=== PATIENT | female | born 1950 | race Caucasian/White ===

== ENCOUNTER → 2020-04-29 | Emergency (ER) | payer MEDICARE, MEDICAID ==
[~2020-04-29] MED LIST: ONDANSETRON 4MG/2ML VIAL As Ordered ONE; ONDANSETRON 4MG/2ML VIAL ONE
--- NOTE | 2020-06-02 14:10 | ECGEPIP ---
SINUS BRADYCARDIA MODERATE T-WAVE ABNORMALITY, CONSIDER ANTERIOR ISCHEMIA ABNORMAL ECG SEE SCANNED DOWNTIME REPORT MTDD
[2020-06-14 01:57] LABS: HEMATOCRIT 42.5 % (36.0-47.0); HEMOGLOBIN 13.5 g/dl (12.0-15.5); MEAN CORPUSCULAR HEMOGLOBIN 27.6 pg (27.0-33.0); MEAN CORPUSCULAR HGB CONC 31.8 g/dl (32.0-36.5); MEAN CORPUSCULAR VOLUME 86.9 fl (80.0-96.0); PLATELET COUNT, AUTOMATED 271 10^3/uL (150-450); RED BLOOD COUNT 4.89 10^6/uL (4.00-5.40); WHITE BLOOD COUNT 5.9 10^3/uL (4.0-10.0)
[2020-06-14 02:08] LABS: INR 1.01; PROTHROMBIN TIME 13.5 SECONDS (12.5-14.3)
== END | disposition home or self-care (01) ==
LOC: M ED 15:21
DX: R00.2 Palpitations (principal); R42 Dizziness and giddiness; E11.9 Type 2 diabetes mellitus without complications; I51.9 Heart disease, unspecified; R56.9 Unspecified convulsions; Z79.899 Other long term (current) drug therapy; Z88.0 Allergy status to penicillin; Z88.1 Allergy status to other antibiotic agents; Z87.891 Personal history of nicotine dependence
CPT/HCPCS: 71046; 80053; 82550; 82553; 84484; 85027; 85610; 93005; 96374; 99284; J2405

== ENCOUNTER → 2021-04-25 | Outpatient (CLI) | payer MEDICARE, MEDICAID ==
[~2021-04-25] MED LIST changes: +CEFD300C41 PO; +COLA100C5 PO; +DEXI60CA2; +LORA1TAB4; -ONDANSETRON 4MG/2ML VIAL As Ordered ONE; -ONDANSETRON 4MG/2ML VIAL ONE; +PRAV40TA2; +REGL10TA6 PO; +VENL75CA47
[2021-04-25 17:24] LABS: HEMATOCRIT 42.2 % (36.0-47.0); HEMOGLOBIN 13.1 g/dl (12.0-15.5); MEAN CORPUSCULAR HEMOGLOBIN 26.7 pg (27.0-33.0); MEAN CORPUSCULAR VOLUME 86.1 fl (80.0-96.0); PLATELET COUNT, AUTOMATED 282 10^3/uL (150-450); WHITE BLOOD COUNT 6.7 10^3/uL (4.0-10.0)
[2021-04-25 17:39] LABS: ALBUMIN 3.4 GM/DL (3.2-5.2); ALT/SGPT 29 U/L (12-78); BILIRUBIN,TOTAL 0.3 MG/DL (0.2-1.0); BLOOD UREA NITROGEN 6 MG/DL (7-18); CALCIUM LEVEL 8.6 MG/DL (8.8-10.2); CARBON DIOXIDE LEVEL 28 MEQ/L (21-32); CHLORIDE LEVEL 111 MEQ/L (98-107); CHOLESTEROL LEVEL 205 MG/DL (<200); CHOLESTEROL RISK RATIO 3.727 (<5); CREATININE FOR GFR 0.76 MG/DL (0.55-1.30); GLOMERULAR FILTRATION RATE > 60.0 (>45); GLUCOSE, FASTING 90 MG/DL (70-100); HDL CHOLESTEROL 55 MG/DL (>40); LDL CHOLESTEROL 127 MG/DL (<100); NON-HDL-C 150 MG/DL; POTASSIUM SERUM 4.5 MEQ/L (3.5-5.1); SODIUM LEVEL 142 MEQ/L (136-145); TOTAL PROTEIN 6.7 GM/DL (6.4-8.2); TRIGLYCERIDES LEVEL 114 MG/DL (<150)
== END ==
LOC: M PLALAB 16:02
PROVIDERS: ATTEND Family Medicine
DX: Z13.220 Encounter for screening for lipoid disorders (principal); Z13.1 Encounter for screening for diabetes mellitus; I25.10 Atherosclerotic heart disease of native coronary artery without angina pectoris

== ENCOUNTER → 2021-06-23 | Outpatient (CLI) | payer MEDICARE, MEDICAID ==
--- NOTE | 2021-06-23 14:18 | REPMRS ---
Patient History The patient states she has not had a clinical breast exam in over a year. Patient has history of colorectal cancer at age 64. Family history of unknown cancer in mother, unknown cancer in father, breast cancer in maternal aunt, unknown cancer in maternal uncle, unknown cancer in maternal uncle. Patient states she had a bx many years ago that was a plugged milk duct in the left breast New baseline @ 70-priors no longer available Patient signed the MRS sheet No covid vaccine Patient Identification Verified Digital Woman Screen Mammo: June 23, 2021 - Exam #: [id number] Bilateral CC and MLO view(s) were taken. Technologist: Karyn Gr, Technologist No prior studies available for comparison. FINDINGS: There are scattered fibroglandular densities. The Volpara volumetric breast density category is: B. There is no evidence of dominant mass, architectural distortion, or grouped microcalcification typical of malignancy. 3-D tomosynthesis shows no additional findings. Assessment: BI-RADS/ACR category 1 mammogram. Negative Mammogram. Recommendation Routine screening mammogram of both breasts in 1 year (for women over age 40). This patient's [facility] Lifetime Breast Cancer RIsk is estimated at 6.4 %. This mammogram was interpreted with the aid of an FDA-approved computer-aided dectection system. Electronically Signed By: Arias Soriano MD 06/23/21 6846
--- NOTE | 2021-06-23 14:36 | DEXAMM ---
INDICATION: LOW BONE DENSITY. COMPARISON: None. TECHNIQUE: Bone density was measured using dual-energy x-ray absorptionmetry (DEXA). FINDINGS: AP SPINE L1-L4 BMD 0.959 g/cm2 Young Adult T-Score -1.9 Age Matched Z-Score -0.2. LT FEMUR, TOTAL BMD 0.770 g/cm2 Young Adult T-Score -1.9 Age Matched Z-Score -0.4. LT NECK BMD 0.685 g/cm2 Young Adult T-Score -2.5 Age Matched Z-Score -0.9. RT FEMUR, TOTAL BMD 0.724 g/cm2 Young Adult T-Score -2.2 Age Matched Z-Score -0.8. RT NECK BMD 0.685 g/cm2 Young Adult T-Score -2.5 Age Matched Z-Score -0.9. IMPRESSION: There is low bone density of the spine. There is osteoporosis of the left hip. There is osteoporosis of the right hip. FOLLOW-UP: Recommendation for the next bone density exam: 2 years. <Electronically signed by Arias Soriano > 06/23/21 0315
== END ==
LOC: M WHC 13:07
PROVIDERS: ATTEND Family Medicine
DX: Z12.31 Encounter for screening mammogram for malignant neoplasm of breast (principal); M85.80 Other specified disorders of bone density and structure, unspecified site; M81.0 Age-related osteoporosis without current pathological fracture

== ENCOUNTER 2021-08-08 03:16 | Emergency (ER) | payer MEDICARE, MEDICAID ==
[~2021-08-08] VITALS: Ht 162.6 cm; Wt 76.0 kg
--- OUTSIDE RECORDS SUMMARY | 2021-08-08 03:20 | CCD ---
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 Active conf irmed 062254318 Problem Memory change R41.3 Active confirmed 206573 006 Problem Mild persistent asthma without complication J45.30 Active confirmed 671328293 Problem THONG (obstructive sleep apnea) G47.33 Active confirm ed 59378088 Problem Primary hypertension I10 Active confirmed 03614417 Problem Pure hypercholesterolemia E78.00 Active confirmed 056551424 ALLERGIES Allergen (clinical drug ingredient) Drug/Non Drug Allergy do cumented on EMR Reaction Allergy Type Onset Date Status clarithromycin Biaxin vomiting Drug Allergy Active Penicillin (For Allergies Use Only) asthma attack Drug All ergy Active metronidazole Flagyl([facility] Code:[address]-82) vomiting Drug Allergy Active clindamycin Clindamycin HCl([facility] Code:[address]-02) vomiting Drug A llergy Active ENCOUNTERS from 1950 to 2021-06-08 Encounter Location Date Provider Diagnosis [address] [phone] [place] [address] May, Amanda Rodriguez IMMUNIZATIONS No Information SOCIAL HISTORY Sex Assigned At : Social History Observation Description Sex Assigned At Unknown Audit Question Answer Notes Total Score: 0 Interpretation: Alcohol Education Language: Question Answer Notes Languages spoken: Swedish Pentecostalism: Question Answer Notes Pentecostalism 08 Anglican Sexual Hx: Question Answer Notes Had sex in the last 12 months (vaginal, oral, or anal)? No Have you ever had an STD? No Drug and Alcohol Question Answer Notes Total Score: 0 Interpretation: No problems reported REASON FOR REFERRAL No Information VITAL SIGNS No information MEDICATIONS Medication SIG (Take, Route, Frequency, Duration) Notes Start Da te End Date Status LORazepam 1 MG 1 tablet orally TID PRN Active Albuterol Sulfate 2.5 MG/0.5ML as directed Inhalation Active Pravastatin Sodium 40 MG 1 tablet Orally Once a day Active Metoprolol Succinate ER 25 MG 1 tablet Orally Once a day Active Venlafaxine HCl ER 75 MG 1 capsule with food Orally Once a day Active Albuterol Sulfate 108 (90 Base) MCG/ACT 1 puff as needed Inh alation every 4 hrs Active Dexilant 60 MG 1 capsule Orally Once a day Active PROCEDURES No Information RESULTS No Results REASON FOR VISIT Pulm referral MEDICAL (GENERAL) HISTORY Type Description Date Medical History Reports hx [place] [id number]; cardi ac cath was normal in 2003 and Reg stress test was normal in 2019 - [place] Medical History CVA in 1981; TIA in 09/2018; reports TIA symptoms 09/2020 but did not seek care Medical History Seizure disorder - last seiz ure was 2017; psychogenic nonepileptic seizures per [facility] Neurology Medical History Reflux Medical History Anxiety - Dr. Robles Medical History HLD Medical History Colon cancer - 2013 or 2014, treated wit h surgery only Medical History Pancreatitis in Medical History Former smoker - quit 1992 Medical History ?Multiple sclerosis - no marcelle dence of this per Neurolgy notes from [facility] in 2012 Medical History History of kidney stones Medical History Asthma Medical History THONG - CPAP Surgical History Tonsillectomy child Surgical History Stents in heart 1989 Surgical History Cholecystectomy unknown Surgical History BTL 1990 Surgical History Colon cancer resection 2013 Hospitalization History surgery Hospitalization History 3 strokes unknown Hospitalization History 2 mini strokes in the past year 2020 Goals Section No Information Health Concerns No Information MEDICAL EQUIPMENT No Information MENTAL STATUS No Information FUNCTIONAL STATUS No Information ASSESSMENTS No Information PLAN OF TREATMENT Medication Medication Name Sig Start Date Stop Date LORazepam 1 MG 1 tablet orally TID PRN Venlafaxine HCl ER 75 MG 1 capsule with food Orally Once a day Albuterol Sulfate 108 (90 Base) MCG/ACT 1 puff as needed Inh alation every 4 hrs Metoprolol Succinate ER 25 MG 1 tablet Orally Once a day Pravastatin Sodium 40 MG 1 tablet Orally Once a day Next Appt Details Provider Name:Amanda Rodriguez, 2021-06-28 09:30:00 AM, [address] [facility], , [place], [address], Insurance Providers Payer Name Payer Address Payer Phone Insured Name Patient Relati onship to Insured Coverage Start Date Coverage End Date AETNA MEDICARE AETNA [employer] INSURANCE [employer] [address] [facility] [phone] [place] MEDICA[place] [employer] [address] [facility] [id number] [place] self
--- OUTSIDE RECORDS SUMMARY | 2021-08-08 03:20 | CCD ---
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 Active conf irmed 296587016 Problem Memory change R41.3 Active confirmed 416173 006 Problem Mild persistent asthma without complication J45.30 Active confirmed 472871104 Problem THONG (obstructive sleep apnea) G47.33 Active confirm ed 69702769 Problem Primary hypertension I10 Active confirmed 18009411 Problem Pure hypercholesterolemia E78.00 Active confirmed 978531901 ALLERGIES Allergen (clinical drug ingredient) Drug/Non Drug Allergy do cumented on EMR Reaction Allergy Type Onset Date Status clarithromycin Biaxin vomiting Drug Allergy Active Penicillin (For Allergies Use Only) asthma attack Drug All ergy Active metronidazole Flagyl([facility] Code:[address]-89) vomiting Drug Allergy Active clindamycin Clindamycin HCl([facility] Code:[address]-47) vomiting Drug A llergy Active ENCOUNTERS from 1950 to 2021-06-02 Encounter Location Date Provider Diagnosis [place] [address] [facility] [phone] [place] [address] May, Amanda Rodriguez Psychogenic nonepileptic sei zure F44.5 ; Memory change R41.3 ; Primary hypertension I10 ; Pure hypercholesterolemia E78.00 ; Anxiety F41.9 ; Mild persistent asthma without complication J45.30 ; THONG (obstructive sleep apnea) G47.33 and Greater trochanteric pain syndrome M25.559 IMMUNIZATIONS No Information SOCIAL HISTORY Sex Assigned At : Social History Observation Description Sex Assigned At Unknown Audit Question Answer Notes Total Score: 0 Interpretation: Alcohol Education Language: Question Answer Notes Languages spoken: Namibian Zoroastrianism: Question Answer Notes Zoroastrianism 08 Gnosticism Sexual Hx: Question Answer Notes Had sex in the last 12 months (vaginal, oral, or anal)? No Have you ever had an STD? No Drug and Alcohol Question Answer Notes Total Score: 0 Interpretation: No problems reported REASON FOR REFERRAL from 1950 to 2021-06-02 Reason Needs evaluation of THONG on C PAP and asthma with ALFARO Diagnosis 1 Mild persistent asthma witho ut complication (J45.30) Diagnosis 2 THONG (obstructive sleep apnea ) (G47.33) Referral Organization [facility] Referring Provider First Name Amanda [facility] Referring Provider Specialty Family Medicine Referred Provider [facility] Referred Provider Specialty Pulmonary Diseases Referral Priority Routine Reason Needs to transfer care from [facility] to local manager dairy Diagnosis 1 Primary hypertension (I10) Referral Organization [facility] Referring Provider First Name Amanda Referring Provider [facility] Referring Provider Specialty Family Medicine Referred Provider [facility] Referred Provider Specialty Cardiology Referral Priority Routine General Notes Anjelica Matthews 06/02/2021 7:5 8:04 AM > referral sent Reason Please evaluate and treat Diagnosis 1 Psychogenic nonepileptic sei zure (F44.5) Diagnosis 2 Memory change (R41.3) Referral Organization [facility] Referring Provider First Name Amanda Referring Provider [facility] Referring Provider Specialty Family Medicine Referred Provider [facility],Neurology Referred Provider Specialty Neurology Referral Priority Routine General Notes Anjelica Matthews 06/02/2021 7:5 7:27 AM > referral sentAnjelica Matthews 06/02/2021 2:08:15 PM > office has referral, patient not scheduled VITAL SIGNS Weight 165 lbs May, Height 64 in May, BMI 28.32 kg/m2 May, Heart Rate 85 /min May, Respiratory Rate 18 /min May, Temperature 96.1 degrees Fahrenheit May, Oximetry 95 May, Blood pressure systolic 126 mm Hg May, Blood pressure diastolic 74 mm Hg May, MEDICATIONS Medication SIG (Take, Route, Frequency, Duration) [...] Information RESULTS No Results REASON FOR VISIT 1 month (Reason: F/u med prob) MEDICAL (GENERAL) HISTORY Type Description Date Medical History Reports hx [place] [id number]; cardi ac cath was normal in 2003 and Reg stress test was normal in 2019 - [place] Medical History CVA in 1981; TIA in 09/2018; reports TIA symptoms 09/2020 but did not seek care Medical History Seizure disorder - last seiz ure was 2017; psychogenic nonepileptic seizures per [facility] Neurology Medical History Reflux Medical History Anxiety - Dr. Robles Medical History HLD Medical History Colon cancer - 2013 or 2014, treated wit h surgery only Medical History Pancreatitis in Medical History Former smoker - quit 1992 Medical History ?Multiple sclerosis - no marcelle dence of this per Neurolgy notes from [facility] in 2012 Medical History History of kidney [...] No Information FUNCTIONAL STATUS No Information ASSESSMENTS Encounter Date Diagnosis Assessment Notes Treatment Notes Treatm ent Clinical Notes May, Psychogenic nonepileptic seizure (ICD-10 - F44.5 ) Not on any antiseizure medications currently; requesting referral to Neurology. May, Memory change (ICD-10 - R41.3) Reports she is more forgetful recently; referred to Neurology per her request. May, Primary hypertension (ICD-10 - I10) BP is at goal; she is requesting to transfer to local cardiology. May, Pure hypercholesterolemia (ICD-10 - E78.00) Lipid panel as above. May, Anxiety (ICD-10 - F41.9) Reports she stopped venlafaxine 37.5 mg due to it causing fatigue; plans to f/u with Dr. Robles. May, Mild persistent asthma without complication (ICD -10 - J45.30) I suspect ALFARO is related to underlying asthma rather than cardiac disease as she has no chest pain and stress test was normal in 10/2019. I recommended she try using albuterol when SOB with exertion. She states she discussed ALFARO with her manager dairy, who recommended pulmonary evaluation. May, THONG (obstructive sleep apnea) (ICD-10 - G47.33) She feels her CPAP needs to be adjusted and is requesting referral to pulmonology. May, Greater trochanteric pain syndrome (ICD-10 - M25 .559) Will schedule for corticosteroid injection. PLAN OF TREATMENT Medication Medication Name Sig [...] MG 1 tablet Orally Once a day Treatment Notes Assessment Notes Clinical Notes Psychogenic nonepileptic seizure Not on any antiseizure medications currently; requesting referral to Neurology. Memory change Reports she is more forgetful recently; referred to Neurology per her request. Primary hypertension BP is at goal; she is requesting to transfer to local cardiology. Pure hypercholesterolemia Lipid panel as above. Anxiety Reports she stopped venlafaxine 37.5 mg due to it causing fatigue; plans to f/u with Dr. Robles. Mild persistent asthma without complication I suspect ALFARO is related to underlying asthma rather than cardiac disease as she has no chest pain and stress test was normal in 10/2019. I recommended she try using albuterol when SOB with exertion. She states she discussed ALFARO with her manager dairy, who recommended pulmonary evaluation. THONG (obstructive sleep apnea) She feels her CPAP needs to be adjusted and is requesting referral to pulmonology. Greater trochanteric pain syndrome Will schedule for corticosteroid injection. Referrals Referral Date Details Needs evaluation of THONG on C PAP and asthma with Rocio ALFARO Pulmonary Needs to transfer care from [facility] [place] to local [facility] ([facility]iology, [place]) [place] Please evaluate and treat, N eurology [facility] Next Appt Details as sched Reason: Provider Name:Amanda Rordiguez, 2021-06-28 09:30:00 AM, [address] [facility], , [place], [address], Insurance Providers Payer Name Payer Address Payer Phone Insured Name Patient Relati onship to Insured Coverage Start Date Coverage End Date AETNA MEDICARE AETNA [employer] INSURANCE [employer] [address] [facility] [phone] [place] MED[place] [employer] [address] [facility] [address] [place] self
--- OUTSIDE RECORDS SUMMARY | 2021-08-08 03:20 | CCD ---
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 Active conf irmed 855683159 Problem Memory change R41.3 Active confirmed 211686 006 Problem Mild persistent asthma without complication J45.30 Active confirmed 573157752 Problem THONG (obstructive sleep apnea) G47.33 Active confirm ed 23059144 Problem Primary hypertension I10 Active confirmed 53979184 Problem Pure hypercholesterolemia E78.00 Active confirmed 131210355 ALLERGIES Allergen (clinical drug ingredient) Drug/Non Drug Allergy do cumented on EMR Reaction Allergy Type Onset Date Status clarithromycin Biaxin vomiting Drug Allergy Active Penicillin (For Allergies Use Only) asthma attack Drug All ergy Active metronidazole Flagyl([facility] Code:[address]-76) vomiting Drug Allergy Active clindamycin Clindamycin HCl([facility] Code:[address]-49) vomiting Drug A llergy Active ENCOUNTERS from 1950 to 2021-06-08 Encounter Location Date Provider Diagnosis [address] [phone] [place] [address] May, Amanda Rodriguez IMMUNIZATIONS No Information SOCIAL HISTORY Sex Assigned At : Social History Observation Description Sex Assigned At Unknown Audit Question Answer Notes Total Score: 0 Interpretation: Alcohol Education Language: Question Answer Notes Languages spoken: Kyrgyz Holiness: Question Answer Notes Holiness 08 Presybeterian Sexual Hx: Question Answer Notes Had sex [...] Information RESULTS No Results REASON FOR VISIT Neuro referral MEDICAL (GENERAL) HISTORY Type Description Date Medical History Reports hx [place] [id number]; cardi ac cath was normal in 2003 and Reg stress test was normal in 2019 - [place] Medical History CVA in 1981; TIA in 09/2018; reports TIA symptoms 09/2020 but did not seek care Medical History Seizure disorder - last seiz ure was 2018; psychogenic nonepileptic seizures per [facility] Neurology Medical History Reflux Medical History Anxiety - Dr. Robles Medical History HLD Medical History Colon cancer - 2013 or 2014, treated wit h surgery only Medical History Pancreatitis in Medical History Former smoker - quit 1992 Medical History ?Multiple sclerosis - no marcelle dence of this per Neurolgy notes from [facility] in 2012 Medical History History of kidney [...] Provider Name:Amanda Rodriguez, 2021-06-28 09:30:00 AM, [address] [facility], , [place], [address], Insurance Providers Payer Name Payer Address Payer Phone Insured Name Patient Relati onship to Insured Coverage Start Date Coverage End Date MEDICAID [employer] [address] [facility] [id number] [place] AETNA MEDICARE AETNA [employer] INSURANCE [employer] [address] [facility] [phone] [place] self
--- OUTSIDE RECORDS SUMMARY | 2021-08-08 03:20 | CCD ---
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 Active conf irmed [id number] Problem Memory change R41.3 Active confirmed 464488 006 Problem Mild persistent asthma without complication J45.30 Active confirmed 070646507 Problem THONG (obstructive sleep apnea) G47.33 Active confirm ed 61032058 Problem Primary hypertension I10 Active confirmed 87662849 Problem Pure hypercholesterolemia E78.00 Active confirmed 399031220 ALLERGIES Allergen (clinical drug ingredient) Drug/Non Drug Allergy do cumented on EMR Reaction Allergy Type Onset Date Status clarithromycin Biaxin vomiting Drug Allergy Active Penicillin (For Allergies Use Only) asthma attack Drug All ergy Active metronidazole Flagyl([facility] Code:[address]-55) vomiting Drug Allergy Active clindamycin Clindamycin HCl(ND Code:[address]-46) vomiting Drug A llergy Active ENCOUNTERS from 1950 to 2021-06-29 Encounter Location Date Provider Diagnosis [place] [id number] [facility] [phone] [place] [address] Jun, Amanda Rodriguez Greater trochanteric pain sy ndrome of right lower extremity M25.551 ; Mild persistent asthma without complication J45.30 ; Other specified disorders of bone density and structure, right thigh M85.851 ; Other specified disorders of bone density and structure, left thigh M85.852 ; Anxiety F41.9 and Overweight E66.3 IMMUNIZATIONS No Information SOCIAL HISTORY Sex Assigned At : Social History Observation Description Sex Assigned At Unknown Audit Question Answer Notes Total Score: 0 Interpretation: Alcohol Education Language: Question Answer Notes Languages spoken: [place] Denominational: Question Answer Notes Denominational 08 Cheondoism Sexual Hx: Question Answer Notes Had sex in the last 12 months (vaginal, oral, or anal)? No Have you ever had an STD? No Drug and Alcohol Question Answer Notes Total Score: 0 Interpretation: No problems reported REASON FOR REFERRAL No Information VITAL SIGNS Weight 166 lbs Jun, Height 64 in Jun, BMI 28.49 kg/m2 Jun, Heart Rate 68 /min Jun, Respiratory Rate 18 /min Jun, Temperature 96.4 degrees Fahrenheit Jun, Oximetry 96 Jun, Blood pressure systolic 124 mm Hg Jun, Blood pressure diastolic 80 mm Hg Jun, MEDICATIONS Medication SIG (Take, Route, Frequency, Duration) Notes Start Da te End Date Status Dexilant 60 MG 1 capsule Orally Once a day Active LORazepam 1 MG 1 tablet orally TID PRN Active Albuterol Sulfate 2.5 MG/0.5ML as directed Inhalation Active Calcium + D3 600-800 MG-UNIT 1 tablet with a meal Oral ly Once a day for 90 day(s) Jun, Active Albuterol Sulfate 108 (90 Base) MCG/ACT 1 puff as needed Inh alation every 4 hrs Active Pravastatin Sodium 40 MG 1 tablet Orally Once a day Active Metoprolol Succinate ER 25 MG 1 tablet Orally Once a day Active Nitrostat 0.3 MG as directed Sublingual PRN Active Venlafaxine HCl ER 75 MG 1 capsule with food Orally twice a day Active PROCEDURES from 1950 to 2021-06-29 Procedure Date Ordered Result Body Site Medication: 1% Lidocaine Dilutent (xylocaine) 2021-06-28 N/ A Medication: Depo-Medrol 40mg IA (Methylprednisolone Acetate) 09-26-11 N/A RESULTS No Results REASON FOR VISIT Right greater trochanter bursa injection, F/u ALFARO, Review Dexa (osteoporosis) an d mammogram results MEDICAL (GENERAL) HISTORY Type Description Date Medical History Reports hx [place] [id number]; cardi ac cath was normal in 2003 and Reg stress test was normal in 2019 - [facility] Medical History CVA in 1982; TIA in 09/2018; reports TIA symptoms 09/2020 but did not seek care Medical History Seizure disorder - last seiz ure was 2018; psychogenic nonepileptic seizures per [facility] Neurology Medical History Reflux Medical History Anxiety - Dr. Robles Medical History HLD Medical History Colon cancer - 2013 or 2014, treated wit h surgery only Medical History Pancreatitis in Medical History Former smoker - quit 1992 Medical History ?Multiple sclerosis - no marcelle dence of this per Neurolgy notes from [facility] in 2012 Medical History History of kidney stones Medical History Asthma Medical History THONG - CPAP Medical History Osteopenia - Frax score of 10/1.8% on [place] in 06/2021 Surgical History Tonsillectomy child Surgical History Stents [...] Notes Treatment Notes Treatm ent Clinical Notes Jun, Mild persistent asthma without complication (ICD -10 - J45.30) Symptoms improved with albuterol PRN. She declines alternative inhaler (such as a steroid inhaler); she received paperwork from [facility] and completed it and just needs to mail it back. Jun, Greater trochanteric pain sy ndrome of right lower extremity (ICD-10 - M25.551) Informed consent obtained, risks and benefits explained. See procedure note. I educated her on signs of infection and asked her to call with any redness, swelling, or fever. I advised that pain may worsen today or tomorrow and then will hopefully improve. Jun, Other specified disorders of bone density and structure, right thigh (ICD-10 - M85.851) Osteopenia but Frax score low enough that she does not need to start a bisphosphonate. Jun, Other specified disorders of bone density and structure, left thigh (ICD-10 - M85.852) Jun, Anxiety (ICD-10 - F41.9) I advised that her proposed slower wean is reasonable, but I recommended she d/w Dr. Robles. Jun, Overweight (ICD-10 - E66.3) She is motivated to lose weight; I discussed healthy dietary changes. I recommended slow, incremental changes over time that are sustainable, with weight loss of no more than 1-2 lbs per week. She drinks soda and juice; I recommended she start by cutting back on liquid calories. PLAN OF TREATMENT Medication Medication Name Sig Start Date Stop Date Venlafaxine HCl ER 75 MG 1 capsule with food Orally twice a day Calcium + D3 600-800 MG-UNIT 1 tablet with a meal Oral ly Once a day for 90 day(s) Jun, LORazepam 1 MG 1 tablet orally TID PRN Albuterol Sulfate 108 (90 Base) MCG/ACT 1 puff as needed Inh alation every 4 hrs Treatment Notes Assessment Notes Clinical Notes Mild persistent asthma without complication Symptoms improved with albuterol PRN. She declines alternative inhaler (such as a steroid inhaler); she received paperwork from [facility] and completed it and just needs to mail it back. Greater trochanteric pain syndrome of right lower extremity Informed consent obtained, risks and benefits explained. See procedure note. I educated her on signs of infection and asked her to call with any redness, swelling, or fever. I advised that pain may worsen today or tomorrow and then will hopefully improve. Other specified disorders of bone density and structure, rig ht thigh Osteopenia but Frax score low enough that she does not need to start a bisphosphonate. Anxiety I advised that her p roposed slower wean is reasonable, but I recommended she d/w Dr. Robles. Overweight She is motivated to lose weight; I discussed healthy dietary changes. I recommended slow, incremental changes over time that are sustainable, with weight loss of no more than 1-2 lbs per week. She drinks soda and juice; I recommended she start by cutting back on liquid calories. Next Appt Details Oct or November 2021; 30 min Reason:AWV Provider Name:Amanda Missy Rodriguez, 2021-11-14 10:00:00 AM, [address] [facility], , [place], [address], Follow Up:Oct or November 2021; 30 minAWV Insurance Providers Payer Name Payer Address Payer Phone Insured Name Patient Relati onship to Insured Coverage Start Date Coverage End Date AETNA MEDICARE AETNA LIFE [employer]URANCE [employer] [address] [facility] [address] [place] MEDICA[place] [employer] [address] [facility] [id number] [place] self
--- OUTSIDE RECORDS SUMMARY | 2021-08-08 03:20 | CCD ---
Author Author [facility] Organization 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 Active conf irmed 324894240 Problem Memory change R41.3 Active confirmed 121855 006 Problem Mild persistent asthma without complication J45.30 Active confirmed 022076840 Problem THONG (obstructive sleep apnea) G47.33 Active confirm ed 51499927 Problem Primary hypertension I10 Active confirmed 29567620 Problem Pure hypercholesterolemia E78.00 Active confirmed 465569552 ALLERGIES Allergen (clinical drug ingredient) Drug/Non Drug Allergy do cumented on EMR Reaction Allergy Type Onset Date Status clarithromycin Biaxin vomiting Drug Allergy Active Penicillin (For Allergies Use Only) asthma attack Drug All ergy Active metronidazole Flagyl([facility] Code:[address]-33) vomiting Drug Allergy Active clindamycin Clindamycin HCl(ND Code:[address]-69) vomiting Drug A llergy Active ENCOUNTERS from 1950 to 2021-07-06 Encounter Location Date Provider Diagnosis [address] [phone] [place] [address] Jun, Amanda Rodriguez IMMUNIZATIONS No Information SOCIAL HISTORY Sex Assigned At : Social History Observation Description Sex Assigned At Unknown Audit Question Answer Notes Total Score: 0 Interpretation: Alcohol Education Language: Question Answer Notes Languages spoken: Yi Yazdanism: Question Answer Notes Yazdanism 08 Hoahaoism Sexual Hx: Question Answer Notes Had sex [...] food Orally twice a day Active PROCEDURES No Information RESULTS No Results REASON FOR VISIT Pulm referral MEDICAL (GENERAL) HISTORY Type Description Date Medical History Reports hx [place] [id number]; cardi ac cath was normal in 2003 and Reg stress test was normal in 2019 - [facility] Medical History CVA in 1981; TIA in 09/2018; reports TIA symptoms 09/2020 but did not seek care Medical History Seizure disorder - last seiz ure was 2018; psychogenic nonepileptic seizures per [facility] Neurology Medical History Reflux Medical History Anxiety - Dr. Robles Medical History HLD Medical History Colon cancer - 2013 or 2014, treated wit h surgery only Medical History Pancreatitis in Medical History Former smoker - quit 1992 Medical History ?Multiple sclerosis - no marcelle dence of this per Neurolgy notes from [facility] in 2012 Medical History History of [...] as needed Inh alation every 4 hrs Next Appt Details Provider Name:Amanda Rodriguez, 2021-11-14 10:00:00 AM, [address] [facility], , [place], [address], Insurance Providers Payer Name Payer Address Payer Phone Insured Name Patient Relati onship to Insured Coverage Start Date Coverage End Date MEDICAID [employer] [address] [facility] [id number] [place] AETNA MEDICARE AETNA [employer] [address] [facility] [id number] [place] self
--- OUTSIDE RECORDS SUMMARY | 2021-08-08 03:21 | CCD ---
Author Author [facility] Organization [facility] Address Unknown Phone Unavailable Care Team Providers Care Claims Auditor Name Role Phone Peever, A Jannet NON MORSE INTERCEPT TECHNICIAN Unavailable Unavailable Peever, A Jannet NON MORSE INTERCEPT TECHNICIAN Unavailable Unavailable Peever, A Jannet NON MORSE INTERCEPT TECHNICIAN Unavailable Unavailable Peever, A Jannet NON MORSE INTERCEPT TECHNICIAN Unavailable Unavailable Peever, A Jannet NON MORSE INTERCEPT TECHNICIAN Unavailable Unavailable Peever, A Jannet NON MORSE INTERCEPT TECHNICIAN Unavailable Unavailable Peever, A Jannet NON MORSE INTERCEPT TECHNICIAN Unavailable Unavailable Peever, A Jannet NON MORSE INTERCEPT TECHNICIAN Unavailable Unavailable Peever, A Jannet NON MORSE INTERCEPT TECHNICIAN Unavailable Unavailable Peever, A Jannet NON MORSE INTERCEPT TECHNICIAN Unavailable Unavailable Peever, A Jannet NON MORSE INTERCEPT TECHNICIAN Unavailable Unavailable Peever, A Jannet NON MORSE INTERCEPT TECHNICIAN Unavailable Unavailable Peever, A Jannet NON MORSE INTERCEPT TECHNICIAN Unavailable Unavailable Peever, A Jannet NON MORSE INTERCEPT TECHNICIAN Unavailable Unavailable Josiah, P Jeffrey DO Unavailable Unavailable Josiah, P Jeffrey DO Unavailable Unavailable Josiah, P Jeffrey DO Unavailable Unavailable Josiah, P Jeffrey DO Unavailable Unavailable Josiah, P Jeffrey DO Unavailable Unavailable Josiah, P Jeffrey DO Unavailable Unavailable Josiah, P Jeffrey DO Unavailable Unavailable Josiah, P Jeffrey DO Unavailable Unavailable Josiah, P Jeffrey DO Unavailable Unavailable Josiah, P Jeffrey DO Unavailable Unavailable Josiah, P Jeffrey DO Unavailable Unavailable Josiah, P Jeffrey DO Unavailable Unavailable Josiah, P Jeffrey DO Unavailable Unavailable Josiah, P Jeffrey DO Unavailable Unavailable Josiah, P Jeffrey DO Unavailable Unavailable Josiah, P Jeffrey DO Unavailable Unavailable Josiah, P Jeffrey DO Unavailable Unavailable Josiah, P Jeffrey DO Unavailable Unavailable Josiah, P Jeffrey DO Unavailable Unavailable Josiah, P Jeffrey DO Unavailable Unavailable Josiah, P Jeffrey DO Unavailable Unavailable Josiah, P Jeffrey DO Unavailable Unavailable Josiah, P Jeffrey DO Unavailable Unavailable Josiah, P Jeffrey DO Unavailable Unavailable Josiah, P Jeffrey DO Unavailable Unavailable Josiah, P Jeffrey DO Unavailable Unavailable Josiah, P Jeffrey DO Unavailable Unavailable Josiah, P Jeffrey DO Unavailable Unavailable Josiah, P Jeffrey DO Unavailable Unavailable Josiah, P Jeffrey DO Unavailable Unavailable Josiah, P Jeffrey DO Unavailable Unavailable Josiah, P Jeffrey DO Unavailable Unavailable Josiah, P Jeffrey DO Unavailable Unavailable Josiah, P Jeffrey DO Unavailable Unavailable Josiah, P Jeffrey DO Unavailable Unavailable Josiah, P Jeffrey DO Unavailable Unavailable Josiah, P Jeffrey DO Unavailable Unavailable Josiah, P Jeffrey DO Unavailable Unavailable Josiah, P Jeffrey DO Unavailable Unavailable Josiah, P Jeffrey DO Unavailable Unavailable Josiah, P Jeffrey DO Unavailable Unavailable Josiah, P Jeffrey DO Unavailable Unavailable Josiah, P Jeffrey DO Unavailable Unavailable Josiah, P Jeffrey DO Unavailable Unavailable Josiah, P Jeffrey DO Unavailable Unavailable Josiah, P Jeffrey DO Unavailable Unavailable Josiah, P Jeffrey DO Unavailable Unavailable Josiah, P Jeffrey DO Unavailable Unavailable Josiah, P Jeffrey DO Unavailable Unavailable Josiah, P Jeffrey DO Unavailable Unavailable Josiah, P Jeffrey DO Unavailable Unavailable Josiah, P Jeffrey DO Unavailable Unavailable Josiah, P Jeffrey DO Unavailable Unavailable Josiah, P Jeffrey DO Unavailable Unavailable Josiah, P Jeffrey DO Unavailable Unavailable Josiah, P Jeffrey DO Unavailable Unavailable Josiah, P Jeffrey DO Unavailable Unavailable Josiah, P Jeffrey DO Unavailable Unavailable Josiah, P Jeffrey DO Unavailable Unavailable Josiah, P Jeffrey DO Unavailable Unavailable Josiah, P Jeffrey DO Unavailable Unavailable Josiah, P Jeffrey DO Unavailable Unavailable Josiah, P Jeffrey DO Unavailable Unavailable Josiah, P Jeffrey DO Unavailable Unavailable Josiah, P Jeffrey DO Unavailable Unavailable Josiah, P Jeffrey DO Unavailable Unavailable Josiah, P Jeffrey DO Unavailable Unavailable Josiah, P Jeffrey DO Unavailable Unavailable Josiah, P Jeffrey DO Unavailable Unavailable Josiah, P Jeffrey DO Unavailable Unavailable Josiah, P Jeffrey DO Unavailable Unavailable Josiah, P Jeffrey DO Unavailable Unavailable Josiah, P Jeffrey DO Unavailable Unavailable Josiah, P Jeffrey DO Unavailable Unavailable Price Boone MD Unavailable Unavailable Price Boone MD Unavailable Unavailable Price Boone MD Unavailable Unavailable Price Boone MD Unavailable Unavailable Price Boone MD Unavailable Unavailable Price Boone MD Unavailable Unavailable Price Boone MD Unavailable Unavailable Price Boone MD Unavailable Unavailable Price Boone MD Unavailable Unavailable Price Boone MD Unavailable Unavailable Price Boone MD Unavailable Unavailable Price Boone MD Unavailable Unavailable Price Boone MD Unavailable Price Montesinos MD Unavailable Price Montesinos MD Unavailable Price Montesinos MD Unavailable Unavailable Price Boone MD Unavailable Unavailable Price Boone MD Unavailable Unavailable Price Boone MD Unavailable Price Montesinos MD Unavailable Price Montesinos MD Unavailable Price Montesinos MD Unavailable Price Montesinos MD Unavailable Price Montesinos MD Unavailable Price Montesinos MD Unavailable Price Montesinos MD Unavailable Price Montesinos MD Unavailable Price Montesinos MD Unavailable Price Montesinos MD Unavailable Price Montesinos MD Unavailable Price Montesinos MD Unavailable Unavailable Price Boone MD Unavailable Unavailable Price Boone MD Unavailable Price Montesinos MD Unavailable Price Montesinos MD Unavailable Price Montesinos MD Unavailable Price Montesinos MD Unavailable Unavailable Price Boone MD Unavailable Unavailable Price Boone MD Unavailable Unavailable Price Boone MD Unavailable Price Montesinos MD Unavailable Price Montesinos MD Unavailable Price Montesinos MD Unavailable Price Montesinos MD Unavailable Price Montesinos MD Unavailable Price Montesinos MD Unavailable Unavailable Price Boone MD Unavailable Price Montesinos MD Unavailable Unavailable Price Boone MD Unavailable Unavailable Price Boone MD Unavailable Unavailable Price Boone MD Unavailable Unavailable Price Boone MD Unavailable Unavailable Price Boone MD Unavailable Unavailable Sharad Mosqueda MD Unavailable Unavailable Sharad Mosqueda MD Unavailable Unavailable Sharad Mosqueda MD Unavailable Unavailable Sharad Mosqueda MD Unavailable Unavailable Sharad Mosqueda MD Unavailable Unavailable Sharad Mosqueda MD Unavailable Unavailable Sharad Mosqueda MD Unavailable Unavailable Sharad Mosqueda MD Unavailable Unavailable Sharad Mosqueda MD Unavailable Unavailable Sharad Mosqueda MD Unavailable Unavailable Sharad Mosqueda MD Unavailable Unavailable Sharad Mosqueda MD Unavailable Unavailable Sharad Mosqueda MD Unavailable Unavailable Sharad Mosqueda MD Unavailable Unavailable Sharad Mosqueda MD Unavailable Unavailable Sharad Mosqueda MD Unavailable Unavailable Sharad Mosqueda MD Unavailable Unavailable Sharad Mosqueda MD Unavailable Unavailable Sharad Mosqueda MD Unavailable Unavailable Sharad Mosqueda MD Unavailable Unavailable Sharad Mosqueda MD Unavailable Unavailable Sharad Mosqueda MD Unavailable Unavailable Sahrad Mosqueda MD Unavailable Unavailable Sharad Mosqueda MD Unavailable Unavailable Sharad Mosqueda MD Unavailable Unavailable Sharad Mosqueda MD Unavailable Unavailable Sharad Mosqueda MD Unavailable Unavailable Sharad Mosqueda MD Unavailable Unavailable Sharad Mosqueda MD Unavailable Unavailable Sharad Mosqueda MD Unavailable Unavailable Sharad Mosqueda MD Unavailable Unavailable Sharad Mosqueda MD Unavailable Unavailable Sharad Mosqueda MD Unavailable Unavailable Sharad Mosqueda MD Unavailable Unavailable Sharad Mosqueda MD Unavailable Unavailable Sharad Mosqueda MD Unavailable Unavailable Sharad Mosqueda MD Unavailable Unavailable Sharad Mosqueda MD Unavailable Unavailable Sharad Mosqueda MD Unavailable Unavailable Sharad Mosqueda MD Unavailable Unavailable Sharad Mosqueda MD Unavailable Unavailable Sharad Mosqueda MD Unavailable Unavailable Sharad Mosqueda MD Unavailable Unavailable Sharad Mosqueda MD Unavailable Unavailable Sharad Mosqueda MD Unavailable Unavailable Sharad Mosqueda MD Unavailable Unavailable Sharad Mosqueda MD Unavailable Unavailable Sharad Mosqueda MD Unavailable Unavailable Sharad Mosqueda MD Unavailable Unavailable Sharad Mosqueda MD Unavailable Unavailable Sharad Mosqueda MD Unavailable Unavailable Sharad Mosqueda MD Unavailable Unavailable Sharad Mosqueda MD Unavailable Unavailable Sharad Mosqueda MD Unavailable Unavailable Sharad Mosqueda MD Unavailable Unavailable Sharad Mosqueda MD Unavailable Unavailable Sharad Mosqueda MD Unavailable Unavailable Sharad Mosqueda MD Unavailable Unavailable Sharad Mosqueda MD Unavailable Unavailable Sharad Mosqueda MD Unavailable Unavailable Sharad Mosqueda MD Unavailable Unavailable Sharad Mosqueda MD Unavailable Unavailable Sharad Mosqueda MD Unavailable Unavailable Sharad Mosqueda MD Unavailable Unavailable Sharad Mosqueda MD Unavailable Unavailable Sharad Mosqueda MD Unavailable Unavailable Sharad Mosqueda MD Unavailable Unavailable Sharad Mosqueda MD Unavailable Unavailable Sharad Mosqueda MD Unavailable Unavailable Sharad Mosqueda MD Unavailable Unavailable Sharad Mosqueda MD Unavailable Unavailable Sharad Mosqueda MD Unavailable Unavailable Sharad Mosqueda MD Unavailable Unavailable Sharad Mosqueda MD Unavailable Unavailable Sharad Mosqueda MD Unavailable Unavailable Sharad Mosqueda MD Unavailable Unavailable Sharad Mosqueda MD Unavailable Unavailable Sharad Mosqueda MD Unavailable Unavailable Jalen Yi MD Unavailable Unavailable Jalen Yi MD Unavailable Unavailable Jalen Yi MD Unavailable Unavailable Jalen Yi MD Unavailable Unavailable Jalen Yi MD Unavailable Unavailable Jalen Yi MD Unavailable Unavailable Jalen Yi MD Unavailable Unavailable Jalen Yi MD Unavailable Unavailable Jalen Yi MD Unavailable Unavailable Jalen Yi MD Unavailable Unavailable Jalen Yi MD Unavailable Unavailable Jalen Yi MD Unavailable Unavailable Jalen Yi MD Unavailable Unavailable Braxton Rodriguez MD Unavailable Unavailable Braxton Rodriguez MD Unavailable Unavailable Braxton Rodriguez MD Unavailable Unavailable Braxton Rodriguez MD Unavailable Unavailable Braxton Rodriguez MD Unavailable Unavailable Braxton Rodriguez MD Unavailable Unavailable Braxton Rodriguez MD Unavailable Unavailable Braxton Rodriguez MD Unavailable Unavailable Braxton Rodriguez MD Unavailable Unavailable Braxton Rodriguez MD Unavailable Unavailable Braxton Rodriguez MD Unavailable Unavailable Braxton Rodriguez Amanda MD Unavailable Unavailable Braxton Rodriguez Amanda MD Unavailable Unavailable Braxton Rodriguez MD Unavailable Unavailable Michael E Amanda MD Unavailable Unavailable Skipton, E Amanda MD Unavailable Unavailable Skipton, E Amanda MD Unavailable Unavailable Skipton, E Amanda MD Unavailable Unavailable Skipton, E Amanda MD Unavailable Unavailable Skipton, E Amanda MD Unavailable Unavailable Skipton, E Amanda MD Unavailable Unavailable Skipton, E Amanda MD Unavailable Unavailable Skipton, E Amanda MD Unavailable Unavailable Skipton, E Amanda MD Unavailable Unavailable Skipton, E Amanda MD Unavailable Unavailable Skipton, E Amanda MD Unavailable Unavailable Skipton, E Amanda MD Unavailable Unavailable Skipton, E Amanda MD Unavailable Unavailable Skipton, E Amanda MD Unavailable Unavailable Skipton, E Amanda MD Unavailable Unavailable Skipton, E Amanda MD Unavailable Unavailable Skipton, E Amanda MD Unavailable Unavailable Skipton, E Amanda MD Unavailable Unavailable Skipton, E Amanda MD Unavailable Unavailable Skipton, E Amanda MD Unavailable Unavailable Skipton, E Amanda MD Unavailable Unavailable Skipton, E Amanda MD Unavailable Unavailable Skipton, E Amanda MD Unavailable Unavailable Skipton, E Amanda MD Unavailable Unavailable Skipton, E Amanda MD Unavailable Unavailable Skipton, E Amanda MD Unavailable Unavailable Skipton, E Amanda MD Unavailable Unavailable Skipton, E Amanda MD Unavailable Unavailable Skipton, E Amanda MD Unavailable Unavailable Skipton, E Amanda MD Unavailable Unavailable Skipton, E Amanda MD Unavailable Unavailable Skipton, E Amanda MD Unavailable Unavailable Skipton, E Amanda MD Unavailable Unavailable Skipton, E Amanda MD Unavailable Unavailable Skipton, E Amanda MD Unavailable Unavailable Skipton, E Amanda MD Unavailable Unavailable Skipton, E Amanda MD Unavailable Unavailable Skipton, E Amanda MD Unavailable Unavailable Skipton, E Amanda MD Unavailable Unavailable Skipton, E Amanda MD Unavailable Unavailable Skipton, E Amanda MD Unavailable Unavailable Skipton, E Amanda MD Unavailable Unavailable Skipton, E Amanda MD Unavailable Unavailable Skipton, E Amanda MD Unavailable Unavailable Skipton, E Amanda MD Unavailable Unavailable MERCEDES TORRES MD Unavailable Unavailable MERCEDES TORRES MD Unavailable Unavailable MERCEDES TORRES MD Unavailable Unavailable MERCEDES TORRES MD Unavailable Unavailable MERCEDES TORRES MD Unavailable Unavailable MERCEDES TORRES MD Unavailable Unavailable MERCEDES TORRES MD Unavailable Unavailable ODSHOAIB, MERCEDES JAVED MD Unavailable Unavailable ODMERCEDES CRAMER MD Unavailable Unavailable ODSHOAIB, MERCEDES JAVED MD Unavailable Unavailable MELISSA, MERCEDES JAVED MD Unavailable Unavailable ODMERCEDES CRAMER MD Unavailable Unavailable MELISSA, MERCEDES JAVED MD Unavailable Unavailable MELISSA, MERCEDES JAVED MD Unavailable Unavailable ODSHOAIB, MERCEDES JAVED MD Unavailable Unavailable ODELIDAOLSJOVAN, MERCEDES JAVED MD Unavailable Unavailable ODSHOAIB, MERCEDES JAVED MD Unavailable Unavailable MELISSA, MERCEDES JAVED MD Unavailable Unavailable ODSHOAIB, MERCEDES JAVED MD Unavailable Unavailable MELISSA, MERCEDES JAVED MD Unavailable Unavailable MELISSA, MERCEDES JAVED MD Unavailable Unavailable MELISSA, MERCEDES JAVED MD Unavailable Unavailable MELISSA, MERCEDES JAVED MD Unavailable Unavailable MELISSA, MERCEDES JAVED MD Unavailable Unavailable MELISSA, MERCEDES JAVED MD Unavailable Unavailable MERCEDES TORRES MD Unavailable Unavailable MELISSA, MERCEDES JAVED MD Unavailable Unavailable MERCEDES TORRES MD Unavailable Unavailable MELISSA, MERCEDES JAVED MD Unavailable Unavailable MERCEDES TORRES MD Unavailable Unavailable MERCEDES TORRES MD Unavailable Unavailable MERCEDES TORRES MD Unavailable Unavailable MERCEDES TORRES MD Unavailable Unavailable MERCEDES TORRES MD Unavailable Unavailable MERCEDES TORRES MD Unavailable Unavailable MERCEDES TORRES MD Unavailable Unavailable MERCEDES TORRES MD Unavailable Unavailable MERCEDES TORRES MD Unavailable Unavailable MERCEDES TORRES MD Unavailable Unavailable MERCEDES TORRES MD Unavailable Unavailable MERCEDES TORRES MD Unavailable Unavailable MERCEDES TORRES MD Unavailable Unavailable MERCEDES TORRES MD Unavailable Unavailable MERCEDES TORRES MD Unavailable Unavailable MERCEDES TORRES MD Unavailable Unavailable MERCEDES TORRES MD Unavailable Unavailable Maring, Harris PA Unavailable Unavailable Maring, Harris PA Unavailable Unavailable Maring, Harris PA Unavailable Unavailable Maring, Harris PA Unavailable Unavailable Maring, Harris PA Unavailable Unavailable Maring, Harris PA Unavailable Unavailable Maring, Harris PA Unavailable Unavailable Maring, Harris PA Unavailable Unavailable Maring, Harris PA Unavailable Unavailable Maring, Harris PA Unavailable Unavailable Maring, Harris PA Unavailable Unavailable Maring, Harris PA Unavailable Unavailable Maring, Harris PA Unavailable Unavailable Maring, Harris PA Unavailable Unavailable Maring, Harris PA Unavailable Unavailable Maring, Harris PA Unavailable Unavailable Ivan Laguerre MD Unavailable Unavailable Ivan Laguerre MD Unavailable Unavailable Ivan Laguerre MD Unavailable Unavailable AhmedIvan MD Unavailable Unavailable AhIvan ruffin MD Unavailable Unavailable AhmedIvan MD Unavailable Unavailable Ivan Laguerre MD Unavailable Unavailable Ivan Laguerre MD Unavailable Unavailable Ivna Laguerre MD Unavailable Unavailable Ivan Laguerre MD Unavailable Unavailable Ivan Laguerre MD Unavailable Unavailable Ivan Laguerre MD Unavailable Unavailable Ivan Laguerre MD Unavailable Unavailable Ivan Laguerre MD Unavailable Unavailable Ivan Laguerre MD Unavailable Unavailable Ivan Laguerre MD Unavailable Unavailable Ivan Laguerre MD Unavailable Unavailable Ivan Laguerre MD Unavailable Unavailable Ivan Laguerre MD Unavailable Unavailable Ivan Laguerre MD Unavailable Unavailable Ivan Laguerre MD Unavailable Unavailable Ivan Laguerre MD Unavailable Unavailable Ivan Laguerre MD Unavailable Unavailable Ivan Laguerre MD Unavailable Unavailable Ivan Laguerre MD Unavailable Unavailable Ivan Laguerre MD Unavailable Unavailable Ivan Laguerre MD Unavailable Unavailable Ivan Laguerre MD Unavailable Unavailable Ivan Laguerre MD Unavailable Unavailable Ivan Laguerre MD Unavailable Unavailable Ivan Laguerre MD Unavailable Unavailable Ivan Laguerre MD Unavailable Unavailable Ivan Laguerre MD Unavailable Unavailable Ahmed, M Mohamed MD Unavailable Unavailable Ahmed, M Mohamed MD Unavailable Unavailable Ahmed, M Mohamed MD Unavailable Unavailable Ahmed, M Mohamed MD Unavailable Unavailable Ahmed, M Mohamed MD Unavailable Unavailable Ahmed, M Mohamed MD Unavailable Unavailable Ahmed, M Mohamed MD Unavailable Unavailable Ahmed, M Mohamed MD Unavailable Unavailable Ahmed, M Mohamed MD Unavailable Unavailable Ahmed, M Mohamed MD Unavailable Unavailable Ahmed, M Mohamed MD Unavailable Unavailable Ahmed, M Mohamed MD Unavailable Unavailable Ahmed, M Mohamed MD Unavailable Unavailable Ahmed, M Mohamed MD Unavailable Unavailable Ahmed, M Mohamed MD Unavailable Unavailable Ahmed, M Mohamed MD Unavailable Unavailable Sofia COLEMAN MD Unavailable Unavailable Sofia COLEMAN MD Unavailable Unavailable Sofia COLEMAN MD Unavailable Unavailable Sofia COLEMAN MD Unavailable Unavailable Sofia COLEMAN MD Unavailable Unavailable Sofia COLEMAN MD Unavailable Unavailable Sofia COLEMAN MD Unavailable Unavailable Sofia COLEMAN MD Unavailable Unavailable Sofia COLEMAN MD Unavailable Unavailable Sofia COLEMAN MD Unavailable Unavailable Sofia COLEMAN MD Unavailable Unavailable Sofia COLEMAN MD Unavailable Unavailable Sofia COLEMAN MD Unavailable Unavailable Sofai COLEMAN MD Unavailable Unavailable Sofia COLEMAN MD Unavailable Unavailable Sofia COLEMAN MD Unavailable Unavailable Sofia COLEMAN MD Unavailable Unavailable Sofia COLEMAN MD Unavailable Unavailable Sofia COLEMAN MD Unavailable Unavailable Sofia COLEMAN MD Unavailable Unavailable Sofia COLEMAN MD Unavailable Unavailable Sofia COLEMAN MD Unavailable Unavailable Sofia COLEMAN MD Unavailable Unavailable Sofia COLEMAN MD Unavailable Unavailable Sofia COLEMAN MD Unavailable Unavailable Sofia COLEMAN MD Unavailable Unavailable Sofia COLEMAN MD Unavailable Unavailable Sofia COLEMAN MD Unavailable Unavailable Sofia COLEMAN MD Unavailable Unavailable Sofia COLEMAN MD Unavailable Unavailable Sofia COLEMAN MD Unavailable Unavailable Sofia COLEMAN MD Unavailable Unavailable Sofia COLEMAN MD Unavailable Unavailable Sofia COLEMAN MD Unavailable Unavailable Sofia COLEMAN MD Unavailable Unavailable Sofia COLEMAN MD Unavailable Unavailable Sofia COLEMAN MD Unavailable Unavailable Sofia COLEMAN MD Unavailable Unavailable Sofia COLEMAN MD Unavailable Unavailable Sofia COLEMAN MD Unavailable Unavailable Sofia COLEMAN MD Unavailable Unavailable Sofia COLEMAN MD Unavailable Unavailable Sofia COLEMAN MD Unavailable Unavailable Sofia COLEMAN MD Unavailable Unavailable Sofia COLEMAN MD Unavailable Unavailable Sofia COLEMAN MD Unavailable Unavailable Sofia COLEMAN MD Unavailable Unavailable Sofia COLEMAN MD Unavailable Unavailable Sofia COLEMAN MD Unavailable Unavailable Sofia COLEMAN MD Unavailable Unavailable Sofia COLEMAN MD Unavailable Unavailable Sofia COLEMAN MD Unavailable Unavailable Sofia COLEMAN MD Unavailable Unavailable Sofia COLEMAN MD Unavailable Unavailable Sofia COLEMAN MD Unavailable Unavailable Sofia COLEMAN MD Unavailable Unavailable Sofia COLEMAN MD Unavailable Unavailable Sofia COLEMAN MD Unavailable Unavailable Sofia COLEMAN MD Unavailable Unavailable Sofia COLEMAN MD Unavailable Unavailable Sofia COLEMAN MD Unavailable Unavailable Sofia COLEMAN MD Unavailable Unavailable Sofia COLEMAN MD Unavailable Unavailable Sofia COLEMAN MD Unavailable Unavailable Sofia COLEMAN MD Unavailable Unavailable Sofia COLEMAN MD Unavailable Unavailable Tracy Jauregui MD Unavailable Unavailable Tracy Jauregui MD Unavailable Unavailable Tracy Jauregui MD Unavailable Unavailable Tracy Jauregui MD Unavailable Unavailable Tracy Jauregui MD Unavailable Unavailable Tracy Jauregui MD Unavailable Unavailable Tracy Jauregui MD Unavailable Unavailable Tracy Jauregui MD Unavailable Unavailable Tracy Jauregui MD Unavailable Unavailable Tracy Jauregui MD Unavailable Unavailable Tracy Jauregui MD Unavailable Unavailable Tracy Jauregui MD Unavailable Unavailable Tracy Jauregui MD Unavailable Unavailable Tracy Jauregui MD Unavailable Unavailable Tracy Jauregui MD Unavailable Unavailable Tracy Jauregui MD Unavailable Unavailable Tracy Jauregui MD Unavailable Unavailable Tracy Jauregui MD Unavailable Unavailable Tracy Jauregui MD Unavailable Unavailable Tracy Jauregui MD Unavailable Unavailable Bushnell, V CAREN PA-C Unavailable Unavailable Bushnell, V CAREN PA-C Unavailable Unavailable Bushnell, V CAREN PA-C Unavailable Unavailable Bushnell, V CAREN PA-C Unavailable Unavailable Bushnell, V CAREN PA-C Unavailable Unavailable Bushnell, V CAREN PA-C Unavailable Unavailable Nat, V CAREN PA-C Unavailable Unavailable Nat, V CAREN PA-C Unavailable Unavailable Bushnell, V CAREN PA-C Unavailable Unavailable Nat, V CAREN PA-C Unavailable Unavailable Bushnell, V CAREN PA-C Unavailable Unavailable Nat, V CAREN PA-C Unavailable Unavailable Bushnell, V CAREN PA-C Unavailable Unavailable Bushnell, V CAREN PA-C Unavailable Unavailable Groch, R Jan DO Unavailable Unavailable Groch, R Jan DO Unavailable Unavailable Groch, R Jan DO Unavailable Unavailable Groch, R Jan DO Unavailable Unavailable Groch, R Jan DO Unavailable Unavailable Groch, R Jan DO Unavailable Unavailable Groch, R Jan DO Unavailable Unavailable Groch, R Jan DO Unavailable Unavailable Groch, R Jan DO Unavailable Unavailable Groch, R Jan DO Unavailable Unavailable Groch, R Jan DO Unavailable Unavailable Groch, R Jan DO Unavailable Unavailable Groch, R Jan DO Unavailable Unavailable Groch, R Jan DO Unavailable Unavailable Groch, R Jan DO Unavailable Unavailable Groch, R Jan DO Unavailable Unavailable Groch, R Jan DO Unavailable Unavailable Groch, R Jan DO Unavailable Unavailable Groch, R Jan DO Unavailable Unavailable Groch, R Jan DO Unavailable Unavailable Groch, R Jan DO Unavailable Unavailable Groch, R Jan DO Unavailable Unavailable Groch, R Jan DO Unavailable Unavailable Groch, R Jan DO Unavailable Unavailable Groch, R Jan DO Unavailable Unavailable Groch, R Jan DO Unavailable Unavailable Groch, R Jan DO Unavailable Unavailable Groch, R Jan DO Unavailable Unavailable Groch, R Jan DO Unavailable Unavailable Groch, R Jan DO Unavailable Unavailable Sharad Mosqueda MD Unavailable Unavailable Sharad Mosqueda MD Unavailable Unavailable Sharad Mosqueda MD Unavailable Unavailable Sharad Mosqueda MD Unavailable Unavailable Sharad Mosqueda MD Unavailable Unavailable Sharad Mosqueda MD Unavailable Unavailable Sharad Mosqueda MD Unavailable Unavailable Sharad Mosqueda MD Unavailable Unavailable Sharad Mosqueda MD Unavailable Unavailable Sharad Mosqueda MD Unavailable Unavailable Sharad Mosqueda MD Unavailable Unavailable Sharad Mosqueda MD Unavailable Unavailable Sharad Mosqueda MD Unavailable Unavailable Sharad Mosqueda MD Unavailable Unavailable Sharad Mosqueda MD Unavailable Unavailable Sharad Mosqueda MD Unavailable Unavailable Sharad Mosqueda MD Unavailable Unavailable Sharad Mosqueda MD Unavailable Unavailable Sharad Mosqueda MD Unavailable Unavailable Sharad Mosqueda MD Unavailable Unavailable Sharad Mosqueda MD Unavailable Unavailable Sharad Mosqueda MD Unavailable Unavailable Sharad Mosqueda MD Unavailable Unavailable Sharda Mosqueda MD Unavailable Unavailable Sharad Mosqueda MD Unavailable Unavailable Sharad Mosqueda MD Unavailable Unavailable Sharad Mosqueda MD Unavailable Unavailable Sharad Mosqueda MD Unavailable Unavailable Sharad Mosqueda MD Unavailable Unavailable Sharad Mosqueda MD Unavailable Unavailable Sharad Mosqueda MD Unavailable Unavailable Sharad Mosqueda MD Unavailable Unavailable Sharad Mosqueda MD Unavailable Unavailable Sharad Mosqueda MD Unavailable Unavailable Sharad Mosqueda MD Unavailable Unavailable Sharad Mosqueda MD Unavailable Unavailable Sharad Mosqueda MD Unavailable Unavailable Sharad Mosqueda MD Unavailable Unavailable Sharad Mosqueda MD Unavailable Unavailable Sharad Mosqueda MD Unavailable Unavailable Sharad Mosqueda MD Unavailable Unavailable Sharad Mosqueda MD Unavailable Unavailable Sharad Mosqueda MD Unavailable Unavailable Sharad Mosqueda MD Unavailable Unavailable Sharad Mosqueda MD Unavailable Unavailable Sharad Mosqueda MD Unavailable Unavailable Sharad Mosqueda MD Unavailable Unavailable Sharad Mosqueda MD Unavailable Unavailable Sharad Mosqueda MD Unavailable Unavailable Sharad Mosqueda MD Unavailable Unavailable Sharad Mosqueda MD Unavailable Unavailable Sharad Mosqueda MD Unavailable Unavailable Sharad Mosqueda MD Unavailable Unavailable Sharad Mosqueda MD Unavailable Unavailable Sharad Mosqueda MD Unavailable Unavailable Sharad Mosqueda MD Unavailable Unavailable Sharad Mosqueda MD Unavailable Unavailable Sharad Mosqueda MD Unavailable Unavailable Sharad Mosqueda MD Unavailable Unavailable Sharad Mosqueda MD Unavailable Unavailable Sharad Mosqueda MD Unavailable Unavailable Sharad Mosqueda MD Unavailable Unavailable Sharad Mosqueda MD Unavailable Unavailable Sharad Mosqueda MD Unavailable Unavailable Sharad Mosqueda MD Unavailable Unavailable Sharad Mosqueda MD Unavailable Unavailable Sharad Mosqueda MD Unavailable Unavailable Sharad Mosqueda MD Unavailable Unavailable Sharad Mosqueda MD Unavailable Unavailable Sharad Mosqueda MD Unavailable Unavailable Sharad Mosqueda MD Unavailable Unavailable Sharad Mosqueda MD Unavailable Unavailable Sharad Mosqueda MD Unavailable Unavailable Sharad Mosqueda MD Unavailable Unavailable Sharad Mosqueda MD Unavailable Unavailable Sharad Mosqueda MD Unavailable Unavailable Sharad Mosqueda MD Unavailable Unavailable Sharad Mosqueda MD Unavailable Unavailable ODMRECEDES CRAMER MD Unavailable Unavailable ODMERCEDES CRAMER MD Unavailable Unavailable ODMERCEDES CRAMER MD Unavailable Unavailable MELISSA, MERCEDES JAVED MD Unavailable Unavailable MERCEDES TORRES MD Unavailable Unavailable MERCEDES TORRES MD Unavailable Unavailable ODSHOAIB, MERCEDES JAVED MD Unavailable Unavailable ODSHOAIB, MERCEDES JAVED MD Unavailable Unavailable ODELIDAOLSJOVAN, MERCEDES JAVED MD Unavailable Unavailable ODSHOAIB, MERCEDES JAVED MD Unavailable Unavailable MELISSA, MERCEDES JAVED MD Unavailable Unavailable MELISSA, MERCEDES JAVED MD Unavailable Unavailable MELISSA, MERCEDES JAVED MD Unavailable Unavailable MELISSA, MERCEDES JAVED MD Unavailable Unavailable MELISSA, MERCEDES JAVED MD Unavailable Unavailable MELISSA, MERCEDES JAVED MD Unavailable Unavailable MERCEDES TORRES MD Unavailable Unavailable MERCEDES TORRES MD Unavailable Unavailable MERCEDES TORRES MD Unavailable Unavailable MERCEDES TORRES MD Unavailable Unavailable MERCEDES TORRES MD Unavailable Unavailable MERCEDES TORRES MD Unavailable Unavailable MERCEDES TORRES MD Unavailable Unavailable MERCEDES TORRES MD Unavailable Unavailable MERCEDES TORRES MD Unavailable Unavailable MERCEDES TORRES MD Unavailable Unavailable MERCEDES TORRES MD Unavailable Unavailable MERCEDES TORRES MD Unavailable Unavailable MERCEDES TORRES MD Unavailable Unavailable MERCEDES TORRES MD Unavailable Unavailable MERCEDES TORRES MD Unavailable Unavailable MERCEDES TORRES MD Unavailable Unavailable MERCEDES TORRES MD Unavailable Unavailable ODRZYWOLSKI, MERCEDES JAVED MD Unavailable Unavailable ODRZYWOLSKI, MERCEDES JAVED MD Unavailable Unavailable ODRZYWOLSKI, MERCEDES JAVED MD Unavailable Unavailable ODRZYWOLSKI, MERCEDES JAVED MD Unavailable Unavailable ODRZYWOLSKI, MERCEDES JAVED MD Unavailable Unavailable ODRZYWOLSKI, MERCEDES JAVED MD Unavailable Unavailable ODRZYWOLSKI, MERCEDES JAVED MD Unavailable Unavailable ODRZYWOLSKI, MERCEDES JAVED MD Unavailable Unavailable ODRZYWOLSKI, MERCEDES JAVED MD Unavailable Unavailable ODRZYWOLSKI, MERCEDES JAVED MD Unavailable Unavailable ODRZYWOLSKI, MERCEDES JAVED MD Unavailable Unavailable ODRZYWOLSKI, MERCEDES JAVED MD Unavailable Unavailable ODRZYWOLSKI, MERCEDES JAVED MD Unavailable Unavailable Re-disclosure Warning The records that you are about to access may contain information from federally-assisted alcohol or drug abuse programs. If such information is present, then the following federally mandated warning applies: This information has been disclosed to you from records protected by federal confidentiality rules (42 CFR part 2). The federal rules prohibit you from making any further disclosure of this information unless further disclosure is expressly permitted by the written consent of the person to whom it pertains or as otherwise permitted by 42 CFR part 2. A general authorization for the release of medical or other information is NOT sufficient for this purpose. The Federal rules restrict any use of the information to criminally investigate or prosecute any alcohol or drug abuse patient.The records that you are about to access may contain highly sensitive health information, the redisclosure of which is protected by Article 27-F of the [facility] Public Health law. If you continue you may have access to information: Regarding HIV / AIDS; Provided by facilities licensed or operated by the [facility] Office of Mental Health; or Provided by the [facility] Office for People With Developmental Disabilities. If such information is present, then the following [facility] mandated warning applies: This information has been disclosed to you from confidential records which are protected by state law. State law prohibits you from making any further disclosure of this information without the specific written consent of the person to whom it pertains, or as otherwise permitted by law. Any unauthorized further disclosure in violation of state law may result in a fine or custodial sentence or both. A general authorization for the release of medical or other information is NOT sufficient authorization for further disc losure. Allergies and Adverse Reactions Type Description Substance Reaction Status Data Source(s ) Drug allergy basil basil ANAPHYLAXIS [facility] Drug allergy egg egg NAUSEA/VOMITING/[place] [facility] Drug allergy polymyxin B polymyxin B ADDITIONAL UNSPECIFIED [facility] Drug allergy clarithromycin clarithromycin RASH/HIVES [facility] Drug allergy benzalkonium chloride benzalkonium chloride BLAKE TIONAL UNSPECIFIED [facility] Drug allergy metronidazole metronidazole ADDITIONAL UNSPECIFIED [place] [facility] Drug allergy ciprofloxacin ciprofloxacin ADDITIONAL UNSPECIFIED [facility] Drug allergy gramicidin D gramicidin D ADDITIONAL UNSPECIFIED [facility] Drug allergy aspartame aspartame ANAPHYLAXIS [facility] Drug allergy Yemjifz-GEQ-VxM Reductase Inhibitor Stat ins-HMG-CoA Reductase Inhibitor NAUSEA/VOMITING/[place] [facility] Drug allergy Penicillins Penicillins SHORTNESS OF BREATH [facility] Drug allergy Metronidazole HCl Metronidazole HCl NAUSEA/VOMITING/DIAR [place] [facility] Drug allergy bacitracin zinc bacitracin zinc ADDITIONAL UNSPECIFIED M [facility] Drug allergy neomycin sulfate neomycin sulfate ADDITIONAL UNSPECIFIED [facility] Drug allergy basil basil ANAPHYLAXIS SV SHORTNESS OF BREATH U [facility] Drug allergy egg egg NAUSEA/VOMITING/DIARRHEA KS [facility] Drug allergy polymyxin B polymyxin B ADDITIONAL UNSPECIFIED MO [facility] Drug allergy clarithromycin Clarithromycin RASH/HIVES MO [facility] Drug allergy benzalkonium chloride benzalkonium chloride BLAKE TIONAL UNSPECIFIED MO [facility] Drug allergy metronidazole metronidazole ADDITIONAL UNSPE CIFIED [place] NAUSEA/VOMITING/DIARRHEA U [facility] Drug allergy ciprofloxacin Ciprofloxacin ADDITIONAL UNSPECIFIED MO [facility] Drug allergy gramicidin D gramicidin D ADDITIONAL UNSPECIFIED MO [facility] Drug allergy aspartame aspartame ANAPHYLAXIS SV SHORTNESS OF BREATH U [facility] Drug allergy Pgwxuun-Xsp-Wkt Reductase Inhibitor Stat ins-Hmg-Coa Reductase Inhibitor NAUSEA/VOMITING/DIARRHEA [facility] Drug allergy Penicillins Penicillin SHORTNESS OF BREATH MO [facility] Drug allergy Metronidazole HCl Metronidazole HCl NAUSEA/VOMITING/DIAR [place] [facility] Drug allergy bacitracin zinc bacitracin zinc ADDITIONAL UNSPECIFIED M O [facility] Drug allergy neomycin sulfate neomycin sulfate ADDITIONAL UNSPECIFIED MO [facility] Propensity to adverse reactions PEANUT-CONTAINING DRUG PRODU CTS Peanut- Containing Drug Products Active [facility] Family History Family Member Name Family Member Gender Family Member Status Date o f Status Description Data Source(s) Unknown Condition [facility] Unknown Condition [facility] Unknown Condition [facility] Unknown Condition [facility] Unknown Condition [facility] Unknown Condition [facility] Unknown Condition [facility] Unknown Condition [facility] Unknown Condition [facility] Unknown Condition [facility] Unknown Condition [facility] Encounters Encounter Providers Location Date Indications Data Source(s ) Outpatient Attender: Kiley FRANKeferrer: Amanda Rodriguez MD 11/22/2021 03:30:00 PM EST 6 months [facility] 6 months Outpatient Attender: Harris ADLER 08/03/20 04:10:20 PM EST - 08/03/2021 05:07:08 PM EST [facility] ([facility] ) Outpatient Attender: CAREN [email or web address] 09/2020 12:00:00 AM EDT - 07/18/2021 03:38:35 PM EDT [facility] Unknown [address] [address] [address] 07/06/2021 12:00:00 AM EDT eCW1 ([facility]) [place] [address] [address] 06/28/2021 12:00:00 AM EDT eCW1 ([facility]) [place] [address] [facility] [address] 06/08/2021 12:00:00 AM EDT eCW1 ([facility]) Unknown [address] [facility] [address] 06/08/2021 12:00:00 AM EDT eCW1 ([facility]) Out[place] [address] [address] 06/01/2021 12:00:00 AM EDT eCW1 ([facility]) [place] [address] [facility] [address] 04/21/2021 12:00:00 AM EDT eCW1 ([facility]) Outpatient Attender: Kiley Mosqueda MDReferrer: Omi Boone MD 04/01/2021 03:15:00 PM EDT - 06/07/2021 03:53:00 PM EDT [id number] [id number] Patient discharged. Emergency Attender: Jeffrey Rahman DO 2020 12:21:00 PM EDT - 03/18/2021 01:23:00 PM EDT CSQ UC/Finger Injury [facility] CSQ UC/Finger Injury Patient discharged. Outpatient Attender: Kiley Mosqueda MDReferrer: Omi Boone MD 03/17/2021 11:44:00 AM EDT - 03/17/2021 04:40:00 PM EDT Follow up 1 month gastroparesis [facility] Follow up 1 month gastroparesis Patient discharged. Outpatient Attender: Kiley Mosqueda MDReferrer: Omi Boone MD 01/20/2021 01:30:00 PM EDT - 01/20/2021 04:29:00 PM EDT post scope/ ? new dx gastroparesis [facility] post scope/ ? new dx gastroparesis Patient discharged. Outpatient Attender: Kiley Mosqueda MDConsultant: Kiley Mosqueda MD 01/06/2021 07:49:00 AM EDT [address] [facility] [place] [id number] Outpatient Attender: Kiley Mosqueda MD 12/27/2020 08:50:00 AM EDT - 12/27/2020 11:04:00 AM EDT [address] [facility] [address] Patient discharged. Outpatient Attender: Jalen Yi MD 12/24/2020 12:19: 00 PM EDT COVID SWAB - PREOP [facility] COVID SWAB - PREOP Outpatient Attender: Jannet Gayle NPAttender: RUBI PETER MD [email or web address] 12/20/2020 12:00:00 AM EDT - 12/20/2020 03:04:40 PM EDT [facility] Emergency Attender: Onesimo Laguerre MDAttender: Tracy Jauregui MD 12/15/2020 06:31:00 PM EDT - 12/15/2020 08:30:00 PM EDT Vomiting [facility] Vomiting Patient discharged. Outpatient Attender: Kiley Mosqueda MDReferrer: Omi Boone MD 11/24/2020 07:34:00 AM EST - 11/24/2020 08:44:00 AM EST Gastroesophageal reflux disease / [id number] [facility] Gastroesophageal reflux disease / [phone] Patient discharged. Outpatient Attender: Omi Boone MD 09/24/2020 01:39:00 PM EST lab [facility] lab Outpatient Referrer: TELLO TORRES MD 08/17/2020 03:25 :34 PM EST [facility] Outpatient Attender: TELLO TORRES MD [email or web address] 1 10/18/2019 12:00:00 AM EST [facility] Outpatient Attender: Jan Rockwell DO 05/27/2020 11:59:00 PM EDT [facility] Functional Status Immunizations Vaccine Date Status Description Data Source(s) Tdap 03/18/2021 12:00:00 AM EDT completed [facility] Medications Medication Brand Name Start Date Product Form Dose Route Admi nistrative Instructions Pharmacy Instructions Status Indications Reaction Description Data Source(s) 24 HR metoprolol succinate 25 MG Extende d Release Oral Tablet metoprolol succinate (TOPROL-XL) 25 MG 24 hr tablet metoprolol succinate (TOPROL-XL) 25 MG 24 hr tablet 07/18/2021 12:00:00 AM EDT 25 mg Oral aborted Essential hypertension Take 1 tablet (25 mg total) by mouth 2 (two) times a day /2 tab//12.5mg bid [facility] Essential hypertension 24 HR venlafaxine 37.5 MG Extended Relea se Oral Capsule venlafaxine (EFFEXOR-XR) 37.5 MG 24 hr capsule venlafaxine (EFFEXOR-XR) 37.5 MG 24 hr capsule 12:00:00 AM EDT 37.5 mg Oral active Take 37 .5 mg by mouth daily q am [facility] Calcium + D3 600-800 MG-UNIT Calcium + D3 600-800 MG-UNIT 12:00:00 AM EDT 1.0 {tablet_with_a_meal} active Calcium + D3 600-800 MG-UNIT eCW1 ([facility]) Calcium + D3 600-800 MG-UNIT Calcium + D3 600-800 MG-UNIT 12:00:00 AM EDT 1.0 {tablet_with_a_meal} active Calcium + D3 600-800 MG-UNIT eCW1 ([facility]) [place]-3 Fatty Acids (Fish Oil Concentrate) 1,000 mg capsule 06/07/2021 10:39:49 AM EDT CAPSULE 1000 MG ORAL active [facility] Vitamin B 12 1 MG Oral Capsule Cyanocobalamin (Vitamin B-12) Cyanocobalamin (Vitamin B-12) 06/07/2021 10:39:33 AM EDT CAPSULE 1000 MCG ORAL active [facility] dexlansoprazole 60 MG Delayed Release Or al Capsule Dexlansoprazole (Dexilant) 60 mg capsule,biphase delayed releas Dexlansoprazole (Dexilant) 60 mg capsule,biphase delayed releas 04/27/2021 01:12:31 PM EDT UNASSIGNED 60 MG ORAL active [facility] Metoclopramide 5 MG Oral Tablet Metoclopramide Hcl Metoclopr amide Hcl 12/27/2020 09:12:55 AM EDT TABLET 10 MG ORAL active [facility] Metoclopramide 5 MG Oral Tablet Metoclopramide Hcl Metoclopr amide Hcl 12/27/2020 09:12:55 AM EDT TABLET 10 MG ORAL active O [facility] Metoclopramide 5 MG Oral Tablet Metoclopramide Hcl Metoclopr amide Hcl 12/27/2020 09:12:55 AM EDT TABLET 10 MG ORAL active [facility] Metoclopramide 5 MG Oral Tablet Metoclopramide Hcl Metoclopr amide Hcl 12/27/2020 09:12:55 AM EDT TABLET 10 MG ORAL active [facility] Metoclopramide 5 MG Oral Tablet Metoclopramide Hcl Metoclopr amide Hcl 12/27/2020 09:12:55 AM EDT TABLET 10 MG ORAL active [facility] Sucralfate 100 MG/ML Oral Suspension sucralfate (CARAF ATE) 1 GM/10ML suspension sucralfate (CARAFATE) 1 GM/10ML suspension 12/16/2020 12:00:00 AM EDT aborted [facility] Sucralfate (Carafate) 100 mg/mL suspension 12/15 08:14:42 PM EDT SUSPENSION 10 ML ORAL active [facility] Sucralfate (Carafate) 100 mg/mL suspension 12/15 08:14:42 PM EDT SUSPENSION 10 ML ORAL active [facility] Sucralfate (Carafate) 100 mg/mL suspension 12/15 08:14:42 PM EDT SUSPENSION 10 ML ORAL active [facility] Sucralfate (Carafate) 100 mg/mL suspension 12/15 08:14:42 PM EDT SUSPENSION 10 ML ORAL active [facility] Sucralfate (Carafate) 100 mg/mL suspension 12/15 08:14:42 PM EDT SUSPENSION 10 ML ORAL active [facility] Sucralfate (Carafate) 100 mg/mL suspension 12/15 08:14:42 PM EDT SUSPENSION 10 ML ORAL active [facility] Sucralfate (Carafate) 100 mg/mL suspension 12/15 08:14:42 PM EDT SUSPENSION 10 ML ORAL completed [facility] Metoclopramide 5 MG Oral Tablet Metoclopramide Hcl Metoclopr amide Hcl 11/24/2020 08:39:20 AM EST TABLET 10 MG ORAL completed [facility] Metoclopramide 5 MG Oral Tablet Metoclopramide Hcl Metoclopr amide Hcl 11/24/2020 08:39:20 AM EST TABLET 10 MG ORAL active [facility] Metoclopramide 5 MG Oral Tablet Metoclopramide Hcl Metoclopr amide Hcl 11/24/2020 08:39:20 AM EST TABLET 10 MG ORAL active [facility] Metoclopramide 5 MG Oral Tablet Metoclopramide Hcl Metoclopr amide Hcl 11/24/2020 08:39:20 AM EST TABLET 10 MG ORAL completed [facility] Metoclopramide 5 MG Oral Tablet Metoclopramide Hcl Metoclopr amide Hcl 11/24/2020 08:39:20 AM EST TABLET 10 MG ORAL completed [facility] Metoclopramide 5 MG Oral Tablet Metoclopramide Hcl Metoclopr amide Hcl 11/24/2020 08:39:20 AM EST TABLET 10 MG ORAL completed [facility] Metoclopramide 5 MG Oral Tablet Metoclopramide Hcl Metoclopr amide Hcl 11/24/2020 08:39:20 AM EST TABLET 10 MG ORAL completed [facility] Metoclopramide 5 MG Oral Tablet Metoclopramide Hcl Metoclopr amide Hcl 11/24/2020 08:39:20 AM EST TABLET 10 MG ORAL active [facility] Metoclopramide 5 MG Oral Tablet Metoclopramide Hcl Metoclopr amide Hcl 11/24/2020 08:39:20 AM EST TABLET 10 MG ORAL active [facility] 24 HR metoprolol succinate 25 MG Extende d Release Oral Tablet metoprolol succinate (TOPROL-XL) 25 MG 24 hr tablet metoprolol succinate (TOPROL-XL) 25 MG 24 hr tablet 11/02/2020 12:00:00 AM EST aborted Essential hypertension TAKE ONE TABLET BY MOUTH EVERY DAY [facility] Essential hypertension dexlansoprazole 60 MG Delayed Release Or al Capsule Dexlansoprazole (Dexilant) 60 mg capsule,biphase delayed releas Dexlansoprazole (Dexilant) 60 mg capsule,biphase delayed releas 09/13/2020 09:31:18 AM EST UNASSIGNED 60 MG ORAL active [facility] dexlansoprazole 60 MG Delayed Release Or al Capsule Dexlansoprazole (Dexilant) 60 mg capsule,biphase delayed releas Dexlansoprazole (Dexilant) 60 mg capsule,biphase delayed releas 09/13/2020 09:31:18 AM EST UNASSIGNED 60 MG ORAL active [facility] dexlansoprazole 60 MG Delayed Release Or al Capsule Dexlansoprazole (Dexilant) 60 mg capsule,biphase delayed releas Dexlansoprazole (Dexilant) 60 mg capsule,biphase delayed releas 09/13/2020 09:31:18 AM EST UNASSIGNED 60 MG ORAL completed [facility] dexlansoprazole 60 MG Delayed Release Or al Capsule Dexlansoprazole (Dexilant) 60 mg capsule,biphase delayed releas Dexlansoprazole (Dexilant) 60 mg capsule,biphase delayed releas 09/13/2020 09:31:18 AM EST UNASSIGNED 60 MG ORAL active [facility] dexlansoprazole 60 MG Delayed Release Or al Capsule Dexlansoprazole (Dexilant) 60 mg capsule,biphase delayed releas Dexlansoprazole (Dexilant) 60 mg capsule,biphase delayed releas 09/13/2020 09:31:18 AM EST UNASSIGNED 60 MG ORAL active [facility] dexlansoprazole 60 MG Delayed Release Or al Capsule Dexlansoprazole (Dexilant) 60 mg capsule,biphase delayed releas Dexlansoprazole (Dexilant) 60 mg capsule,biphase delayed releas 09/13/2020 09:31:18 AM EST UNASSIGNED 60 MG ORAL active [facility] dexlansoprazole 60 MG Delayed Release Or al Capsule Dexlansoprazole (Dexilant) 60 mg capsule,biphase delayed releas Dexlansoprazole (Dexilant) 60 mg capsule,biphase delayed releas 09/13/2020 09:31:18 AM EST UNASSIGNED 60 MG ORAL active [facility] dexlansoprazole 60 MG Delayed Release Or al Capsule Dexlansoprazole (Dexilant) 60 mg capsule,biphase delayed releas Dexlansoprazole (Dexilant) 60 mg capsule,biphase delayed releas 09/13/2020 09:31:18 AM EST UNASSIGNED 60 MG ORAL active [facility] dexlansoprazole 60 MG Delayed Release Or al Capsule Dexlansoprazole (Dexilant) 60 mg capsule,biphase delayed releas Dexlansoprazole (Dexilant) 60 mg capsule,biphase delayed releas 09/13/2020 09:31:18 AM EST UNASSIGNED 60 MG ORAL active [facility] dexlansoprazole 60 MG Delayed Release Or al Capsule Dexlansoprazole (Dexilant) 60 mg capsule,biphase delayed releas Dexlansoprazole (Dexilant) 60 mg capsule,biphase delayed releas 08/31/2020 04:10:07 PM EST UNASSIGNED 60 MG ORAL completed [facility] dexlansoprazole 60 MG Delayed Release Or al Capsule Dexlansoprazole (Dexilant) 60 mg capsule,biphase delayed releas Dexlansoprazole (Dexilant) 60 mg capsule,biphase delayed releas 08/31/2020 04:10:07 PM EST UNASSIGNED 60 MG ORAL completed [facility] dexlansoprazole 60 MG Delayed Release Or al Capsule Dexlansoprazole (Dexilant) 60 mg capsule,biphase delayed releas Dexlansoprazole (Dexilant) 60 mg capsule,biphase delayed releas 08/31/2020 04:10:07 PM EST UNASSIGNED 60 MG ORAL completed [facility] dexlansoprazole 60 MG Delayed Release Or al Capsule Dexlansoprazole (Dexilant) 60 mg capsule,biphase delayed releas Dexlansoprazole (Dexilant) 60 mg capsule,biphase delayed releas 08/31/2020 04:10:07 PM EST UNASSIGNED 60 MG ORAL completed [facility] dexlansoprazole 60 MG Delayed Release Or al Capsule Dexlansoprazole (Dexilant) 60 mg capsule,biphase delayed releas Dexlansoprazole (Dexilant) 60 mg capsule,biphase delayed releas 08/31/2020 04:10:07 PM EST UNASSIGNED 60 MG ORAL completed [facility] dexlansoprazole 60 MG Delayed Release Or al Capsule Dexlansoprazole (Dexilant) 60 mg capsule,biphase delayed releas Dexlansoprazole (Dexilant) 60 mg capsule,biphase delayed releas 08/31/2020 04:10:07 PM EST UNASSIGNED 60 MG ORAL completed [facility] dexlansoprazole 60 MG Delayed Release Or al Capsule Dexlansoprazole (Dexilant) 60 mg capsule,biphase delayed releas Dexlansoprazole (Dexilant) 60 mg capsule,biphase delayed releas 08/31/2020 04:10:07 PM EST UNASSIGNED 60 MG ORAL completed [facility] dexlansoprazole 60 MG Delayed Release Or al Capsule Dexlansoprazole (Dexilant) 60 mg capsule,biphase delayed releas Dexlansoprazole (Dexilant) 60 mg capsule,biphase delayed releas 08/31/2020 04:10:07 PM EST UNASSIGNED 60 MG ORAL completed [facility] dexlansoprazole 60 MG Delayed Release Or al Capsule Dexlansoprazole (Dexilant) 60 mg capsule,biphase delayed releas Dexlansoprazole (Dexilant) 60 mg capsule,biphase delayed releas 08/31/2020 04:10:07 PM EST UNASSIGNED 60 MG ORAL completed [facility] venlafaxine 75 MG Oral Tablet venlafaxine (EFFEXOR) 75 MG tablet venlafaxine (EFFEXOR) 75 MG tablet 08/02/2020 12:00:00 AM EST 75 mg Oral active Take 75 mg by mouth daily @[facility] dexlansoprazole 60 MG Delayed Release Or al Capsule Dexlansoprazole (Dexilant) 60 mg capsule,biphase delayed releas Dexlansoprazole (Dexilant) 60 mg capsule,biphase delayed releas 05/05/2020 02:25:57 PM EDT UNASSIGNED 60 MG ORAL completed [facility] dexlansoprazole 60 MG Delayed Release Or al Capsule Dexlansoprazole (Dexilant) 60 mg capsule,biphase delayed releas Dexlansoprazole (Dexilant) 60 mg capsule,biphase delayed releas 05/05/2020 02:25:57 PM EDT UNASSIGNED 60 MG ORAL [facility] dexlansoprazole 60 MG Delayed Release Or al Capsule Dexlansoprazole (Dexilant) 60 mg capsule,biphase delayed releas Dexlansoprazole (Dexilant) 60 mg capsule,biphase delayed releas 05/05/2020 02:25:57 PM EDT UNASSIGNED 60 MG ORAL completed [facility] dexlansoprazole 60 MG Delayed Release Or al Capsule Dexlansoprazole (Dexilant) 60 mg capsule,biphase delayed releas Dexlansoprazole (Dexilant) 60 mg capsule,biphase delayed releas 05/05/2020 02:25:57 PM EDT UNASSIGNED 60 MG ORAL completed [facility] dexlansoprazole 60 MG Delayed Release Or al Capsule Dexlansoprazole (Dexilant) 60 mg capsule,biphase delayed releas Dexlansoprazole (Dexilant) 60 mg capsule,biphase delayed releas 05/05/2020 02:25:57 PM EDT UNASSIGNED 60 MG ORAL completed [facility] dexlansoprazole 60 MG Delayed Release Or al Capsule Dexlansoprazole (Dexilant) 60 mg capsule,biphase delayed releas Dexlansoprazole (Dexilant) 60 mg capsule,biphase delayed releas 05/05/2020 02:25:57 PM EDT UNASSIGNED 60 MG ORAL completed [facility] dexlansoprazole 60 MG Delayed Release Or al Capsule Dexlansoprazole (Dexilant) 60 mg capsule,biphase delayed releas Dexlansoprazole (Dexilant) 60 mg capsule,biphase delayed releas 05/05/2020 02:25:57 PM EDT UNASSIGNED 60 MG ORAL completed [facility] dexlansoprazole 60 MG Delayed Release Or al Capsule Dexlansoprazole (Dexilant) 60 mg capsule,biphase delayed releas Dexlansoprazole (Dexilant) 60 mg capsule,biphase delayed releas 05/05/2020 02:25:57 PM EDT UNASSIGNED 60 MG ORAL completed [facility] dexlansoprazole 60 MG Delayed Release Or al Capsule Dexlansoprazole (Dexilant) 60 mg capsule,biphase delayed releas Dexlansoprazole (Dexilant) 60 mg capsule,biphase delayed releas 05/05/2020 02:25:57 PM EDT UNASSIGNED 60 MG ORAL completed [email or web address] 24 HR venlafaxine 37.5 MG Extended Relea se Oral Capsule venlafaxine (EFFEXOR-XR) 37.5 MG 24 hr capsule venlafaxine (EFFEXOR-XR) 37.5 MG 24 hr capsule 12:00:00 AM EDT 75 mg Oral aborted Take 75 mg by mouth daily [facility] Bisacodyl 5 MG Delayed Release Oral Tablet bisacodyl ( DULCOLAX) 5 MG EC tablet bisacodyl (DULCOLAX) 5 MG EC tablet 5 mg Oral ab orted Take 5 mg by mouth daily as needed for constipation [facility] Insurance Providers Payer name Policy type / Coverage type Policy ID Covered constitution party ID Covered constitution party's relationship to cox Policy [facility] Plan Information MEDICARE [id number] Rashmi [id number] Y14 MEDICARE [id number] SP [id number] A MEDICARE [id number] Rashmi [id number] A MEDICARE [id number] Rashmi [id number] Y14 MEDICARE A [id number] Self [id number] MEDICARE [id number] SP [id number] A MEDICAID M [id number] Self [id number] MEDICARE [id number] SP [id number] Self [id number] A [id number] Self [id number] MEDICAID [facility] [id number] SP [place] [id number] MEDICAID [facility] [id number] SP [place] [id number] MEDICAID [facility] [id number] SP [place] [id number] MEDICAID [id number] Rashmi [id number] MEDICAID [facility] [id number] SP [place] [id number] MEDICAID [id number] xxxxxxxx [id number] MEDICAID [facility] [id number] SP [place] [id number] MEDICAID [facility] [id number] SP [place] [id number] MEDICAID [facility] [id number] SP [place] [id number] MEDICAID [facility] [id number] SP AZ [id number] MEDICAID [facility] [id number] SP AZ [id number] MEDICAID [facility] [id number] SP AZ [id number] MEDICAID [facility] [id number] SP AZ [id number] MEDICAID [facility] [id number] SP AZ [id number] MEDICAID [facility] [id number] SP AZ [id number] MEDICAID [facility] [id number] SP AZ [id number] MEDICAID [facility] [id number] SP [place] [id number] SELF PAY MEDICAID [facility] [id number] SP [place] [id number] MEDICARE [id number] SP [id number] MEDICARE [id number] SP [id number] Y14 MEDICAID [facility] [id number] SP [place] [id number] SELF PAY SELF PAY MEDICAID [facility] [id number] SP [place] [id number] MEDICARE [id number] SP [id number] Y14 SELF PAY SELF PAY MEDICARE [id number] SP [id number] Y14 MEDICAID [facility] [id number] SP [place] [id number] SELF PAY MEDICAID [facility] [id number] SP [place] [id number] MEDICARE [id number] SP [id number] Y14 MEDICAID [facility] [id number] SP [place] [id number] SELF PAY SELF PAY MEDICARE [id number] SP [id number] Y14 MEDICAID [facility] [id number] SP [place] [id number] SELF PAY MEDICARE [id number] SP [id number] Y14 SELF PAY MEDICARE [id number] SP [id number] Y14 MEDICAID [facility] [id number] SP AZ [id number] SELF PAY MEDICAID [facility] [id number] SP AZ [id number] MEDICARE [id number] SP [id number] Y14 SELF PAY MEDICAID [facility] [id number] SP [place] [id number] MEDICARE [id number] SP [id number] Y14 MEDICAID [facility] [id number] SP [place] [id number] SELF PAY MEDICARE [id number] SP [id number] MEDICARE [id number] SP [id number] [id number] MEDICAID [facility] [id number] SP [place] [id number] [facility] MGD MEDICARE [id number] SP [id number] [facility] MEDICARE [id number] Rashmi [id number] [facility] MEDICARE [id number] xxxxxxxxx [phone] [id number] SELF PAY MEDICAID [facility] [id number] SP [place] [id number] [facility] MGD MEDICARE [id number] SP [id number] SELF PAY MEDICAID [facility] [id number] SP [place] [id number] [facility] MGD MEDICARE [id number] SP [id number] SELF PAY AETNA MEDICARE [id number] Rashmi 10 [id number] AETNA MEDICARE Medicare [id number] xxxxxxxxxxxx [id number] SELF PAY MEDICAID [facility] [id number] SP [place] [id number] AETNA MEDICARE ADV [id number] SP [id number] AETNA MEDICARE ADV [id number] SP [id number] SELF PAY MEDICAID [facility] [id number] SP [place] [id number] MEDICAID [facility] [id number] SP [place] [id number] AETNA MEDICARE ADV [id number] SP [id number] SELF PAY AETNA MEDICARE ADV [id number] SP [id number] MEDICAID [facility] [id number] SP [place] [id number] AETNA MEDICARE ADV [id number] SP [id number] SELF PAY MEDICAID [facility] [id number] SP [place] [id number] SELF PAY SELF PAY SELF PAY AETNA MEDICARE ADV [id number] SP [id number] MEDICAID [facility] [id number] SP [place] [id number] MEDICAID [facility] [id number] SP [place] [id number] AETNA MEDICARE ADV [id number] SP [id number] SELF PAY AETNA MEDICARE ADV [id number] SP [id number] MEDICAID [facility] [id number] SP [place] [id number] SELF PAY AETNA MEDICARE ADV [id number] SP [id number] MEDICAID [facility] [id number] SP [place] [id number] SELF PAY AETNA MEDICARE ADV [id number] SP [id number] MEDICAID [facility] [id number] SP [place] [id number] SELF PAY [employer] [id number] Self [id number] Medicaid Medicaid [id number] Self [id number] AETNA MEDICARE [id number] SP [id number] SP [id number] [facility] [id number] SP [id number] Medicare Part A of [place] Other 0 [id number] Self 0 Medicaid [facility] Other 0 [id number] Self 0 AETNA MEDICARE [id number] SP [id number] MEDICAID HEA [id number] S [id number] MEDICARE MCA [id number] S [id number] MEDICARE MCA [id number] S [id number] UNAVAILABLE UNAVAILA BLE MEDICAID M [id number] S [id number] [facility] O [id number] S [id number] [facility] MEDICAID [id number] SP [id number] Problems, Conditions, and Diagnoses Code Display Name Description Problem Type Effective Dates Data Source(s) G47.30 Sleep apnea, unspecified Sleep apnea, unspecified Diag nosis 07/18/2021 02:04:56 PM EDT [facility] E78.2 Mixed hyperlipidemia Mixed hyperlipidemia Diagnosis 07/18/2021 02:04:56 PM EDT [facility] I10 Essential (primary) hypertension Essential (primary) h ypertension Diagnosis 07/18/2021 02:04:56 PM EDT [facility] R06.00 Dyspnea, unspecified Dyspnea, unspecified Diagnosis 07/18/2021 02:04:56 PM EDT [facility] S69.92XA Unspecified injury of left w rist, hand and finger(s), initial encounter S69.92XA - Unspecified injury of left wr ist, hand and finger(s), initial encounter Diagnosis 03/18/2021 12:21:00 PM EDT [facility] K21.9 Gastro-esophageal reflux disease without esophagitis K21.9 - Gastro- esophageal reflux disease without esophagitis Diagnosis 12/28/19 21 08:50:00 AM EDT [facility] R13.10 Dysphagia, unspecified R13.10 - Dysphagia, unspecified Diagnosis 12/27/2020 08:50:00 AM EDT [facility] K21.9 Gastro-esophageal reflux disease without esophagitis K21.9 - Gastro- esophageal reflux disease without esophagitis Diagnosis 12/28/19 07:49:00 AM EDT [facility] Z20.822 Z20.822 - Contact with and (suspected) e xposure to COVID-19 Z20.822 - Contact with and (suspected) exposure to COVID-19 Diagnosis 05/2021 12:19:00 PM EDT [facility] J45.20 Mild intermittent asthma, uncomplicated Mild intermittent asthma, uncomplicated Diagnosis 12/20/2020 02:07:48 PM EDT [facility] R41.3 Other amnesia Other amnesia Diagnosis 12/20/2020 02:07:48 PM EDT [facility] G45.9 Transient cerebral ischemic attack, unsp ecified Transient cerebral ischemic attack, unsp Diagnosis 12/20/2020 02:07:48 PM EDT [facility] R07.89 Other chest pain Other chest pain Diagnosis 12/20/2020 02 :07:48 PM EDT [facility] D50.9 Iron deficiency anemia, unspecified D50. 9 - Iron deficiency anemia, unspecified Diagnosis 09/24/2020 01:39:00 PM EST [facility] R42 Dizziness and giddiness Dizziness and giddiness Diagno sis 08/17/2020 02:24:52 PM EST [facility] M79.604 Pain in right leg Pain in right leg Diagnosis 08/17 02:24:52 PM EST [facility] R53.1 Weakness Weakness Diagnosis 08/17/2020 02:24:52 PM ES T [facility] G31.84 Mild cognitive impairment, so stated Mil d cognitive impairment, so stated Diagnosis 08/17/2020 02:24:52 PM EST [facility] R06.00 ALFARO (dyspnea on exertion) ALFARO (dyspnea on exertion) [id number] 07/18/2021 12:00:00 AM EDT [facility] E78.00 [id number] Pure hypercholesterolemia Problem 06/01/2021 12:00:00 AM EDT eCW1 (Formerly [facility]) I10 [id number] Primary hypertension Problem 06/01/2021 12:0 0:00 AM EDT eCW1 (Formerly [facility]) G47.33 [id number] THONG (obstructive sleep apnea) Problem 06/01/2021 12:00:00 AM EDT eCW1 (Formerly [facility]) R41.3 [id number] Memory change Problem 06/01/2021 12:00:00 AM EDT eCW1 (Formerly [facility]) F44.5 [id number] Psychogenic nonepileptic seizure Problem 06/01/2021 12:00:00 AM EDT eCW1 (Formerly [facility]) J45.30 [id number] Mild persistent asthma without complicati on Problem 04/21/2021 12:00:00 AM EDT eCW1 (Formerly [facility]) F41.9 51687017 Anxiety Problem 04/21/2021 12:00:00 AM ED T eCW1 (Formerly [facility]) G40.909 [id number] Seizure disorder Problem 04/21/2021 12:00:00 AM EDT eCW1 (Formerly [facility]) I25.10 [id number] Coronary artery dise ase involving [place] coronary artery of [place] heart without angina pectoris Problem 04/21/2021 12:00:00 AM EDT eCW1 (Formerly [facility]) G35 [id number] Multiple sclerosis Problem 04/21/2021 12:00: 00 AM EDT [facility] (Formerly [facility]) Surgeries/Procedures Procedure Description Date Indications Data Source(s) POCT AMB EKG <td>POCT AMB EKG</td><td>Rou leti</td><td>07/18/2021 3:18 PM EDT</td><td> ALFARO (dyspnea on exertion)</td><td> </td> 07/18/2021 03:18:00 PM EDT ALFARO (dyspnea on exertion) [facility] ALFARO (dyspnea on exertion) Medication: Depo-Medrol 40mg IA (Methylprednisolone Acetate) 06/28/2021 12:00:00 AM EDT [facility] ([facility]) Medication: 1% Lidocaine Dilutent (xylocaine) 06/28/20 12:00:00 AM EDT [facility] (Formerly [facility]) Endoscopy and biopsy of upper gastrointestinal tract (proced ure) 12/27/2020 10:00:00 AM EDT [facility] Endoscopy and biopsy of upper gastrointestinal tract (proced ure) 12/27/2020 10:00:00 AM EDT [facility] Endoscopy and biopsy of upper gastrointestinal tract (proced ure) 12/27/2020 10:00:00 AM EDT [facility] Endoscopy and biopsy of upper gastrointestinal tract (proced ure) 12/27/2020 10:00:00 AM EDT [facility] POCT AMB EKG <td>POCT AMB EKG</td><td>Rou leti</td><td>12/20/2020 2:40 PM EDT</td><td> Hypertension, essential Other chest pain</td><td> </td> 12/20/2020 06:40:00 PM EDT Other chest painHypertension, essential [facility] Other chest pain Hypertension, essential Results ID Date Data Source [id number] 03/18/2021 01:16:[place] [address] HEALTH INFORMATION MANAGEMENT ED/UC Physician Report : [id number] Signed Patient: Salena Stanley Acct:[id number] Unit: Ivan [id number] : 1950 Arrival Date: 03/18/21 Age/Sex: 70 / F Arrival Time: 1221 Copies to: Amanda Rodriguez MD Upper Extremity HPI/ROS General Chief Complaint: Hand Pain Stated Complaint: CSQ UC/Finger Injury Stated Complaint: CSQ UC/Finger Injury Source: Reports Patient, Old records reviewed, RN/MD, RN notes reviewed and I have reviewed available Ancillary/nursing staff documentation Mode of arrival: Ambulatory Limitations: Reports No limitations History of Present Illness Initial Comments: Patient has a blister on her left thumb webspace. She states she is unsure how long ago she had her last tetanus and she is requesting a tetanus booster. Time interval: Unknown Upper Extremity Injury Location: Reports Left and Hand History of same: No Radiation: Reports None Severity scale (1-10): 1 Quality: Reports Aching Consistency: Reports Intermittent Improves with: Reports Nothing Worsens with: Reports Nothing Associated symptoms: Reports Denies other symptoms Related Data LMP (females 10-50): Unknown Home Medications Medication Instructions Recorded docusate sodium 100 mg capsule 100 mg PO DAILY 12/06/13 (Colace) lorazepam 1 mg tablet 1 mg PO TID 12/06/13 cholecalciferol (vitamin D3) 50 2,000 unit PO DAILY 05/29/15 mcg (2,000 unit) capsule (Vitamin D3) metoprolol succinate 25 mg 25 mg PO DAILY 03/25/16 tablet,extended release 24 hr pravastatin 40 mg tablet 40 mg PO HS 03/01/19 aspirin 81 mg tablet,delayed 81 mg PO DAILY 05/01/19 release (Aspir-) multivitamin 1 tab PO DAILY 05/01/19 nitroglycerin 0.4 mg sublingual 0.4 mg SUBLINGUAL PRN PRN 05/05/19 tablet meclizine 25 mg tablet 25 mg PO .Q 6 HR PRN #20 tab 05/28/19 (Medi-Meclizine) ondansetron HCl 4 mg tablet 4 mg PO Q4H PRN #20 tab 05/28/19 (Zofran) albuterol sulfate 0.63 mg/3 mL 0.63 mg INHALATION QID PRN 04/28/20 solution for nebulization albuterol sulfate 90 mcg/actuation 2 inhalation INHALATION Q4-6H PRN 04/28/20 breath activated powder inhaler,sensor venlafaxine 75 mg capsule,extended 75 mg PO DAILY 04/28/20 release 24 hr dexlansoprazole 60 mg 60 mg PO DAILY #30 cap 09/13/20 capsule,biphase delayed release (Dexilant) sucralfate 100 mg/mL oral 10 ml PO QACHS #1000 ml 12/15/20 suspension (Carafate) metoclopramide HCl 5 mg tablet 10 mg PO PRN PRN 12/27/20 Allergies basil Allergy (Severe, Verified 03/17/21 11:48) ANAPHYLAXIS bacitracin zinc [From Neosporin] Allergy (Intermediate, Verified 03/17/21 11:48) ADDITIONAL UNSPECIFIED blisters on skin benzalkonium chloride [From Neosporin] Allergy (Intermediate, Verified 03/17/21 11:48) ADDITIONAL UNSPECIFIED blisters on skin ciprofloxacin [From Cipro] Allergy (Intermediate, Verified 03/17/21 11:48) ADDITIONAL UNSPECIFIED clarithromycin [From Biaxin] Allergy (Intermediate, Verified 03/17/21 11:48) RASH/HIVES gramicidin D [From Neosporin] Allergy (Intermediate, Verified 03/17/21 11:48) ADDITIONAL UNSPECIFIED skin blisters neomycin sulfate [From Neosporin] Allergy (Intermediate, Verified 03/17/21 11:48) ADDITIONAL UNSPECIFIED skin blisters Penicillins Allergy (Intermediate, Verified 03/17/21 11:48) SHORTNESS OF BREATH "ASTHMA" polymyxin B [From Neosporin] Allergy (Intermediate, Verified 03/17/21 11:48) ADDITIONAL UNSPECIFIED skin blisters aspartame Adverse Reaction (Severe, Verified 03/17/21 11:48) ANAPHYLAXIS Ocbpcxz-Bwk-Fqb Reductase Inhibitor Adverse Reaction (Intermediate, Verified 03/17/21 11:48) NAUSEA/VOMITING/DIARRHEA egg Adverse Reaction (Mild, Verified 03/17/21 11:48) NAUSEA/VOMITING/DIARRHEA metronidazole [From Flagyl] Adverse Reaction (Mild, Verified 03/17/21 11:48) ADDITIONAL UNSPECIFIED "loopy" and nauseous Metronidazole HCl [From Flagyl] Adverse Reaction (Mild, Verified 03/17/21 11:48) NAUSEA/VOMITING/DIARRHEA Review of Systems Review of Systems All systems: Reviewed and negative except as stated in HPI. Immunizations Tetanus Status: Unknown (Has not been COVID vaccinated) Social History Social History Other: Quit tobacco many years ago History of Smoking/Tobacco Use: Former Smoker Tobacco Product: Reports Cigarettes Alcohol use: Reports None Drug use: Reports None Occupation: retired Lives with: Reports Alone PMH/PSH PMH/PSH Medical History A nxiety Bowel obstruction CAD (coronary artery disease) Cataract COPD (chronic obstructive pulmonary disease) CVA (cerebral vascular accident) Depression Diabetes DVT (deep venous thrombosis) GERD (gastroesophageal reflux disease) HTN (hypertension) Hypercholesterolemia Multiple sclerosis Myocardial infarction Osteoarthritis Seizure TIA (transient ischemic attack) Surgical History H/O tubal ligation (Surgical) History of appendectomy (Surgical) History of bowel resection (Surgical) History of intestinal surgery (Surgical) History of tonsillectomy and adenoidectomy (Surgical) Family History Mother Diabetes mellitus Father HTN (hypertension) Other Malignant neoplasm of lung Physical Exam Physical Exam General appearance: Alert and In no apparent distress Head Head Exam: Atraumatic and Normcephalic Eye Eye Exam: Conjunctiva normal and Sclera normal ENT ENT Exam: External ear normal, Nose normal and Throat normal Neck Neck Exam: Supple and Trachea Midline Cardiac Cardiac: Present: Regular rate and rhythm Murmur: Present: None Lung/Chest Lung/Chest Exam: Clear and Normal Exchange Abdomen Abdominal Exam: Bowel sounds normal, Soft, Nondistended and Nontender Back Back Exam: No Deformity Upper Extremity Shoulder Exam: normal inspection (bilat) and full ROM ARM Exam: normal inspection and full ROM (bilat) Lower Extremity Lower Extremity Location: Ankle, Femur, Hip and Knee Lower Extermity Normal: Full ROM (bilat) Neuro Neuro Normal: Alert, Oriented x 3 and Gait normal Psych Psych Normal: Normal Affect Skin Skin exam: Dry, Intact and Warm Distribution: generalized Course Course Course Narrative: Exam. Discussed with patient blister on her hand she can keep clean with soap andwater and cover with clean dry gauze. Tetanus booster updated Vital Signs Vital Signs status: Stable Vital signs: Vital Signs 03/18/21 12:30 Temperature 98.1 F Pulse Rate 58 L Respiratory Rate 18 Blood Pressure 168/79 H Medical Decision Making/CCT Lab Data Lab Data Labs reviewed: No Hyperglycemia Identified Hyperglycemia identified in patient?: No Medication/Allergies Review Medication/Allergies Review Home Medication and Allergy review: I reviewed patients allergies, home medications, and new prescriptions and All Rx meds, nonRx meds, supplements reported by patient are recorded Blood Pressure Blood pressure: Pt's blood pressure is elevated but pt has history of hypertension. Critical Care Time Critical Care Time: No Discharge Plan Disposition Clinical Impression: Immunization due Provider stated Dispo: Discharged Condition: Stable Instructions: Diphtheria/Acellular Pertussis/Tetanus Booster Vaccine (By injection) Activity Restrictions/Additional Instructions: Your tetanus booster is good for 10 years Prescriptions: No Action Dexilant 60 mg capsule,biphase delayed releas 60 mg PO DAILY Qty: 30 RF: 3 docusate sodium [Colace] 100 MG capsule 100 mg PO DAILY RF: 0 lorazepam 1 MG tablet 1 mg PO TID RF: 0 cholecalciferol (vitamin D3) [Vitamin D3] 2,000 UNIT capsule 2,000 unit PO DAILY RF: 0 metoprolol succinate 25 MG tablet extended release 24 hr 25 mg PO DAILY RF: 0 multivitamin Tablet 1 tab PO DAILY RF: 0 aspirin [Aspir-81] 81 mg Tablet,Delayed Release (Dr/Ec) 81 mg PO DAILY RF: 0 nitroglycerin 0.4 mg tablet, sublingual 0.4 mg sublingual PRN PRN (Reason: Chest Pain) RF: 0 meclizine [Medi-Meclizine] 25 mg tablet 25 mg PO .Q 6 HR PRN (Reason: dizziness) Qty: 20 RF: 0 ondansetron HCl [Zofran] 4 mg tablet 4 mg PO Q4H PRN (Reason: nausea and vomiting) Qty: 20 RF: 0 sucralfate [Carafate] 100 mg/mL suspension 10 ml PO QACHS Qty: 1000 RF: 0 metoclopramide HCl 5 mg tablet 10 mg PO PRN PRN (Reason: Nausea) RF: 0 pravastatin 40 mg tablet 40 mg PO HS RF: 0 albuterol sulfate 90 mcg/actuation aero powdr breath act w/sensor 2 inhalation INHALATION Q4-6H PRN (Reason: Shortness Of Breath) RF: 0 albuterol sulfate 0.63 mg/3 mL solution for nebulization 0.63 mg INHALATION QID PRN (Reason: Shortness Of Breath) RF: 0 venlafaxine 75 mg capsule,extended release 24hr 75 mg PO DAILY RF: 0 Referrals: Amanda Sinclair MD [Primary Care Provider] - As Needed Stand Alone Forms: Portal Instructions Patient agreeable to discharge: Patient/Guardian understands and is agreeable to discharge plan Provider in triage note Vital Signs Vital Signs: Vital Signs (Last 8 Hours) Temp Pulse Resp BP 03/18/21 12:30 98.1 F 58 L 18 168/79 H Date/Time <<Signature on File>> Initializing User: Mercedes Cano NP 03/18/21 1316 Signed by: Mercedes Cano NP 03/18/21 1325 Jeffrey Rahman DO 03/18/21 1444 Name Value Range Interpretation Code Description Data Marisa rce(s) Supporting Document(s) ID Date Data Source [id number] 01/06/2021 07:49:00 AM EDT [address] [address] HEALTH INFORMATION MANAGEMENT OR Report : [id number] Signed Patient: Salena Stanley Acct:[id number] [facility] t: [id number] : 1950 Loc: ENDO Room/Bed: Age/Sex: 70 / F ADM Date: 12/27/20 cc: Omi Boone MD, Ajoy MD SS Gastro OR Report Post Procedure/Discharge Note Date of Procedure: 12/27/20 Surgeon:: Kiley Mosqueda MD. Was an Lumber Buyer used?: No Preoperative Diagnosis:: Gastroesophageal reflux disease possible esophageal stricture. Post Operative/Final Diagnosis(es):: Esophagitis gastritis and gastric bezoar. Procedure(s) Done:: Esophagogastroduodenoscopy with biopsy. Indication(s) for Procedure:: Patient with history of chronic gastroesophageal reflux disease has worsening symptoms despite PPI therapy and has not developed difficulty in swallowing. Examination is being undertaken to assess for nonhealing esophagitis or other peptic ulcer disease is as well asto evaluate for any development of esophageal stricture. ASA Class: III Anesthesia Type: MAC Description of Procedure:: With patient in left lateral position Olympus video gastroscope was introduced advanced to the 2nd part of duodenum. All areas of proximal duodenum were examined gastric antrum was examined and biopsies taken. Gastric fundus could only be examined partially as there was large amount of food present in the dependent part (greater curvature). Esophagus was examined and biopsies taken from GE junction. Patient tolerated procedure well. Complications:: None Esitmated Blood Loss:: None Findings/Outcome:: Luminal esophagus was normal except at the area 1 cm above GE junction this area had inflammation and biopsies have been taken. GE junction was located at 35 cm. Gastric fundus a large amount of retained food. Mucosa that could be examined in upper stomach was normal. In the gastric antrum there were hyperemic streaks and this area has been biopsied. Duodenal bulb and 2nd part of duodenum was normal. Specimen removed:: Yes What Specimen was removed?: Biopsy GE junction and gastric antral mucosa. Was Specimen sent to Pathology?: Yes Pre Operative Antibiotics: Not Required Recommended Follow up for scope(s): Other Recommendations:: See Discharge Instruction in Discharge plan patient's dysphagia could be secondaryto esophagitis. Presence of bezoar is suggestive of some gastroparesis. Histology will be followedfor any evidence of eosinophilic esophagitis. Patient will be treated with increased doses of prokinetic is a awaiting histology report. Charges Complete: N/A Signed By:Kiley Mosqueda MD <<Signature on File>> Signed Date/Time: 01/06/21 0756 Co-Signer: Co-Signed Date/Time: Initializing User: Kiley Mosqueda MD 01/06/21 0749 [id number] [id number] Name Value Range Interpretation Code Description Data Marisa rce(s) Supporting Document(s) ID Date Data Source [id number] 12/29/2020 08:32:00 AM [employer]: 12/29/20 0832 INTERFACED REPORT Name: Salena Stanley Age/Sex: 70/F Location: [facility] Acct: [id number] Unit: [id number] Status: [facility] Room/Bed: Re12/27/20 Disch: Att Dr: Kiley Mosqueda MD Spec Num: [id number] Recd: 12/27/20 Status: LINDA Condon Num: [id number] SpType: SURGICAL Sub Dr: Kiley Mosqueda MD GERD Gastritis Esophagitis EGD ProcPERIODIC ACID SCHUYLER, GROSS AND MICROSCOPIC - L4/2, ALCIAN BLUE STAIN GERD 1. Gastric antrum biopsy 2. G-E junction biopsy This case consists of two specimens, both received in formalin. 1. The specimen is labeled with the patient's name and [id number] antrum [id number] consists of two fragments of white pink colored material measuring 0.3 x 0.3 x 0.2 cm in aggregate entirely submitted. 2. The specimen is labeled with the patient's name and 0x93GE junction [id number] consists of several fragments of white colored material measuring 0.8 x 0.3 x 0.2 cm in aggregate entirely submitted. (12-27-20 d/blaire) 1. Gastric antrum, biopsy: - Hyperplastic polyp -Gastric mucosa with reflux / chemical gastritis 2. G-E junction, biopsy: - Superficial squamous epithelium with high number of eosinophils - The highest number of eosinophils / HPF is >50 - Focal multilayer (squamo-columnar) epithelium stained focally positive for intracellular mucin with alcian blue, see note - Special stain for fungi (PAS) reveals no organisms /cjs 12-29-20 665 x 2 / 672 x 2 Close clinical follow-up for [id number] esophagus is recommended. (/cjs) Signed (signature on file) Jhonny Gallegos MD 12/29/20 0832Blayne. Pat END OF REPORT Name Value Range Interpretation Code Description Data Marisa rce(s) Supporting Document(s) ID Date Data Source [id number] 12/24/2020 11:05:00 AM EDT [facility] Name Value Range Interpretation Code Description Data Marisa rce(s) Supporting Document(s) SARS-CoV-2 (COVID-19) N gene [Presence] in Nasopharynx by YUSUF with probe detection NOT-DETECTED [facility] This lab was ordered by [facility] and reported by [facility]. ID Date Data Source [id number] 12/24/2020 04:24:00 PM EDT [facility] Have you tested POSITIVE for Covid-19 i n the last 90 days? No Patient presents as: Asymptomatic COVID Reason [place] Surgery Priority Surgery/Appointment Date: 12/28/2020 Support person(if yes for who): N Name Value Range Interpretation Code Description Data Marisa rce(s) Supporting Document(s) COVID 19 (RHEONIX) NOT-DETECTED NOTDETECTED [facility] The Spime COVID-19 MDx Assay is an en dpoint RT-PCR assay (MOLECULAR)intended for the qualitative detection of nucleic acid from SARS-CoV-2 in nasopharyngeal swabs. COVID testing using the Spime analyzer was developed for the purpose of diagnostic testing during a declared public health emergency and has Emergency Use Authorization (EUA) from the FDA. The possibility of a false negative result should be considered if the patient's recent exposures or clinical presentation indicate that COVID-19 is likely, and diagnostic tests for other causes of illness (e.g., other respiratory illness) are negative. If COVID-19 is still suspected based on exposure history together with other clinical findings, re-testing should be considered by healthcare providers in consultation with public health authorities. ID Date Data Source [id number] 12/15/2020 07:35:00 PM EDT [facility] Name Value Range Interpretation Code Description Data Marisa rce(s) Supporting Document(s) WHITE BLOOD COUNT 7.98 10^3/uL 4.00-10.50 N [facility] ealth RED BLOOD COUNT 4.91 10^6/uL 3.90-5.20 N [facility] th HEMOGLOBIN 13.3 G/DL 11.5-15.6 N [facility] HEMATOCRIT 42.0 % 35.0-46.0 N [facility] MCV 85.5 FL 80.0-100.0 N [facility] MCH 27.1 PG 27.0-34.0 N [facility] MCHC 31.7 G/DL 32-36 L [facility] RDW 13.9 % 11.5-14.5 N [facility] PLATELET COUNT 296 10^3/uL 130-400 N [facility] MPV 10.5 FL 8.7-13.2 N [facility] GRAN % (AUTO) 64.9 % 42.0-75.0 N [facility] LYMPH % (AUTO) 20.4 % 20.0-51.0 N [facility] MONO % (AUTO) 6.1 % 2.0-15.0 N [facility] EOS % (AUTO) 7.4 % 0.0-11.0 N [facility] BASO % (AUTO) 0.9 % 0.0-2.0 N [facility] IG % (AUTO) 0.3 % 1.00-5.00 [facility] IG # (AUTO) 0.0 10^3/uL <0.5 [facility] GRAN # (AUTO) 5.18 10^3/uL 1.50-6.50 N [facility] LYMPH # (AUTO) 1.6 k/uL 1.0-5.0 N [facility] MONO # (AUTO) 0.49 k/uL 0.20-1.50 N [facility] EOS # (AUTO) 0.59 10^3/uL 0.00-1.10 N [facility] BASO # (AUTO) 0.07 10^3/uL 0.00-0.20 N [facility] ID Date Data Source [id number] 12/15/2020 08:03:00 PM EDT [facility] Name Value Range Interpretation Code Description Data Marisa rce(s) Supporting Document(s) SODIUM 141 MEQ/L 135-145 N [facility] POTASSIUM 4.3 MEQ/L 3.5-5.3 [facility] CHLORIDE 108 MEQ/L 94-110 [facility] CARBON DIOXIDE 29 MEQ/L 22-33 [facility] ANION GAP 8 5-16 [facility] BLOOD UREA NITRO 9 MG/DL 7-25 N [facility] CREATININE 0.7 MG/DL 0.6-1.4 [facility] GFR 83.0 ML/MIN [facility] Stage G2 - Mildly decreased kidney func tion The GFR is an estimate of the Glomerular Filtration Rate. It is an aid to assess a patient's renal function. It is not a conclusive diagnosis of kidney disease. GFR normal is >=90 The MDRD GFR calculation is considered valid between the ages of 18 and 75 years only. BUN/CREAT RATIO 12 8-36 [facility] GLUCOSE 88 MG/DL 70-100 [facility] CA 9.2 MG/DL 8.7-10.5 [facility] BILIRUBIN,TOTAL 0.2 MG/DL 0.1-1.3 [facility] AST 21 U/L 5-40 [facility] ALT 21 U/L 5-48 [facility] ALKALINE PHOSPHATASE 58 U/L 40-140 [facility] alth TOTAL PROTEIN 6.3 G/DL 5.9-8.3 N [facility] ALBUMIN 4.5 G/DL 3.0-5.1 [facility] GLOBULIN 1.8 G/DL 1.5-3.5 [facility] ALB/GLOB RATIO 2.5 G/DL 1.0-3.0 N [facility] ID Date Data Source [id number] 12/15/2020 07:13:32 PM EDT [facility] Name Value Range Interpretation Code Description Data Marisa rce(s) Supporting Document(s) EKG/ECG IN ED [facility] [file] ITiNjODXbRMJT88MQbB+end finder twisting department/xjFzAIuR8vNfpQrDc2zvatpi1gDXXt4mOspsGtK0GMP0RG+jQEmJjjzD wwlT6wfGev00t/Vkx5QHFr21w/pgJF1WQ1lE8rK7hcwyNYkR52+V+5tHK46ea932YapjGUHzC/Rrc5jz /rDz05+3TYTZrd4ag3wGXIDnSrqEczb12RXNA/3UZy ilxGwz6hXduhjH31zI3gI5EHwg7LAfnRQBeD/5C2UZosFcmcC0lwJxD8p/0gVxkNkxFeoJ2+71qykefK /gOfBsvE37k4FxOT5YM1mE5hA0uaxoQJtUhUQt7l4EopqpfotW86Nnw4vWDgJ/PMTdpkV1jPwsj26tYK IsdzfsnOPX37GfgQU/3u3QkUnIL6FExz4tOe0E6VJw Xm0qGsBflsJgnaxnFW7rFw5myCikLTf5GCPMP2QVhkF/9k6YlipntjvN64Jjv7scanNr7e9sWVdgZw0U gF83BTaXf9nNeSlr/HWHYB6KB8xsVtt4Y5eP0mftdtFwmZC0VSFegpa9XVMHoEABTYF3/u97Qniwk/8A Xtu8UDQn73h/obSI0DG5dC4cP0xjxaAQkH81+V+5jO Q80nk505OsmrVHGsG/ZYc6OE4/7x11Isy7f0Ip9In9xZXUQDWeYhzmy6ouIFMeV98Vzcqs91m3Qxc097 1t+3gNNZmS70BTAjL6GSr10m1Z8Y7NNjxFfthR5eQ4Wf+rSxHgcZsGPkrzAlXaDOi1s5jE5zsfyiRppM plj4bMvZhHeHsvZryF7Y6klSnlkrYADETJKWfdtrWo oooAKKKKACiiigAooooAKKKKACiiigAooooAKKKKACiiigAooooAKKKKACiiigAooooAKKKKACiiigCh [file] faCtdszPCOTRUIjsjvXgdsfUHADHIJuqmeKbeehX4s xP9+2/4F/OhEtnwExhcuz4vYiflbKcmiv01/6nRfrN/wCyUUVMtjGv/HQ13HPZKE8YUBITQexaWJ/kO6 j/ANew/yALqPtuYRlH1MCt/pGTBupnbOcipn27/vHq8N2jj+yUUVMtjGv/BS0eW0WDPeeDWZEODTsHhK /5Duo/9ew/5SYr79WLcKZ7KM/QyfyepuyE6i+N/wDq dF+s3/slFFTLYxr/QAAfxoFIEEgekFGUEY8u8EA+Q7qP/XsP/QuDfuFRiK8MIp/iCRGMAn5JvNuqq/qd F+s3/slFFTLYxr/y8jWXtLBHamiNUOGP4h7DA+Y5uN9M49U/PGPAq47KPzVP7GR/CVKDGONd9LaLold/ AKnRfrN/4YJPUw4Zr/6GPI17JURYW8KzOPYLS3E+Cn /Id1H/AK9h/aVsTql8FO9lsfdk/gQUUUVRuFeTfG//AFOi/Wb/ANkooqZbGNf+Bfe1vxvyvfadhmbC5K +Cn/Id1H/r2H/xDg7fiwaE2Qi2y4QJYXMHakIf2g/5CT/9cj/NGFUC9Jy/7AO1eIHMNgfXCOEPRDNONK FFFFABRRRQAUUUUAFFFFABRRRQAUUUUAFFFFABRRRQ AUUUUAFFFFABRRRQAUUUUAFFFFABRRRQB//KADtzsaQrbOQrSL6HWdUuUC1hqt7RRDPgBYZvYpcGZlg2 B9Y8rFKjO6WtZ7VmK54lVb1ZxWUltXM3NG7EfMj4QJWwTwfegUGFVWMvCOEvMGQkB1BsTDY1Vj6+DQpz wTTjQY6GJevfgOAcK9JfKIT0tx8fOxuUdou6jRVpFO FBp5RWWN7AApDL7d5qaiswzLEot2+19nGKTHEMWXhCQD0GeVsAVUr7JSGMjUYuGoBYXFgGlnXAZyMIOC P4XqQ5IQA8hor7A6jBrMkFa3Tvhox8tliU6Db2VMSLVjBKzb7I4eYfvGZDl8gSG6A67c4Xb3XqgjnHNb nbEw8VXzD4nyrpPzbvvC/tEvFJi1STz9C68muXs7en uj9q+3maUlWO7kaz9msTLF3HEQ6kx8TgVGYtAJgpcoAuDyqDGeU9RAElq0VeVUo0WD9Sxj1lwUIxhym+ /mUJFYvFFeTxFO8IjgXeQPHJpMXpXQKKEvWcFQOAkWBlJRXCMVJZJN9FaoIlZACFEpVtZOIUNrmyC0Pb YXRvcij+/wMJKZmWMdQuFH1RsnRnRMWAnDKzJSZXWe HoFGMQhPTbBATGCSHMHO0TcsNhOFEBJhUzAXNECdmjE8IiZSAyj09XAUMoKBF0WaNnDWPnEoBwExD5GP XaYL9Mx0ZZXXBoHQW6FtRmBPYjEhPqCjP5BBDyQK2+GXiracClApcSIeS5JPEud0LyKDwyLJR2QA7jZI vtywKwMgsTWeMsFHQey8WgFUocNZU7WX7kPTrnhbOq JpqBTbNiJMKcq9TuPIs6NM9ZjAKuS0gDGEGlU2j8FJZgOV5THjJvCPThOn6fB3Ypx9KjNLKdSATeKY5n ozPcUSIaVGJdONOnGLJ3XPD8SHD0HJFWK1G1EKTJMsQUTBEFHdWGRCVrFJNFLzwcYAcVYCPLVSMHQqZX IQDHKxOBUDc1XyMwBhXYTchnXt0oCQ6FlDn0ENAdIs badNRYVXMzEQFcZMLuE7HpSSg5Do4OZsU6euXdlE5WrIiuFBYI//7JhwVhStKQakOVG8NS88GfxZMoCN LQVNBypGTXPJ6OjilW3GZxDAyUMRFklILXJDkUMqiZaBHKIh9odaZO9kDcSsLhvcdXRX8SPaD0Smi0VC caqoScjTWcDA4XGyPrIL7xqd2JtHPuVt8JLDKuBx0D LJLdJOAmYDSlYUC2LUQcPPJqMGtpNEPoKNNfTDQ1XWSeJPNlAX8JEzIzMUPgQGSxOsKoVSAjRRJetu6K ZNKoVCNkUPC6GPEuQULwCIAmJTdyHLIuPXXbAJDyQHRqQJUaXR4KHcCiSLPxOQT7UeJcRLKgBRWdno3K TIAzFYJgSNtvRcYmJJInLCZtNWmgODKsRNInIVM7ZQ PcMCYbBU8HDePdBGKaCLRgRrtvHPVwZAUase6KDYZtZRBeOSN5ZLXvTSTvGDNePZtkRUClKEEeJLJpVF F6GMJ3VFKXLkIpLNXgKWDkBPHaVpN5QvNtFb6DWMJuTPApEHDlRhR7YERqCSZdKAkfDIDdMPBvSAL7AK L6WFI7MZCQDrUqWDVaNOSeTGAeSqM3PgUzEt9SAPEm BBXsBLAeHwR9LVMgSSNkPLwvBGJjOHWyOHU5XRA0NBI5KRRRInApJEMsKKAiEISyMrQ0ZjAaAh3GNZWr SJJyBvB8JxXcIKDpFJMdHCgyKNSrAzN6BUr0TTIwTYYpIO6RFxTtYMUmDSF7UrMrBMAeQVCclc5BDVTi LXQwSvu1JqKyEXNxBXOlOUg7xiBluJWmPXv9WO3WeL jkNQEjD6Syp5SbBOCcBFFaKH8wgyFpHRQuBVKwJUMgRTB9FZJ5ZFV7AFFQP3N0EHLRJxFFAENLBmTBBR QnFXQWGolfCEzDHDZVNAARFsWBRBODQgEDUUc3EeVmTeIXOpldNs1gCG8+DQpzdGFydHhyZWYNCjIwNz V0ZU0CLWDFQ8SESkkbBWFWIhBcIW9GzKWkcTlkgv3L ZSxfP5j5XTKzCb9Wv079HEPuOPBEE4jtMf4nGDglPDTAM4sKDatcXHkGSDZXULYFToAXFLVDKgQOTLo5 AmDjHiQTFjzeEr14UGT3KpNsUak2QNZnPVx8U2LQCyG9JOTsDvLySSB3R5X+XSAvUHJldiAyMDcyNDAv MIEyGeA8nGGqNLY9XXU+Hk2Ce5WxywD2uqWtFHohNMm8LbrMScNaTZ1K ID Date Data Source "" 12/15/2020 07:13:00 [place] [address] Patient Name: Salena Stanley Exam Date: 12/15/20 : 1950 CC: EKG/ECG in ED Ordering Doctor: Tracy Jauregui MD Attending Doctor: Onesimo Laguerre MD CC: EKG/ECG in ED APPROVED REPORT ECG MEASUREMENT Heart Rate 58 AXES PA 141 P 48 QRSd 84 QRS 0 QT 389 T 55 QTc 386 INTERPRETATION SINUS BRADYCARDIA POSSIBLE INFERIOR MYOCARDIAL INFARCTION , PROBABLY OLD [30 ms Q WAVE IN II/aVF] NO ACUTE ISCHEMIA BORDERLINE ECG Conclusion SINUS BRADYCARDIA POSSIBLE INFERIOR MYOCARDIAL INFARCTION , PROBABLY OLD [30 ms Q WAVE IN II/aVF] NO ACUTE ISCHEMIA BORDERLINE ECG End of diagnostic report for accession: [id number] Interpreted: Onesimo Laguerre MD 12/15/201912 Transcribed: Signed: Onesimo Laguerre MD 12/15/201912 Interpreted by: Onesimo LaguerreTranscribed by: Onesimo Laguerre Name Value Range Interpretation Code Description Data Marisa rce(s) Supporting Document(s) ID Date Data Source [id number] 12/15/2020 07:04:00 [place] [address] HEALTH INFORMATION MANAGEMENT ED/UC Physician Report : [id number] Signed Patient: Salena Stanley Acct:[id number] Unit: M [id number] : 1950 Arrival Date: 12/15/20 Age/Sex: 70 / F Arrival Time: 183 Copies to: Omi Boone MD General Adult HPI/ROS General Chief Complaint: Complex/Multi-System Present Stated Complaint: Vomiting Stated Complaint: Vomiting Source: Patient, Old records reviewed, RN/MD, RN notes reviewed and I have reviewed available Ancillary/nursing staff documentation Mode of arrival: Ambulatory Limitations: Reports No limitations History of Present Illness Initial Comments: SHE IS KNOWN TO HAVE SEVERE GERD WITH BURNING THE SORE ALL THE TIME. SHE IS SCHEDULED TO HAVE ENDOSCOPY BY DR. KILEY MOSQUEDA IN THE NEAR FUTURE. SHE WAS TRIED ON DIFFERENT MEDICATIONS WITHOUT HELP. SHE IS HERE DUE TO WORSENING OF HER SYMPTOMS. SHE ADMITS SOME VOMITING BUT NO BLOOD IN THE VOMITUS. NO SIGNIFICANT ABDOMINAL PAIN. NO DIARRHEA. NO BLOOD IN THE STOOLS Time interval: Days(s) Location: Reports Abdomen Radiation: Reports Abdomen Severity scale (1-10): 4 Quality: Reports Constant Consistency: Reports Constant Improves with: Reports None Worsens with: Reports None Associated symptoms: Reports Denies other symptoms Related Data LMP (females 10-50): Other Home Medications Medication Instructions Recorded docusate sodium [Colace] 100 mg PO DAILY 12/06/13 lorazepam 1 mg PO HS 12/06/13 cholecalciferol (vitamin D3) 2,000 unit PO DAILY 05/29/15 [Vitamin D3] metoprolol succinate 25 mg PO DAILY 03/25/16 pravastatin 40 mg PO HS 03/01/19 aspirin [Aspir-81] 81 mg PO DAILY 05/01/19 multivitamin 1 tab PO DAILY 05/01/19 nitroglycerin 0.4 mg SUBLINGUAL PRN PRN 05/05/19 meclizine [Medi-Meclizine] 25 mg PO .Q 6 HR PRN #20 tab 05/28/19 ondansetron HCl [Zofran] 4 mg PO Q4H PRN #20 tab 05/28/19 albuterol sulfate 0.63 mg/3 mL 0.63 mg INHALATION QID PRN 04/28/20 solution for nebulization albuterol sulfate 90 mcg/actuation 2 inhalation INHALATION Q4-6H PRN 04/28/20 breath activated powder inhaler,sensor venlafaxine 75 mg capsule,extended 75 mg PO DAILY 04/28/20 release 24 hr dexlansoprazole 60 mg 60 mg PO DAILY #30 cap 09/13/20 capsule,biphase delayed release metoclopramide HCl 5 mg tablet 10 mg PO HS #30 tab 11/24/20 sucralfate [Carafate] 10 ml PO QACHS #1000 ml 12/15/20 Allergies basil Allergy (Severe, Verified 12/15/20 18:40) ANAPHYLAXIS bacitracin zinc [From Neosporin] Allergy (Intermediate, Verified 12/15/20 18:40) ADDITIONAL UNSPECIFIED blisters on skin benzalkonium chloride [From Neosporin] Allergy (Intermediate, Verified 12/15/20 18:40) ADDITIONAL UNSPECIFIED blisters on skin ciprofloxacin [From Cipro] Allergy (Inter mediate, Verified 12/15/20 18:40) ADDITIONAL UNSPECIFIED clarithromycin [From Biaxin] Allergy (Intermediate, Verified 12/15/20 18:40) RASH/HIVES gramicidin D [From Neosporin] Allergy (Intermediate, Verified 12/15/20 18:40) ADDITIONAL UNSPECIFIED skin blisters neomycin sulfate [From Neosporin] Allergy (Intermediate, Verified 12/15/20 18:40) ADDITIONAL UNSPECIFIED skin blisters Penicillins Allergy (Intermediate, Verified 12/15/20 18:40) SHORTNESS OF BREATH "ASTHMA" polymyxin B [From Neosporin] Allergy (Intermediate, Verified 12/15/20 18:40) ADDITIONAL UNSPECIFIED skin blisters aspartame Adverse Reaction (Severe, Verified 12/15/20 18:40) ANAPHYLAXIS Mjwxrzu-Pdv-Osx Reductase Inhibitor Adverse Reaction (Intermediate, Verified 12/15/20 18:40) NAUSEA/VOMITING/DIARRHEA egg Adverse Reaction (Mild, Verified 12/15/20 18:40) NAUSEA/VOMITING/DIARRHEA metronidazole [From Flagyl] Adverse Reaction (Mild, Verified 12/15/20 18:40) ADDITIONAL UNSPECIFIED "loopy" and nauseous Metronidazole HCl [From Flagyl] Adverse Reaction (Mild, Verified 12/15/20 18:40) NAUSEA/VOMITING/DIARRHEA Review of Systems Review of Systems All systems: Reviewed and negative except as stated in HPI. GI: Reports Pain, Nausea and Vomiting; Denies Diarrhea, Hematemesis, Hematochezia and Melena Psychiatric: Reports Anxiety Immunizat ions Immunizations Up to Date: Yes Tetanus Status: Up to Date Social History Social History Other: Quit tobacco many years ago History of Smoking/Tobacco Use: Former Smoker Tobacco Product: Reports Cigarettes Alcohol use: Reports None Drug use: Reports None Occupation: retired Lives with: Reports Alone PMH/PSH PMH/PSH Medical History Anxiety Bowel obstruction CAD (coronary artery disease) Cataract COPD (chronic obstructive pulmonary disease) CVA (cerebral vascular accident) Depression Diabetes DVT (deep venous thrombosis) GERD (gastroesophageal reflux disease) HTN (hypertension) Hypercholesterolemia Multiple sclerosis Myocardial infarction Osteoarthritis Seizure TIA (transient ischemic attack) Surgical History H/O tubal ligation (Surgical) History of appendectomy (Surgical) History of bowel resection (Surgical) History of intestinal surgery (Surgical) History of tonsillectomy and adenoidectomy (Surgical) Family History Mother Diabetes mellitus Father HTN (hypertension) Other Malignant neoplasm of lung Physical Exam Physical Exam Physical Exam: HEENT: PERRLA. MUCOSA MOIST. NO PALLOR, NO CYANOSIS, NO JAUNDICE, JVD FLAT, NO FACIALASYMMETRY, NO CAROTID BRUITS. EAR/THROAT/SINUS WNL. NECK SUPPLE. NO THYROMEGALY. CHEST: CLEAR, NO RALES, NO RHONCHI, NO RUBS. HEART: REGULAR, NO GALLOP OR MURMUR. ABD: LAX, NO RIGIDITY. MINIMAL TENDERNESS EPIGASTRIC AREA WITHOUT REBOUND. NO MASSES.+BS. EXT: NO EDEMA OR CLUBBING OR TREMORS. COMPLIANCE AUDITOR: A/OX3, GROSSLY INTACT. SKIN: DRY, NO RASH, NO SIGNIFICANT LESIONS. Course Vital Signs Vital signs: Vital Signs 12/15/20 18:40 Temperature 98.5 F Pulse Rate 65 Respiratory Rate 18 Blood Pressure 148/65 H O2 Sat by Pulse Oximetry 97 THE PATIENT DID IMPROVE WITH TREATMENT IN THE EMERGENCY ROOM AND I DID DISCUSS FUTURE PLANS AND THEPATIENT IS STABLE FOR DISCHARGE TO BE FOLLOWED UP OUTPATIENT WITH THE RECOMMENDATION TO COME BACKIF ANY PROBLEM ARISES. Medical Decision Making/CCT Lab Data Result diagrams: 12/15/20 19:28 12/15/20 19:28 Labs reviewed: Yes Hyperglycemia Identified Hyperglycemia identified in patient?: No Medical Decision Making Medical Decision Making: PATIENT WITH PERSISTENT GERD SYMPTOMS. SHE WILL BENEFIT FROM EVALUATION LAB TESTING TO RULE OUT ACUTE ABDOMEN AND TREATMENT Critical Care Time Critical Care Time: No Discharge Plan Disposition Clinical Imp ression: GERD (gastroesophageal reflux disease) Qualifiers: Esophagitis presence: esophagitis presence not specified Qualified Code(s): K21.9 - Gastro- esophageal reflux disease without esophagitis Provider stated Dispo: Discharged Condition: Stable Instructions: Gastroesophageal Reflux Disease (ED) Activity Restrictions/Additional Instructions: TAKE ANY MEDS GIVEN DIRECTED AND FOLLOW UP WITH YOUR DOCTOR IN THE AM TOMORROW. COME BACK TO THE EMERGENCY ROOM SOONER IF NOT ANY BETTER. Prescriptions: New sucralfate [Carafate] 100 mg/mL suspension 10 ml PO QACHS Qty: 1000 RF: 0 No Action Dexilant 60 mg capsule,biphase delayed releas 60 mg PO DAILY Qty: 30 RF: 3 docusate sodium [Colace] 100 MG capsule 100 mg PO DAILY RF: 0 lorazepam 1 MG tablet 1 mg PO HS RF: 0 cholecalciferol (vitamin D3) [Vitamin D3] 2,000 UNIT capsule 2,000 unit PO DAILY RF: 0 metoprolol succinate 25 MG tablet extended release 24 hr 25 mg PO DAILY RF: 0 multivitamin Tablet 1 tab PO DAILY RF: 0 aspirin [Aspir-81] 81 mg Tablet,Delayed Release (Dr/Ec) 81 mg PO DAILY RF: 0 nitroglycerin 0.4 mg tablet, sublingual 0.4 mg sublingual PRN PRN (Reason: Chest Pain) RF: 0 meclizine [Medi-Meclizine] 25 mg tablet 25 mg PO .Q 6 HR PRN (Reason: dizziness) Qty: 20 RF: 0 ondansetron HCl [Zofran] 4 mg tablet 4 mg PO Q4H PRN (Reason: nausea and vomiting) Qty: 20 RF: 0 pravastatin 40 mg tablet 40 mg PO HS RF: 0 metoclopramide HCl 5 mg tablet 10 mg PO HS Qty: 30 RF: 2 albuterol sulfate 90 mcg/actuation aero powdr breath act w/sensor 2 inhalation INHALATION Q4-6H PRNRF: 0 albuterol sulfate 0.63 mg/3 mL solution for nebulization 0.63 mg INHALATION QID PRNRF: 0 venlafaxine 75 mg capsule,extended release 24hr 75 mg PO DAILY RF: 0 Referrals: Omi Boone MD [Primary Care Provider] - Stand Alone Forms: Portal Instructions Provider in triage note Vital Signs Vital Signs: I O (Last 24 Hours) 12/13/20 12/14/20 12/15/20 23:59 23:59 23:59 Other: Weight 71.8 kg Vital Signs (Last 8 Hours) Temp Pulse Resp BP Pulse Ox 12/15/20 18:40 98.5 F 65 18 148/65 H 97 Date/Time <<Signature on File>> Initializing User: Onesimo Laguerre MD 12/15/201903 Signed by: Onesimo Laguerre MD 12/15/202115 Name Value Range Interpretation Code Description Data Marisa rce(s) Supporting Document(s) ID Date Data Source [id number] 11/24/2020 07:34:00 AM EST [email or web address] [address] [place] [address] GI Office Visit : [id number] Signed Patient: Salena Stanley Acct:[id number] Visit Date: 11/24/20 : 1950 Assessment Plan Assessment Plan (1) GERD (gastroesophageal reflux disease): Status: Acute Comment: Her symptoms are secondary to worsening gastroesophageal reflux disease. It may be acid reflux but it is also possible that she is having non-acid or bile reflux. Worsening difficulty in swallowing may be secondary to development of esophageal stricture. Ache cancer is not suspected as she had a normal upper GI endoscopy a year ago. Dietary indiscretion resulting in weight gain could have beenprecipitating factor for worsening of the condition. Code(s): K21.9 - Gastro-esophageal reflux disease without esophagitis SNOMED Code(s): 508053195 Category: Medical Plan - Dr. Kiley Mosqueda MD: Metoclopramide 10 mg at bedtime and if tolerated well, and needed, before meals will be recommended. An upper GI endoscopy to evaluate for inflammation or stricture as well as for dilation if appropriate will be arranged. Intake Vital Signs 11/24/20 07:34 Height 1.63 m Weight 71.668 kg BMI 27.1 Intake Patient Status Have you had an UC/ED visit and/or been admitted to the hospital since your last visit?: No Have you been diagnosed with COVID-19?: No Visit Reasons: Gastroesophageal reflux disease / [id number] Installer Helper Required: No Is patient in pain?: No Primary Care Physician:: Omi Boone MD Allergies basil Allergy (Severe, Verified 11/24/20 07:35) ANAPHYLAXIS bacitracin zinc [From Neosporin] Allergy (Intermediate, Verified 11/24/20 07:35) ADDITIONAL UNSPECIFIED benzalkonium chloride [From Neosporin] Allergy (Intermediate, Verified 11/24/20 07:35) ADDITIONAL UNSPECIFIED ciprofloxacin [From Cipro] Allergy (Intermediate, Verified 11/24/20 07:35) ADDITIONAL UNSPECIFIED clarithromycin [From Biaxin] Allergy (Intermediate, Verified 11/24/20 07:35) RASH/HIVES gramicidin D [From Neosporin] Allergy (Intermediate, Verified 11/24/20 07:35) ADDITIONAL UNSPECIFIED neomycin sulfate [From Neosporin] Allergy (Intermediate, Verified 11/24/20 07:35) ADDITIONAL UNSPECIFIED Penicillins Allergy (Intermediate, Verified 11/24/20 07:35) SHORTNESS OF BREATH polymyxin B [From Neosporin] Allergy (Intermediate, Verified 11/24/20 07:35) ADDITIONAL UNSPECIFIED aspartame Adverse Reaction (Severe, Verified 11/24/20 07:35) ANAPHYLAXIS [id number]-Lcb Reductase Inhibitor Adverse Reaction (Intermediate, Verified 11/24/20 07:35) NAUSEA/VOMITING/DIARRHEA egg Adverse Reaction (Mild, Verified 11/24/20 07:35) NAUSEA/VOMITING/DIARRHEA metronidazole [From Flagyl] Adverse Reaction (Mild, Verified 11/24/20 07:35) ADDITIONAL UNSPECIFIED Metronidazole HCl [From Flagyl] Adverse Reaction (Mild, Verified 11/24/20 07:35) NAUSEA/VOMITING/DIARRHEA Home Medications - Last Reconciled 11/24/20 by Keren Brooke, [employer] albuterol sulfate 90 mcg/actuation breath activated powder inhaler,sensor 2 inhalations inhalation Q4-6H PRN albuterol sulfate 0.63 mg/3 mL solution for nebulization 0.63 mg inhalation QID PRN aspirin 81 mg tablet,delayed release (Aspir-) 81 mg PO DAILY cholecalciferol (vitamin D3) 50 mcg (2,000 unit) capsule (Vitamin D3) 2,000 units PO DAILY dexlansoprazole 60 mg capsule,biphase delayed release (Dexilant) 60 mg PO DAILY docusate sodium 100 mg capsule (Colace) 100 mg PO DAILY lorazepam 1 mg tablet 1 mg PO HS meclizine 25 mg tablet (Medi-Meclizine) 25 mg PO .Q 6 HR PRN metoprolol succinate 25 mg tablet,extended release 24 hr 25 mg PO DAILY multivitamin 1 tab PO DAILY nitroglycerin 0.4 mg sublingual tablet 0.4 mg sublingual PRN PRN ondansetron HCl 4 mg tablet (Zofran) 4 mg PO Q4H PRN pravastatin 40 mg tablet 40 mg PO HS venlafaxine 75 mg capsule,extended release 24 hr 75 mg PO DAILY History of Smoking/Tobacco Use: Former Smoker Tobacco Product: Cigarettes Annual Influenza Vaccine: No Pneumococcal Vaccine (+65): No Immunizations up to date: No (unknown) Patient or : No Recent Travel Travel Outside of the country in last 30 days?: No HPI Gastroesophageal reflux disease / [id number] Details: Patient presents for a telemedicine visit. We had a discussion regarding current HIPAA regulations and insurance billing and patient gives verbal consent to this and understands we will bill their insurance. I am located in the office with my echocardiograph technician and patient is at home and no onebill their insurance. I am located in the office with my echocardiograph technician and patient is at home and no oneelse is present during visit. Document prepped. Referral, labs and any pertinent records reviewed prior to visit and during visit. 70-year-old female with history of chronic gastroesophageal reflux disease usually in good control with Dexilant 60 mg a day has been having worsening complaints of acid reflux for last 1 month. Shestates that she is getting acid daily liquid coming up her throat at night and she starts coughing and choking. On following morning she usually has burning sensation in the back of her throat. Shehas also noticed increasing difficulty in swallowing particularly bread and meat. She has not lost in fact she has gained 10 lb in last several months. She denies any vomiting any blood on sputum orany dark stools. [facility] Medical History (Updated 11/24/20 @ 08:[address] Kiley Mosqueda MD) Anxiety Bowel obstruction CAD (coronary artery disease) Cataract COPD (chronic ob structive pulmonary disease) CVA (cerebral vascular accident) Depression Diabetes DVT (deep venous thrombosis) GERD (gastroesophageal reflux disease) HTN (hypertension) Hypercholesterolemia Multiple sclerosis Myocardial infarction Osteoarthritis Seizure TIA (transient ischemic attack) Surgical History H/O tubal ligation History of appendectomy History of bowel resection History of intestinal surgery colectomy s/p colon cancer History of tonsillectomy and adenoidectomy Family History Mother Diabetes mellitus Father HTN (hypertension) Other Malignant neoplasm of lung Social History Nutrition Concerns: No Concerns at this time Caffeine: Yes Type: carbonated beverages and coffee Alcohol Use: None Substance Use: never Hx Age of Menopause: 41 ROS AMB ROS Const Const All systems re viewed are unremarkable except as noted in HPI and below Coding Diagnoses GERD (gastroesophageal reflux disease) K21.9 CPT Codes PHONE E/M PHYS/QHP 11-20 MIN - 41244 ([id number]) Time Spent (min) 12 Signed By:Kiley Mosqueda MD <<Signature on File>> Signed Date/Time: 11/24/20822 Co-Signer: Co-Signed Date/Time: Liv tiathang User: Kiley Mosqueda MD 11/24/20 0734 3 Name Value Range Interpretation Code Description Data Marisa rce(s) Supporting Document(s) ID Date Data Source [id number] 09/24/2020 05:45:00 PM EST [facility] Name Value Range Interpretation Code Description Data Marisa rce(s) Supporting Document(s) WHITE BLOOD COUNT 7.41 10^3/uL 4.00-10.50 [facility] RED BLOOD COUNT 5.04 10^6/uL 3.90-5.20 [facility] HEMOGLOBIN 13.5 G/DL 11.5-15.6 N [facility] HEMATOCRIT 43.5 % 35.0-46.0 [facility] MCV 86.3 FL 80.0-100.0 N [facility] MCH 26.8 PG 27.0-34.0 L [facility] MCHC 31.0 G/DL 32-36 L [facility] RDW 13.9 % 11.5-14.5 N [facility] PLATELET COUNT 285 10^3/uL 130-400 N [facility] MPV 11.9 FL 8.7-13.2 N [facility] GRAN % (AUTO) 63.8 % 42.0-75.0 N [facility] LYMPH % (AUTO) 26.2 % 20.0-51.0 N [facility] MONO % (AUTO) 6.6 % 2.0-15.0 N [facility] EOS % (AUTO) 2.2 % 0.0-11.0 N [facility] BASO % (AUTO) 0.9 % 0.0-2.0 N [facility] IG % (AUTO) 0.3 % 1.00-5.00 [facility] IG # (AUTO) 0.0 10^3/uL <0.5 [facility] GRAN # (AUTO) 4.73 10^3/uL 1.50-6.50 N [facility] LYMPH # (AUTO) 1.9 k/uL 1.0-5.0 N [facility] MONO # (AUTO) 0.49 k/uL 0.20-1.50 N [facility] EOS # (AUTO) 0.16 10^3/uL 0.00-1.10 N [facility] BASO # (AUTO) 0.07 10^3/uL 0.00-0.20 N [facility] ID Date Data Source [id number] 09/24/2020 06:05:00 PM EST [facility] Name Value Range Interpretation Code Description Data Marisa rce(s) Supporting Document(s) IRON 76 UG/DL 35-150 N [facility] TIBC 260 UG/DL 260-400 [facility] % IRON SATURATION 29.0 % 20-50 N [facility] ID Date Data Source [id number] 09/24/2020 06:05:00 PM EST [facility] Name Value Range Interpretation Code Description Data Marisa rce(s) Supporting Document(s) VITAMIN B12 545 PG/ML 211-2000 N [facility] ID Date Data Source [id number] 09/24/2020 06:05:00 PM EST [facility] Name Value Range Interpretation Code Description Data Marisa rce(s) Supporting Document(s) FOLATE > 24.00 NG/ML 3.40-24.00 [facility] ID Date Data Source [id number] 09/24/2020 06:05:00 PM EST [facility] Name Value Range Interpretation Code Description Data Marisa rce(s) Supporting Document(s) Vitamin D,25-HYDROXY 43.3 ng/ml 30-100 [facility] Vitamin D Status Range De ficiency <20 ng/ml Insufficiency 20-29.9 ng/ml Sufficiency 30-100 ng/ml Toxicity >100 ng/ml Patients should not be tested for 72 hours post fluorescein dye angiography. A false elevation of result may occur. ID Date Data Source [id number] 08/17/2020 04:05:[address] [facility] VASC VENOUS LOWER RIGHTCLINICAL HISTORY: Right leg pain, swelling.COMPARISON: None available.FINDINGS: Duplex sonography of the right lower extremity was performed.The common femoral, superficial femoral, and popliteal veins demonstrate normal compressibility, patency, and phasicity.There is no evidence for DVT.The calf veins appear unremarkable.IMPRESSION: Unremarkable right lower extremity duplex examination. No evidence for DVT.Dictated by: RASHI BARNETT M.D. on 08/17/2020 Transcribed by: miller on 08/17/2020 04:27 PMCDS G code: ,CDS Modifier: ,cc: Name Value Range Interpretation Code Description Data Marisa rce(s) Supporting Document(s) Procedure Social History Code Duration Value Status Description Data Source(s ) Alcohol intake 07/18/2021 12:00:00 AM EDT Current non-d bertha of alcohol (finding) completed Current non-drinker of alcohol (finding) [facility] 06/07/2021 10:38:41 AM EDT Former Smoker completed Former Smoker [email or web address] 06/07/2021 10:38:41 AM EDT Cigarettes completed Cigarette s [email or web address] 06/07/2021 10:38:41 AM EDT Former Smoker completed Former Smoker [facility] 06/07/2021 10:38:41 AM EDT Cigarettes completed Cigarette s [email or web address] Smoking 06/07/2021 10:38:00 AM EDT Ex-smoker (finding) complet ed Ex-smoker (finding) [facility] 01/20/2021 08:20:23 AM EDT Former Smoker completed Former Smoker [facility] 01/20/2021 08:20:23 AM EDT Cigarettes completed Cigarette s [facility] 01/20/2021 08:20:23 AM EDT Former Smoker completed Former Smoker [facility] 01/20/2021 08:20:23 AM EDT Cigarettes completed Cigarette s [email or web address] Sm[facility] 01/20/2021 08:20:00 AM EDT Ex-smoker (finding) complet ed Ex-smoker (finding) [facility] 01/20/2021 08:20:00 AM EDT Ex-smoker (finding) complet ed Ex-smoker (finding) [facility] 12/22/2020 02:29:00 PM EDT Former Smoker completed Former Smoker [facility] 12/22/2020 02:29:00 PM EDT Cigarettes completed Cigarette s [email or web address] Sm[facility] 12/22/2020 02:29:00 PM EDT Ex-smoker (finding) complet ed Ex-smoker (finding) [facility] 12/22/2020 02:29:00 PM EDT Former Smoker completed Former Smoker [facility] 12/22/2020 02:29:00 PM EDT Cigarettes completed Cigarette s [email or web address] Sm[facility] 12/22/2020 02:29:00 PM EDT Ex-smoker (finding) complet ed Ex-smoker (finding) [email or web address] Alcohol intake 12/20/2020 12:00:00 AM EDT No completed [facility] Smoking 12/20/2020 12:00:00 AM EDT Former smoker completed Former smoker [facility] 12/15/2020 07:32:00 PM EDT Former Smoker completed Former Smoker [facility] 12/15/2020 07:32:00 PM EDT Cigarettes completed Cigarette s [email or web address] Sm[facility] 12/15/2020 07:32:00 PM EDT Ex-smoker (finding) complet ed Ex-smoker (finding) [facility] 12/15/2020 07:32:00 PM EDT Former Smoker completed Former Smoker [facility] 12/15/2020 07:32:00 PM EDT Cigarettes completed Cigarette s [facility] Sm[facility] 12/15/2020 07:32:00 PM EDT Ex-smoker (finding) complet ed Ex-smoker (finding) [facility] 11/24/2020 07:36:22 AM EST Former Smoker completed Former Smoker [email or web address] 11/24/2020 07:36:22 AM EST Cigarettes completed Cigarette s [facility] 11/24/2020 07:36:22 AM EST Former Smoker completed Former Smoker [email or web address] 11/24/2020 07:36:22 AM EST Cigarettes completed Cigarette s [email or web address] Sm[facility] 11/24/2020 07:36:00 AM EST Ex-smoker (finding) complet ed Ex-smoker (finding) [facility] Smoking 11/24/2020 07:36:00 AM EST Ex-smoker (finding) complet ed Ex-smoker (finding) [email or web address] Alcohol intake 08/17/2020 12:00:00 AM EST No completed [facility] Smoking 08/17/2020 12:00:00 AM EST Former smoker completed Former smoker [facility] Vital Signs ID Date Data Source UNK Name Value Range Interpretation Code Description Data Source(s) Systolic blood pressure 136 mm[Hg] 136 mm[Hg] [facility] Diastolic blood pressure 98 mm[Hg] 98 mm[Hg] [facility] Heart rate 56 /min 56 /min [facility] Body height 162.6 cm 162.6 cm [facility] Body weight 75.297 kg 75.297 kg [facility] Body mass index (BMI) [Ratio] 28.49 kg/m2 28.49 kg/m2 [facility] Oxygen saturation in Arterial blood by Pulse oximetry 92 % 92 % [facility] Body weight 166 [lb_av] 166 [lb_av] eCW1 ([facility]) Body height 64 [in_i] 64 [in_i] eCW1 ([facility]) Body mass index (BMI) [Ratio] 28.49 kg/m2 28.49 kg/m2 [facility] ([facility]) Heart rate 68 /min 68 /min [facility] ([facility]) Respiratory rate 18 /min 18 /min eCW1 ([facility]) Body temperature 96.4 [degF] 96.4 [degF] eCW1 ( [facility]) Systolic blood pressure 124 mm[Hg] 124 mm[Hg] e CW1 ([facility]) Diastolic blood pressure 80 mm[Hg] 80 mm[Hg] eCW1 ([facility]) Body height 162.56 cm 162.56 cm [facility] Body weight 74.84 kg 74.84 kg [facility] Body mass index (BMI) [Ratio] 28.3 kg/m2 28.3 k g/m2 [facility] Body weight 165 [lb_av] 165 [lb_av] eCW1 ([facility]) Body height 64 [in_i] 64 [in_i] eCW1 ([facility]) Body mass index (BMI) [Ratio] 28.32 kg/m2 28.32 kg/m2 eCW1 ([facility]) Heart rate 85 /min 85 /min eCW1 ([facility]) Respiratory rate 18 /min 18 /min eCW1 ([facility]) Body temperature 96.1 [degF] 96.1 [degF] eCW1 ( [facility]) Systolic blood pressure 126 mm[Hg] 126 mm[Hg] e CW1 ([facility]) Diastolic blood pressure 74 mm[Hg] 74 mm[Hg] eCW1 ([facility]) Body weight 166 [lb_av] 166 [lb_av] eCW1 ([facility]) Systolic blood pressure 130 mm[Hg] 130 mm[Hg] e CW1 ([facility]) Diastolic blood pressure 80 mm[Hg] 80 mm[Hg] eCW1 ([facility]) Body height 64 [in_i] 64 [in_i] eCW1 ([facility]) Body mass index (BMI) [Ratio] 28.49 kg/m2 28.49 kg/m2 eCW1 ([facility]) Heart rate 75 /min 75 /min eCW1 ([facility]) Respiratory rate 18 /min 18 /min eCW1 ([facility]) Body temperature 96.8 [degF] 96.8 [degF] eCW1 ( [facility]) Heart rate 62 /min 62 /min [facility] Systolic blood pressure 164 mm[Hg] 164 mm[Hg] O [facility] Diastolic blood pressure 74 mm[Hg] 74 mm[Hg] [facility] Respiratory rate 20 /min 20 /min [facility] Oxygen saturation in Arterial blood by Pulse oximetry 96 % 96 % [facility] Oxygen saturation in Arterial blood by Pulse oximetry 96 % 96 % [facility] Respiratory rate 20 /min 20 /min [facility] Heart rate 62 /min 62 /min [facility] Systolic blood pressure 164 mm[Hg] 164 mm[Hg] [facility] Diastolic blood pressure 74 mm[Hg] 74 mm[Hg] [facility] Heart rate 62 /min 62 /min [facility] Respiratory rate 20 /min 20 /[facility] Oxygen saturation in Arterial blood by Pulse oximetry 96 % 96 % [facility] Systolic blood pressure 164 mm[Hg] 164 mm[Hg] [facility] Diastolic blood pressure 74 mm[Hg] 74 mm[Hg] [facility] Heart rate 62 /min 62 /min [facility] Respiratory rate 20 /min 20 /min [facility] Oxygen saturation in Arterial blood by Pulse oximetry 96 % 96 % [facility] Systolic blood pressure 164 mm[Hg] 164 mm[Hg] [facility] Diastolic blood pressure 74 mm[Hg] 74 mm[Hg] [facility] Body temperature 97.1 [degF] 97.1 [degF] [facility] Body temperature 97.1 [degF] 97.1 [degF] [facility] Body temperature 97.1 [degF] 97.1 [degF] [facility] Body temperature 97.1 [degF] 97.1 [degF] [facility] Body weight 72.72 kg 72.72 kg [facility] Body height 162.56 cm 162.56 cm [facility] Body height 162.56 cm 162.56 cm [facility] Body weight 72.72 kg 72.72 kg [facility] Body height 162.56 cm 162.56 cm [facility] Body weight 72.72 kg 72.72 kg [facility] Body height 162.56 cm 162.56 cm [facility] Body weight 72.72 kg 72.72 kg [facility] Systolic blood pressure 137 mm[Hg] 137 mm[Hg] [facility] Diastolic blood pressure 83 mm[Hg] 83 mm[Hg] [facility] Heart rate 55 /min 55 /min [facility] Body temperature 36.67 Lydia 36.67 Lydia [facility] Respiratory rate 20 /min 20 /min [facility] Body height 162.6 cm 162.6 cm [facility] Body weight 71.668 kg 71.668 kg [facility] Body mass index (BMI) [Ratio] 27.12 kg/m2 27.12 kg/m2 [facility] Oxygen saturation in Arterial blood by Pulse oximetry 98 % 98 % [facility] Body temperature 98.5 [degF] 98.5 [degF] [facility] Oxygen saturation in Arterial blood by Pulse oximetry 97 % 97 % [facility] Heart rate 60 /min 60 /min [facility] Systolic blood pressure 138 mm[Hg] 138 mm[Hg] [facility] Respiratory rate 18 /min 18 /min [facility] Diastolic blood pressure 62 mm[Hg] 62 mm[Hg] [facility] Diastolic blood pressure 62 mm[Hg] 62 mm[Hg] [facility] Body temperature 98.5 [degF] 98.5 [degF] [facility] Heart rate 60 /min 60 /min [facility] Oxygen saturation in Arterial blood by Pulse oximetry 97 % 97 % [facility] Respiratory rate 18 /min 18 /min [facility] Systolic blood pressure 138 mm[Hg] 138 mm[Hg] [facility] Body temperature 98.5 [degF] 98.5 [degF] [facility] Heart rate 60 /min 60 /min [facility] Respiratory rate 18 /min 18 /min [facility] Oxygen saturation in Arterial blood by Pulse oximetry 97 % 97 % [facility] Systolic blood pressure 138 mm[Hg] 138 mm[Hg] [facility] Diastolic blood pressure 62 mm[Hg] 62 mm[Hg] [facility] Body temperature 98.5 [degF] 98.5 [degF] [facility] Heart rate 60 /min 60 /min [facility] Respiratory rate 18 /min 18 /min [facility] Oxygen saturation in Arterial blood by Pulse oximetry 97 % 97 % [facility] Systolic blood pressure 138 mm[Hg] 138 mm[Hg] [facility] Diastolic blood pressure 62 mm[Hg] 62 mm[Hg] [facility] Body height 162.56 cm 162.56 cm [facility] Body weight 71.80 kg 71.80 kg [facility] Body weight 71.80 kg 71.80 kg [facility] Body height 162.56 cm 162.56 cm [facility] Body height 162.56 cm 162.56 cm [facility] Body weight 71.80 kg 71.80 kg [facility] Body height 162.56 cm 162.56 cm [facility] Body weight 71.80 kg 71.80 kg [facility] Body height 162.56 cm 162.56 cm [facility] Body weight 71.66 kg 71.66 kg [facility] Body mass index (BMI) [Ratio] 27.1 kg/m2 27.1 k g/m2 [facility] Body height 162.56 cm 162.56 cm [facility] Body weight 71.66 kg 71.66 kg [facility] Body mass index (BMI) [Ratio] 27.1 kg/m2 27.1 k g/m2 [facility] Body height 162.56 cm 162.56 cm [facility] Body weight 71.66 kg 71.66 kg [facility] Body mass index (BMI) [Ratio] 27.1 kg/m2 27.1 k g/m2 [facility] Body height 162.56 cm 162.56 cm [facility] Body weight 71.66 kg 71.66 kg [facility] Body mass index (BMI) [Ratio] 27.1 kg/m2 27.1 k g/m2 [facility] Systolic blood pressure 142 mm[Hg] 142 mm[Hg] [facility] Diastolic blood pressure 79 mm[Hg] 79 mm[Hg] [facility] Heart rate 64 /min 64 /min [facility] Body height 162.6 cm 162.6 cm [facility] Body weight 67.132 kg 67.132 kg [facility] Body mass index (BMI) [Ratio] 25.40 kg/m2 25.40 kg/m2 [facility] Oxygen saturation in Arterial blood by Pulse oximetry 97 % 97 % [facility] Patient Treatment Plan of Care Planned Activity Planned Date Details Description Data Source (s) 24 HR metoprolol succinate 25 MG Extended Release Oral Tablet 07/18/2021 12:00:00 AM EDT [facility] 24 HR venlafaxine 37.5 MG Extended Release Oral Capsul e 07/11/2021 12:00:00 AM EDT [facility] Calcium + D3 600-800 MG-UNIT 06/28/2021 12:00:00 AM EDT eCW1 ([facility]) Calcium + D3 600-800 MG-UNIT 06/28/2021 12:00:00 AM EDT eCW1 ([facility]) Sucralfate 100 MG/ML Oral Suspension 12/16/2020 12:00:00 AM EDT [facility] 24 HR metoprolol succinate 25 MG Extended Release Oral Tablet 11/02/2020 12:00:00 AM EST [facility] venlafaxine 75 MG Oral Tablet 08/02/2020 12:00:00 AM EST [facility] 24 HR venlafaxine 37.5 MG Extended Release Oral Capsul e 07/10/2019 12:00:00 AM EDT [facility] Bisacodyl 5 MG Delayed Release Oral Tablet [facility]
--- OUTSIDE RECORDS SUMMARY | 2021-08-08 04:37 | CCD ---
Author Author [facility] Organization [facility] Address Unknown Phone Unavailable Care Team Providers Care Audiovisual Production Specialist Name Role Phone [place], A Jannet SHIRRING MACHINE OPERATOR Unavailable Unavailable [place], A Jannet SHIRRING MACHINE OPERATOR Unavailable Unavailable [place], A Jannet SHIRRING MACHINE OPERATOR Unavailable Unavailable [place], A Jannet SHIRRING MACHINE OPERATOR Unavailable Unavailable [place], A Jannet SHIRRING MACHINE OPERATOR Unavailable Unavailable [place], A Jannet SHIRRING MACHINE OPERATOR Unavailable Unavailable [place], A Jannet SHIRRING MACHINE OPERATOR Unavailable Unavailable [place], A Jannet SHIRRING MACHINE OPERATOR Unavailable Unavailable [place], A Jannet SHIRRING MACHINE OPERATOR Unavailable Unavailable [place], A Jannet SHIRRING MACHINE OPERATOR Unavailable Unavailable [place], A Jannet SHIRRING MACHINE OPERATOR Unavailable Unavailable [place], A Jannet SHIRRING MACHINE OPERATOR Unavailable Unavailable [place], A Jannet SHIRRING MACHINE OPERATOR Unavailable Unavailable [place], A Jannet SHIRRING MACHINE OPERATOR Unavailable Unavailable Josiah, P Jeffrey DO Unavailable [...] Unavailable Josiah, P Jeffrey DO Unavailable Unavailable Joisah, P Jeffrey DO Unavailable Unavailable Josiah, P Jeffrey DO Unavailable Unavailable Josiah, P Jeffrey DO Unavailable Unavailable Josiah, P Jeffrey DO Unavailable Unavailable Josiah, P Jeffrey DO Unavailable Unavailable Josiah, P Jeffrey DO Unavailable Unavailable Joisah, P Jeffrey DO Unavailable Unavailable Josiah, P [...] Unavailable Sharad Mosqueda MD Unavailable Unavailable Sharad Mosquead MD Unavailable Unavailable Sharad Mosqueda MD Unavailable [...] Unavailable Unavailable Jalen Yi MD Unavailable Unavailable Missy Rodriguez MD Unavailable Unavailable Missy Rodriguez MD Unavailable Unavailable Missy Rodriguez MD Unavailable Unavailable Missy Rodriguez MD Unavailable Unavailable Missy Rodriguez MD Unavailable Unavailable Missy Rodriguez MD Unavailable Unavailable Missy Rodriguez MD Unavailable Unavailable Missy Rodriguez MD Unavailable Unavailable Missy Rodriguez MD Unavailable Unavailable Missy Rodriguez MD Unavailable Unavailable Missy Rodriguez MD Unavailable Unavailable Missy Rodriguez Amanda MD Unavailable Unavailable Missy Rodriguez Aamnda MD Unavailable Unavailable Missy Rodriguez MD Unavailable Unavailable Michael E Amanda [...] Unavailable Unavailable Tracy Jauregui MD Unavailable Unavailable Speer, V CAREN PA-C Unavailable Unavailable Speer, V CAREN PA-C Unavailable Unavailable Speer, V CAREN PA-C Unavailable Unavailable Speer, V CAREN PA-C Unavailable Unavailable Speer, V CAREN PA-C Unavailable Unavailable Speer, V CAREN PA-C Unavailable Unavailable Nat, V CAREN PA-C Unavailable Unavailable Nat, V CAREN PA-C Unavailable Unavailable Speer, V CAREN PA-C Unavailable Unavailable Nat, V CAREN PA-C Unavailable Unavailable Speer, V CAREN PA-C Unavailable Unavailable Nat, V CAREN PA-C Unavailable Unavailable Speer, V CAREN PA-C Unavailable Unavailable Speer, V CAREN PA-C Unavailable Unavailable Groch, R [...] Unavailable Groch, R Jan DO Unavailable Unavailable MERCEDES TORRES MD Unavailable Unavailable [...] Unavailable Unavailable MERCEDES TORRES MD Unavailable Unavailable ODMERCEDES CRAMER MD Unavailable Unavailable MERCEDES TORRES MD Unavailable [...] Unavailable Unavailable MERCEDES TORRES MD Unavailable Unavailable Re-disclosure Warning The records [...] is protected by Article 27-F of the [facility] Public Health law. If you continue you may have access to information: Regarding HIV / AIDS; Provided by facilities licensed or operated by the [facility] Office of Mental Health; or Provided by the [facility] Office for People With Developmental Disabilities. If such information is present, then the following [facility] mandated warning applies: This information has [...] law may result in a fine or half-way sentence or both. A general authorization for the release of medical or other information is NOT sufficient authorization for further disc losure. Allergies and Adverse Reactions Type Description Substance Reaction Status Data Source(s ) Drug allergy basil basil ANAPHYLAXIS [facility] Drug allergy egg egg NAUSEA/VOMITING/[place] [facility] Drug allergy polymyxin B polymyxin B ADDITIONAL UNSPECIFIED [facility] Drug allergy clarithromycin clarithromycin RASH/HIVES [facility] Drug allergy benzalkonium chloride benzalkonium chloride BLAKE TIONAL UNSPECIFIED [facility] Drug allergy metronidazole metronidazole ADDITIONAL UNSPECIFIED [facility] Drug allergy ciprofloxacin ciprofloxacin ADDITIONAL UNSPECIFIED [facility] Drug allergy gramicidin D gramicidin D ADDITIONAL UNSPECIFIED [facility] Drug allergy aspartame aspartame ANAPHYLAXIS [facility] Drug allergy [id number]-[id number] Reductase Inhibitor Stat ins-HMG-CoA Reductase Inhibitor NAUSEA/VOMITING/DIARR[place]A [facility] Drug allergy Penicillins Penicillins SHORTNESS OF BREATH [facility] Drug allergy Metronidazole HCl Metronidazole HCl NAUSEA/VOMITING/DIAR [place] [facility] Drug allergy bacitracin zinc bacitracin zinc ADDITIONAL UNSPECIFIED M [facility] Drug allergy neomycin sulfate neomycin sulfate ADDITIONAL UNSPECIFIED [facility] Drug allergy basil basil ANAPHYLAXIS SV [facility] Drug allergy egg egg NAUSEA/VOMITING/[place] Drug allergy polymyxin B polymyxin B ADDITIONAL [facility]NSPECIFIED [facility] Drug [facility] clarithromycin Clarithromycin RASH/HIVES [facility] Drug allergy benzalkonium chloride benzalkonium chloride BLAKE TIONAL UNSPECIFIED MO [facility] Drug allergy metronidazole metronidazole ADDITIONAL UNSPE CIFIED [place] NAUSEA/VOMITING/[facility] U [facility] Drug allergy ciprofloxacin Ciprofloxacin ADDITIONAL UNSPECIFIED MO [facility] Drug allergy gramicidin D gramicidin D ADDITIONAL UNSPECIFIED MO [facility] Drug allergy aspartame aspartame ANAPHYLAXIS SV SHORTNESS OF BREATH [facility] Drug allergy Pryklim-Vlp-Qvg Reductase Inhibitor Stat ins-Hmg-Coa Reductase Inhibitor NAUSEA/VOMITING/DIARRHEA [facility] Drug allergy Penicillins Penicillin SHORTNESS OF BREATH MO [facility] Drug allergy Metronidazole HCl Metronidazole HCl NAUSEA/VOMITING/DIAR [place] [facility] Drug allergy bacitracin zinc bacitracin zinc ADDITIONAL UNSPECIFIED M O [facility] Drug allergy neomycin sulfate neomycin sulfate ADDITIONAL UNSPECIFIED MO [facility] Propensity to adverse reactions PEANUT-CONTAINING DRUG PRODU CTS Peanut- Containing Drug Products Active [facility] Family History Family Member Name Family Member Gender Family Member Status Date o f Status Description Data Source(s) Unknown Condition [facility] Unknown Condition [facility] Unknown Condition [facility] Unknown Condition [facility] Unknown Condition [facility] Unknown Condition [facility] Unknown Condition [facility] Unknown Condition [facility] Unknown Condition [facility] Unknown Condition [facility] Unknown Condition [facility] Encounters Encounter Providers Location Date Indications Data Source(s ) Outpatient Attender: Cherelle Mosqueda MDReferrer: Amanda Rodriguez MD 11/22/2021 03:30:00 PM EST 6 months [facility] months Outpatient Attender: Harris ADLER 08/03/20 04:10:20 PM EST - 08/03/2021 05:07:08 PM EST [facility] ([facility] ) Outpatient Attender: CAREN SZYMANSKIERIC-[email or web address].ERIC 09/2020 12:00:00 AM EDT - 07/18/2021 03:38:35 PM EDT [facility] [place] [address] [address] 07/06/2021 12:00:00 AM EDT [facility]1 [facility] [place] [address] [facility] [address] 06/28/2021 12:00:00 AM EDT [facility]CW1 [facility] [place] [address] [facility] [address] 06/08/2021 12:00:00 AM EDT eCW1 (Critical access hospital) [place] [address] [address] 06/08/2021 12:00:00 AM EDT [facility]1 ([facility] [place] [address] [facility] [address] 06/01/2021 12:00:00 AM EDT [facility]CW1 ([facility] [place] [address] [address] 04/21/2021 12:00:00 AM EDT eCW1 (Critical access hospital) Outpatient Attender: Cherelle De La Cruzer: Omi Boone MD 04/01/2021 03:15:00 PM EDT - 06/07/2021 03:53:00 PM EDT [id number] [id number] Patient discharged. Emergency Attender: Jeffrey Rahman DO 2020 12:21:00 PM EDT - 03/18/2021 01:23:00 PM EDT CSQ UC/Finger Injury [facility] CSQ UC/Finger Injury Patient discharged. Outpatient Attender: Cherelle Harman: Omi Boone MD 03/17/2021 11:44:00 AM EDT - 03/17/2021 04:40:00 PM EDT Follow up 1 month gastroparesis [facility] Follow up 1 month gastroparesis Patient discharged. Outpatient Attender: Cherelle Mosqueda MDReferrer: Omi Boone MD 01/20/2021 01:30:00 PM EDT - 01/20/2021 04:29:00 PM EDT post scope/ ? new dx gastroparesis [facility] post scope/ ? new dx gastroparesis Patient discharged. Outpatient Attender: Cherelle Mosqueda MDConsultant: Cherelle Mosqueda MD 01/06/2021 07:49:00 AM EDT [id number] [facility] [place] [id number] Outpatient Attender: Cherelle Mosqueda MD 12/27/2020 08:50:00 AM EDT - 12/27/2020 11:04:00 AM EDT [address] [facility] [id number] Patient discharged. Outpatient Attender: Jalen Yi MD 12/24/2020 12:19: 00 PM EDT COVID SWAB - PREOP [facility] COVID SWAB - PREOP Outpatient Attender: Jannet Gayle NPAttender: RUBI PETER MD SJP-SJP.CCI 12/20/2020 12:00:00 AM EDT - 12/20/2020 03:04:40 PM EDT [facility] Emergency Attender: Onesimo Laguerre MDAttender: Tracy Jauregui MD 12/15/2020 06:31:00 PM EDT - 12/15/2020 08:30:00 PM EDT Vomiting [facility] alth Vomiting Patient discharged. Outpatient Attender: Cherelle Mosqueda MDReferrer: Omi Boone MD 11/24/2020 07:34:00 AM EST - 11/24/2020 08:44:00 AM EST Gastroesophageal reflux disease / [id number] [facility] Gastroesophageal reflux disease / [id number] Patient discharged. Outpatient Attender: Omi Boone MD 09/24/2020 01:39:00 PM EST lab [facility] lab Outpatient Referrer: TELLO TORRES MD 08/17/2020 03:25 :34 PM EST [facility] Outpatient Attender: TELLO TORRES MD SJP-SJP.DAVID 1 10/18/2019 12:00:00 AM EST [facility] Outpatient Attender: Jan Rockwell DO 05/27/2020 11:59:00 PM EDT [facility] Functional Status Immunizations Vaccine Date Status Description Data Source(s) Tdap 03/18/2021 12:00:00 AM EDT completed [facility] Medications Medication Brand Name Start Date Product [...] by mouth 2 (two) times a day 09/18 tab//12.5mg bid [facility] Essential hypertension 24 HR venlafaxine 37.5 MG Extended Relea se Oral Capsule venlafaxine (EFFEXOR-XR) 37.5 MG 24 hr capsule venlafaxine (EFFEXOR-XR) 37.5 MG 24 hr capsule 12:00:00 AM EDT 37.5 mg Oral active Take 37 .5 mg by mouth daily q am [facility] Calcium + D3 600-800 MG-UNIT Calcium + D3 600-800 MG-UNIT 12:00:00 AM EDT 1.0 {tablet_with_a_meal} active Calcium + D3 600-800 MG-UNIT eCW1 ([facility]) Calcium + D3 600-800 MG-UNIT Calcium + D3 600-800 MG-UNIT 12:00:00 AM EDT 1.0 {tablet_with_a_meal} active Calcium + D3 600-800 MG-UNIT eCW1 ([facility]) [place]-3 Fatty Acids (Fish Oil Concentrate) 1,000 mg capsule 06/07/2021 10:39:49 AM EDT CAPSULE 1000 MG ORAL active [facility] [employer] Vitamin B 12 1 MG Oral Capsule Cyanocobalamin (Vitamin B-12) Cyanocobalamin (Vitamin B-12) 06/07/2021 10:39:33 AM EDT CAPSULE 1000 MCG ORAL [facility] dexlansoprazole 60 MG Delayed Release Or al Capsule Dexlansoprazole (Dexilant) 60 mg capsule,biphase delayed releas Dexlansoprazole (Dexilant) 60 mg capsule,biphase delayed releas 04/27/2021 01:12:31 PM EDT UNASSIGNED 60 MG ORAL active [facility] Metoclopramide 5 MG Oral Tablet Metoclopramide Hcl Metoclopr amide Hcl 12/27/2020 09:12:55 AM EDT TABLET 10 MG ORAL active O [facility] Metoclopramide 5 MG Oral Tablet Metoclopramide Hcl Metoclopr amide Hcl 12/27/2020 09:12:55 AM EDT TABLET 10 MG ORAL active O [facility] Metoclopramide 5 MG Oral Tablet Metoclopramide Hcl Metoclopr amide Hcl 12/27/2020 09:12:55 AM EDT TABLET 10 MG ORAL active [facility] Metoclopramide 5 MG Oral Tablet Metoclopramide Hcl Metoclopr amide Hcl 12/27/2020 09:12:55 AM EDT TABLET 10 MG ORAL active [facility] Metoclopramide 5 MG Oral Tablet Metoclopramide Hcl Metoclopr amide Hcl 12/27/2020 09:12:55 AM EDT TABLET 10 MG ORAL active [facility] Sucralfate 100 MG/ML Oral Suspension sucralfate (CARAF ATE) 1 GM/10ML suspension sucralfate (CARAFATE) 1 GM/10ML suspension 12/16/2020 12:00:00 AM EDT aborted [facility] Sucralfate (Carafate) 100 mg/mL suspension 12/15 08:14:42 PM EDT SUSPENSION 10 ML ORAL [facility] Suc[facility] (Carafate) 100 mg/mL suspension 12/15 08:14:42 PM EDT SUSPENSION 10 ML ORAL [facility] Sucralfate (Carafate) 100 mg/mL suspension 12/15 [...] EDT SUSPENSION 10 ML ORAL completed [facility] Metoclopramide 5 MG Oral Tablet Metoclopramide Hcl Metoclopr amide Hcl 11/24/2020 08:39:20 AM EST TABLET 10 MG ORAL completed [facility] Metoclopramide 5 MG Oral Tablet Metoclopramide Hcl Metoclopr amide Hcl 11/24/2020 08:39:20 AM EST TABLET 10 MG ORAL active [facility] Metoclopramide 5 MG Oral Tablet Metoclopramide Hcl Metoclopr amide Hcl 11/24/2020 08:39:20 AM EST TABLET 10 MG ORAL active [facility] Metoclopramide 5 MG Oral Tablet Metoclopramide Hcl Metoclopr amide Hcl 11/24/2020 08:39:20 AM EST TABLET 10 MG ORAL completed [facility] Metoclopramide 5 MG Oral Tablet Metoclopramide Hcl Metoclopr amide Hcl 11/24/2020 08:39:20 AM EST TABLET 10 MG ORAL completed [facility] Metoclopramide 5 MG Oral Tablet Metoclopramide Hcl Metoclopr amide Hcl 11/24/2020 08:39:20 AM EST TABLET 10 MG ORAL completed [facility] Metoclopramide 5 MG Oral Tablet Metoclopramide Hcl Metoclopr amide Hcl 11/24/2020 08:39:20 AM EST TABLET 10 MG ORAL completed [facility] Metoclopramide 5 MG Oral Tablet Metoclopramide Hcl Metoclopr amide Hcl 11/24/2020 08:39:20 AM EST TABLET 10 MG ORAL active [facility] Metoclopramide 5 MG Oral Tablet Metoclopramide Hcl Metoclopr amide Hcl 11/24/2020 08:39:20 AM EST TABLET 10 MG ORAL [id number] HR metoprolol succinate 25 MG Extende d Release Oral Tablet metoprolol succinate (TOPROL-XL) 25 MG 24 hr tablet metoprolol succinate (TOPROL-XL) 25 MG 24 hr tablet 11/02/2020 12:00:00 AM EST aborted Essential hypertension TAKE ONE TABLET BY MOUTH EVERY DAY [facility] Essential hypertension dexlansoprazole 60 MG Delayed Release Or al Capsule Dexlansoprazole (Dexilant) 60 mg capsule,biphase delayed releas Dexlansoprazole (Dexilant) 60 mg capsule,biphase delayed releas 09/13/2020 09:31:18 AM EST UNASSIGNED 60 MG ORAL active [facility] dexlansoprazole 60 MG Delayed Release Or al Capsule Dexlansoprazole (Dexilant) 60 mg capsule,biphase delayed releas Dexlansoprazole (Dexilant) 60 mg capsule,biphase delayed releas 09/13/2020 09:31:18 AM EST UNASSIGNED 60 MG ORAL active [facility] dexlansoprazole 60 MG Delayed Release Or al Capsule Dexlansoprazole (Dexilant) 60 mg capsule,biphase delayed releas Dexlansoprazole (Dexilant) 60 mg capsule,biphase delayed releas 09/13/2020 09:31:18 AM EST UNASSIGNED 60 MG ORAL completed [facility] dexlansoprazole 60 MG Delayed Release Or al Capsule Dexlansoprazole (Dexilant) 60 mg capsule,biphase delayed releas Dexlansoprazole (Dexilant) 60 mg capsule,biphase delayed releas 09/13/2020 09:31:18 AM EST UNASSIGNED 60 MG ORAL active [facility] dexlansoprazole 60 MG Delayed Release Or al Capsule Dexlansoprazole (Dexilant) 60 mg capsule,biphase delayed releas Dexlansoprazole (Dexilant) 60 mg capsule,biphase delayed releas 09/13/2020 09:31:18 AM EST UNASSIGNED 60 MG ORAL active [facility] dexlansoprazole 60 MG Delayed Release Or al Capsule Dexlansoprazole (Dexilant) 60 mg capsule,biphase delayed releas Dexlansoprazole (Dexilant) 60 mg capsule,biphase delayed releas 09/13/2020 09:31:18 AM EST UNASSIGNED 60 MG ORAL active [facility] dexlansoprazole 60 MG Delayed Release Or al Capsule Dexlansoprazole (Dexilant) 60 mg capsule,biphase delayed releas Dexlansoprazole (Dexilant) 60 mg capsule,biphase delayed releas 09/13/2020 09:31:18 AM EST UNASSIGNED 60 MG ORAL active [facility] dexlansoprazole 60 MG Delayed Release Or al Capsule Dexlansoprazole (Dexilant) 60 mg capsule,biphase delayed releas Dexlansoprazole (Dexilant) 60 mg capsule,biphase delayed releas 09/13/2020 09:31:18 AM EST UNASSIGNED 60 MG ORAL active [facility] dexlansoprazole 60 MG Delayed Release Or al Capsule Dexlansoprazole (Dexilant) 60 mg capsule,biphase delayed releas Dexlansoprazole (Dexilant) 60 mg capsule,biphase delayed releas 09/13/2020 09:31:18 AM EST UNASSIGNED 60 MG ORAL active [facility] dexlansoprazole 60 MG Delayed Release Or al Capsule Dexlansoprazole (Dexilant) 60 mg capsule,biphase delayed releas Dexlansoprazole (Dexilant) 60 mg capsule,biphase delayed releas 08/31/2020 04:10:07 PM EST UNASSIGNED 60 MG ORAL completed [facility] dexlansoprazole 60 MG Delayed Release Or al Capsule Dexlansoprazole (Dexilant) 60 mg capsule,biphase delayed releas Dexlansoprazole (Dexilant) 60 mg capsule,biphase delayed releas 08/31/2020 04:10:07 PM EST UNASSIGNED 60 MG ORAL completed [facility] dexlansoprazole 60 MG Delayed Release Or al Capsule Dexlansoprazole (Dexilant) 60 mg capsule,biphase delayed releas Dexlansoprazole (Dexilant) 60 mg capsule,biphase delayed releas 08/31/2020 04:10:07 PM EST UNASSIGNED 60 MG ORAL completed [facility] dexlansoprazole 60 MG Delayed Release Or al Capsule Dexlansoprazole (Dexilant) 60 mg capsule,biphase delayed releas Dexlansoprazole (Dexilant) 60 mg capsule,biphase delayed releas 08/31/2020 04:10:07 PM EST UNASSIGNED 60 MG ORAL completed [facility] dexlansoprazole 60 MG Delayed Release Or al Capsule Dexlansoprazole (Dexilant) 60 mg capsule,biphase delayed releas Dexlansoprazole (Dexilant) 60 mg capsule,biphase delayed releas 08/31/2020 04:10:07 PM EST UNASSIGNED 60 MG ORAL completed [facility] dexlansoprazole 60 MG Delayed Release Or al Capsule Dexlansoprazole (Dexilant) 60 mg capsule,biphase delayed releas Dexlansoprazole (Dexilant) 60 mg capsule,biphase delayed releas 08/31/2020 04:10:07 PM EST UNASSIGNED 60 MG ORAL completed [facility] dexlansoprazole 60 MG Delayed Release Or al Capsule Dexlansoprazole (Dexilant) 60 mg capsule,biphase delayed releas Dexlansoprazole (Dexilant) 60 mg capsule,biphase delayed releas 08/31/2020 04:10:07 PM EST UNASSIGNED 60 MG ORAL completed [facility] dexlansoprazole 60 MG Delayed Release Or al Capsule Dexlansoprazole (Dexilant) 60 mg capsule,biphase delayed releas Dexlansoprazole (Dexilant) 60 mg capsule,biphase delayed releas 08/31/2020 04:10:07 PM EST UNASSIGNED 60 MG ORAL completed [facility] dexlansoprazole 60 MG Delayed Release Or al Capsule Dexlansoprazole (Dexilant) 60 mg capsule,biphase delayed releas Dexlansoprazole (Dexilant) 60 mg capsule,biphase delayed releas 08/31/2020 04:10:07 PM EST UNASSIGNED 60 MG ORAL completed [facility] venlafaxine 75 MG Oral Tablet venlafaxine (EFFEXOR) 75 MG tablet venlafaxine (EFFEXOR) 75 MG tablet 08/02/2020 12:00:00 AM EST 75 mg Oral active Take 75 mg by mouth daily @[facility] dexlansoprazole 60 MG Delayed Release Or al Capsule Dexlansoprazole (Dexilant) 60 mg capsule,biphase delayed releas Dexlansoprazole (Dexilant) 60 mg capsule,biphase delayed releas 05/05/2020 02:25:57 PM EDT UNASSIGNED 60 MG ORAL completed [facility] dexlansoprazole 60 MG Delayed Release Or al Capsule Dexlansoprazole (Dexilant) 60 mg capsule,biphase delayed releas Dexlansoprazole (Dexilant) 60 mg capsule,biphase delayed releas 05/05/2020 02:25:57 PM EDT UNASSIGNED 60 MG ORAL completed [facility] dexlansoprazole 60 MG Delayed Release Or al Capsule Dexlansoprazole (Dexilant) 60 mg capsule,biphase delayed releas Dexlansoprazole (Dexilant) 60 mg capsule,biphase delayed releas 05/05/2020 02:25:57 PM EDT UNASSIGNED 60 MG ORAL completed [facility] dexlansoprazole 60 MG Delayed Release Or al Capsule Dexlansoprazole (Dexilant) 60 mg capsule,biphase delayed releas Dexlansoprazole (Dexilant) 60 mg capsule,biphase delayed releas 05/05/2020 02:25:57 PM EDT UNASSIGNED 60 MG ORAL completed [facility] dexlansoprazole 60 MG Delayed Release Or al Capsule Dexlansoprazole (Dexilant) 60 mg capsule,biphase delayed releas Dexlansoprazole (Dexilant) 60 mg capsule,biphase delayed releas 05/05/2020 02:25:57 PM EDT UNASSIGNED 60 MG ORAL completed [facility] dexlansoprazole 60 MG Delayed Release Or al Capsule Dexlansoprazole (Dexilant) 60 mg capsule,biphase delayed releas Dexlansoprazole (Dexilant) 60 mg capsule,biphase delayed releas 05/05/2020 02:25:57 PM EDT UNASSIGNED 60 MG ORAL completed [facility] dexlansoprazole 60 MG Delayed Release Or al Capsule Dexlansoprazole (Dexilant) 60 mg capsule,biphase delayed releas Dexlansoprazole (Dexilant) 60 mg capsule,biphase delayed releas 05/05/2020 02:25:57 PM EDT UNASSIGNED 60 MG ORAL completed [facility] dexlansoprazole 60 MG Delayed Release Or al Capsule Dexlansoprazole (Dexilant) 60 mg capsule,biphase delayed releas Dexlansoprazole (Dexilant) 60 mg capsule,biphase delayed releas 05/05/2020 02:25:57 PM EDT UNASSIGNED 60 MG ORAL completed [facility] dexlansoprazole 60 MG Delayed Release Or al Capsule Dexlansoprazole (Dexilant) 60 mg capsule,biphase delayed releas Dexlansoprazole (Dexilant) 60 mg capsule,biphase delayed releas 05/05/2020 02:25:57 PM EDT UNASSIGNED 60 MG ORAL completed [facility] 24 HR venlafaxine 37.5 MG Extended Relea se Oral Capsule venlafaxine (EFFEXOR-XR) 37.5 MG 24 hr capsule venlafaxine (EFFEXOR-XR) 37.5 MG 24 hr capsule 12:00:00 AM EDT 75 mg Oral aborted Take 75 mg by mouth daily [facility] Bisacodyl 5 MG Delayed Release Oral Tablet bisacodyl ( DULCOLAX) 5 MG EC tablet bisacodyl (DULCOLAX) 5 MG EC tablet 5 mg Oral ab orted Take 5 mg by mouth daily as needed for constipation [facility] Insurance Providers Payer name Policy type / Coverage type Policy ID Covered green party ID Covered green party's relationship to cox Policy [facility] Plan Information MEDICARE [id number] Rashmi [id number] MEDICARE [id number] SP [id number] MEDICARE [id number] Rashmi [id number] A MEDICARE [id number] Rashmi [id number] Y14 MEDICARE A [id number] Self [id number] A MEDICARE [id number] SP [id number] A MEDICAID M [id number] Self [id number] MEDICARE [id number] SP [id number] Self [id number] A [id number] Self [id number] MEDICAID [facility] [id number] SP [place] [id number] [id number] [place] [id number] [place]ID [place] [id number] [place] [id number] MEDICAID [id number] Rashmi [id number] MEDICAID [facility] [id number] SP [place] [id number] MEDICAID [id number] xxxxxxxx [id number] MEDICAID [facility] [id number] SP [place] [id number] [place] [id number] [place] [id number] [place] [id number] [place] [id number] [place] [id number] [place] [id number] MED[place]ID [place] [id number] SP [place] [id number] MEDICAID [facility] [id number] SP AZ [id number] MEDICAID [facility] [id number] SP AZ [id number] MEDICAID [facility] [id number] SP AZ [id number] MEDICAID [facility] [id number] SP AZ [id number] MEDICAID [facility] [id number] SP AZ [id number] MEDICAID [facility] [id number] SP [place] [id number] SELF PAY MEDICAID [facility] [id number] SP [place] [id number] MEDICARE [id number] SP [id number] MEDICARE [id number] SP [id number] Y14 MEDICAID [facility] [id number] SP [place] [id number] SELF PAY SELF PAY MEDICAID [facility] [id number] SP [place] [id number] MEDICARE [id number] SP [id number] Y14 SELF PAY SELF PAY MEDICARE [id number] SP [id number] Y14 MEDICAID [facility] [id number] SP [place] [id number] SELF PAY MEDICAID [facility] [id number] SP [place] [id number] MEDICARE [id number] SP [id number] Y14 MEDICAID [facility] [id number] SP [place] [id number] SELF PAY SELF PAY MEDICARE [id number] SP [id number] Y14 MEDICAID [facility] [id number] SP [place] [id number] SELF PAY MEDICARE [id number] SP [id number] Y14 SELF PAY MEDICARE [id number] SP [id number] Y14 MEDICAID [facility] [id number] SP [place] [id number] SELF PAY MEDICAID [facility] [id number] SP [place] [id number] MEDICARE [id number] SP [id number] Y14 SELF PAY MEDICAID [facility] [id number] SP [place] [id number] MEDICARE [id number] SP [id number] Y14 MEDICAID [facility] [id number] SP [place] [id number] SELF PAY MEDICARE [id number] SP [id number] Y14 MEDICARE [id number] SP [id number] Y14 MEDICAID [facility] [id number] SP [place] [id number] [facility] MGD MEDICARE [id number] SP [id number] [facility] MEDICARE [id number] Rashmi [id number] [facility] MEDICARE [id number] xxxxxxxxx [id number] SELF PAY MEDICAID [facility] [id number] SP [place] [id number] [facility] MGD MEDICARE [id number] SP [id number] SELF PAY MEDICAID [facility] [id number] SP [place] [id number] [facility] MGD MEDICARE [id number] SP [id number] SELF PAY AETNA MEDICARE [id number] Rashmi 10 [id number] AETNA MEDICARE Medicare xxxxxxxxxxxx [id number] SELF PAY MEDICAID [facility] [id number] SP [place] [id number] AETNA MEDICARE ADV [id number] SP [id number] AETNA MEDICARE ADV [id number] SP [id number] SELF PAY MEDICAID [facility] [id number] SP [place] [id number] MEDICAID [facility] [id number] SP [place] [id number] AETNA MEDICARE ADV [id number] SP [id number] SELF PAY AETNA MEDICARE ADV [id number] SP [id number] MEDICAID [facility] [id number] SP [place] [id number] AETNA MEDICARE ADV [id number] SP [id number] SELF PAY MEDICAID [facility] [id number] SP [place] [id number] SELF PAY SELF PAY SELF PAY AETNA MEDICARE ADV [id number] SP [id number] MEDICAID [facility] [id number] SP [place] [id number] MEDICAID [facility] [id number] SP [place] [id number] AETNA MEDICARE ADV [id number] SP [id number] SELF PAY AETNA MEDICARE ADV [id number] SP [id number] MEDICAID [facility] [id number] SP [place] [id number] SELF PAY AETNA MEDICARE ADV [id number] SP [id number] [id number] [id number] SELF PAY AETNA MEDICARE ADV [id number] SP [id number] MEDICAID [facility] [id number] SP [place] [id number] SELF PAY [employer] [id number] Self [id number] Medicaid Medicaid [id number] Self [id number] AETNA MEDICARE [id number] SP [id number] [place] [id number] SP [id number] [facility] [id number] SP [id number] Medicare Part A of [place] Other 0 [id number] Self 0 Medicaid of [place] Other 0 [id number] Self 0 AETNA MEDICARE [id number] SP [id number] MEDICAID HEA [id number] S [id number] MEDICARE MCA [id number] S [id number] MEDICARE MCA [id number] S [id number] UNAVAILABLE UNAVAILA BLE MEDICAID M [id number] S [id number] [facility] O [id number] S [id number] [facility] MEDICAID [id number] SP [id number] M Problems, Conditions, and Diagnoses Code Display Name Description Problem Type Effective Dates Data Source(s) G47.30 Sleep apnea, unspecified Sleep apnea, unspecified Diag nosis 07/18/2021 02:04:56 PM EDT [facility] E78.2 Mixed hyperlipidemia Mixed hyperlipidemia Diagnosis 07/18/2021 02:04:56 PM EDT [facility] I10 Essential (primary) hypertension Essential (primary) h ypertension Diagnosis 07/18/2021 02:04:56 PM EDT [facility] R06.00 Dyspnea, unspecified Dyspnea, unspecified Diagnosis 07/18/2021 02:04:56 PM EDT [facility] S69.92XA Unspecified injury of left w rist, hand and finger(s), initial encounter S69.92XA - Unspecified injury of left wr ist, hand and finger(s), initial encounter Diagnosis 03/18/2021 12:21:00 PM EDT [facility] K21.9 Gastro-esophageal reflux disease without esophagitis K21.9 - Gastro- esophageal reflux disease without esophagitis Diagnosis 12/28/19 08:50:00 AM EDT [facility] R13.10 Dysphagia, unspecified R13.10 - Dysphagia, unspecified Diagnosis 12/27/2020 08:50:00 AM EDT [facility] K21.9 Gastro-esophageal reflux disease without esophagitis K21.9 - Gastro- esophageal reflux disease without esophagitis Diagnosis 12/28/19 07:49:00 AM EDT [facility] Z20.822 Z20.822 - Contact with and (suspected) e xposure to COVID-19 Z20.822 - Contact with and (suspected) exposure to COVID-19 Diagnosis 05/2021 12:19:00 PM EDT [facility] J45.20 Mild intermittent asthma, uncomplicated Mild intermittent asthma, uncomplicated Diagnosis 12/20/2020 02:07:48 PM EDT [facility] R41.3 Other amnesia Other amnesia Diagnosis 12/20/2020 02:07:48 PM EDT [facility] G45.9 Transient cerebral ischemic attack, unsp ecified Transient cerebral ischemic attack, unsp Diagnosis 12/20/2020 02:07:48 PM EDT [facility] R07.89 Other chest pain Other chest pain Diagnosis 12/20/2020 02 :07:48 PM EDT [facility] D50.9 Iron deficiency anemia, unspecified D50. 9 - Iron deficiency anemia, unspecified Diagnosis 09/24/2020 01:39:00 PM EST [facility] R42 Dizziness and giddiness Dizziness and giddiness Diagno sis 08/17/2020 02:24:52 PM EST [facility] M79.604 Pain in right leg Pain in right leg Diagnosis 08/17 02:24:52 PM [facility] R53.1 Weakness Weakness Diagnosis 08/17/2020 02:24:52 PM ES T [facility] G31.84 Mild cognitive impairment, so stated Mil d cognitive impairment, so stated Diagnosis 08/17/2020 02:24:52 PM [facility] R06.00 ALFARO (dyspnea on exertion) ALFARO (dyspnea on exertion) [id number] 07/18/2021 12:00:00 AM EDT [facility] E78.00 [id number] Pure hypercholesterolemia Problem 06/01/2021 12:00:00 AM EDT eCW1 ([facility]) I10 32663018 Primary hypertension Problem 06/01/2021 12:0 0:00 AM EDT eCW1 ([facility]) G47.33 [id number] THONG (obstructive sleep apnea) Problem 06/01/2021 12:00:00 AM EDT eCW1 ([facility]) R41.3 [id number] Memory change Problem 06/01/2021 12:00:00 AM EDT eCW1 ([facility]) F44.5 279101007 Psychogenic nonepileptic seizure Problem 06/01/2021 12:00:00 AM EDT eCW1 ([facility]) J45.30 [id number] Mild persistent asthma without complicati on Problem 04/21/2021 12:00:00 AM EDT eCW1 ([facility]) F41.9 00273129 Anxiety Problem 04/21/2021 12:00:00 AM ED T eCW1 ([facility]) G40.909 284349912 Seizure disorder Problem 04/21/2021 12:00:00 AM EDT eCW1 ([facility]) I25.10 462801040 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 Problem 04/21/2021 12:00:00 AM EDT eCW1 ([facility]) G35 41308590 Multiple sclerosis Problem 04/21/2021 12:00: 00 AM EDT eCW1 ([facility]) Surgeries/Procedures Procedure Description Date Indications Data Source(s) POCT AMB EKG <td>POCT AMB EKG</td><td>Rou leti</td><td>07/18/2021 3:18 PM EDT</td><td> ALFARO (dyspnea on exertion)</td><td> </td> 07/18/2021 03:18:00 PM EDT ALFARO (dyspnea on exertion) [facility] ALFARO (dyspnea on exertion) Medication: Depo-Medrol 40mg IA (Methylprednisolone Acetate) 06/28/2021 12:00:00 AM EDT eCW1 ([facility] Medication: 1% Lidocaine Dilutent (xylocaine) 06/28/20 12:00:00 AM EDT eC ([facility]) Endoscopy and biopsy of upper gastrointestinal tract (proced ure) 12/27/2020 10:00:00 AM EDT [facility] Endoscopy and biopsy of upper gastrointestinal tract (proced ure) 12/27/2020 10:00:00 AM EDT [facility] Endoscopy and biopsy of upper gastrointestinal tract (proced ure) 12/27/2020 10:00:00 AM EDT [facility] Endoscopy and biopsy of upper gastrointestinal tract (proced ure) 12/27/2020 10:00:00 AM EDT [facility] POCT AMB EKG <td>POCT AMB EKG</td><td>Rou leti</td><td>12/20/2020 2:40 PM EDT</td><td> Hypertension, essential Other chest pain</td><td> </td> 12/20/2020 06:40:00 PM EDT Other chest painHypertension, essential [facility] Other chest pain Hypertension, essential Results ID Date Data Source [id number] 03/18/2021 01:16:00 [place] [address] HEALTH INFORMATION MANAGEMENT ED/UC Physician Report : [id number] Signed Patient: Salena Stanley Acct:[id number] Unit: [facility] [id number] : 1950 Arrival Date: 03/18/21 Age/Sex: 70 [...] Adverse Reaction (Severe, Verified 03/17/21 11:48) ANAPHYLAXIS Qhstpji-Rrq-Lsk Reductase Inhibitor Adverse Reaction (Intermediate, Verified 03/17/21 [...] File>> Initializing User: Mercedes Cano NP 03/18/21 3967 Signed by: Mercedes Cano NP 03/18/21 1322 Jeffrey Rahman DO 03/18/21 1444 Name Value Range Interpretation Code Description Data Marisa rce(s) Supporting Document(s) ID Date Data Source [id number] 01/06/2021 07:49:00 AM EDT [address] [address] HEALTH INFORMATION MANAGEMENT OR Report : [id number] Signed Patient: Salena Stanley Acct:[id number] [facility] t: [id number] : 1950 Loc: ENDO Room/Bed: Age/Sex: 70 / F ADM Date: 12/27/20 cc: Omi Boone MD,Cherelle HARRY SS Gastro OR Report Post Procedure/Discharge Note Date of Procedure: 12/27/20 Surgeon:: Cherelle Mosqueda MD. Was an Swatch Folder used?: No Preoperative Diagnosis:: Gastroesophageal reflux disease [...] awaiting histology report. Charges Complete: N/A Signed By:Cherelle Mosqueda MD <<Signature on File>> Signed Date/Time: 01/06/21 0756 Co-Signer: Co-Signed Date/Time: Initializing User: Cherelle Mosqueda MD 01/06/21 0749 Name Value Range Interpretation Code Description Data Marisa rce(s) Supporting Document(s) ID Date Data Source [id number] 12/29/2020 08:32:00 AM EDT [facility] Run: 12/29/20 0832 INTERFACED REPORT Name: MarlenEderSalena Tim Age/Sex: 70/F [id number]: [id number] Status: [facility] Room/Bed: Re12/27/20 Disch: Att Dr: Cherelle Mosqueda MD Spec Num: [id number] Recd: 12/27/20 Status: LINDA Condon Num: [id number] SpType: SURGICAL Sub Dr: Cherelle Mosqueda MD GERD Gastritis Esophagitis EGD ProcPERIODIC ACID SCHUYLER, GROSS AND MICROSCOPIC - L4/2, ALCIAN BLUE STAIN GERD 1. Gastric antrum biopsy 2. G-E junction biopsy This case consists of two specimens, both received in formalin. 1. The specimen is labeled with the patient's name and [id number] antrum [id number] consists of two fragments of white pink colored material measuring 0.3 x 0.3 x 0.2 cm in aggregate entirely submitted. 2. The specimen is labeled with the patient's name and 0x93GE junction [id number] consists of several fragments of white colored material measuring 0.8 x 0.3 x 0.2 cm in aggregate entirely submitted. (12-27-20 jwd/cjs) 1. Gastric antrum, biopsy: - Hyperplastic polyp [...] 672 x 2 Close clinical follow-up for [id number] esophagus is recommended. (/cjs) Signed (signature on file) Jhonny Gallegos MD 12/29/20 0832Myranda END OF REPORT Name Value Range Interpretation Code Description Data Marisa rce(s) Supporting Document(s) ID Date Data Source [id number] 12/24/2020 11:05:00 AM EDT [facility] Name Value Range Interpretation Code Description Data Marisa rce(s) Supporting Document(s) SARS-CoV-2 (COVID-19) N gene [Presence] in Nasopharynx by YUSUF with probe detection NOT-DETECTED [facility] This lab was ordered by [facility] and reported by [facility]. ID Date Data Source [id number] 12/24/2020 04:24:00 PM EDT [facility] Have you tested POSITIVE for Covid-19 i n the last 90 days? No Patient presents as: Asymptomatic COVID Reason [place] Surgery Priority Surgery/Appointment Date: 12/28/2020 Support person(if yes for who): N Name Value Range Interpretation Code Description Data Marisa rce(s) Supporting Document(s) COVID 19 (RHEONIX) NOT-DETECTED NOTDETECTED [facility] The [employer] COVID-19 MDx Assay is an en dpoint RT-PCR assay (MOLECULAR)intended for the qualitative detection of nucleic acid from SARS-CoV-2 in nasopharyngeal swabs. COVID testing using the [employer] analyzer was developed for the purpose of [...] public health authorities. ID Date Data Source [id number] 12/15/2020 07:35:00 PM EDT [facility] Name Value Range Interpretation Code Description Data Marisa rce(s) Supporting Document(s) WHITE BLOOD COUNT 7.98 10^3/uL 4.00-10.50 [facility] RED BLOOD COUNT 4.91 10^6/uL 3.90-5.20 [facility] HEMOGLOBIN 13.3 G/DL 11.5-15.6 [facility] HEMATOCRIT 42.0 % 35.0-46.0 [facility] MCV 85.5 FL 80.0-100.0 [facility] MCH 27.1 PG 27.0-34.0 [facility] MCHC 31.7 G/DL 32-36 [facility] RDW 13.9 % 11.5-14.5 [facility] PLATELET COUNT 296 10^3/uL 130-400 [facility] MPV 10.5 FL 8.7-13.2 [facility] GRAN % (AUTO) 64.9 % 42.0-75.0 [facility] [employer] [employer] LYMPH % (AUTO) 20.4 % 20.0-51.0 [facility] MONO % (AUTO) 6.1 % 2.0-15.0 [facility] EOS % (AUTO) 7.4 % 0.0-11.0 [facility] BASO % (AUTO) 0.9 % 0.0-2.0 [facility] IG % (AUTO) 0.3 % 1.00-5.00 [facility] [employer] IG # (AUTO) 0.0 10^3/uL <0.5 [facility] GRAN # (AUTO) 5.18 10^3/uL 1.50-6.50 [facility] LYMPH # (AUTO) 1.6 k/uL 1.0-5.0 [facility] MONO # (AUTO) 0.49 k/uL 0.20-1.50 [facility] [employer] EOS # (AUTO) 0.59 10^3/uL 0.00-1.10 [facility] BASO # (AUTO) 0.07 10^3/uL 0.00-0.20 [facility] [employer] ID Date Data Source [id number] 12/15/2020 08:03:00 PM EDT [facility] Name Value Range Interpretation Code Description Data Marisa rce(s) Supporting Document(s) SODIUM 141 MEQ/L 135-145 [facility] POTASSIUM 4.3 MEQ/L 3.5-5.3 [facility] [employer] [facility] CHLORIDE 108 MEQ/L 94-110 [facility] CARBON DIOXIDE 29 MEQ/L 22-33 [facility] ANION GAP 8 5-16 [facility] BLOOD UREA NITRO 9 MG/DL 7-25 [facility] CREATININE 0.7 MG/DL 0.6-1.4 [facility] GFR 83.0 ML/MIN [facility] Stage G2 - Mildly decreased kidney func tion The GFR is an estimate of the Glomerular Filtration Rate. It is an aid to assess a patient's renal function. It is not a conclusive diagnosis of kidney disease. GFR normal is >=90 The MDRD GFR calculation is considered valid between the ages of 18 and 75 years only. BUN/CREAT RATIO 12 8-36 [facility] GLUCOSE 88 MG/DL 70-100 [facility] CA 9.2 MG/DL 8.7-10.5 [facility] BILIRUBIN,TOTAL 0.2 MG/DL 0.1-1.3 [facility] AST 21 U/L 5-40 [facility] ALT 21 U/L 5-48 [facility] ALKALINE PHOSPHATASE 58 U/L 40-140 [facility] alth TOTAL PROTEIN 6.3 G/DL 5.9-8.3 [facility] ALBUMIN 4.5 G/DL 3.0-5.1 [facility] GLOBULIN 1.8 G/DL 1.5-3.5 [facility] ALB/GLOB RATIO 2.5 G/DL 1.0-3.0 [facility] ID Date Data Source [id number] 12/15/2020 07:13:32 PM EDT [facility] Name Value Range Interpretation Code Description Data Marisa rce(s) Supporting Document(s) EKG/ECG IN ED [facility] [file] [id number]+QZdu2E8bHfT6eg4qui9hndcCT YMxKyg6lKP5L4MZTRRKbvkZ+dL+RWdGg0o+VQikv7crIOu84ztQQaW9QAATYBqYQFCdhfGmDuLzR3n3Y ApEyoLgKynolWCCxEhxT4LZZdopPK7ejeQGXLJouIL +JMRcq6HHrI8fiasM9nviVtbqcFeNXjHnqYRYdom31MVZVDsa6zN8q3yUwwqtmupx9l6A3n1FI7UIJ74 EOaOpmPCqWSeGzCHRk9QptxfexaH6m9Cpqnb4EoaPrFQoBITj0dhEMMPGP709QXg0SN3F+I9u4g1UHt/ sPXtPMzyRQzahY+CQIPSg8cLiaE3VWDAh6mBmcWvP7 d4W1Tw/i3a0pgqbl9IEt7g2u4DzqDedH9l5oRO7pVo/APkki9fmMv60BRZ4DdNaZDZyxiN8B6kQUlysG X6YFbC7EOUxbCYJqG6cIHGa5PIOXOZDDBRYTDHah5/yL2p/8f3/HrL/yD/8Aj5+4f9V/00/u++K8o8JW Vxc+NNHlgj+CcfkyhzStxUrXnaMXKSDz2k1FjNIbvn njWyShX3i+GeUt9hxU+QmcX3FjgmsOBiFNwK0swctKjZwUqqGsd/rVnY2l/dLFxcy4q24nbnl+QixBGx gBouK1Ybs7Nj1yTL5O8HqhWE7s54x+C2SnpbHWK7cQ8cwzfbVsoOQZe8jZvV+iLozP0Dw+teambv03Ta misbbMU1xzm9DMlykvzpYYC32IkqSxKxPGUcL32Nwt kt54a4Tar6jhGe2hW7bL5CIed0UfMXI/6GInirzZcm7uGvVOcz/hyemYSk3uHn8we6AmNgas9WTyOfn4 maHHalAL2S+3aCIOLC18ni5rQHr7N0mQ8WSX94PoeZRibvN31CoftuV38EdpNAOVGDaeulsnO0dx403R [facility]+8jOChyqvZypMnW0y92Zdkll0meSVuTuzbYsCk [file] XCkXyQYAmRMVF18JGfO+enterprise integration architect/hnYqROdM8zKpdHhIo1agkgvj9pVCZf0aSqsiCxR3LBT7ND+jQEmJjjzD adhR3gwWrd09b/Lpg5YHTv41s/vjJQ6GY4jL4sJ4ewpxPDjI38+V+7cIO52pb401OhiwYCYxQ/Rrc5jz /rDz05+0FMIFch3vy8jEFWCvCdbMkwu39MBYL/3UZy awxVnj5kBdjvkL49xR9hB8HBtd9UBzqVLMuM/2J2YPirSjsmW1ucZxC9y/4mCnfWknMnqJ2+71qykefK /tEcZlgY28o8BpHQ7EP8jF7hX4ridyRYnHmSYr2d4YxyvbrrzY59Xzm3pWVrD/ERLdufL8mXqut39tRB ZcfcumaIBY58KqyKR/6c5BlLoBS1MHhg2mAv9G6NSx Mn3zLmVmvpLqfeopGS7vRs0phZpoUGj8PSPIO9VYriE/4y6UtlliorsV76Sjp5onyvAr8f4lIOrxFp7N yR95XEbDr5tGdPda/TCTFA6NW4syFyh1C2hX0ttegkSmaIH9LENjjmu4XGTTyWENJWG3/w22Ljieb/8A Rvu1AYHy36w/rlPU0ZK7lW2pV4fconKTaF49+V+5jO V32tt014WmbsRXYjM/ZIb0MK7/7j71Ber8g1Ct1Va4hWLAWDHlMwqfr8nrVNTiH23Utfnq99o3Aht893 1t+8jSIBdT23DRWpY3DNr44k1S8A0SWocNozqQ1zD9Zn+sUrFhcNxRCtuyEhXuICv3b8nA9vysdeMdjT plm1pPrRlNyQtwJlgH7A9xlWcmwwRUPWFLALhidzWt oooAKKKKACiiigAooooAKKKKACiiigAooooAKKKKACiiigAooooAKKKKACiiigAooooAKKKKACiiigCh [file] peyzYQZOsryqCPQyGAqdCWYX8hoaro0AxDHjpjvqaM QA80BrgtY9EsZ8NXdFPDJlLnOzVqSZ1MJpVSBzdzA5hH9XZqblL0LoI4uHzp8rttGmjapGis08vnimpm /ZqiYmce3UYpCii7rpQXagpzkfwonqyq46J6LsRLFixLCBZEKMOnMWdPX6FC2XkmNaki6SSqYny6srJJ eLwSkp4t/pEgZRPl0iB87DWeT8u97Dyxqw0ezMVfqI /CoO6GAvAa5OKzmneQabUsamfkdS0ge741NzsYMeA05Ltlgd06r1Ybl2akJ60dI5uD2EDjy3IjfjLv1p H7FYM43BjyR6bn87i+0bZRCxW30SLZcdRmHP+V+8qPMlqpeTkyARXK5H+9gQUFGV18ve4oLJG4s28Yoj zs7ayVKrTXY4W+9pILEZE77hk6nHSoQdsy2BNuwyC4 7j7PfQP7ITiAe66YI/2VcHPJz+7Pp3/ozxjgr8Z6qS7iejwvAxaEY3tzFrmySjGOmu+dNNplwkcacvIx jIGBjrk/rSJbG+NrmfdthJtPTwDf1E4gdJoUhnVMHJah872vws3D6rN4XXM66Hdlr/1MyW26F+HZLcW8 cl3aFhnLaH8RNOqybPaIR7o16WxfaZ/ePtRvmY11u6 SPW0OiPQ8A+4qOLYGK15qj4xVNs3D6uB4XNU37UtbRZg+nOsamzeElmguR07UaDAoA/vBLFN1VFtf0ou GMdXw1uJ0RHRn876GDQlv5da0AUuSDnpaP78A3LGF/8JDigoF85n9Aqs2Yobg43Yuzn4wsdOeeI+hKiZ 7k14Lsida8ixMIjCnvyO70OehvoM19WbsZnNF7L9wJ 0HHL23YglNeuhxH27PshlpA32LpsVSZunh8Z7cT6btgxdKqoHwnfrecacaK4hx128KlnxrK/[facility] 9b2DKZYgR6cBab37GBpi6dB4DB+EUcD+ErZsJBXodnVim75y9zxhY88HXRTH5wZ32yj5xXj6L9lJ7ppe evTnpXD/AAhVf+Jq3QiXsRpF5u1SvningzxEbMq/GQ tWZtsmx17SHvhj7ZFuPqk0czBBmRWRfqaP57HlktgS43NpmBxPisi5XKcnlF46m0WpKT0BHvM0LMrOo2 GAticaFqbCpcpczjN6lv806RppBUwM58Wrbwp08u8Vrl1ksL48hG6jI1VKfx9UkluZa4yK3FNA24SxwK 2ag21t+2cZOKjL08IZSdfPuPZ+V+6jOUzyevTnpUIT N1B+6yDDYDY42jl1nIMJ0x06Ednvs2ppZYkWBY9J+8qXIDCI47ae6wQBvWgch6TMiZog2omLZtLasbZd ThhVEiD2x9GCYd/SMkf7dtmjc1E6fS0expoxBttEW9yjzh1V2eMk8QnjGIQaOAIS/D7SLGPMNpse9QmN JjAUwrsM6sInhx2a0lFVEhPZ9AA2HwhWsESzqZ2QZm 7Y4lW3zsoquBllLZfNSh8/UFhx3s76qrQizDcLJE6XK+wX3fyKH2m6jjXee8F6lN6qvubcDcvBS8KaIW 1B+3cQVSWV32vq5fUKk2P0jS5FSJ68YooSXo+zVluxveZzzbnH86DqGQdP/rPDJW1NFbs7owOJ9u/dRn GC94xkHEh8FM30p+2gCOJzE62RVMypvfX+6jOUzyev XquQzrgQpggolcxOWl6xJu7nZ2JMPYj/ordvJ7am671G33MG5OhnGAN8X43c5sIKxv/6FUgojI65x9QK 2EQ5AnbdWRxg5aN12mcP1H1CBJKlsHjlzpGzaiwBHXEQHJtoxgSeotlBYCOTZEecscEkwaaKRXSQHCki caZclcnGRKMDYDghnzYosgzIXRFMSCegypCzmpvW7n xP9+2/4F/CiXsbwEnktgp5jAnomyCtxnc80/6nRfrN/wCyUUVMtjGv/FT18HPBUB8JNGAJGhqwQL/kO6 j/ANew/vXVgZiySQbJ3LXf/yKUYsawpEdchr42/cBf3E1lp+yUUVMtjGv/WA6lW7BDLfpZUUPVHDaHvC /5Duo/9ew/7XRr55AXoYS9OS/TcbpkwhwG4a+N/wDq dF+s3/slFFTLYxr/NKGczpHPRHtwpURKVA3v8PR+Q7qP/XsP/PiQryEQfC3CNz/rAGXKQb6QgGikh/qd F+s3/slFFTLYxr/w4sPAlJTOysaFCGLE3t5YW+N3rG1H82T/KDGWe25IYcXC4BH/KSSWAEKp5BdLdyf/ AKnRfrN/6DOOCa9Le/8COV43VARJS2XjCPCZE7C+Cn /Id1H/AK9h/cVjYut4HY7qpaag/gQUUUVRuFeTfG//AFOi/Wb/ANkooqZbGNf+Fzb7lnimmbrnilfO0O +Cn/Id1H/r2H/pDi9mvjoJ2Cz2e6HCIUUFwhWx4l/5CT/9cj/QQEFX6Fm/6QU4bZDZVfmXPVSFNZNQOE FFFFABRRRQAUUUUAFFFFABRRRQAUUUUAFFFFABRRRQ AUUUUAFFFFABRRRQAUUUUAFFFFABRRRQB//YXUgyjmFrrQWpEX7HVrTeHD2wix7FZUCwZKKxPhoWTxx0 L2N1jDFqC4HsL7MvV40rCb5ZeVDvnFC0OW9KnVq5PFQyJntlzXQGISXlHIQbGXAxP3LhTRP2Cr0+DQpz dVXdZI9KXpbbiOEtG2ItVND7fb7gWhzQrjj8wPJbLH IKx1CEZI0DMeCY7s9zertfcNUgn5+38kJMDEKYHMcXGG2GeHfZKXx5SPMPsUCuYoBTMPoCieHRUgRRLP D3TpA6QVA9gke7Q5uWuFaQw5Uigtc9nvmG7Tp3HJWTYzFKsq2Q5rYwkRMAl1cXK5M07x3Wa3IgireEWq brAi1VXoW2wixzYdlsaS/iLwMWc8MNs7S49xpHd2jb uj9q+5rmNqSS9yxv1gcXMR3GJZ6dg3UiQSSoWEmhigDdGlrATrM9IJNoh5OuKEj1JW5Azp0slGGtmej+ /dLEZOyENfCdCW4VznGaNBVIoDYgLLORJbUwRAQQsJSpJAPHIWYBUP6RbwMaHACYWbTxMRSIRpfhZ6Op YXRvcij+/aYFGDnAXhSqLP5TkoZfTIPWmOLhGCDFGw ToSQQXmKEcRHSZYALOSI7KicZtJYUGNaMiLBJQKjvtX9TeUYCtv77DKWScAKR1YmNuOQLpEgZwHaY8QU LrLD3Ij1QHUGDeSXJ2MfRuYDVcWbOaMsM0QMAoHM9+POdsenGcCgtPJjQ9OJTos0OfNBtwHOZ6LB8iMA ttzoHnYiwAVqAfUXDyx8TtKXuaKKN8ZP3aCDhbnwKk NugPImNrYFDfw2RgNHt4BJ7EcRPzF6zEAXVkG7r3REBsXP2AMjEeUCIsXu5qA7Sta7CaKFEfNNCrCA3u ltQsYOQfXUSuRQRnJSM7EMB2NPD1FPNII1O5UDNBKgOWACPRStODAFFeRVZFGbaeVJyGQEBWZIEWImDA WLXCDfLMNYv8PyVxZjYWCkjpNa1gJP6RdIz3WVBfUy pqkASHTDUoPAVbNRJhB0KbFUi8Ph8NDmS9duZhaJ4ElHzuAVJY//8FmpEcRsZToyUFR7KS58DdiIYwOB TCMWJmwBIZEI8QqxrB4LHgRXgANUNwyMITPVhNRevSuOBIHj5uhsOJ3yFkPiYjuksRLV3YXhQ6Vis8IB vjhbCgmHGcWR9XYeBfOT6pro0RqJJlVx7KWRAoUi9J NGOmBMFtGFPaIVY7DOEpSEQiKOivMIXzPMMlWDM3ROMeSPIlEB0XMiTaYLDqPJMhUuWcBKDrMUPiiq8L XNLkKYVhGAY3WAYsMTJuUEKoAZnwFDPuWNLeNPNbWIIhOQVsTI0LUtBySMZuCLN8UiXtBMOoLSVwyy4W GTSaBISmZQhjZpQgYOPrNUNqJPcdROGvMPNlWPY1RM LvBEJgHA4AFcKfHKUgXBGdUaeiTEGyICXejr5LVUIoDXSzWLQ9MPLeBXBrSILdDVwbLRFdGGByLXIwAG [id number]fKo1GORZjJAVcUPXrQlC3NIDyIVBfNAphDQFiCJVlOYT8UR F8SQC3BUDEYtHfFAGcKZSvSCLtUlT7FeZnMh0WGIZj UIWsCQOoWjR7LSJlRWBcSTxlSCDkSUTcSQZ5VOJ0TPS9ELAZMhSiAPLbVUCmDJCuUoN5SfRxMa6OJBTo NSTrBnC6NcXzIIRgLUWeLRdwAXBgCmX0GZj2RXZpMKAmZK8MCuFaEPFrGGW7SpKlPFBtKRSuej1HLHRf OLOxHgm0XjZrDZFsXRQcQRw5pwPclNTuNPl4ND5AoT nhEHKoX3Hko2JxNLMqKTBsKC8ngyXhEITtDRHuJMHuVTO1ZTY7MSA1ADJHL8N4SXPSUjNPGPGYJvPZMQ DcOSXCBgogISrHIFRINQKMLtXZAPQDUtDPBXb9OdZhWvESJtpzJj2wCY8+DQpzdGFydHhyZWYNCjIwNz Z3DJ8PWETGT8GEMoidXRRYHeOwSK7FbSKgmVhehr3W XUtpE1m8AWBiHr2He285JGIbEUDGY5ulGi8gCEfmEEUKV1gHMpwkKXeVAYRNLZONMhDYLMSVKfVMNVf1 LuSuLqOJSomySr56BGZ3IrVpKyt3OLLaQKa7A6NGCqZ3MEKsHhYsXPA7G9Y+XSAvUHJldiAyMDcyNDAv FUSwCvV0sQTxDIS7NLU+Sd2Xe1KjnuR8rwWuDNwwRHh9OavPRbBtVL7R ID Date Data Source "" 12/15/2020 07:13:00 [place] [address] Patient Name: Salena Stanley Exam Date: 12/15/20 : 1950 CC: EKG/ECG in ED Ordering Doctor: Tracy Jauregui MD Attending Doctor: Onesimo Laguerre MD CC: EKG/ECG in ED APPROVED REPORT ECG MEASUREMENT Heart Rate 58 AXES TN 141 P 48 QRSd 84 QRS 0 QT 389 T 55 QTc 386 INTERPRETATION SINUS BRADYCARDIA POSSIBLE INFERIOR MYOCARDIAL INFARCTION , PROBABLY OLD [30 ms Q WAVE IN II/aVF] NO ACUTE ISCHEMIA BORDERLINE ECG Conclusion SINUS BRADYCARDIA POSSIBLE INFERIOR MYOCARDIAL INFARCTION , PROBABLY OLD [30 ms Q WAVE IN II/aVF] NO ACUTE ISCHEMIA BORDERLINE ECG End of diagnostic report for accession: [id number] Interpreted: Onesimo Laguerre MD 12/15/201912 Transcribed: Signed: Onesimo Laguerre MD 12/15/201912 Interpreted by: Onesimo LaguerreTranscribed by: Onesimo Laguerre Name Value Range Interpretation Code Description Data Marisa rce(s) Supporting Document(s) ID Date Data Source [id number] 12/15/2020 07:04:00 [place] [address] HEALTH INFORMATION MANAGEMENT ED/ Physician Report : [id number] Signed Patient: Salena Stanley Acct:[id number] Unit: Ivan [id number] : 1950 Arrival Date: 12/15/20 Age/Sex: 70 / F Arrival Time: 183 Copies to: Omi Boone MD General Adult HPI/ROS General Chief Complaint: Complex/Multi-System Present Stated Complaint: Vomiting Stated Complaint: Vomiting Source: Patient, Old records reviewed, RN/, RN notes reviewed and I have reviewed available Ancillary/nursing staff documentation Mode of arrival: Ambulatory Limitations: Reports No limitations History of Present Illness Initial Comments: SHE IS KNOWN TO HAVE SEVERE GERD WITH BURNING THE SORE ALL THE TIME. SHE IS SCHEDULED TO HAVE ENDOSCOPY BY DR. CHERELLE MOSQUEDA IN THE NEAR FUTURE. SHE WAS [...] Adverse Reaction (Severe, Verified 12/15/20 18:40) ANAPHYLAXIS Aymnxws-Syl-Dmh Reductase Inhibitor Adverse Reaction (Intermediate, Verified 12/15/20 [...] EXT: NO EDEMA OR CLUBBING OR TREMORS. PAVER INSTALLER: A/OX3, GROSSLY INTACT. SKIN: DRY, NO RASH, [...] rce(s) Supporting Document(s) ID Date Data Source [id number] 11/24/2020 07:34:00 AM EST [facility] [email or web address] [address] [place] [address], [address] [place] [address] GI Office Visit : Signed Patient: Salena Stanley Acct:[id number] Visit Date: 11/24/20 : 1950 Assessment Plan [...] Gastro-esophageal reflux disease without esophagitis SNOMED Code(s): 242012031 Category: Medical Plan - Dr. 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 Is patient in pain?: No [...] Adverse Reaction (Severe, Verified 11/24/20 07:35) ANAPHYLAXIS Dygjgru-Fiv-Nax Reductase Inhibitor Adverse Reaction (Intermediate, Verified 11/24/20 07:35) NAUSEA/VOMITING/DIARRHEA egg Adverse Reaction (Mild, Verified 11/24/20 07:35) NAUSEA/VOMITING/DIARRHEA metronidazole [From Flagyl] Adverse Reaction (Mild, Verified 11/24/20 07:35) ADDITIONAL UNSPECIFIED Metronidazole HCl [From Flagyl] Adverse Reaction (Mild, Verified 11/24/20 07:35) NAUSEA/VOMITING/DIARRHEA Home Medications - Last Reconciled 11/24/20 by Keren Brooke, DONOR SERVICES TEAM LEADER albuterol sulfate 90 mcg/actuation breath activated powder [...] days?: No HPI Gastroesophageal reflux disease / [id number] Details: Patient presents for a telemedicine visit. We had a discussion regarding current HIPAA regulations and insurance billing and patient gives verbal consent to this and understands we will bill their insurance. I am located in the office with my procedure tech and patient is at home and no onebill their insurance. I am located in the office with my procedure tech and patient is at home and no [...] on sputum orany dark stools. [facility] Medical History (Updated 11/24/20 @ 08:[address] Cherelle Mosqueda MD) Anxiety Bowel obstruction CAD (coronary [...] Codes PHONE E/M PHYS/QHP 11-20 MIN - 86724 (57239) Time Spent (min) 12 Signed By:Cherelle Mosqueda MD <<Signature on File>> Signed Date/Time: 11/24/20822 Co-Signer: Co-Signed Date/Time: Liv dacia User: Cherelle Mosqueda MD 11/24/20733 3 3 Name Value Range Interpretation Code Description Data Marisa rce(s) Supporting Document(s) ID Date Data Source [id number] 09/24/2020 05:45:00 PM EST [facility] Name Value Range Interpretation Code Description Data Marisa rce(s) Supporting Document(s) WHITE BLOOD COUNT 7.41 10^3/uL 4.00-10.50 [facility] RED BLOOD COUNT 5.04 10^6/uL 3.90-5.20 [facility] HEMOGLOBIN 13.5 G/DL 11.5-15.6 N [facility] HEMATOCRIT 43.5 % 35.0-46.0 N [facility] MCV 86.3 FL 80.0-100.0 N [facility] MCH 26.8 PG 27.0-34.0 L [facility] MCHC 31.0 G/DL 32-36 L [facility] RDW 13.9 % 11.5-14.5 N [facility] PLATELET COUNT 285 10^3/uL 130-400 N [facility] MPV 11.9 FL 8.7-13.2 N [facility] GRAN % (AUTO) 63.8 % 42.0-75.0 N [facility] LYMPH % (AUTO) 26.2 % 20.0-51.0 N [facility] MONO % (AUTO) 6.6 % 2.0-15.0 N [facility] EOS % (AUTO) 2.2 % 0.0-11.0 N [facility] BASO % (AUTO) 0.9 % 0.0-2.0 N [facility] IG % (AUTO) 0.3 % 1.00-5.00 [facility] IG # (AUTO) 0.0 10^3/uL <0.5 [facility] GRAN # (AUTO) 4.73 10^3/uL 1.50-6.50 N [facility] LYMPH # (AUTO) 1.9 k/uL 1.0-5.0 N [facility] MONO # (AUTO) 0.49 k/uL 0.20-1.50 N [facility] EOS # (AUTO) 0.16 10^3/uL 0.00-1.10 N [facility] BASO # (AUTO) 0.07 10^3/uL 0.00-0.20 N [facility] ID Date Data Source [id number] 09/24/2020 06:05:00 PM EST [facility] Name Value Range Interpretation Code Description Data Marisa rce(s) Supporting Document(s) IRON 76 UG/DL 35-150 N [facility] TIBC 260 UG/DL 260-400 N [facility] % IRON SATURATION 29.0 % 20-50 [facility] ID Date Data Source [id number] 09/24/2020 06:05:00 PM EST [facility] Name Value Range Interpretation Code Description Data Marisa rce(s) Supporting Document(s) VITAMIN B12 545 PG/ML 211-2000 N [facility] ID Date Data Source [id number] 09/24/2020 06:05:00 PM [facility] Name Value Range Interpretation Code Description Data Marisa rce(s) Supporting Document(s) FOLATE > 24.00 NG/ML 3.40-24.00 H [facility] ID Date Data Source [id number] 09/24/2020 06:05:00 PM [facility] Name Value Range Interpretation Code Description Data Marisa rce(s) Supporting Document(s) Vitamin D,25-HYDROXY 43.3 ng/ml 30-100 N [facility] Vitamin D Status Range De ficiency <20 ng/ml Insufficiency 20-29.9 ng/ml Sufficiency 30-100 ng/ml Toxicity >100 ng/ml Patients should not be tested for 72 hours post fluorescein dye angiography. A false elevation of result may occur. ID Date Data Source [id number] 08/17/2020 04:05:00 PM EST [facility] ULTR ASOUND VASC VENOUS LOWER RIGHTCLINICAL HISTORY: Right leg pain, swelling.COMPARISON: None available.FINDINGS: Duplex sonography of the right lower extremity was performed.The common femoral, superficial femoral, and popliteal veins demonstrate normal compressibility, patency, and phasicity.There is no evidence for DVT.The calf veins appear unremarkable.IMPRESSION: Unremarkable right lower extremity duplex examination. No evidence for DVT.Dictated by: RASHI BARNETT M.D. on 08/17/2020 Transcribed by: aa on 08/17/2020 04:27 PMCDS G code: ,CDS Modifier: ,cc: Name Value Range Interpretation Code Description Data Marisa rce(s) Supporting Document(s) Procedure Social History Code Duration Value Status Description Data Source(s ) Alcohol intake 07/18/2021 12:00:00 AM EDT Current non-d bertha of alcohol (finding) completed Current non-drinker of alcohol (finding) [facility] 06/07/2021 10:38:41 AM EDT Former Smoker completed Former Smoker [facility] 06/07/2021 10:38:41 AM EDT Cigarettes completed Cigarette s [facility] 06/07/2021 10:38:41 AM EDT Former Smoker completed Former Smoker [facility] 06/07/2021 10:38:41 AM EDT Cigarettes completed [facility]igarette s [facility] Smoking 06/07/2021 10:38:00 AM EDT Ex-smoker (finding) complet ed Ex-smoker (finding) [facility] 01/20/2021 08:20:23 AM EDT Former Smoker completed Former Smoker [facility] 01/20/2021 08:20:23 AM EDT Cigarettes completed Cigarette s [facility] 01/20/2021 08:20:23 AM EDT Former Smoker completed Former Smoker [facility] 01/20/2021 08:20:23 AM EDT Cigarettes completed Cigarette s [facility] 01/20/2021 08:20:00 AM EDT Ex-smoker (finding) complet ed Ex-smoker (finding) [facility] [employer] Sm[facility] 01/20/2021 08:20:00 AM EDT Ex-smoker (finding) complet ed Ex-smoker (finding) [facility] 12/22/2020 02:29:00 PM EDT Former Smoker completed Former Smoker [facility] 12/22/2020 02:29:00 PM EDT Cigarettes completed Cigarette s [facility] 12/22/2020 02:29:00 PM EDT Ex-smoker (finding) complet ed Ex-smoker (finding) [facility] 12/22/2020 02:29:00 PM EDT Former Smoker completed Former Smoker [facility] 12/22/2020 02:29:00 PM EDT Cigarettes completed Cigarette s [facility] Sm[facility] 12/22/2020 02:29:00 PM EDT Ex-smoker (finding) complet ed Ex-smoker (finding) [facility] Alcohol intake 12/20/2020 12:00:00 AM EDT No completed [facility] Smoking 12/20/2020 12:00:00 AM EDT Former smoker completed Former smoker [facility] 12/15/2020 07:32:00 PM EDT Former Smoker completed Former Smoker [facility] 12/15/2020 07:32:00 PM EDT Cigarettes completed Cigarette s [facility] Sm[facility] 12/15/2020 07:32:00 PM EDT Ex-smoker (finding) complet ed Ex-smoker (finding) [facility] 12/15/2020 07:32:00 PM EDT Former Smoker completed Former Smoker [facility] 12/15/2020 07:32:00 PM EDT Cigarettes completed Cigarette s [facility] Smoking 12/15/2020 07:32:00 PM EDT Ex-smoker (finding) complet ed Ex-smoker (finding) [facility] 11/24/2020 07:36:22 AM EST Former Smoker completed Former Smoker [facility] 11/24/2020 07:36:22 AM EST Cigarettes completed Cigarette s [facility] 11/24/2020 07:36:22 AM EST Former Smoker completed Former Smoker [facility] 11/24/2020 07:36:22 AM EST Cigarettes completed Cigarette s [facility] Smoking 11/24/2020 07:36:00 AM EST Ex-smoker (finding) complet ed Ex-smoker (finding) [facility] 11/24/2020 07:36:00 AM EST Ex-smoker (finding) complet ed Ex-smoker (finding) [facility] Alcohol intake 08/17/2020 12:00:00 AM EST No completed [facility] Smoking 08/17/2020 12:00:00 AM EST Former smoker completed Former smoker [facility] Vital Signs ID Date Data Source UNK Name Value Range Interpretation Code Description Data Source(s) Systolic blood pressure 136 mm[Hg] 136 mm[Hg] [facility] Diastolic blood pressure 98 mm[Hg] 98 mm[Hg] [facility] Heart rate 56 /min 56 /min [facility] Body height 162.6 cm 162.6 cm [facility] Body weight 75.297 kg 75.297 kg [facility] Body mass index (BMI) [Ratio] 28.49 kg/m2 28.49 kg/m2 [facility] Oxygen saturation in Arterial blood by Pulse oximetry 92 % 92 % [facility] Body weight 166 [lb_av] 166 [lb_av] W1 ([facility]) Body height 64 [in_i] 64 [in_i] eCW1 ([facility]) Body mass index (BMI) [Ratio] 28.49 kg/m2 28.49 kg/m2 [facility] ([facility]) Heart rate 68 /min 68 /min W1 ([facility]) Respiratory rate 18 /min 18 /min W1 ([facility]) Body temperature 96.4 [degF] 96.4 [degF] eCW1 ( [facility]) Systolic blood pressure 124 mm[Hg] 124 mm[Hg] e CW1 ([facility]) Diastolic blood pressure 80 mm[Hg] 80 mm[Hg] eCW1 ([facility]) Body height 162.56 cm 162.56 cm [facility] Body weight 74.84 kg 74.84 kg [facility] Body mass index (BMI) [Ratio] 28.3 kg/m2 28.3 k g/m2 [facility] Body height 64 [in_i] 64 [in_i] eCW1 ([facility]) Body weight 165 [lb_av] 165 [lb_av] eCW1 ([facility]) Body mass index (BMI) [Ratio] 28.32 kg/m2 28.32 kg/m2 eCW1 ([facility]) Heart rate 85 /min 85 /min eCW1 ([facility]) Respiratory rate 18 /min 18 /min eCW1 ([facility]) Body temperature 96.1 [degF] 96.1 [degF] eCW1 ( [facility]) Systolic blood pressure 126 mm[Hg] 126 mm[Hg] e CW1 ([facility]) Diastolic blood pressure 74 mm[Hg] 74 mm[Hg] eCW1 ([facility]) Body weight 166 [lb_av] 166 [lb_av] eCW1 ([facility]) Body height 64 [in_i] 64 [in_i] eCW1 ([facility]) Body mass index (BMI) [Ratio] 28.49 kg/m2 28.49 kg/m2 eCW1 ([facility]) Heart rate 75 /min 75 /min eCW1 ([facility]) Respiratory rate 18 /min 18 /min eCW1 ([facility]) Body temperature 96.8 [degF] 96.8 [degF] eCW1 ( [facility]) Systolic blood pressure 130 mm[Hg] 130 mm[Hg] e CW1 ([facility]) Diastolic blood pressure 80 mm[Hg] 80 mm[Hg] eCW1 ([facility]) Heart rate 62 /min 62 /min [facility] [employer] Systolic blood pressure 164 mm[Hg] 164 mm[Hg] O [employer] Diastolic blood pressure 74 mm[Hg] 74 mm[Hg] [facility] [employer] Respiratory rate 20 /min 20 /min [facility] Oxygen saturation in Arterial blood by Pulse oximetry 96 % 96 % [facility] [employer] [facility] Oxygen saturation in Arterial blood by Pulse oximetry 96 % 96 % [facility] [employer] [facility] Heart rate 62 /min 62 /min [facility] [employer] Diastolic blood pressure 74 mm[Hg] 74 mm[Hg] [facility] [employer] Systolic blood pressure 164 mm[Hg] 164 mm[Hg] [facility] Respiratory rate 20 /min 20 /min [facility] Heart rate 62 /min 62 /min [facility] Respiratory rate 20 /min 20 /min [facility] Oxygen saturation in Arterial blood by Pulse oximetry 96 % 96 % [facility] Systolic blood pressure 164 mm[Hg] 164 mm[Hg] [facility] Diastolic blood pressure 74 mm[Hg] 74 mm[Hg] [facility] Heart rate 62 /min 62 /min [facility] Respiratory rate 20 /min 20 /min [facility] Oxygen saturation in Arterial blood by Pulse oximetry 96 % 96 % [facility] Systolic blood pressure 164 mm[Hg] 164 mm[Hg] [facility] Diastolic blood pressure 74 mm[Hg] 74 mm[Hg] [facility] Body temperature 97.1 [degF] 97.1 [degF] [facility] Body temperature 97.1 [degF] 97.1 [degF] [facility] Body temperature 97.1 [degF] 97.1 [degF] [facility] Body temperature 97.1 [degF] 97.1 [degF] [facility] Body weight 72.72 kg 72.72 kg [facility] Body height 162.56 cm 162.56 cm [facility] Body height 162.56 cm 162.56 cm [facility] Body weight 72.72 kg 72.72 kg [facility] Body height 162.56 cm 162.56 cm [facility] Body weight 72.72 kg 72.72 kg [facility] Body height 162.56 cm 162.56 cm [facility] Body weight 72.72 kg 72.72 kg [facility] Systolic blood pressure 137 mm[Hg] 137 mm[Hg] [facility] Diastolic blood pressure 83 mm[Hg] 83 mm[Hg] [facility] Heart rate 55 /min 55 /min [facility] Body temperature 36.67 Lydia 36.67 Lydia [facility] Respiratory rate 20 /min 20 /min [facility] Body height 162.6 cm 162.6 cm [facility] Body weight 71.668 kg 71.668 kg [facility] Body mass index (BMI) [Ratio] 27.12 kg/m2 27.12 kg/m2 [facility] Oxygen saturation in Arterial blood by Pulse oximetry 98 % 98 % [facility] Body temperature 98.5 [degF] 98.5 [degF] [facility] Oxygen saturation in Arterial blood by Pulse oximetry 97 % 97 % [facility] Systolic blood pressure 138 mm[Hg] 138 mm[Hg] O [facility] Heart rate 60 /min 60 /min [facility] Diastolic blood pressure 62 mm[Hg] 62 mm[Hg] [facility] Respiratory rate 18 /min 18 /min [facility] Body temperature 98.5 [degF] 98.5 [degF] [facility] Diastolic blood pressure 62 mm[Hg] 62 mm[Hg] [facility] Heart rate 60 /min 60 /min [facility] Respiratory rate 18 /min 18 /min [facility] Oxygen saturation in Arterial blood by Pulse oximetry 97 % 97 % [facility] Systolic blood pressure 138 mm[Hg] 138 mm[Hg] [facility] Body temperature 98.5 [degF] 98.5 [degF] [facility] Heart rate 60 /min 60 /min [facility] Respiratory rate 18 /min 18 /min [facility] Oxygen saturation in Arterial blood by Pulse oximetry 97 % 97 % [facility] Systolic blood pressure 138 mm[Hg] 138 mm[Hg] [facility] Diastolic blood pressure 62 mm[Hg] 62 mm[Hg] [facility] Body temperature 98.5 [degF] 98.5 [degF] [facility] Heart rate 60 /min 60 /min [facility] Respiratory rate 18 /min 18 /min [facility] Oxygen saturation in Arterial blood by Pulse oximetry 97 % 97 % [facility] Systolic blood pressure 138 mm[Hg] 138 mm[Hg] [facility] Diastolic blood pressure 62 mm[Hg] 62 mm[Hg] [facility] Body height 162.56 cm 162.56 cm [facility] Body weight 71.80 kg 71.80 kg [facility] Body height 162.56 cm 162.56 cm [facility] Body weight 71.80 kg 71.80 kg [facility] Body height 162.56 cm 162.56 cm [facility] Body weight 71.80 kg 71.80 kg [facility] Body height 162.56 cm 162.56 cm [facility] Body weight 71.80 kg 71.80 kg [facility] Body height 162.56 cm 162.56 cm [facility] Body weight 71.66 kg 71.66 kg [facility] Body mass index (BMI) [Ratio] 27.1 kg/m2 27.1 k g/m2 [facility] Body height 162.56 cm 162.56 cm [facility] Body weight 71.66 kg 71.66 kg [facility] Body mass index (BMI) [Ratio] 27.1 kg/m2 27.1 k g/m2 [facility] Body height 162.56 cm 162.56 cm [facility] Body weight 71.66 kg 71.66 kg [facility] Body mass index (BMI) [Ratio] 27.1 kg/m2 27.1 k g/m2 [facility] Body height 162.56 cm 162.56 cm [facility] Body weight 71.66 kg 71.66 kg [facility] Body mass index (BMI) [Ratio] 27.1 kg/m2 27.1 k g/m2 [facility] Systolic blood pressure 142 mm[Hg] 142 mm[Hg] [facility] Diastolic blood pressure 79 mm[Hg] 79 mm[Hg] [facility] Heart rate 64 /min 64 /min [facility] Body height 162.6 cm 162.6 cm [facility] Body weight 67.132 kg 67.132 kg [facility] Body mass index (BMI) [Ratio] 25.40 kg/m2 25.40 kg/m2 [facility] Oxygen saturation in Arterial blood by Pulse oximetry 97 % 97 % [facility] Patient Treatment Plan of Care Planned Activity Planned Date Details Description Data Source (s) 24 HR metoprolol succinate 25 MG Extended Release Oral Tablet 07/18/2021 12:00:00 AM EDT [facility] 24 HR venlafaxine 37.5 MG Extended Release Oral Capsul e 07/11/2021 12:00:00 AM EDT [facility] Calcium + D3 600-800 MG-UNIT 06/28/2021 12:00:00 AM EDT eCW1 ([facility]) Calcium + D3 600-800 MG-UNIT 06/28/2021 12:00:00 AM EDT eCW1 ([facility]) Sucralfate 100 MG/ML Oral Suspension 12/16/2020 12:00:00 AM EDT [facility] 24 HR metoprolol succinate 25 MG Extended Release Oral Tablet 11/02/2020 12:00:00 AM EST [facility] venlafaxine 75 MG Oral Tablet 08/02/2020 12:00:00 AM EST [facility] 24 HR venlafaxine 37.5 MG Extended Release Oral Capsul e 07/10/2019 12:00:00 AM EDT [facility] Bisacodyl 5 MG Delayed Release Oral Tablet [facility]
[2021-08-08] MEDS ORDERED: ACETAMINOPHEN 325 MG TAB PO ONE (06:15)
[2021-08-08 06:45] LABS: BASO % 0.4 % (0.0-1.0); HEMATOCRIT 42.9 % (36.0-47.0); HEMOGLOBIN 13.4 g/dl (12.0-15.5); LYMPH # 0.8 10^3/uL (1.5-5.0); MEAN CORPUSCULAR HEMOGLOBIN 26.8 pg (27.0-33.0); MEAN CORPUSCULAR HGB CONC 31.2 g/dl (32.0-36.5); MEAN CORPUSCULAR VOLUME 85.8 fl (80.0-96.0); MONO # 0.5 10^3/uL (0.0-0.8); MONO % 10.3 % (2.0-8.0); NEUTROPHILS # 3.2 10^3/uL (1.5-8.5); NEUTROPHILS % 71.9 % (36.0-66.0); PLATELET COUNT, AUTOMATED 224 10^3/uL (150-450); WHITE BLOOD COUNT 4.5 10^3/uL (4.0-10.0)
[2021-08-08] MEDS ORDERED: LIDOCAINE 2% 5ML JELLY UROJET TOP ONE (07:05)
[2021-08-08] MEDS ORDERED: NS 1,000 ML IV ONE (07:05)
[2021-08-08 07:13] LABS: CK-MB VALUE MASS < 1.0 NG/ML (<3.6); CPK CREATINE PHOSPHOKINASE 71 U/L (26-192); MB/CK RELATIVE INDEX 1.41 (< OR =4); TROPONIN I < 0.02 NG/ML (< 0.10)
[2021-08-08 07:14] LABS: ALBUMIN 3.4 GM/DL (3.2-5.2); ALT/SGPT 81 U/L (12-78); BILIRUBIN,DIRECT 0.1 MG/DL (0.0-0.2); BILIRUBIN,TOTAL 0.2 MG/DL (0.2-1.0); BLOOD UREA NITROGEN 6 MG/DL (7-18); CALCIUM LEVEL 8.8 MG/DL (8.8-10.2); CARBON DIOXIDE LEVEL 28 MEQ/L (21-32); CHLORIDE LEVEL 104 MEQ/L (98-107); CREATININE FOR GFR 0.89 MG/DL (0.55-1.30); GLOMERULAR FILTRATION RATE > 60.0 (>45); GLUCOSE, FASTING 111 MG/DL (70-100); LIPASE 151 U/L (73-393); SODIUM LEVEL 139 MEQ/L (136-145)
--- NOTE | 2021-08-08 07:47 | REPVR ---
PROCEDURE INFORMATION: Exam: CT Abdomen And Pelvis Without Contrast Exam date and time: 08/08/2021 6:47 AM Age: 70 years old Clinical indication: Abdominal pain; Additional info: Nephrolihiasis TECHNIQUE: Imaging protocol: Computed tomography of the abdomen and pelvis without contrast. Radiation optimization: All CT scans at this facility use at least one of these dose optimization techniques: automated exposure control; mA and/or kV adjustment per patient size (includes targeted exams where dose is matched to clinical indication); or iterative reconstruction. COMPARISON: None FINDINGS: Detailed evaluation of the abdominal and pelvic viscera is somewhat limited in the absence of intravenous contrast. Inferior thorax: Interstitial/airspace disease. Hiatal hernia. Liver: Fatty infiltration of the liver. Gallbladder and bile ducts: Status post cholecystectomy. Pancreas: No pancreatic mass or ductal dilatation. Spleen: No splenomegaly. Adrenal glands: Subtle right adrenal nodularity. Kidneys and ureters: Poorly defined 4 mm hyperdensity in the posterior right kidney, suggesting calculus. No hydronephrosis. Stomach and bowel: No significant small bowel dilatation. Prominent stool. Diverticula, without pericolonic inflammation. Appendix: Status post appendectomy. Intraperitoneal space: No significant free fluid. No free fluid. Vasculature: Vascular calcification. Normal caliber of the abdominal aorta. Lymph nodes: No pathologically enlarged lymph nodes. Urinary bladder: Normal bladder morphology. Reproductive: Unremarkable as visualized. Bones/joints: Osteopenia and chronic compression deformities in the visualized spine, of greatest severity at the T12 level. Degenerative change. Soft tissues: Small umbilical hernia. IMPRESSION: 1. Poorly defined 4 mm hyperdensity in the posterior right kidney, suggesting calculus. 2. Hiatal hernia. 3. Additional findings as described above. COMMENTS: Consistent with the [employer]'s Incidental Findings Committee white paper (J Am Shannan Radiol 2018): Any incidental renal lesion less than 1 cm or classified as too small to characterize, or any incidental cystic renal lesion characterized as simple-appearing, is likely benign. No follow-up imaging is recommended for these lesions per consensus recommendations based on imaging criteria. Electronically signed by: Adriel Perez On 08/08/2021 07:46:58 AM
[2021-08-08] MEDS ORDERED: cefTRIAXone SOD 1 GM in D5W MINI-BAG PLUS 50 ML IV ONE (08:10)
[2021-08-08] MEDS ORDERED: LORA1TAB4 (08:24)
[2021-08-08] MEDS ORDERED: VENL75CA47 (08:24)
[2021-08-08] MEDS ORDERED: DEXI60CA2 (08:24)
[2021-08-08] MEDS ORDERED: COLA100C5 PO (08:24)
[2021-08-08] MEDS ORDERED: PRAV40TA2 (08:24)
[2021-08-08 09:04] LABS: RSV AMPLIFICATION NEGATIVE (NEGATIVE)
[2021-08-08] MEDS ORDERED: ISOVUE-370 76% 100ML VIAL As Ordered ONE (09:05)
--- NOTE | 2021-08-08 09:39 | REP ---
INDICATION: right flank pain. COMPARISON: 08/08/2021 TECHNIQUE: Axial contrast-enhanced images from the lung bases to the pubic symphysis using 100 cc Isovue 370 intravenous contrast material. Coronal and sagittal reformations obtained. This CT examination was performed using the following dose reduction techniques: Automated exposure control, adjustment of mA and/or kv according to the patient's size, and the use of iterative reconstruction technique. FINDINGS: Liver, spleen, pancreas, bilateral adrenal glands and kidneys are stable and essentially normal. Kidneys suggest bilateral extrarenal pelvises (right greater than left) and there is no evidence for acute perinephric stranding or obvious nephroureterolithiasis/obstructing ureteral calculus. The enteric system including stomach, small, and large bowel appears normal. No evidence for obstruction or acute inflammatory process. Normal terminal ileum and appendix are identified in the right lower quadrant. Colonic and sigmoid diverticulosis noted without acute diverticulitis. Pelvis demonstrates normal bladder and age-appropriate uterus/adnexa. No ascites. No free air. No intraperitoneal or retroperitoneal adenopathy. Abdominal aorta and vasculature appear essentially age-appropriate/normal. Musculoskeletal structures are intact and without acute osseous abnormality. IMPRESSION: No acute abdominopelvic pathology appreciated. <Electronically signed by Demetrius Kline > 08/08/21 [id number]
--- NOTE | 2021-08-08 09:39 | REP ---
INDICATION: fever, right sided paiun COMPARISON: None. TECHNIQUE: CT angiography of the chest after the intravenous administration of 75 cc Isovue 370 attention pulmonary arteries FINDINGS: There is excellent visualization of the pulmonary arterial vasculature. No focal filling defects are present that would be considered consistent with acute pulmonary emboli. There are no pleural or pericardial effusions. There is mediastinal and hilar adenopathy. The imaged upper abdomen and imaged osseous structures are within normal limits. Chronic changes are seen involving the imaged portion of the spine. Evaluation of the lung ag shows scattered patchy bilateral ground-glass, airspace, and interstitial opacities. Bibasilar curvilinear densities are also identified. IMPRESSION: 1. There is no evidence of a pulmonary embolus. 2. Lung parenchymal abnormalities as described above consistent with pneumonia and subsegmental atelectasis. Follow-up is recommended. 3. There is mediastinal and hilar adenopathy. <Electronically signed by Taqueria Hernández > 08/08/21 [id number]
[2021-08-08] MEDS ORDERED: CEFD1CAP8 PO (12:32)
[2021-08-08 13:30] VITALS: BP 151/70
--- NOTE | 2021-08-08 16:18 | CR.PDOC ---
General Date of Consultation: Aug 08, 2021 Consultation REASON FOR CONSULTATION/CHIEF COMPLAINT: Monoclonal antibody for COVID-19 infection. HISTORY OF PRESENT ILLNESS: 70-year-old female presented to the emergency room with right flank pain for 4 days with fever and chills. She thought it was her kidney stones. The right flank pain is described as a sharp aching about 5-6/10 in intensity without any radiation present constantly. and evaluation in the ED with CT abdomen and pelvis was negative for any kidney stones or any other acute intra-abdominal pathology however she was found to be positive for Covid. Patient is unvaccinated. Patient denies any cough or phlegm denies any shortness of breath. Denies any diarrhea or vomiting. Does complain of some body aches and malaise. there was no hypoxia on ambulation or at rest. M onoclonal antibody was discussed with the patient and patient accepted it. Consent placed in chart. Patient's UA did show 7 WBCs so patient is going to be discharged with a course of antibiotics for possible UTI. ALLERGIES: Please see below. HOME MEDICATIONS: Please see below. PAST MEDICAL HISTORY: Seizure disorder last seizure was in 2017 Anxiety Kidney stones CAD reports history of AR in status post stent CVA 1991 2018 2020 Hyperlipidemia GERD History of colon cancer in 2013 had surgery only Pancreatitis in Asthma Hypertension Hyperlipidemia Diabetes THONG wears CPAP PAST SURGICAL HISTORY: Tonsillectomy as a child Cardiac stents in Cholecystectomy Bilateral tubal ligation Colon resection in 2013 FAMILY HISTORY: Father had CAD disease CABG leukemia Mother had lung cancer depression Brother born with glaucoma Son asthma Daughter had uterine cancer Maternal aunt had breast cancer SOCIAL HISTORY: Former smoker REVIEW OF SYSTEMS: All 10 point review of systems were negative except those mentioned in the HPI PHYSICAL EXAMINATION: VITAL SIGNS: Please see below. GENERAL APPEARANCE: Awake alert oriented x3 HEENT: Normocephalic atraumatic moist mucous membranes anicteric eyes RESPIRATORY: Clear to auscultation, no added sound CARDIOVASCULAR: S1-S2 regular no rub murmur gallop ABDOMEN: Soft tenderness in the right lumbar and posterior flank region, normal bowel sounds no guarding or rigidity EXTREMITIES: No edema NEUROLOGICAL: No focal neuro deficits LABORATORY DATA: Please see below. ASSESSMENT/PLAN: 70-year-old female with multiple medical problems now with the COVID-19 infection with mild symptom and possible UTI. COVID-19 infection With mild symptoms Monoclonal antibody administration UTI Given his prescription for cefdinir by ED Vital Signs/I&O Vital Signs Date Time Temp Pulse Resp B/P (MAP) Pulse Ox O2 Delivery O2 Flow Rate FiO2 08/08/21 09:33 86 148/75 (99) 94 Room Air 08/08/21 08:13 100.0 18 08/08/21 06:34 2.0 Laboratory Data Labs 24H Laboratory Tests 2 08/08/21 06:28: Immature Granulocyte % (Auto) 0.4, Neutrophils (%) (Auto) 71.9H, Lymphocytes (%) (Auto) 17.0L, Monocytes (%) (Auto) 10.3H, Eosinophils (%) (Auto) 0.0, Basophils (%) (Auto) 0.4, Neutrophils # (Auto) 3.2, Lymphocytes # (Auto) 0.8L, Monocytes # (Auto) 0.5, Eosinophils # (Auto) 0.0, Basophils # (Auto) 0.0, Nucleated Red B lood Cells % (auto) 0.0, Anion Gap 7L, Glomerular Filtration Rate > 60.0, Calcium Level 8.8, Total Bilirubin 0.2, Direct Bilirubin 0.1, Aspartate Amino Transf (AST/SGOT) 75H, Alanine Aminotransferase (ALT/SGPT) 81H, Alkaline Phosphatase 64, Total Creatine Kinase 71, Creatine Kinase MB < 1.0, Creatine Kinase MB Relative Index 1.41, Troponin I < 0.02, Total Protein 7.0, Albumin 3.4, Albumin/Globulin Ratio 0.9L, Lipase 151 08/08/21 07:02: Lactic Acid Level 1.4 08/08/21 08:10: Urine Color YELLOW, Urine Appearance CLEAR, Urine pH 6.0, Urine Specific [place] 1.016, Urine Protein NEGATIVE, Urine Glucose (UA) NEGATIVE, Urine Ketones TRACEH, Urine Blood NEGATIVE, Urine Nitrite NEGATIVE, Urine Bilirubin NEGATIVE, Urine Urobilinogen 0.2, Urine Leukocyte Esterase NEGATIVE, Urine WBC (Auto) 7H, Urine RBC (Auto) 6H, Urine Hyaline Casts (Auto) 0, Urine Bacteria (Auto) NEGATIVE, Urine Squamous Epithelial Cells 1, Urine Mucus (Auto) SMALL, Urine Sperm (Auto) , Coronavirus (COVID-19)(PCR) POSITIVEA, Influenza Type A (RT-PCR) NEGATIVE, Influenza Type B (RT-PCR) NEGATIVE, Respiratory Syncytial Virus (PCR) NEGATIVE CBC/BMP Laboratory Tests 08/08/21 06:28 Microbiology Microbiology 08/08/21 Blood Culture, Received Pending 08/08/21 Blood Culture, Received Pending Allergies Coded Allergies: Penicillins (Verified Allergy, Unknown, SOB, 08/08/21) clarithromycin (Verified Allergy, Unknown, vomiting, 08/08/21) clindamycin (Verified Allergy, Unknown, rash, 08/08/21) metronidazole (Verified Allergy, Unknown, vomiting, 08/08/21) Home Medications Scheduled Cefdinir (Cefdinir) 300 Mg Capsule, 1 CAP PO BID for 6 Days, #12 Docusate Sodium (Colace) 100 Mg Capsule, 100 MG PO DAILY, (Reported) Miscellaneous Medications Dexlansoprazole (Dexilant) 60 Mg Cap., (Reported) Lorazepam (Lorazepam) 1 Mg Tablet, (Reported) Pravastatin Sodium (Pravastatin Sodium) 40 Mg Tablet, (Reported) Venlafaxine HCl (Venlafaxine HCl ER) 75 Mg Cap.er.24h, (Reported) Yelena Adan MD Aug 08, 2021 11:11
--- NOTE | 2021-08-08 19:31 | ECGEPIP ---
[facility] - ED Test Date: 2021-08-08 Pat Name: SALENA GEE Department: Room: - Gender: Female [employer]: PRUDENCE : 1950 Requested By: KAYE Calderon Order Number: [id number] Reading MD: Iker Gonzalez Measurements Intervals [place] Rate: 76 P: 59 CA: 118 QRS: -2 QRSD: 70 T: 56 QT: 352 QTc: 396 Interpretive Statements Normal sinus rhythm Possible Inferior infarct , age undetermined low qrs voltage limb leads Nonspecific ST T wave changes No prior ECG for comparison Electronically Signed on 08-08-2021 19:31:28 EST by Iker Gonzalez
== END 2021-08-08 13:44 | disposition home or self-care (01) ==
LOC: M ED 03:16
DX: R10.9 Unspecified abdominal pain (principal); R50.9 Fever, unspecified; R11.2 Nausea with vomiting, unspecified; U07.1 COVID-19; I10 Essential (primary) hypertension; E78.5 Hyperlipidemia, unspecified; Z79.899 Other long term (current) drug therapy; Z88.0 Allergy status to penicillin; Z88.1 Allergy status to other antibiotic agents; Z88.8 Allergy status to other drugs, medicaments and biological substances; Z87.891 Personal history of nicotine dependence
CPT/HCPCS: 71275; 74176; 74177; 80048; 80076; 81001; 82550; 82553; 83605; 83690; 84484; 85025; 87040; 87631; 93005; 93041; 96361; 96374; 99285; J0696; Q9967

== ENCOUNTER 2021-08-10 11:14 | Emergency (ER) | payer MEDICARE, MEDICAID ==
[~2021-08-10 11:14] MED LIST changes: +CEFD1CAP8 PO; -CEFD300C41 PO; -REGL10TA6 PO
--- OUTSIDE RECORDS SUMMARY | 2021-08-10 11:32 | CCD ---
Author Author [facility] Organization [facility] Address Unknown Phone Unavailable Care Team Providers Care Signal Worker Helper Name Role Phone Upham, A Jannet ELECTRICAL TECH/PROJECT MANAGER Unavailable Unavailable Upham, A Jannet ELECTRICAL TECH/PROJECT MANAGER Unavailable Unavailable Upham, A Jannet ELECTRICAL TECH/PROJECT MANAGER Unavailable Unavailable Upham, A Jannet ELECTRICAL TECH/PROJECT MANAGER Unavailable Unavailable Upham, A Jannet ELECTRICAL TECH/PROJECT MANAGER Unavailable Unavailable Upham, A Jannet ELECTRICAL TECH/PROJECT MANAGER Unavailable Unavailable Upham, A Jannet ELECTRICAL TECH/PROJECT MANAGER Unavailable Unavailable Upham, A Jannet ELECTRICAL TECH/PROJECT MANAGER Unavailable Unavailable Upham, A Jannet ELECTRICAL TECH/PROJECT MANAGER Unavailable Unavailable Upham, A Jannet ELECTRICAL TECH/PROJECT MANAGER Unavailable Unavailable Upham, A Jannet ELECTRICAL TECH/PROJECT MANAGER Unavailable Unavailable Upham, A Jannet ELECTRICAL TECH/PROJECT MANAGER Unavailable Unavailable Upham, A Jannet ELECTRICAL TECH/PROJECT MANAGER Unavailable Unavailable Upham, A Jannet ELECTRICAL TECH/PROJECT MANAGER Unavailable Unavailable Josiah, P Jeffrey DO Unavailable [...] Unavailable Unavailable Missy Rodriguez MD Unavailable Unavailable Msisy Rodriguez MD Unavailable Unavailable Missy Rodriguez MD Unavailable Unavailable Missy Rodriguez MD Unavailable Unavailable Missy Rodriguez MD Unavailable Unavailable Missy Rodriguez MD Unavailable Unavailable Missy Rodriguez Amanda MD Unavailable Unavailable Missy Rodriguez Amanda MD Unavailable Unavailable Missy Rodriguez MD Unavailable [...] Unavailable MERCEDES TORRES MD Unavailable Unavailable MERCEDES TRORES MD Unavailable Unavailable MERCEDES TORRES MD Unavailable [...] Unavailable Unavailable Sofia COLEMAN MD Unavailable Unavailable Sfoia COLEMAN MD Unavailable Unavailable Sofia COLEMAN MD [...] Unavailable Unavailable Tracy Jauregui MD Unavailable Unavailable Tarcy Jauregui MD Unavailable Unavailable Tracy Jauregui MD Unavailable Unavailable Tracy Jauregui MD Unavailable Unavailable Tracy Jauregui MD Unavailable Unavailable Tracy Jauregui MD Unavailable Unavailable Big [place], V CAREN PA-C Unavailable Unavailable [place], V CAREN PA-C Unavailable Unavailable [place], V CAREN PA-C Unavailable Unavailable [place], V CAREN PA-C Unavailable Unavailable [place], V CAREN PA-C Unavailable Unavailable [place], V CAREN PA-C Unavailable Unavailable Nat, V CAREN PA-C Unavailable Unavailable Nat, V CAREN PA-C Unavailable Unavailable [place], V CAREN PA-C Unavailable Unavailable Nat, V CAREN PA-C Unavailable Unavailable [place], V CAREN PA-C Unavailable Unavailable Nat, V CAREN PA-C Unavailable Unavailable [place], V CAREN PA-C Unavailable Unavailable [place], V CAREN PA-C Unavailable Unavailable Groch, R [...] is protected by Article 27-F of the [facility] Public Health law. If you continue you may have access to information: Regarding HIV / AIDS; Provided by facilities licensed or operated by the [facility] Office of Mental Health; or Provided by the [facility] Office for People With Developmental Disabilities. If such information is present, then the following [facility] mandated warning applies: This information has [...] law may result in a fine or chcf sentence or both. A general authorization for the release of medical or other information is NOT sufficient authorization for further disc losure. Allergies and Adverse Reactions Type Description Substance Reaction Status Data Source(s ) Drug allergy basil basil ANAPHYLAXIS [facility] Drug allergy egg egg NAUSEA/VOMITING/DIARRHEA [facility] Drug allergy polymyxin B polymyxin B ADDITIONAL UNSPECIFIED [facility] Drug allergy clarithromycin clarithromycin RASH/HIVES [facility] Drug allergy benzalkonium chloride benzalkonium chloride BLAKE TIONAL UNSPECIFIED [facility] Drug allergy metronidazole metronidazole ADDITIONAL UNSPECIFIED [facility] Drug allergy ciprofloxacin ciprofloxacin ADDITIONAL UNSPECIFIED [facility] Drug allergy gramicidin D gramicidin D ADDITIONAL UNSPECIFIED [facility] Drug allergy aspartame aspartame ANAPHYLAXIS [facility] Drug allergy Yikeier-OLA-NaP Reductase Inhibitor Stat ins-HMG-CoA Reductase Inhibitor NAUSEA/VOMITING/DIARRHEA [facility] Drug allergy Penicillins Penicillins SHORTNESS OF BREATH [facility] Drug allergy Metronidazole HCl Metronidazole HCl NAUSEA/VOMITING/DIAR FATOUMATA ND [facility] Drug allergy bacitracin zinc bacitracin zinc ADDITIONAL UNSPECIFIED M O [facility] Drug allergy neomycin sulfate neomycin sulfate ADDITIONAL UNSPECIFIED [facility] Drug allergy basil basil ANAPHYLAXIS [facility] egg egg NAUSE[facility]/VOMITING/[facility] Drug allergy polymyxin B polymyxin B ADDITIONAL [facility]PECIFIED [facility] Drug allergy clarithromycin Clarithromycin RASH/HIVES [facility] Drug allergy benzalkonium chloride benzalkonium chloride BLAKE TIONAL UNSPECIFIED MO [facility] Drug allergy metronidazole metronidazole ADDITIONAL UNSPE CIFIED ND NAUSEA/VOMITING/[facility] Drug allergy ciprofloxacin Ciprofloxacin ADDITIONAL [facility]PEC[facility]IED [facility] Drug allergy gramicidin D gramicidin D ADDITIONAL [facility]PECIFIED [facility] Drug allergy aspartame aspartame ANAPHYLAXIS SV [facility] BREATH [facility] Drug allergy Tlfszpz-Zro-Vse Reductase Inhibitor Stat ins-Hmg-Coa Reductase Inhibitor NAUSEA/VOMITING/DIARRHEA MO [facility] Drug allergy Penicillins Penicillin SHORTNESS OF BREATH [facility] Drug allergy Metronidazole HCl Metronidazole HCl NAUSEA/VOMITING/DIAR FATOUMATA ND [facility] Drug allergy bacitracin zinc bacitracin zinc ADDITIONAL UNSPECIFIED M [facility] Drug allergy neomycin sulfate neomycin sulfate ADDITIONAL UNSPECIFIED MO [facility] Propensity to adverse reactions PEANUT-CONTAINING DRUG PRODU CTS Peanut- Containing Drug Products Active [facility] Family History Family Member Name Family Member Gender Family Member Status Date o f Status Description Data Source(s) Unknown Condition [facility] Unknown Condition [facility] Unknown Condition [facility] Unknown Condition [facility] Unknown Condition [facility] Unknown Condition [facility] Unknown Condition [facility] Unknown Condition [facility] Unknown Condition [facility] Unknown Condition [facility] Unknown Condition [facility] Encounters Encounter Providers Location Date Indications Data Source(s ) Outpatient Attender: Cherelle Mosqueda MDReferrer: Amanda Rodriguez MD 11/22/2021 03:30:00 PM EST 6 months [facility] months Outpatient Attender: Harris ADLER 08/03/20 04:10:20 PM EST - 08/03/2021 05:07:08 PM EST [facility] ([facility] ) Outpatient Attender: CAREN SZYMANSKIERIC-SJP.ERIC 09/2020 12:00:00 AM EDT - 07/18/2021 03:38:35 PM EDT [facility] [place] [address] [address] 07/06/2021 12:00:00 AM EDT eCW1 ([facility]) [place] [address] [address] 06/28/2021 12:00:00 AM EDT eCW1 ([facility]) [place] [address] [facility] [address] 06/08/2021 12:00:00 AM EDT eCW1 ([facility]) [place] [address] [facility] [address] 06/08/2021 12:00:00 AM EDT eCW1 ([facility]) [place] [address] [facility] [address] 06/01/2021 12:00:00 AM EDT eCW1 ([facility]) [place] [address] [facility] [address] 04/21/2021 12:00:00 AM EDT eCW1 ([facility]) Outpatient Attender: Cherelle De La Cruzer: Omi Boone MD 04/01/2021 03:15:00 PM EDT - 06/07/2021 03:53:00 PM EDT [id number] [id number] Patient discharged. Emergency Attender: Jeffrey Rahman DO 2020 12:21:00 PM EDT - 03/18/2021 01:23:00 PM EDT CSQ UC/Finger Injury [facility] CSQ UC/Finger Injury Patient discharged. Outpatient Attender: [...] Cherelle Mosqueda MD 01/06/2021 07:49:00 AM EDT [id number] [facility] [place] [address] Outpatient Attender: Cherelle Mosqueda MD 12/27/2020 08:50:00 AM EDT - 12/27/2020 11:04:00 AM EDT [address] [facility] [address] Patient discharged. Outpatient Attender: Jalen Yi MD 12/24/2020 12:19: 00 PM EDT COVID SWAB - PREOP [facility] COVID SWAB - PREOP Outpatient Attender: Jannet Gayle NPAttender: RUBI PETER MD SJP-SJP.CCI 12/20/2020 12:00:00 AM EDT - 12/20/2020 03:04:40 PM EDT [facility] Emergency Attender: Onesimo Laguerre MDAttender: Tracy Jauregui MD 12/15/2020 06:31:00 PM EDT - 12/15/2020 08:30:00 PM EDT Vomiting [facility] alth Vomiting Patient discharged. Outpatient Attender: Cherelle Mosqueda MDReferrer: Omi Boone MD 11/24/2020 07:34:00 AM EST - 11/24/2020 08:44:00 AM EST Gastroesophageal reflux disease / [id number] [facility] Gastroesophageal reflux disease / [id number] Patient discharged. Outpatient Attender: Omi Boone MD 09/24/2020 01:39:00 PM EST lab [facility] lab Outpatient Referrer: TELLO TORRES MD 08/17/2020 03:25 :34 PM EST [facility] Outpatient Attender: TELLO TORRES MD SJP-SJP.DAVID 1 10/18/2019 12:00:00 AM EST [facility] Outpatient Attender: Jan Rockwell DO 05/27/2020 11:59:00 PM EDT [facility] Functional Status Immunizations Vaccine Date Status Description Data Source(s) Tdap 03/18/2021 12:00:00 AM EDT completed [facility] Medications Medication Brand Name Start Date Product [...] (two) times a day 09/18 tab//12.5mg bid [facility] Essential hypertension 24 HR venlafaxine 37.5 MG Extended Relea se Oral Capsule venlafaxine (EFFEXOR-XR) 37.5 MG 24 hr capsule venlafaxine (EFFEXOR-XR) 37.5 MG 24 hr capsule 12:00:00 AM EDT 37.5 mg Oral active Take 37 .5 mg by mouth daily q am [facility] Calcium + D3 600-800 MG-UNIT Calcium + D3 600-800 MG-UNIT 12:00:00 AM EDT 1.0 {tablet_with_a_meal} active Calcium + D3 600-800 MG-UNIT eCW1 ([facility]) Calcium + D3 600-800 MG-UNIT Calcium + D3 600-800 MG-UNIT 12:00:00 AM EDT 1.0 {tablet_with_a_meal} active Calcium + D3 600-800 MG-UNIT eCW1 ([facility]) Dunning-3 Fatty Acids (Fish Oil Concentrate) 1,000 mg capsule 06/07/2021 10:39:49 AM EDT CAPSULE 1000 MG ORAL active [facility] Vitamin B 12 1 MG Oral Capsule Cyanocobalamin (Vitamin B-12) Cyanocobalamin (Vitamin B-12) 06/07/2021 10:39:33 AM EDT CAPSULE 1000 MCG ORAL active [facility] dexlansoprazole 60 MG Delayed Release Or al Capsule Dexlansoprazole (Dexilant) 60 mg capsule,biphase delayed releas Dexlansoprazole (Dexilant) 60 mg capsule,biphase delayed releas 04/27/2021 01:12:31 PM EDT UNASSIGNED 60 MG ORAL active [facility] Metoclopramide 5 MG Oral Tablet Metoclopramide Hcl Metoclopr amide Hcl 12/27/2020 09:12:55 AM EDT TABLET 10 MG ORAL active O [facility] Metoclopramide 5 MG Oral Tablet Metoclopramide Hcl Metoclopr amide Hcl 12/27/2020 09:12:55 AM EDT TABLET 10 MG ORAL active O [facility] Metoclopramide 5 MG Oral Tablet Metoclopramide Hcl Metoclopr amide Hcl 12/27/2020 09:12:55 AM EDT TABLET 10 MG ORAL active O [facility] Metoclopramide 5 MG Oral Tablet Metoclopramide Hcl Metoclopr amide Hcl 12/27/2020 09:12:55 AM EDT TABLET 10 MG ORAL active O [facility] Metoclopramide 5 MG Oral Tablet Metoclopramide Hcl Metoclopr amide Hcl 12/27/2020 09:12:55 AM EDT TABLET 10 MG ORAL active [facility] Sucralfate 100 MG/ML Oral Suspension sucralfate (CARAF ATE) 1 GM/10ML suspension sucralfate (CARAFATE) 1 GM/10ML suspension 12/16/2020 12:00:00 AM EDT aborted [facility] Sucralfate (Carafate) 100 mg/mL suspension 12/15 08:14:42 PM EDT SUSPENSION 10 ML ORAL [facility] Sucralfate (Carafate) 100 mg/mL suspension 12/15 08:14:42 PM EDT SUSPENSION 10 ML ORAL active [facility] Sucralfate (Carafate) 100 mg/mL suspension [...] EDT SUSPENSION 10 ML ORAL completed [facility] Metoclopramide 5 MG Oral Tablet Metoclopramide Hcl Metoclopr amide Hcl 11/24/2020 08:39:20 AM EST TABLET 10 MG ORAL completed [facility] Metoclopramide 5 MG Oral Tablet Metoclopramide Hcl Metoclopr amide Hcl 11/24/2020 08:39:20 AM EST TABLET 10 MG ORAL active O [facility] Metoclopramide 5 MG Oral Tablet Metoclopramide Hcl Metoclopr amide Hcl 11/24/2020 08:39:20 AM EST TABLET 10 MG ORAL active O [facility] Metoclopramide 5 MG Oral Tablet Metoclopramide Hcl Metoclopr amide Hcl 11/24/2020 08:39:20 AM EST TABLET 10 MG ORAL completed [facility] Metoclopramide 5 MG Oral Tablet Metoclopramide Hcl Metoclopr amide Hcl 11/24/2020 08:39:20 AM EST TABLET 10 MG ORAL completed [facility] Metoclopramide 5 MG Oral Tablet Metoclopramide Hcl Metoclopr amide Hcl 11/24/2020 08:39:20 AM EST TABLET 10 MG ORAL completed [facility] Metoclopramide 5 MG Oral Tablet Metoclopramide Hcl Metoclopr amide Hcl 11/24/2020 08:39:20 AM EST TABLET 10 MG ORAL completed [facility] Metoclopramide 5 MG Oral Tablet Metoclopramide Hcl Metoclopr amide Hcl 11/24/2020 08:39:20 AM EST TABLET 10 MG ORAL active O [facility] Metoclopramide 5 MG Oral Tablet Metoclopramide Hcl Metoclopr amide Hcl 11/24/2020 08:39:20 AM EST TABLET 10 MG ORAL [facility] 24 HR metoprolol succinate 25 MG Extende d Release Oral Tablet metoprolol succinate (TOPROL-XL) 25 MG 24 hr tablet metoprolol succinate (TOPROL-XL) 25 MG 24 hr tablet 11/02/2020 12:00:00 AM EST aborted Essential hypertension TAKE ONE TABLET BY MOUTH EVERY DAY [facility] Essential hypertension dexlansoprazole 60 MG Delayed Release Or al Capsule Dexlansoprazole (Dexilant) 60 mg capsule,biphase delayed releas Dexlansoprazole (Dexilant) 60 mg capsule,biphase delayed releas 09/13/2020 09:31:18 AM EST UNASSIGNED 60 MG ORAL active [facility] dexlansoprazole 60 MG Delayed Release Or al Capsule Dexlansoprazole (Dexilant) 60 mg capsule,biphase delayed releas Dexlansoprazole (Dexilant) 60 mg capsule,biphase delayed releas 09/13/2020 09:31:18 AM EST UNASSIGNED 60 MG ORAL active [facility] dexlansoprazole 60 MG Delayed Release Or al Capsule Dexlansoprazole (Dexilant) 60 mg capsule,biphase delayed releas Dexlansoprazole (Dexilant) 60 mg capsule,biphase delayed releas 09/13/2020 09:31:18 AM EST UNASSIGNED 60 MG ORAL completed [facility] dexlansoprazole 60 MG Delayed Release Or al Capsule Dexlansoprazole (Dexilant) 60 mg capsule,biphase delayed releas Dexlansoprazole (Dexilant) 60 mg capsule,biphase delayed releas 09/13/2020 09:31:18 AM EST UNASSIGNED 60 MG ORAL active [facility] dexlansoprazole 60 MG Delayed Release Or al Capsule Dexlansoprazole (Dexilant) 60 mg capsule,biphase delayed releas Dexlansoprazole (Dexilant) 60 mg capsule,biphase delayed releas 09/13/2020 09:31:18 AM EST UNASSIGNED 60 MG ORAL active [facility] dexlansoprazole 60 MG Delayed Release Or al Capsule Dexlansoprazole (Dexilant) 60 mg capsule,biphase delayed releas Dexlansoprazole (Dexilant) 60 mg capsule,biphase delayed releas 09/13/2020 09:31:18 AM EST UNASSIGNED 60 MG ORAL active [facility] dexlansoprazole 60 MG Delayed Release Or al Capsule Dexlansoprazole (Dexilant) 60 mg capsule,biphase delayed releas Dexlansoprazole (Dexilant) 60 mg capsule,biphase delayed releas 09/13/2020 09:31:18 AM EST UNASSIGNED 60 MG ORAL active [facility] dexlansoprazole 60 MG Delayed Release Or al Capsule Dexlansoprazole (Dexilant) 60 mg capsule,biphase delayed releas Dexlansoprazole (Dexilant) 60 mg capsule,biphase delayed releas 09/13/2020 09:31:18 AM EST UNASSIGNED 60 MG ORAL active [facility] dexlansoprazole 60 MG Delayed Release Or al Capsule Dexlansoprazole (Dexilant) 60 mg capsule,biphase delayed releas Dexlansoprazole (Dexilant) 60 mg capsule,biphase delayed releas 09/13/2020 09:31:18 AM EST UNASSIGNED 60 MG ORAL active [facility] dexlansoprazole 60 MG Delayed Release Or al Capsule Dexlansoprazole (Dexilant) 60 mg capsule,biphase delayed releas Dexlansoprazole (Dexilant) 60 mg capsule,biphase delayed releas 08/31/2020 04:10:07 PM EST UNASSIGNED 60 MG ORAL completed [facility] dexlansoprazole 60 MG Delayed Release Or al Capsule Dexlansoprazole (Dexilant) 60 mg capsule,biphase delayed releas Dexlansoprazole (Dexilant) 60 mg capsule,biphase delayed releas 08/31/2020 04:10:07 PM EST UNASSIGNED 60 MG ORAL completed [facility] dexlansoprazole 60 MG Delayed Release Or al Capsule Dexlansoprazole (Dexilant) 60 mg capsule,biphase delayed releas Dexlansoprazole (Dexilant) 60 mg capsule,biphase delayed releas 08/31/2020 04:10:07 PM EST UNASSIGNED 60 MG ORAL completed [facility] dexlansoprazole 60 MG Delayed Release Or al Capsule Dexlansoprazole (Dexilant) 60 mg capsule,biphase delayed releas Dexlansoprazole (Dexilant) 60 mg capsule,biphase delayed releas 08/31/2020 04:10:07 PM EST UNASSIGNED 60 MG ORAL completed [facility] dexlansoprazole 60 MG Delayed Release Or al Capsule Dexlansoprazole (Dexilant) 60 mg capsule,biphase delayed releas Dexlansoprazole (Dexilant) 60 mg capsule,biphase delayed releas 08/31/2020 04:10:07 PM EST UNASSIGNED 60 MG ORAL completed [facility] dexlansoprazole 60 MG Delayed Release Or al Capsule Dexlansoprazole (Dexilant) 60 mg capsule,biphase delayed releas Dexlansoprazole (Dexilant) 60 mg capsule,biphase delayed releas 08/31/2020 04:10:07 PM EST UNASSIGNED 60 MG ORAL completed [facility] dexlansoprazole 60 MG Delayed Release Or al Capsule Dexlansoprazole (Dexilant) 60 mg capsule,biphase delayed releas Dexlansoprazole (Dexilant) 60 mg capsule,biphase delayed releas 08/31/2020 04:10:07 PM EST UNASSIGNED 60 MG ORAL completed [facility] dexlansoprazole 60 MG Delayed Release Or al Capsule Dexlansoprazole (Dexilant) 60 mg capsule,biphase delayed releas Dexlansoprazole (Dexilant) 60 mg capsule,biphase delayed releas 08/31/2020 04:10:07 PM EST UNASSIGNED 60 MG ORAL completed [facility] dexlansoprazole 60 MG Delayed Release Or al Capsule Dexlansoprazole (Dexilant) 60 mg capsule,biphase delayed releas Dexlansoprazole (Dexilant) 60 mg capsule,biphase delayed releas 08/31/2020 04:10:07 PM EST UNASSIGNED 60 MG ORAL completed [facility] venlafaxine 75 MG Oral Tablet venlafaxine (EFFEXOR) 75 MG tablet venlafaxine (EFFEXOR) 75 MG tablet 08/02/2020 12:00:00 AM EST 75 mg Oral active Take 75 mg by mouth daily @[facility] dexlansoprazole 60 MG Delayed Release Or al Capsule Dexlansoprazole (Dexilant) 60 mg capsule,biphase delayed releas Dexlansoprazole (Dexilant) 60 mg capsule,biphase delayed releas 05/05/2020 02:25:57 PM EDT UNASSIGNED 60 MG ORAL completed [facility] dexlansoprazole 60 MG Delayed Release Or al Capsule Dexlansoprazole (Dexilant) 60 mg capsule,biphase delayed releas Dexlansoprazole (Dexilant) 60 mg capsule,biphase delayed releas 05/05/2020 02:25:57 PM EDT UNASSIGNED 60 MG ORAL completed [facility] dexlansoprazole 60 MG Delayed Release Or al Capsule Dexlansoprazole (Dexilant) 60 mg capsule,biphase delayed releas Dexlansoprazole (Dexilant) 60 mg capsule,biphase delayed releas 05/05/2020 02:25:57 PM EDT UNASSIGNED 60 MG ORAL completed [facility] dexlansoprazole 60 MG Delayed Release Or al Capsule Dexlansoprazole (Dexilant) 60 mg capsule,biphase delayed releas Dexlansoprazole (Dexilant) 60 mg capsule,biphase delayed releas 05/05/2020 02:25:57 PM EDT UNASSIGNED 60 MG ORAL completed [facility] dexlansoprazole 60 MG Delayed Release Or al Capsule Dexlansoprazole (Dexilant) 60 mg capsule,biphase delayed releas Dexlansoprazole (Dexilant) 60 mg capsule,biphase delayed releas 05/05/2020 02:25:57 PM EDT UNASSIGNED 60 MG ORAL completed [facility] dexlansoprazole 60 MG Delayed Release Or al Capsule Dexlansoprazole (Dexilant) 60 mg capsule,biphase delayed releas Dexlansoprazole (Dexilant) 60 mg capsule,biphase delayed releas 05/05/2020 02:25:57 PM EDT UNASSIGNED 60 MG ORAL completed [facility] dexlansoprazole 60 MG Delayed Release Or al Capsule Dexlansoprazole (Dexilant) 60 mg capsule,biphase delayed releas Dexlansoprazole (Dexilant) 60 mg capsule,biphase delayed releas 05/05/2020 02:25:57 PM EDT UNASSIGNED 60 MG ORAL completed [facility] dexlansoprazole 60 MG Delayed Release Or al Capsule Dexlansoprazole (Dexilant) 60 mg capsule,biphase delayed releas Dexlansoprazole (Dexilant) 60 mg capsule,biphase delayed releas 05/05/2020 02:25:57 PM EDT UNASSIGNED 60 MG ORAL completed [facility] dexlansoprazole 60 MG Delayed Release Or al Capsule Dexlansoprazole (Dexilant) 60 mg capsule,biphase delayed releas Dexlansoprazole (Dexilant) 60 mg capsule,biphase delayed releas 05/05/2020 02:25:57 PM EDT UNASSIGNED 60 MG ORAL completed [facility] 24 HR venlafaxine 37.5 MG Extended Relea se Oral Capsule venlafaxine (EFFEXOR-XR) 37.5 MG 24 hr capsule venlafaxine (EFFEXOR-XR) 37.5 MG 24 hr capsule 12:00:00 AM EDT 75 mg Oral aborted Take 75 mg by mouth daily [facility] Bisacodyl 5 MG Delayed Release Oral Tablet bisacodyl ( DULCOLAX) 5 MG EC tablet bisacodyl (DULCOLAX) 5 MG EC tablet 5 mg Oral ab orted Take 5 mg by mouth daily as needed for constipation [facility] Insurance Providers Payer name Policy type / Coverage type Policy ID Covered alliance party ID Covered alliance party's relationship to cox Policy [facility] Plan Information MEDICARE [id number] Rashmi [id number] MEDICARE [id number] SP [id number] A MEDICARE [id number] Rashmi [id number] A MEDICARE [id number] Rashmi [id number] MEDICARE A [id number] Self [id number] A MEDICARE [id number] SP [id number] A MEDICAID [id number] Self [id number] MEDICARE [id number] SP [id number] Self [id number] A [id number] Self [id number] MEDICAID [facility] [id number] [place] [id number] [id number] [place] [id number] MEDICAID [id number] xxxxxxxx [id number] [place] [id number] [place] [id number] MEDICAID [id number] Rashmi [id number] [place] [id number] [place] [id number] [place]ID [place] [id number] SP [place] [id number] [place] [id number] [place] [id number] [place] [id number] [place] [id number] [place] [id number] [place] [id number] MEDICAID [facility] [id number] SP [place] [id number] MEDICAID [facility] [id number] SP [place] [id number] MEDICAID [facility] [id number] SP [place] [id number] MEDICAID [facility] [id number] SP [place] [id number] MEDICAID [facility] [id number] SP [place] [id number] MEDICAID [facility] [id number] SP [place] [id number] SELF PAY MEDICAID [facility] [id number] SP [place] [id number] MEDICARE [id number] SP [id number] MEDICARE [id number] SP [id number] MEDICAID [facility] [id number] SP [place] [id number] SELF PAY SELF PAY MEDICAID [facility] [id number] SP [place] [id number] MEDICARE [id number] SP [id number] SELF PAY SELF PAY MEDICARE [id number] SP [id number] MEDICAID [facility] [id number] SP [place] [id number] SELF PAY MEDICAID [facility] [id number] SP [place] [id number] MEDICARE [id number] SP [id number] Y14 MEDICAID [facility] [id number] SP [place] [id number] SELF PAY SELF PAY MEDICARE [id number] SP [id number] Y14 MEDICAID [facility] [id number] SP [place] [id number] SELF PAY MEDICARE [id number] SP [id number] Y14 SELF PAY MEDICARE [id number] SP [id number] Y14 MEDICAID [facility] [id number] SP [place] [id number] SELF PAY MEDICAID [facility] [id number] SP [place] [id number] MEDICARE [id number] SP [id number] Y14 SELF PAY MEDICAID [facility] [id number] SP [place] [id number] MEDICARE [id number] SP [id number] Y14 MEDICARE [id number] SP [id number] Y14 SELF PAY MEDICAID [facility] [id number] SP [place] [id number] [facility] MGD MEDICARE [id number] SP [id number] MEDICAID [facility] [id number] SP [place] [id number] MEDICARE [id number] SP [id number] Y14 [facility] MEDICARE [id number] [facility] MEDICARE [id number] Rashmi [id number] SELF PAY MEDICAID [facility] [id number] SP [place] [id number] SELF PAY [facility] MGD MEDICARE [id number] SP [id number] MEDICAID [facility] [id number] SP [place] [id number] [facility] MGD MEDICARE [id number] SP [id number] SELF PAY AETNA MEDICARE Medicare xxxxxxxxxxxx [id number] AETNA MEDICARE [id number] Rashmi 10 [id number] SELF PAY MEDICAID [facility] [id number] SP [place] [id number] AETNA MEDICARE ADV [id number] SP [id number] AETNA MEDICARE ADV [id number] SP [id number] SELF PAY MEDICAID [facility] [id number] SP [place] [id number] MEDICAID [facility] [id number] SP [place] [id number] AETNA MEDICARE ADV [id number] SP [id number] SELF PAY AETNA MEDICARE ADV [id number] SP [id number] MEDICAID [facility] [id number] SP [place] [id number] AETNA MEDICARE ADV [id number] SP [id number] SELF PAY MEDICAID [facility] [id number] SP [place] [id number] SELF PAY SELF PAY SELF PAY AETNA MEDICARE ADV [id number] SP [id number] MEDICAID [facility] [id number] SP [place] [id number] MEDICAID [facility] [id number] SP [place] [id number] AETNA MEDICARE ADV [id number] SP [id number] SELF PAY AETNA MEDICARE ADV [id number] SP [id number] MEDICAID [facility] [id number] SP [place] [id number] SELF PAY AETNA MEDICARE ADV [id number] SP [id number] [place]ID [place] [id number] SP [place] [id number] SELF PAY AETNA MEDICARE ADV [id number] SP [id number] MEDICAID [facility] [id number] SP [place] [id number] SELF PAY Medicaid Medicaid [id number] Self [id number] [employer] [id number] Self [id number] EMEDNY [id number] SP [id number] [facility]CR HMO [id number] SP [id number] Medicare Part A of [place] Other 0 [id number] Self 0 Medicaid of [place] Other 0 [id number] Self 0 [facility] MEDICAID [id number] SP [id number] M AETNA MEDICARE [id number] SP [id number] MEDICAID HEA [id number] S [id number] [facility] [id number] S [id number] MEDICARE [place] [id number] S [id number] UNAVA[place]ABLE [place] B[place] MEDICAID M [id number] S [id number] [facility] O [id number] S [id number] AETNA MEDICARE [id number] SP [id number] Problems, Conditions, and Diagnoses Code Display Name Description Problem Type Effective Dates Data Source(s) G47.30 Sleep apnea, unspecified Sleep apnea, unspecified Diag nosis 07/18/2021 02:04:56 PM EDT [facility] E78.2 Mixed hyperlipidemia Mixed hyperlipidemia Diagnosis 07/18/2021 02:04:56 PM EDT [facility] I10 Essential (primary) hypertension Essential (primary) h ypertension Diagnosis 07/18/2021 02:04:56 PM EDT [facility] R06.00 Dyspnea, unspecified Dyspnea, unspecified Diagnosis 07/18/2021 02:04:56 PM EDT [facility] S69.92XA Unspecified injury of left w rist, hand and finger(s), initial encounter S69.92XA - Unspecified injury of left wr ist, hand and finger(s), initial encounter Diagnosis 03/18/2021 12:21:00 PM EDT [facility] K21.9 Gastro-esophageal reflux disease without esophagitis K21.9 - Gastro- esophageal reflux disease without esophagitis Diagnosis 12/28/19 08:50:00 AM EDT [facility] R13.10 Dysphagia, unspecified R13.10 - Dysphagia, unspecified Diagnosis 12/27/2020 08:50:00 AM EDT [facility] K21.9 Gastro-esophageal reflux disease without esophagitis K21.9 - Gastro- esophageal reflux disease without esophagitis Diagnosis 12/28/19 07:49:00 AM EDT [facility] Z20.822 Z20.822 - Contact with and (suspected) e xposure to COVID-19 Z20.822 - Contact with and (suspected) exposure to COVID-19 Diagnosis 05/2021 12:19:00 PM EDT [facility] J45.20 Mild intermittent asthma, uncomplicated Mild intermittent asthma, uncomplicated Diagnosis 12/20/2020 02:07:48 PM EDT [facility] R41.3 Other amnesia Other amnesia Diagnosis 12/20/2020 02:07:48 PM EDT [facility] G45.9 Transient cerebral ischemic attack, unsp ecified Transient cerebral ischemic attack, unsp Diagnosis 12/20/2020 02:07:48 PM EDT [facility] R07.89 Other chest pain Other chest pain Diagnosis 12/20/2020 02 :07:48 PM EDT [facility] D50.9 Iron deficiency anemia, unspecified D50. 9 - Iron deficiency anemia, unspecified Diagnosis 09/24/2020 01:39:00 PM EST [facility] R42 Dizziness and giddiness Dizziness and giddiness Diagno sis 08/17/2020 02:24:52 PM EST [facility] M79.604 Pain in right leg Pain in right leg Diagnosis 08/17 02:24:52 PM [facility] R53.1 Weakness Weakness Diagnosis 08/17/2020 02:24:52 PM ES T [facility] G31.84 Mild cognitive impairment, so stated Mil d cognitive impairment, so stated Diagnosis 08/17/2020 02:24:52 PM [facility] R06.00 ALFARO (dyspnea on exertion) ALFARO (dyspnea on exertion) [id number] 07/18/2021 12:00:00 AM EDT [facility] E78.00 [id number] Pure hypercholesterolemia Problem 06/01/2021 12:00:00 AM EDT eCW1 ([facility]) I10 [id number] Primary hypertension Problem 06/01/2021 12:0 0:00 AM EDT eCW1 ([facility]) G47.33 [id number] THONG (obstructive sleep apnea) Problem 06/01/2021 12:00:00 AM EDT eCW1 ([facility]) R41.3 [id number] Memory change Problem 06/01/2021 12:00:00 AM EDT eCW1 ([facility]) F44.5 [id number] Psychogenic nonepileptic seizure Problem 06/01/2021 12:00:00 AM EDT eCW1 ([facility]) J45.30 [id number] Mild persistent asthma without complicati on Problem 04/21/2021 12:00:00 AM EDT eCW1 ([facility]) F41.9 58592701 Anxiety Problem 04/21/2021 12:00:00 AM ED T eCW1 ([facility]) G40.909 718469033 Seizure disorder Problem 04/21/2021 12:00:00 AM EDT eCW1 ([facility]) I25.10 803130823 Coronary artery dise ase involving [place] coronary artery of [place] heart without angina pectoris Problem 04/21/2021 12:00:00 AM EDT eCW1 ([facility]) G35 02737501 Multiple sclerosis Problem 04/21/2021 12:00: 00 AM EDT eCW1 ([facility]) Surgeries/Procedures Procedure Description Date Indications Data Source(s) POCT AMB EKG <td>POCT AMB EKG</td><td>Rou leti</td><td>07/18/2021 3:18 PM EDT</td><td> ALFARO (dyspnea on exertion)</td><td> </td> 07/18/2021 03:18:00 PM EDT ALFARO (dyspnea on exertion) [facility] ALFARO (dyspnea on exertion) Medication: Depo-Medrol 40mg IA (Methylprednisolone Acetate) 06/28/2021 12:00:00 AM EDT eCW1 ([facility]) Medication: 1% Lidocaine Dilutent (xylocaine) 06/28/20 12:00:00 AM EDT eC ([facility]) Endoscopy and biopsy of upper gastrointestinal tract (proced ure) 12/27/2020 10:00:00 AM EDT [facility] Endoscopy and biopsy of upper gastrointestinal tract (proced ure) 12/27/2020 10:00:00 AM EDT [facility] Endoscopy and biopsy of upper gastrointestinal tract (proced ure) 12/27/2020 10:00:00 AM EDT [facility] Endoscopy and biopsy of upper gastrointestinal tract (proced ure) 12/27/2020 10:00:00 AM EDT [facility] POCT AMB EKG <td>POCT AMB EKG</td><td>Rou leti</td><td>12/20/2020 2:40 PM EDT</td><td> Hypertension, essential Other chest pain</td><td> </td> 12/20/2020 06:40:00 PM EDT Other chest painHypertension, essential [facility] Other chest pain Hypertension, essential Results ID Date Data Source [id number] 03/18/2021 01:16:00 [place] [address] HEALTH INFORMATION MANAGEMENT ED/UC Physician Report : [id number] Signed Patient: Salena Stanley Acct:[id number] Unit: [facility] [id number] : 1950 Arrival Date: 03/18/21 Age/Sex: 70 [...] Adverse Reaction (Severe, Verified 03/17/21 11:48) ANAPHYLAXIS Piiolwg-Arc-Kcn Reductase Inhibitor Adverse Reaction (Intermediate, Verified 03/17/21 [...] File>> Initializing User: Mercedes Cano NP 03/18/21 0802 Signed by: Mercedes Cano NP 03/18/21 1328 Jeffrey Rahman DO 03/18/21 1444 Name Value Range Interpretation Code Description Data Marisa rce(s) Supporting Document(s) ID Date Data Source [id number] 01/06/2021 07:49:00 AM EDT [address] [address] HEALTH INFORMATION MANAGEMENT OR Report : [id number] Signed Patient: Salena Stalney Acct:[id number] [facility] t: [id number] : 1950 Loc: ENDO Room/Bed: Age/Sex: 70 / F ADM Date: 12/27/20 cc: Omi Boone MD,Cherelle HARRY SS Gastro OR Report Post Procedure/Discharge Note Date of Procedure: 12/27/20 Surgeon:: Cherelle Mosqueda MD. Was an Cell Technician used?: No Preoperative Diagnosis:: Gastroesophageal reflux disease [...] rce(s) Supporting Document(s) ID Date Data Source [id number] 12/29/2020 08:32:00 AM EDT [facility] Run: 12/29/20 0832 INTERFACED REPORT Name: MarlenEderSalena Tim Age/Sex: 70/F [id number]: [id number] Status: [facility] Room/Bed: Re12/27/20 Disch: Att Dr: Cherelle Mosqueda MD Spec Num: [id number] Recd: 12/27/20 Status: LINDA Condon Num: [id number] SpType: SURGICAL Sub Dr: Cherelle Mosqueda MD GERD Gastritis Esophagitis EGD ProcPERIODIC ACID SCHUYLER, GROSS AND MICROSCOPIC - L4/2, ALCIAN BLUE STAIN GERD 1. Gastric antrum biopsy 2. G-E junction biopsy This case consists of two specimens, both received in formalin. 1. The specimen is labeled with the patient's name and [id number] antrum [id number] consists of two fragments of white pink colored material measuring 0.3 x 0.3 x 0.2 cm in aggregate entirely submitted. 2. The specimen is labeled with the patient's name and 0x93GE junction [id number] consists of several fragments of white colored [...] 672 x 2 Close clinical follow-up for [id number] esophagus is recommended. (/cjs) Signed (signature on file) Jhonny Gallegos MD 12/29/20 0832Myranda END OF REPORT Name Value Range Interpretation Code Description Data Marisa rce(s) Supporting Document(s) ID Date Data Source [id number] 12/24/2020 11:05:00 AM EDT [facility] Name Value Range Interpretation Code Description Data Marisa rce(s) Supporting Document(s) SARS-CoV-2 (COVID-19) N gene [Presence] in Nasopharynx by YUSUF with probe detection NOT-DETECTED [facility] This lab was ordered by [facility] and reported by [facility]. ID Date Data Source [id number] 12/24/2020 04:24:00 PM EDT [facility] Have you tested POSITIVE for Covid-19 i n the last 90 days? No Patient presents as: Asymptomatic COVID Reason [place] Surgery Priority Surgery/Appointment Date: 12/28/2020 Support person(if yes for who): N Name Value Range Interpretation Code Description Data Marisa rce(s) Supporting Document(s) COVID 19 (RHEONIX) NOT-DETECTED NOTDETECTED [facility] The [employer] COVID-19 MDx Assay is an en dpoint RT-PCR assay (MOLECULAR)intended for the qualitative detection of nucleic acid from SARS-CoV-2 in nasopharyngeal swabs. COVID testing using the Codemasters analyzer was developed for the purpose of [...] public health authorities. ID Date Data Source [id number] 12/15/2020 07:35:00 PM EDT [facility] Name Value Range Interpretation Code Description Data Marisa rce(s) Supporting Document(s) WHITE BLOOD COUNT 7.98 10^3/uL 4.00-10.50 [facility] RED BLOOD COUNT 4.91 10^6/uL 3.90-5.20 [facility] HEMOGLOBIN 13.3 G/DL 11.5-15.6 [facility] 42.0 % 35.0-46.0 [facility] MCV 85.5 FL 80.0-100.0 [facility] MCH 27.1 PG 27.0-34.0 [facility] MCHC 31.7 G/DL 32-36 [facility] RDW 13.9 % 11.5-14.5 [facility] PLATELET COUNT 296 10^3/uL 130-400 [facility] MPV 10.5 FL 8.7-13.2 [facility] GRAN % (AUTO) 64.9 % 42.0-75.0 [facility] LYMPH % (AUTO) 20.4 % 20.0-51.0 [facility] MONO % (AUTO) 6.1 % 2.0-15.0 [facility] EOS % (AUTO) 7.4 % 0.0-11.0 [facility] BASO % (AUTO) 0.9 % 0.0-2.0 [facility] IG % (AUTO) 0.3 % 1.00-5.00 [facility] IG # (AUTO) 0.0 10^3/uL <0.5 [facility] GRAN # (AUTO) 5.18 10^3/uL 1.50-6.50 [facility] LYMPH # (AUTO) 1.6 k/uL 1.0-5.0 [facility] MONO # (AUTO) 0.49 k/uL 0.20-1.50 [facility] EOS # (AUTO) 0.59 10^3/uL 0.00-1.10 [facility] BASO # (AUTO) 0.07 10^3/uL 0.00-0.20 [facility] ID Date Data Source [id number] 12/15/2020 08:03:00 PM [facility]T [facility] Name Value Range Interpretation Code Description Data Marisa rce(s) Supporting Document(s) SODIUM 141 MEQ/L 135-145 [facility] POTASSIUM 4.3 MEQ/L 3.5-5.3 [facility] CHLORIDE 108 MEQ/L 94-110 [facility] CARBON DIOXIDE 29 MEQ/L 22-33 [facility] ANION GAP 8 5-16 [facility] BLOOD UREA NITRO 9 MG/DL 7-25 [facility] CREATININE 0.7 MG/DL 0.6-1.4 [facility] GFR 83.0 ML/MIN [facility] Stage G2 - Mildly decreased kidney func tion The GFR is an estimate of the Glomerular Filtration Rate. It is an aid to assess a patient's renal function. It is not a conclusive diagnosis of kidney disease. GFR normal is >=90 The MDRD GFR calculation is considered valid between the ages of 18 and 75 years only. BUN/CREAT RATIO 12 8-36 [facility] GLUCOSE 88 MG/DL 70-100 [facility] CA 9.2 MG/DL 8.7-10.5 [facility] BILIRUBIN,TOTAL 0.2 MG/DL 0.1-1.3 [facility] AST 21 U/L 5-40 [facility] ALT 21 U/L 5-48 [facility] ALKALINE PHOSPHATASE 58 U/L 40-140 [facility] alth TOTAL PROTEIN 6.3 G/DL 5.9-8.3 [facility] ALBUMIN 4.5 G/DL 3.0-5.1 [facility] GLOBULIN 1.8 G/DL 1.5-3.5 [facility] ALB/GLOB RATIO 2.5 G/DL 1.0-3.0 [facility] ID Date Data Source [id number] 12/15/2020 07:13:32 PM EDT [facility] Name Value Range Interpretation Code Description Data Marisa rce(s) Supporting Document(s) EKG/ECG IN ED [facility] [file] [id number]+RKff4F7iEiO7pb5wod3poclUE EUqCzf0cSE2K7CNDDJIebiV+dL+NDaCh2q+VMaij0paNCo51lfAUdJ1LDSJNIrLQZTsoqYaAyEkR5z3O SxExlKvFkzqpKUVkQzwU1RCLuttKF0szpVTAALszXW +BZHii3CBpV0qsysE4cnlBazzuXcDBxSwjBJDpwd18MLGGDvl9yJ9d3eQcssahyhf4c2J0q0EY1RGD96 DAlRojECwIHmRxLQOr1YwbqiphnQ6x3Qgrzl4QmgBfKOhPZAp2tpTRDNPZ970FHl8XC7P+Q1j1v7CGs/ sPXtPMzyRQzahY+IRSZGh0aTddG4TCPOj8wWzyZvB3 d4W1Tw/o8q7lodui1YNe4w0v1EpiJckP7z3zKM7uHa/JZukp8kmId17DFC3ZgDsEEVdluS5J9bSWaifZ A5UYtN9QWWemFDOlO9tSLFt9PRAEHCBKLHYDIVdt8/yL2p/8f3/HrL/yD/8Aj5+4f9V/00/u++K8o8JW Vxc+NNHlgj+KqyvlqzVocGiMkxHMNYZn9i3WyBDpcu bnJgDjB1c+QdDz7meI+LcfX4RdejyXQtLDvU4ofxzFsTjEugKqr/rVnY2l/hDUckl7y80fnhi+QixBGx vEikY6Nse2Ol5iSK7Q1LtkWJ7f97h+J7OtocWMD6hZ4yqoamTynRWYl8kRgU+qIwnB9Hm+mstgha80Xz dmfpmHY3zxa7LAjifgljUSB63YnxWhDvQZWlL73Kge oe91i6Yko2bdNg9dM0kR1UAbv4UyXLR/7HTydfiTek0rNgVRuf/zxlkHVa7yDr5vn2RbRzbm6JDiHzq1 agIEsuWK4C+3rCQIDT81cz2pMBx9H9vJ6NEZ44DdvPWvglN80BixbcO13AitSYARNMedheboY9wg357D [facility]+9lLHxyoxUmbGwQ4x95Mcoza4cpDMeImloPtUq [file] KLpYoVARiXHGX78MXiT+car porter/gmBbTYhU8yVzhHeCa2ouqlci9oMFYf6vYmxeIqR0SJG6DR+jQEmJjjzD qmkL5wnRxv04v/Vvu6NWBa78j/rjJQ0QB0uU7wC6sgziHLuQ26+V+5xBK63ri075UtxwJPIaO/Rrc5jz /rDz05+8IHVPgt5gy4qVCNKcLgzKbgi86BGEC/3UZy ouaHtd6uUbqmoV73dO6gP8SHqn1ZDkpOLKuY/5K7DFbmSedbN5eaYiB0c/3lDusTknZtaZ7+71qykefK /vUySgdF66v8SyEC7GV6aA8xT8baoaFExVrMRz4d6RpwqvtgtU42Dta8dUYwM/MUDmxbV8pFmht86dOZ JhwozeiSCA09AduLU/7c4FfOwJB1NYpi2oPq7Q4QBw Gc5vJfVuguIdvplqXR1kZu4buIqgBBw1RJGCO1MYukS/3l7WnreamqpU52Zgp6kbhfHm4w4nMYneTw6J mS92OPnBb3rLcNsp/DWAEJ3FA7xjBhw8P1vL6nnhpaMyrPK8DJJdecl9JNANgZMHQFU7/n85Ofbmq/8A Btx4XWFx17i/baWV0JJ9iG3qD5ewtxWUrI00+V+5jO I67cc750DxfxXAZcQ/EWa9OZ2/3f59Bgo0v4Iw4Dt3iDKNCLXnSlhxg8srFZXlU98Gfcwf31i2Bjr503 1t+2xFTUfI37QFSmG7PSr11i7H6H0UMjmWggnV2bF4Lv+wElCsjBdNNoyjKeLsFKu2k8yA8sqbnpTogS fcc0vDwNoKrPyfRbvJ3S8utXhhijQFPKUNURfsenIv oooAKKKKACiiigAooooAKKKKACiiigAooooAKKKKACiiigAooooAKKKKACiiigAooooAKKKKACiiigCh [file] wlvhJTAAvflqOAAuKClsPCQH0lhtqf5CiREyezriuC PM11GnxpZ4JcQ1FMpBSVCnNgPdJpPV7MZcKGZeeoD9pJ1BUpctD5YlO4fFqw9wpdMqczoTax07lhdhaf /DiyUvig0TSsJhi3ncAFvjgsujsdepba47B4PzYLRfmURLJTHWZgWTkNL5KN3QaeGtyh4PJwUfz6ktKV eXpOzy0o/kJbXKAp0gV44KEoT2c96Xjdbm6jnJAufT /FeQ0ROwKj8OWsllpPntQwzioupO9up418UbkUPxY97Oeweo98t1Vqa1uvT44wE6tS3IJqb4TzbqFp6v H9IED12VgvH1oa56g+7nVZOhP74IXIszAdGQ+V+3zVDhexsBmgJLOJ6L+4wZNHAU22is0uMLS1q08Vsc wf0miHIiRQM0A+7dJZTPJ23ew4nHOnBtam6FZgdbH3 4y3PpSP1KOmYr63CU/2VcHPJz+7Pp3/pyigju5M4nH7ocsakVqkYK1nzMxjfQxMJgq+dNNplwkcacvIx jIGBjrk/rSJbG+GcsizanEnKQbDl1T4psCsOgwFSWLjk754xnk4E2xZ4GQU09Gdoh/0GvE56I+HZLcW8 be5oTbcOlK9NOGgdqLmLB5n70EfszJ/vZbLvjT94b2 QAL0BaTR1F+6nSIJJO43ih3aFKn5J7hG5UBT96XccUBt+kSlodkqMhcflL09KtHGpP/gCKQE3QXxu3xr EIrBr6kJ8JNEv539DHHnj6rw9AStUWusmC53Q5RFS/1QTodsF24s7Yht6Mmuf98Epiq6cbbHivM+hKiZ 6v68Fzcpl1cnOPmEtuqS04RfmvyG49RujHxUL4S1gC 4MXP32BzaQfmioW22YxbirT69UlbXCXiwp8W7wF6izzteCttGdayflgeqxS2ri505ChuqpD/[facility] 8w0MEUMpB5xNbj85GCis0jI8BQ+EUcD+CiHzACYlkdCtb43k1qyqT55IGYHI7kH39ip4cSb1U2kP3ggi evTnpXD/AAhVf+Iz2SjOcTvG0b6FahyitihVkOf/GQ yBMlldw92MZvkt2BGaBzc6krTVeWGUuvzI68QqrykY66WqtShWlvq2VFssgH84w1UkEJ8HUwZ2ETxPa0 RLqhmlKjtTqqnkutU3le697FetENrT86Zlglo21q8Uxv0bvN06vE8hG7ARbp2UsxvZj3oE2TPP01DghL 2ag21t+1yVTMbS86APZoqScPG+V+6jOUzyevTnpUIT N1B+4rKZEHZ68wc2fWNU8j45Etqdf5pwAJhRFT0L+1qTOLFF83oj6fBJwMuta2HUrYbn3yqDBvDtktBa SreJYjB9u6WDKd/IBmc3dhaqt3Z7sH5cjroaBsdNV6teex7P2tDb6NbzHAUcEHZJ/Z2HBXNQQueq6TkC AlCTgxuD3aFlir7x7jMPYqHA0BP9DnsTsFViuO6LUh 6E8nW4jdqauTdtYIuSAg8/PNwe8b51tkOdcJaVIL2NI+yK8ynQP1x3asEbm1B8rA4rybijTlzPP7TyBN 1B+1pBFPLT11js7uKTh9B2uZ9PHC52NkoKCt+nTetxfhGodblK03HtWRjG/pGDQD8KLcs3nfHM2f/dRn AZ58yfOTq8AA84e+3gYVEqG52YAPmitoK+6jOUzyev XrwDdgjLodqpbrmXYf4pHt2bZ2ISICf/yxvmY3rq682E93QZ7NnaJLW8K03w8eUGda/3MIwxmR83t7ZO 7EF5CddsVQnz4aQ31faI7V5WWQEmvVebxlNuveiKHSPIAYfmkxMyrqqNZOSHJXwsusHwfleLUSCDICyy aiIpkpeBUODNREgsunWesdnVGXECLJmngiBtbbuS1f xP9+2/4F/OjVizjOsceeq8zArxbjMsdhc43/6nRfrN/wCyUUVMtjGv/IH45TGTMY2NWNFQAarlGA/kO6 j/ANew/yGLvTytWWdQ8HAm/nQIQxyqmGhcmz43/iYj7P4qn+yUUVMtjGv/OM5fN4XWPsfIFZWTIMmSkN /5Duo/9ew/9KMy83IYpQW1CE/JmtevgciL7a+N/wDq dF+s3/slFFTLYxr/PCOvwrWGKUprqRCYBO9e0JA+Q7qP/XsP/DzDixPDiH1CAv/mFRBCOl8ZvMhwq/qd F+s3/slFFTLYxr/v5uPAsIXSsryFYFSE0e9EO+X8xB1W59S/BRUDn58WTgSO4LG/VKYROJSd7MxTbuk/ AKnRfrN/9MRHBm0Un/0IDV10KCQIJ8MqZPTBP2X+Cn /Id1H/AK9h/jKwJhu7EF6jbrud/gQUUUVRuFeTfG//AFOi/Wb/ANkooqZbGNf+Ryc2nnxnipdjgmlP2J +Cn/Id1H/r2H/dAo4iozcB0Ti4v4IWITQRsoYl4g/5CT/9cj/KIKXX9Uj/0CG3jYZMZwmLZWSPREKDVF FFFFABRRRQAUUUUAFFFFABRRRQAUUUUAFFFFABRRRQ AUUUUAFFFFABRRRQAUUUUAFFFFABRRRQB//BERwwcmQbcCXaVG5EJnDpDN7yhm5VGCRjBXDnOrsYXvi1 G0V9mEMhR6KrH0RrG08tKp9JtIEcdDQ6OD6MjLs3VKDbTtayvZDYETHgTWVnCIWzO0VrMGI0Bp1+DQpz pFOlGO8EZshvmZEvF8YfIDR6vq0jTcsRqot9pEQxXW JDb5LNNK5YBoBB6y2yojgucDQus8+21lNVATPEHTcBMG5RsYwIPLd4KXOFkVByLyILYNoPtxHKVqAMYP C4PyS8GFK1vkl2C5uRrPkIa6Bryqr8psfZ9Ms8MMIQPbRUhr5K4qArwVIVq8nNE8M26f6Rh6WvjvqUGb gzIc2GRoB3nysqKvghrJ/oYrQOv7RSn9H97yrTt5wq uj9q+6spSfTE5myl3reOZW5QWY2zx8UbGVHxNCcvwlInQvpYMwG1YIPqb1YfFJi7DU4Yms9cxVSywpg+ /xBPVUoORuZqHR6UngIdOGEEuQUxQNSVKrKoVKIRaFJdMUTUYDEXBF3RjdWsRZBYIaWxCMNSJjknU5Kz YXRvcij+/uGCHUzQHhSlKJ2WdpNkAGERnAZlSBTENp CfRCOGzHUwXANFNQNTUQ2ZrgEkHBUHAqEmELCXXuydL9IoDZAvs07KPLGnTTU3DyHcULMcPcIcWmO7AX TvWY9Qe9JKXVSoPMD4SrHrHPHiGlPjUiI2GSBvAN7+BTximhWuUblBWkJ9QFKjl8HoZSvhADQ6GL4gPX luqlSmHemNKkSuUWKkk2ClJBieGMZ7YI4gHQxxbpGr HwsWZmAiHNAzj0EnYPi9OD1SqIBgW4sPIFZsQ3m9TNRoPJ9KZdWqRYLeXi2eD8Iby7BoNUAvIGQlZC9a rzOeGGQnCOQhPBDrAJB2DZU0TXX0FJJVT0O0HJPHSxJDDIFFWwLYFMFxGXPQDgjnCEcBONCAYYJZUoRS FIYEBeQNTXi7EvJpDhOEBfkoEu6lMX4GtWk1EWHnKx quqYPIAISfXBDiQJIcL3RgJBt6Ff0IGyP9jiRxaG7OkFjjASJJ//5OmmItMzQCsfWCL5PE67HisRAtPE IBMIPwbYJVKD5YdhdO9NBsLBwUVPTrgKWKEBePHsqDcEOKFr4xzuUY9vTdTsBbdorQUW7XEjI1Hge1LR lwvsCziYXiIE8SSjHhAB2xvp8GsLJuIk8MJJDvZs7N EHZeGURnFFGlSPN4CQTtCUCrUKobRXJnYLJuLLV6EQAiVKQmJD6TUjNhLLNxFQZvUfEmMZAcPRBesy6P IROcIXXkDSM1IPKpHXNbUAAsAFccOHGzNFSwGKZiQWAqWFSpDH2HEiBvBYGqBPM3OsPuVIGpTVFuzi7Q PCMrHGUvFVttPeFfIALbGJLgVSkgHHHmTFSfQCB4QN BmYGKiKC2AGcXlTLKbCDMbJhtvXIQiBWScwb7DMOBrHMKeDSI7UNFvIQBzEDBaRHwuJBNiDJGcQXKnHC Z4NVD7LGYKBjVwJIDiACBvPDBkHxW4LsOkKe4CXCWpPLZhRKGqOuG6MSGvFXYyUSsnFSSlSVJgJDJ7SZ S1KXO9OQKEVoHmEGRhODNvEDXhWoY8QiNuYy5GCYVs IOJkSOVqImV6UIWpFCXoCQctCXHnAABuLIJ1SVM1JUZ8AABNQrLsHHJoGLZtSWPjDiO1LuXjZf0XUAAh FUTcKfM9JaTkNZVcMCNwGEomLGNoOsD0RMf9MGQoXEFfRY1GVbBgDCQwAFZ9BeEmOCQgDYFnsv8ZBGKx BXZfHwa6LeQnCCHxKPLpHQl3bbOfhFEwOCj4ZA6ZmS suUKIdL0Fuu0GfQVKnLLJbTL4lnhYdGUWxVIPeSYHmJXB3ZXL1QNW4PRZHG9Q2NZDTMnGQZSHOIkZDMR WpCZUMKnkhQDfXDAIKGQDYYeYRBGTIUbNSKDq4TeHbYuPBMcgfBr5nOY6+DQpzdGFydHhyZWYNCjIwNz P2IA8YHJWSE6PBIiykRSQUEyPaZI0RaEYssHbzwy0C APupM4g8KVLlSv9Ft293RHXrDMFJW1liTk3nIYfjOYTWA6iFVvlkXXmLSDFSCKUASoBSDXQTSwGKWJf1 BxUlTsMFDenhTj00GNT3UxRwPim8CFJdHSx4Y4PFViA1AMNiTlNpFSD1G6M+XSAvUHJldiAyMDcyNDAv FYEgIhD9bKLiKQD5CVQ+Ax6Dd0TivdN8mrNtSEbnNKx0DftSGpOcXR4D ID Date Data Source "" 12/15/2020 07:13:00 [place] [address] Patient Name: Salena Stanley Exam Date: 12/15/20 : 1950 CC: EKG/ECG in ED Ordering Doctor: Tracy Jauregui MD Attending Doctor: Onesimo Laguerre MD CC: EKG/ECG in ED APPROVED REPORT ECG MEASUREMENT Heart Rate 58 AXES CO 141 P 48 QRSd 84 QRS 0 QT 389 T 55 QTc 386 INTERPRETATION SINUS BRADYCARDIA POSSIBLE INFERIOR MYOCARDIAL INFARCTION , PROBABLY OLD [30 ms Q WAVE IN II/aVF] NO ACUTE ISCHEMIA BORDERLINE ECG Conclusion SINUS BRADYCARDIA POSSIBLE INFERIOR MYOCARDIAL INFARCTION , PROBABLY OLD [30 ms Q WAVE IN II/aVF] NO ACUTE ISCHEMIA BORDERLINE ECG End of diagnostic report for accession: [id number] Interpreted: Onesimo Laguerre MD 12/15/201912 Transcribed: Signed: Onesimo Laguerre MD 12/15/201912 Interpreted by: Onesimo LaguerreTranscribed by: Onesimo Laguerre Name Value Range Interpretation Code Description Data Marisa rce(s) Supporting Document(s) ID Date Data Source [id number] 12/15/2020 07:04:00 [place] [address] HEALTH INFORMATION MANAGEMENT ED/ Physician Report : [id number] Signed Patient: Salena Stanley Acct:[id number] Unit: [facility] [id number] : 1950 Arrival Date: 12/15/20 Age/Sex: 70 [...] Adverse Reaction (Severe, Verified 12/15/20 18:40) ANAPHYLAXIS Osykhjs-Svr-Deh Reductase Inhibitor Adverse Reaction (Intermediate, Verified 12/15/20 [...] EXT: NO EDEMA OR CLUBBING OR TREMORS. ANDROID SOFTWARE ENGINEER: A/OX3, GROSSLY INTACT. SKIN: DRY, NO RASH, [...] rce(s) Supporting Document(s) ID Date Data Source [id number] 11/24/2020 07:34:00 AM EST [email or web address] Everywhere [address] [place] [address], [address] [place] [address] GI Office Visit : Signed Patient: Salena Stanley Acct:[id number] Visit Date: 11/24/20 : 1950 Assessment Plan [...] Gastro-esophageal reflux disease without esophagitis SNOMED Code(s): 895870646 Category: Medical Plan - Dr. Cherelle Mosqueda [...] No Visit Reasons: Gastroesophageal reflux disease / [id number] Cell Liner Required: No Is patient in pain?: No [...] Adverse Reaction (Severe, Verified 11/24/20 07:35) ANAPHYLAXIS Zfgngfd-Nmr-Nid Reductase Inhibitor Adverse Reaction (Intermediate, Verified 11/24/20 07:35) NAUSEA/VOMITING/DIARRHEA egg Adverse Reaction (Mild, Verified 11/24/20 07:35) NAUSEA/VOMITING/DIARRHEA metronidazole [From Flagyl] Adverse Reaction (Mild, Verified 11/24/20 07:35) ADDITIONAL UNSPECIFIED Metronidazole HCl [From Flagyl] Adverse Reaction (Mild, Verified 11/24/20 07:35) NAUSEA/VOMITING/DIARRHEA Home Medications - Last Reconciled 11/24/20 by Keren Brooke, CONTACT WORKER albuterol sulfate 90 mcg/actuation breath activated powder [...] days?: No HPI Gastroesophageal reflux disease / [id number] Details: Patient presents for a telemedicine visit. We had a discussion regarding current HIPAA regulations and insurance billing and patient gives verbal consent to this and understands we will bill their insurance. I am located in the office with my production control scheduler and patient is at home and no onebill their insurance. I am located in the office with my production control scheduler and patient is at home and no [...] any blood on sputum orany dark stools. [facility] Medical History (Updated 11/24/20 @ 08:21 by [...] Codes PHONE E/M PHYS/QHP 11-20 MIN - [id number] ([id number]) Time Spent (min) 12 Signed By:Cherelle Mosqueda MD <<Signature on File>> Signed Date/Time: 11/24/20822 Co-Signer: Co-Signed Date/Time: Liv dacia User: Cherelle Mosqueda MD 11/24/20733 3 3 Name Value Range Interpretation Code Description Data Marisa rce(s) Supporting Document(s) ID Date Data Source [id number] 09/24/2020 05:45:00 PM [facility] Name Value Range Interpretation Code Description Data Mraisa rce(s) Supporting Document(s) WHITE BLOOD COUNT 7.41 10^3/uL 4.00-10.50 [facility] RED BLOOD COUNT 5.04 10^6/uL 3.90-5.20 [facility] HEMOGLOBIN 13.5 G/DL 11.5-15.6 N [facility] HEMATOCRIT 43.5 % 35.0-46.0 N [facility] MCV 86.3 FL 80.0-100.0 N [facility] MCH 26.8 PG 27.0-34.0 L [facility] MCHC 31.0 G/DL 32-36 L [facility] RDW 13.9 % 11.5-14.5 N [facility] PLATELET COUNT 285 10^3/uL 130-400 N [facility] MPV 11.9 FL 8.7-13.2 N [facility] GRAN % (AUTO) 63.8 % 42.0-75.0 N [facility] LYMPH % (AUTO) 26.2 % 20.0-51.0 N [facility] MONO % (AUTO) 6.6 % 2.0-15.0 N [facility] EOS % (AUTO) 2.2 % 0.0-11.0 N [facility] BASO % (AUTO) 0.9 % 0.0-2.0 N [facility] IG % (AUTO) 0.3 % 1.00-5.00 [facility] IG # (AUTO) 0.0 10^3/uL <0.5 [facility] GRAN # (AUTO) 4.73 10^3/uL 1.50-6.50 N [facility] LYMPH # (AUTO) 1.9 k/uL 1.0-5.0 N [facility] MONO # (AUTO) 0.49 k/uL 0.20-1.50 N [facility] EOS # (AUTO) 0.16 10^3/uL 0.00-1.10 N [facility] BASO # (AUTO) 0.07 10^3/uL 0.00-0.20 N [facility] ID Date Data Source [id number] 09/24/2020 06:05:00 PM EST [facility] Name Value Range Interpretation Code Description Data Marisa rce(s) Supporting Document(s) IRON 76 UG/DL 35-150 N [facility] TIBC 260 UG/DL 260-400 [facility] % IRON SATURATION 29.0 % 20-50 N [facility] ID Date Data Source [id number] 09/24/2020 06:05:00 PM EST [facility] Name Value Range Interpretation Code Description Data Marisa rce(s) Supporting Document(s) VITAMIN B12 545 PG/ML 211-2000 [facility] ID Date Data Source [id number] 09/24/2020 06:05:00 PM [facility] Name Value Range Interpretation Code Description Data Marisa rce(s) Supporting Document(s) FOLATE > 24.00 NG/ML 3.40-24.00 H [facility] ID Date Data Source [id number] 09/24/2020 06:05:00 PM [facility] Name Value Range Interpretation Code Description Data Marisa rce(s) Supporting Document(s) Vitamin D,25-HYDROXY 43.3 ng/ml 30-100 N [facility] Vitamin D Status Range De ficiency <20 ng/ml Insufficiency 20-29.9 ng/ml Sufficiency 30-100 ng/ml Toxicity >100 ng/ml Patients should not be tested for 72 hours post fluorescein dye angiography. A false elevation of result may occur. ID Date Data Source [id number] 08/17/2020 04:05:[address] [facility] ULTR ASOUND VASC VENOUS LOWER RIGHTCLINICAL [...] (finding) completed Current non-drinker of alcohol (finding) [facility] 06/07/2021 10:38:41 AM EDT Former Smoker completed Former Smoker [facility] 06/07/2021 10:38:41 AM EDT Cigarettes completed Cigarette s [facility] 06/07/2021 10:38:41 AM EDT Former Smoker completed Former Smoker [facility] 06/07/2021 10:38:41 AM EDT Cigarettes [facility] 06/07/2021 10:38:00 AM EDT Ex-smoker (finding) complet ed Ex-smoker (finding) [facility] 01/20/2021 08:20:23 AM EDT Former Smoker completed Former Smoker [facility] 01/20/2021 08:20:23 AM EDT Cigarettes completed Cigarette s [facility] 01/20/2021 08:20:23 AM EDT Former Smoker completed Former Smoker [facility] 01/20/2021 08:20:23 AM EDT Cigarettes completed [facility] 01/20/2021 08:20:00 AM EDT Ex-smoker (finding) complet ed Ex-smoker (finding) [facility] 01/20/2021 08:20:00 AM EDT Ex-smoker (finding) complet ed Ex-smoker (finding) [facility] 12/22/2020 02:29:00 PM EDT Former Smoker completed Former Smoker [facility] 12/22/2020 02:29:00 PM EDT Cigarettes completed [facility] 12/22/2020 02:29:00 PM EDT Ex-smoker (finding) complet ed Ex-smoker (finding) [facility] 12/22/2020 02:29:00 PM EDT Former Smoker completed Former Sm[facility] 12/22/2020 02:29:00 PM EDT Cigarettes completed [facility]ig[facility] 12/22/2020 02:29:00 PM EDT Ex-smoker (finding) complet ed Ex-smoker (finding) [facility] intake 12/20/2020 12:00:00 AM EDT No completed [facility] Smoking 12/20/2020 12:00:00 AM EDT Former smoker completed Former smoker [facility] 12/15/2020 07:32:00 PM EDT Former Smoker completed Former Smoker [facility] 12/15/2020 07:32:00 PM EDT Cigarettes completed Cigarette [facility] 12/15/2020 07:32:00 PM EDT Ex-smoker (finding) complet ed Ex-smoker (finding) [facility] 12/15/2020 07:32:00 PM EDT Former Smoker completed Former Sm[facility] 12/15/2020 07:32:00 PM EDT Cigarettes completed [facility] 12/15/2020 07:32:00 PM EDT Ex-smoker (finding) complet ed Ex-smoker (finding) [facility] 11/24/2020 07:36:22 AM EST Former Smoker completed Former Smoker [facility] 11/24/2020 07:36:22 AM EST Cigarettes completed Cigarette s [facility] 11/24/2020 07:36:22 AM EST Former Smoker completed Former Smoker [facility] 11/24/2020 07:36:22 AM EST Cigarettes completed [facility]ig[facility] 11/24/2020 07:36:00 AM EST Ex-smoker (finding) complet ed Ex-smoker (finding) [facility] 11/24/2020 07:36:00 AM EST Ex-smoker (finding) complet ed Ex-smoker (finding) [facility] 08/17/2020 12:00:00 AM EST No completed [facility] Smoking 08/17/2020 12:00:00 AM EST Former smoker completed Former smoker [facility] Vital Signs ID Date Data Source UNK Name Value Range Interpretation Code Description Data Source(s) Systolic blood pressure 136 mm[Hg] 136 mm[Hg] S [facility] Diastolic blood pressure 98 mm[Hg] 98 mm[Hg] [facility] Heart rate 56 /min 56 /min [facility] Body height 162.6 cm 162.6 cm [facility] Body weight 75.297 kg 75.297 kg [facility] Body mass index (BMI) [Ratio] 28.49 kg/m2 28.49 kg/m2 [facility] Oxygen saturation in Arterial blood by Pulse oximetry 92 % 92 % [facility] Body weight 166 [lb_av] 166 [lb_av] W1 ([facility]) Body height 64 [in_i] 64 [in_i] eCW1 ([facility]) Body mass index (BMI) [Ratio] 28.49 kg/m2 28.49 kg/m2 [facility] ([facility]) Heart rate 68 /min 68 /min W1 ([facility]) Respiratory rate 18 /min 18 /min W1 ([facility]) Body temperature 96.4 [degF] 96.4 [degF] eCW1 ( [facility]) Systolic blood pressure 124 mm[Hg] 124 mm[Hg] e CW1 ([facility]) Diastolic blood pressure 80 mm[Hg] 80 mm[Hg] eCW1 ([facility]) Body height 162.56 cm 162.56 cm [facility] Body weight 74.84 kg 74.84 kg [facility] Body mass index (BMI) [Ratio] 28.3 kg/m2 28.3 k g/m2 [facility] Body height 64 [in_i] 64 [in_i] eCW1 ([facility]) Body weight 165 [lb_av] 165 [lb_av] eCW1 ([facility]) Body mass index (BMI) [Ratio] 28.32 kg/m2 28.32 kg/m2 eCW1 ([facility]) Heart rate 85 /min 85 /min eCW1 ([facility]) Respiratory rate 18 /min 18 /min eCW1 ([facility]) Body temperature 96.1 [degF] 96.1 [degF] eCW1 ( [facility]) Systolic blood pressure 126 mm[Hg] 126 mm[Hg] e CW1 ([facility]) Diastolic blood pressure 74 mm[Hg] 74 mm[Hg] eCW1 ([facility]) Systolic blood pressure 130 mm[Hg] 130 mm[Hg] e CW1 ([facility]) Body weight 166 [lb_av] 166 [lb_av] eCW1 ([facility]) Body height 64 [in_i] 64 [in_i] eCW1 ([facility]) Body mass index (BMI) [Ratio] 28.49 kg/m2 28.49 kg/m2 eCW1 ([facility]) Heart rate 75 /min 75 /min eCW1 ([facility]) Respiratory rate 18 /min 18 /min eCW1 ([facility]) Body temperature 96.8 [degF] 96.8 [degF] eCW1 ( [facility]) Diastolic blood pressure 80 mm[Hg] 80 mm[Hg] eCW1 ([facility]) Heart rate 62 /min 62 /min [facility] Systolic blood pressure 164 mm[Hg] 164 mm[Hg] [facility] [employer] [facility] Diastolic blood pressure 74 mm[Hg] 74 mm[Hg] [facility] Respiratory rate 20 /min 20 /min [facility] in Arterial blood by Pulse oximetry 96 % 96 % [facility] Heart rate 62 /min 62 /min [facility] Systolic blood pressure 164 mm[Hg] 164 mm[Hg] [facility] [employer] [facility] Diastolic blood pressure 74 mm[Hg] 74 mm[Hg] [facility] Oxygen saturation in Arterial blood by Pulse oximetry 96 % 96 % [facility] Respiratory rate 20 /min 20 /min [facility] Heart rate 62 /min 62 /min [facility] Heart rate 62 /min 62 /min [facility] Respiratory rate 20 /min 20 /min [facility] Oxygen saturation in Arterial blood by Pulse oximetry 96 % 96 % [facility] Respiratory rate 20 /min 20 /min [facility] Oxygen saturation in Arterial blood by Pulse oximetry 96 % 96 % [facility] Systolic blood pressure 164 mm[Hg] 164 mm[Hg] [facility] Diastolic blood pressure 74 mm[Hg] 74 mm[Hg] [facility] Systolic blood pressure 164 mm[Hg] 164 mm[Hg] [facility] Diastolic blood pressure 74 mm[Hg] 74 mm[Hg] [facility] Body temperature 97.1 [degF] 97.1 [degF] [facility] Body temperature 97.1 [degF] 97.1 [degF] [facility] Body temperature 97.1 [degF] 97.1 [degF] [facility] Body temperature 97.1 [degF] 97.1 [degF] [facility] Body weight 72.72 kg 72.72 kg [facility] Body height 162.56 cm 162.56 cm [facility] Body height 162.56 cm 162.56 cm [facility] Body weight 72.72 kg 72.72 kg [facility] Body height 162.56 cm 162.56 cm [facility] Body weight 72.72 kg 72.72 kg [facility] Body height 162.56 cm 162.56 cm [facility] Body weight 72.72 kg 72.72 kg [facility] Systolic blood pressure 137 mm[Hg] 137 mm[Hg] [facility] Diastolic blood pressure 83 mm[Hg] 83 mm[Hg] [facility] Heart rate 55 /min 55 /min [facility] Body temperature 36.67 Lydia 36.67 Lydia [facility] Respiratory rate 20 /min 20 /min [facility] Body height 162.6 cm 162.6 cm [facility] Body weight 71.668 kg 71.668 kg [facility] Body mass index (BMI) [Ratio] 27.12 kg/m2 27.12 kg/m2 [facility] Oxygen saturation in Arterial blood by Pulse oximetry 98 % 98 % [facility] Body temperature 98.5 [degF] 98.5 [degF] [facility] Heart rate 60 /min 60 /min [facility] Respiratory rate 18 /min 18 /min [facility] Oxygen saturation in Arterial blood by Pulse oximetry 97 % 97 % [facility] Systolic blood pressure 138 mm[Hg] 138 mm[Hg] [facility] Diastolic blood pressure 62 mm[Hg] 62 mm[Hg] [facility] Diastolic blood pressure 62 mm[Hg] 62 mm[Hg] [facility] Body temperature 98.5 [degF] 98.5 [degF] [facility] Heart rate 60 /min 60 /min [facility] Respiratory rate 18 /min 18 /min [facility] Oxygen saturation in Arterial blood by Pulse oximetry 97 % 97 % [facility] Systolic blood pressure 138 mm[Hg] 138 mm[Hg] [facility] Body temperature 98.5 [degF] 98.5 [degF] [facility] Heart rate 60 /min 60 /min [facility] Respiratory rate 18 /min 18 /min [facility] Oxygen saturation in Arterial blood by Pulse oximetry 97 % 97 % [facility] Systolic blood pressure 138 mm[Hg] 138 mm[Hg] [facility] Diastolic blood pressure 62 mm[Hg] 62 mm[Hg] [facility] Body temperature 98.5 [degF] 98.5 [degF] [facility] Heart rate 60 /min 60 /min [facility] Respiratory rate 18 /min 18 /min [facility] Oxygen saturation in Arterial blood by Pulse oximetry 97 % 97 % [facility] Systolic blood pressure 138 mm[Hg] 138 mm[Hg] [facility] Diastolic blood pressure 62 mm[Hg] 62 mm[Hg] [facility] Body height 162.56 cm 162.56 cm [facility] Body weight 71.80 kg 71.80 kg [facility] Body weight 71.80 kg 71.80 kg [facility] Body height 162.56 cm 162.56 cm [facility] Body height 162.56 cm 162.56 cm [facility] Body weight 71.80 kg 71.80 kg [facility] Body height 162.56 cm 162.56 cm [facility] Body weight 71.80 kg 71.80 kg [facility] Body height 162.56 cm 162.56 cm [facility] Body weight 71.66 kg 71.66 kg [facility] Body mass index (BMI) [Ratio] 27.1 kg/m2 27.1 k g/m2 [facility] Body height 162.56 cm 162.56 cm [facility] Body weight 71.66 kg 71.66 kg [facility] Body mass index (BMI) [Ratio] 27.1 kg/m2 27.1 k g/m2 [facility] Body height 162.56 cm 162.56 cm [facility] Body weight 71.66 kg 71.66 kg [facility] Body mass index (BMI) [Ratio] 27.1 kg/m2 27.1 k g/m2 [facility] Body height 162.56 cm 162.56 cm [facility] Body weight 71.66 kg 71.66 kg [facility] Body mass index (BMI) [Ratio] 27.1 kg/m2 27.1 k g/m2 [facility] Systolic blood pressure 142 mm[Hg] 142 mm[Hg] [facility] Diastolic blood pressure 79 mm[Hg] 79 mm[Hg] [facility] Heart rate 64 /min 64 /min [facility] Body height 162.6 cm 162.6 cm [facility] Body weight 67.132 kg 67.132 kg [facility] Body mass index (BMI) [Ratio] 25.40 kg/m2 25.40 kg/m2 [facility] Oxygen saturation in Arterial blood by Pulse oximetry 97 % 97 % [facility] Patient Treatment Plan of Care Planned Activity Planned Date Details Description Data Source (s) 24 HR metoprolol succinate 25 MG Extended Release Oral Tablet 07/18/2021 12:00:00 AM EDT [facility] 24 HR venlafaxine 37.5 MG Extended Release Oral Capsul e 07/11/2021 12:00:00 AM EDT [facility] Calcium + D3 600-800 MG-UNIT 06/28/2021 12:00:00 AM EDT eCW1 ([facility]) Calcium + D3 600-800 MG-UNIT 06/28/2021 12:00:00 AM EDT eCW1 ([facility]) Sucralfate 100 MG/ML Oral Suspension 12/16/2020 12:00:00 AM EDT [facility] 24 HR metoprolol succinate 25 MG Extended Release Oral Tablet 11/02/2020 12:00:00 AM EST [facility] venlafaxine 75 MG Oral Tablet 08/02/2020 12:00:00 AM EST [facility] 24 HR venlafaxine 37.5 MG Extended Release Oral Capsul e 07/10/2019 12:00:00 AM EDT [facility] Bisacodyl 5 MG Delayed Release Oral Tablet [facility]
== END 2021-08-10 11:27 | disposition left against medical advice (07) ==
LOC: M ED 11:14 → EDBD 11:14 → M ED 11:27
DX: Z53.21 Procedure and treatment not carried out due to patient leaving prior to being seen by health care provider (principal)

== ENCOUNTER 2021-08-10 11:53 | Outpatient (CLI) | payer MEDICARE, MEDICAID ==
[~2021-08-10] VITALS: Ht 162.6 cm; Wt 75.5 kg
[2021-08-10 11:53] VITALS: BP 141/62
[~2021-08-10 11:53] MED LIST changes: +ACETAMINOPHEN TAB 650MG DOSE (2X325MG) PO PRN; +ALBUTEROL 90 MCG/ACT 8GM HFA INHALER INH PRN; +ALBUTEROL SULFATE 2.5 MG/0.5 ML INH NEB SOLN INH PRN; +CASIRIVIMAB (REGN10933) 600 MG, IMDEVIMAB (REGN10987) 600 MG in NS 250 ML IV ONE; +CASIRIVIMAB/IMDEVIMAB 1,200 MG in NS 250 ML IV ONE; -CEFD1CAP8 PO; +CEFD300C41 PO; +EPINEPHrine INJ 1 MG/ML 1ML AMP IM PRN; +ONDANSETRON 4MG/2ML VIAL IV PRN; +diphenhydrAMINE 50MG/ML VIAL (J1200) IV PRN; +methylPREDNISolone 125MG 2ML VIAL IV PRN
[2021-08-10] MEDS: NS 1,000 ML IV SCH ×2 (11:53→11:55)
[2021-08-10 12:23] VITALS: BP 134/59
[2021-08-10 12:53] VITALS: BP 141/62
[2021-08-10 13:53] VITALS: BP 128/58
== END 2021-08-10 13:53 | disposition home or self-care (01) ==
LOC: M OPCLI4 11:53
PROVIDERS: ATTEND Internal Medicine Nephrology
DX: U07.1 COVID-19 (principal); Z88.0 Allergy status to penicillin; Z88.1 Allergy status to other antibiotic agents

== ENCOUNTER 2021-08-15 13:05 | Emergency (ER) | payer MEDICARE, MEDICAID ==
[~2021-08-15] VITALS: Ht 162.6 cm; Wt 75.5 kg
[~2021-08-15 13:05] MED LIST changes: -ACETAMINOPHEN TAB 650MG DOSE (2X325MG) PO PRN; -ALBUTEROL 90 MCG/ACT 8GM HFA INHALER INH PRN; -ALBUTEROL SULFATE 2.5 MG/0.5 ML INH NEB SOLN INH PRN; -CASIRIVIMAB (REGN10933) 600 MG, IMDEVIMAB (REGN10987) 600 MG in NS 250 ML IV ONE; -CASIRIVIMAB/IMDEVIMAB 1,200 MG in NS 250 ML IV ONE; -EPINEPHrine INJ 1 MG/ML 1ML AMP IM PRN; -ONDANSETRON 4MG/2ML VIAL IV PRN; -diphenhydrAMINE 50MG/ML VIAL (J1200) IV PRN; -methylPREDNISolone 125MG 2ML VIAL IV PRN
[2021-08-15] MEDS ORDERED: ONDANSETRON 4MG/2ML VIAL IV ONE (19:55)
[2021-08-15] MEDS ORDERED: NS 1,000 ML IV ONE (19:55)
[2021-08-15] MEDS ORDERED: ACETAMINOPHEN 500 MG TAB PO ONE (19:55)
[2021-08-15 20:14] LABS: HEMATOCRIT 41.1 % (36.0-47.0); MEAN CORPUSCULAR HEMOGLOBIN 26.5 pg (27.0-33.0); MEAN CORPUSCULAR HGB CONC 31.6 g/dl (32.0-36.5); MEAN CORPUSCULAR VOLUME 83.9 fl (80.0-96.0); PLATELET COUNT, AUTOMATED 360 10^3/uL (150-450); WHITE BLOOD COUNT 8.6 10^3/uL (4.0-10.0)
[2021-08-15 20:40] LABS: ALT/SGPT 75 U/L (12-78); AMYLASE 36 U/L (25-115); BILIRUBIN,DIRECT 0.2 MG/DL (0.0-0.2); BILIRUBIN,TOTAL 0.4 MG/DL (0.2-1.0); BLOOD UREA NITROGEN 7 MG/DL (7-18); CALCIUM LEVEL 8.9 MG/DL (8.8-10.2); CARBON DIOXIDE LEVEL 28 MEQ/L (21-32); CHLORIDE LEVEL 103 MEQ/L (98-107); CREATININE FOR GFR 0.72 MG/DL (0.55-1.30); GLOMERULAR FILTRATION RATE > 60.0 (>45); GLUCOSE, FASTING 90 MG/DL (70-100); LIPASE 71 U/L (73-393); SODIUM LEVEL 140 MEQ/L (136-145); TOTAL PROTEIN 7.2 GM/DL (6.4-8.2)
[2021-08-15 21:18] LABS: ATYPICAL LYMPH 2 % (0-5); LYMPHOCYTES 11 % (16-44); MONOCYTES 10 % (0-5); NEUTROPHILS 73 % (28-66); PLATELET ESTIMATE NORMAL (NORMAL)
[2021-08-15] MEDS ORDERED: REGL10TA6 PO (22:25)
[2021-08-15 22:33] VITALS: BP 128/80
== END 2021-08-15 22:34 | disposition home or self-care (01) ==
LOC: M ED 13:05
DX: E86.0 Dehydration (principal); U07.1 COVID-19; I10 Essential (primary) hypertension; E78.5 Hyperlipidemia, unspecified; Z79.899 Other long term (current) drug therapy; Z88.0 Allergy status to penicillin; Z88.1 Allergy status to other antibiotic agents; Z88.8 Allergy status to other drugs, medicaments and biological substances
CPT/HCPCS: 80048; 80076; 81001; 82150; 83690; 85025; 96361; 96374; 99284; J2405

== ENCOUNTER → 2021-09-26 | Outpatient (CLI) | payer MEDICARE, MEDICAID ==
[~2021-09-26] MED LIST changes: +REGL10TA6 PO
[2021-09-26 14:25] LABS: BASO # 0.1 10^3/uL (0.0-0.2); BASO % 1.1 % (0.0-1.0); EOS # 0.3 10^3/uL (0.0-0.5); EOS % 3.4 % (0.0-3.0); HEMATOCRIT 41.7 % (36.0-47.0); HEMOGLOBIN 13.2 g/dl (12.0-15.5); LYMPH # 1.6 10^3/uL (1.5-5.0); LYMPH % 21.8 % (24.0-44.0); MEAN CORPUSCULAR HEMOGLOBIN 26.8 pg (27.0-33.0); MEAN CORPUSCULAR HGB CONC 31.7 g/dl (32.0-36.5); MEAN CORPUSCULAR VOLUME 84.8 fl (80.0-96.0); MONO # 0.7 10^3/uL (0.0-0.8); MONO % 10.2 % (2.0-8.0); NEUTROPHILS # 4.6 10^3/uL (1.5-8.5); NEUTROPHILS % 63.1 % (36.0-66.0); PLATELET COUNT, AUTOMATED 329 10^3/uL (150-450); RED BLOOD COUNT 4.92 10^6/uL (4.00-5.40); WHITE BLOOD COUNT 7.3 10^3/uL (4.0-10.0)
[2021-09-26 14:53] LABS: ERYTHROCYTE SEDIMENTATION RATE 32 mm/hr (0-30)
[2021-09-26 14:56] LABS: HEMOGLOBIN A1c 5.9 %
[2021-09-26 15:13] LABS: ALBUMIN 3.7 GM/DL (3.2-5.2); ALT/SGPT 58 U/L (12-78); BILIRUBIN,TOTAL 0.1 MG/DL (0.2-1.0); BLOOD UREA NITROGEN 9 MG/DL (7-18); CALCIUM LEVEL 9.1 MG/DL (8.8-10.2); CARBON DIOXIDE LEVEL 25 MEQ/L (21-32); CHLORIDE LEVEL 108 MEQ/L (98-107); CREATININE FOR GFR 0.73 MG/DL (0.55-1.30); FOLATE 21.4 NG/ML; GLOMERULAR FILTRATION RATE > 60.0 (>39); GLUCOSE, FASTING 109 MG/DL (70-100); POTASSIUM SERUM 3.8 MEQ/L (3.5-5.1); RHEUMATOID FACTOR QUANT < 10.0 IU/ML (<15.0); SODIUM LEVEL 140 MEQ/L (136-145); VITAMIN B12 LEVEL 586 PG/ML
[2021-09-27 13:54] LABS: ALBUMIN % 58.3 % (55.8-66.1); ALPHA-1-GLOBULIN % 4.2 % (2.9-4.9); ALPHA-2-GLOBULINS % 13.4 % (7.1-11.8); BETA-1-GLOBULINS % 5.9 % (4.7-7.2); BETA-2-GLOBULINS % 6.7 % (3.2-6.5); GAMMA GLOBULIN % 11.5 % (11.1-18.8)
[2021-09-27 13:55] LABS: ALBUMIN 4.08 GM/DL (3.29-5.55); ALPHA-1-GLOBULINS 0.29 GM/DL (0.17-0.41); ALPHA-2-GLOBULINS 0.94 GM/DL (0.42-0.99); BETA-1-GLOBULINS 0.41 GM/DL (0.28-0.60)
[2021-09-27 13:56] LABS: BETA-2-GLOBULINS 0.47 GM/DL (0.19-0.55); GAMMA GLOBULINS 0.81 GM/DL (0.65-1.58)
== END ==
LOC: M PLALAB 11:13
PROVIDERS: ATTEND Psychiatry & Neurology Neurology
DX: R41.9 Unspecified symptoms and signs involving cognitive functions and awareness (principal); Z79.899 Other long term (current) drug therapy

== ENCOUNTER → 2022-01-23 | Outpatient (CLI) | payer MEDICARE, MEDICAID | LOC: M PLALAB 11:43 | PROVIDERS: ATTEND Physician Assistant | DX: R07.89 Other chest pain (principal) ==

== ENCOUNTER → 2022-04-20 | Outpatient (CLI) | payer MEDICARE, MEDICAID | LOC: M PLAIMG 15:54 | PROVIDERS: ATTEND Internal Medicine Hematology | DX: M77.32 Calcaneal spur, left foot (principal) ==

== ENCOUNTER → 2022-05-04 | Outpatient (CLI) | payer MEDICARE, MEDICAID ==
[2022-05-04 15:46] LABS: BASO # 0.1 10^3/uL (0.0-0.2); BASO % 1.2 % (0.0-1.0); EOS # 0.4 10^3/uL (0.0-0.5); EOS % 5.2 % (0.0-3.0); HEMATOCRIT 44.5 % (36.0-47.0); HEMOGLOBIN 13.6 g/dl (12.0-15.5); LYMPH # 1.7 10^3/uL (1.5-5.0); MEAN CORPUSCULAR HEMOGLOBIN 26.3 pg (27.0-33.0); MEAN CORPUSCULAR HGB CONC 30.6 g/dl (32.0-36.5); MEAN CORPUSCULAR VOLUME 85.9 fl (80.0-96.0); MONO # 0.6 10^3/uL (0.0-0.8); MONO % 8.2 % (2.0-8.0); NEUTROPHILS # 4.2 10^3/uL (1.5-8.5); NEUTROPHILS % 61.1 % (36.0-66.0); PLATELET COUNT, AUTOMATED 303 10^3/uL (150-450); RED BLOOD COUNT 5.18 10^6/uL (4.00-5.40); WHITE BLOOD COUNT 6.9 10^3/uL (4.0-10.0)
[2022-05-04 16:11] LABS: ERYTHROCYTE SEDIMENTATION RATE 15 mm/hr (0-30)
[2022-05-04 16:24] LABS: ALBUMIN 3.9 GM/DL (3.2-5.2); ALT/SGPT 38 U/L (12-78); BILIRUBIN,TOTAL 0.3 MG/DL (0.2-1.0); BLOOD UREA NITROGEN 11 MG/DL (7-18); CALCIUM LEVEL 9.3 MG/DL (8.8-10.2); CARBON DIOXIDE LEVEL 28 MEQ/L (21-32); CHLORIDE LEVEL 106 MEQ/L (98-107); CREATININE FOR GFR 0.85 MG/DL (0.55-1.30); GLOMERULAR FILTRATION RATE > 60.0 (>39); GLUCOSE, FASTING 106 MG/DL (70-100); LIPASE 180 U/L (73-393); POTASSIUM SERUM 4.4 MEQ/L (3.5-5.1); SODIUM LEVEL 137 MEQ/L (136-145); TOTAL PROTEIN 6.9 GM/DL (6.4-8.2)
== END ==
LOC: M PLALAB 12:30
PROVIDERS: ATTEND Physician Assistant
DX: R10.13 Epigastric pain (principal); K59.00 Constipation, unspecified; K21.9 Gastro-esophageal reflux disease without esophagitis

== ENCOUNTER → 2022-06-13 | Outpatient (CLI) | payer MEDICARE, MEDICAID | LOC: M SOG 10:38 | PROVIDERS: ATTEND Orthopaedic Surgery | DX: M47.812 Spondylosis without myelopathy or radiculopathy, cervical region (principal); M25.521 Pain in right elbow; M25.522 Pain in left elbow ==

== ENCOUNTER → 2022-07-18 | Outpatient (CLI) | payer MEDICARE, MEDICAID ==
[2022-07-18 15:32] LABS: CHOLESTEROL LEVEL 271 MG/DL (<200); CHOLESTEROL RISK RATIO 5.113 (<5); HDL CHOLESTEROL 53 MG/DL (>40); LDL CHOLESTEROL 199 MG/DL (<100); NON-HDL-C 218 MG/DL; TOTAL PROTEIN 6.8 GM/DL (6.4-8.2); TRIGLYCERIDES LEVEL 97 MG/DL (<150)
[2022-07-19 14:38] LABS: ALBUMIN 4.06 GM/DL (3.29-5.55); ALBUMIN % 59.7 % (55.8-66.1); ALPHA-1-GLOBULIN % 4.1 % (2.9-4.9); ALPHA-1-GLOBULINS 0.28 GM/DL (0.17-0.41); ALPHA-2-GLOBULINS 0.89 GM/DL (0.42-0.99); ALPHA-2-GLOBULINS % 13.1 % (7.1-11.8); BETA-1-GLOBULINS 0.38 GM/DL (0.28-0.60); BETA-1-GLOBULINS % 5.6 % (4.7-7.2); BETA-2-GLOBULINS 0.42 GM/DL (0.19-0.55); BETA-2-GLOBULINS % 6.2 % (3.2-6.5); GAMMA GLOBULIN % 11.3 % (11.1-18.8); GAMMA GLOBULINS 0.77 GM/DL (0.65-1.58)
== END ==
LOC: M PLALAB 09:59
PROVIDERS: ATTEND Physician Assistant
DX: R77.8 Other specified abnormalities of plasma proteins (principal); E78.00 Pure hypercholesterolemia, unspecified

== ENCOUNTER → 2022-07-31 | Outpatient (CLI) | payer MEDICARE, MEDICAID ==
[2022-07-31 16:12] LABS: BLOOD UREA NITROGEN 11 MG/DL (7-18); CREATININE FOR GFR 0.85 MG/DL (0.55-1.30); GLOMERULAR FILTRATION RATE > 60.0 (>39)
== END ==
LOC: M PLALAB 10:18
PROVIDERS: ATTEND Physician Assistant
DX: Z01.818 Encounter for other preprocedural examination (principal)

== ENCOUNTER → 2022-08-02 | Outpatient (CLI) | payer MEDICARE, MEDICAID ==
[~2022-08-02] MED LIST changes: +PROHANCE 279.3MG/ML 15ML VIAL ONE
== END ==
LOC: M PLAIMG 13:32
PROVIDERS: ATTEND Physician Assistant
DX: R47.89 Other speech disturbances (principal); Z86.73 Personal history of transient ischemic attack (TIA), and cerebral infarction without residual deficits
CPT/HCPCS: 70553; A9576

== ENCOUNTER → 2022-08-03 | Outpatient (CLI) | payer MEDICARE, MEDICAID ==
[~2022-08-03] MED LIST changes: +E-Z-GAS II EFFERVESCENT PACKET (SODIUM BICARB./CITRIC ACID/SIMETHICONE) As Ordered ONE; +E-Z-HD 98% w/w 340GM SUSP BTL As Ordered ONE; +E-Z-PAQUE 96% w/w SUSP 176GM BTL As Ordered ONE; -PROHANCE 279.3MG/ML 15ML VIAL ONE
== END ==
LOC: M RAD 09:31
PROVIDERS: ATTEND Physician Assistant
DX: K59.00 Constipation, unspecified (principal); K21.9 Gastro-esophageal reflux disease without esophagitis; K44.9 Diaphragmatic hernia without obstruction or gangrene; K31.7 Polyp of stomach and duodenum

== ENCOUNTER → 2022-09-22 | Outpatient (REF) | payer MEDICARE, MEDICAID ==
[~2022-09-22] MED LIST changes: -E-Z-GAS II EFFERVESCENT PACKET (SODIUM BICARB./CITRIC ACID/SIMETHICONE) As Ordered ONE; -E-Z-HD 98% w/w 340GM SUSP BTL As Ordered ONE; -E-Z-PAQUE 96% w/w SUSP 176GM BTL As Ordered ONE
== END ==
LOC: M SFHCPLAZ 16:50
PROVIDERS: ATTEND Physician Assistant
DX: R05.1 Acute cough (principal)

== ENCOUNTER → 2022-10-23 | Outpatient (CLI) | payer MEDICARE, MEDICAID ==
[~2022-10-23] MED LIST changes: +AMLO1TAB24 PO; +ATOR1TAB21 PO; -DEXI60CA2; +DEXI60CA2 PO; +ECOT81TA5 PO; -LORA1TAB4; +LORA1TAB4 PO; +VENL37.598 PO; +VITMTA PO
[2022-10-23 14:04] LABS: BLOOD UREA NITROGEN 9 MG/DL (9-23); CREATININE FOR GFR 0.74 MG/DL (0.55-1.30); GLOMERULAR FILTRATION RATE > 60.0 (>39)
== END ==
LOC: M LAB 12:14
PROVIDERS: ATTEND Physician Assistant
DX: Z01.818 Encounter for other preprocedural examination (principal)

== ENCOUNTER → 2022-10-24 | Outpatient (CLI) | payer MEDICARE, MEDICAID ==
[~2022-10-24] MED LIST changes: +GASTROGRAFIN SOLUTION 30ML As Ordered ONE; +ISOVUE-370 76% 100ML VIAL As Ordered ONE
== END ==
LOC: M RAD 12:51
PROVIDERS: ATTEND Physician Assistant
DX: R63.4 Abnormal weight loss (principal); R10.31 Right lower quadrant pain; Z87.891 Personal history of nicotine dependence
CPT/HCPCS: 71260; 74177; Q9963; Q9967

== ENCOUNTER → 2022-10-25 | Outpatient (CLI) | payer MEDICARE, MEDICAID ==
[~2022-10-25] MED LIST changes: -GASTROGRAFIN SOLUTION 30ML As Ordered ONE; -ISOVUE-370 76% 100ML VIAL As Ordered ONE
== END ==
LOC: M LABSMTC 11:01
PROVIDERS: ATTEND Anesthesiology
DX: Z01.818 Encounter for other preprocedural examination (principal)

== ENCOUNTER 2022-10-27 05:54 | Day surgery (SDC) | payer MEDICARE, MEDICAID ==
[~2022-10-27] VITALS: Ht 162.6 cm; Wt 61.2 kg
[2022-10-27] MEDS ORDERED: NS 1,000 ML IV ONE (06:00)
[2022-10-27] MEDS ORDERED: propofoL 200 MG/20 ML VIAL As Ordered ONE (07:30)
[2022-10-27] MEDS ORDERED: LIDOCAINE 2% 100MG/5ML SDV (FOR ANES.) As Ordered ONE (07:30)
[2022-10-27] MEDS ORDERED: fentaNYL 100 MCG/2 ML INJECTION As Ordered ONE (07:31)
[2022-10-27 08:19] VITALS: BP 118/57
== END 2022-10-27 08:23 | disposition home or self-care (01) ==
LOC: M OPP 05:54
PROVIDERS: ATTEND Surgery
DX: Z85.038 Personal history of other malignant neoplasm of large intestine (principal); D12.6 Benign neoplasm of colon, unspecified; K64.9 Unspecified hemorrhoids; K57.30 Diverticulosis of large intestine without perforation or abscess without bleeding; Z98.0 Intestinal bypass and anastomosis status; K44.9 Diaphragmatic hernia without obstruction or gangrene; K31.7 Polyp of stomach and duodenum; G47.33 Obstructive sleep apnea (adult) (pediatric); Z99.89 Dependence on other enabling machines and devices; E11.9 Type 2 diabetes mellitus without complications; I10 Essential (primary) hypertension; J45.909 Unspecified asthma, uncomplicated; Z79.02 Long term (current) use of antithrombotics/antiplatelets; Z79.1 Long term (current) use of non-steroidal anti-inflammatories (NSAID); Z79.82 Long term (current) use of aspirin; Z79.899 Other long term (current) drug therapy; Z88.0 Allergy status to penicillin; Z88.1 Allergy status to other antibiotic agents; Z86.73 Personal history of transient ischemic attack (TIA), and cerebral infarction without residual deficits; Z86.74 Personal history of sudden cardiac arrest; Z95.5 Presence of coronary angioplasty implant and graft; Z86.718 Personal history of other venous thrombosis and embolism; Z87.442 Personal history of urinary calculi; Z94.9 Transplanted organ and tissue status, unspecified
CPT/HCPCS: 43239; 45385; 88305; J3010

== ENCOUNTER → 2022-12-01 | Outpatient (CLI) | payer MEDICARE, MEDICAID ==
[2022-12-01 13:48] LABS: BASO # 0.1 10^3/uL (0.0-0.2); BASO % 1.1 % (0.0-1.0); EOS # 0.2 10^3/uL (0.0-0.5); EOS % 3.1 % (0.0-3.0); HEMOGLOBIN 13.3 g/dl (12.0-15.5); LYMPH # 1.7 10^3/uL (1.5-5.0); LYMPH % 22.3 % (24.0-44.0); MEAN CORPUSCULAR HEMOGLOBIN 26.5 pg (27.0-33.0); MEAN CORPUSCULAR HGB CONC 30.2 g/dl (32.0-36.5); MEAN CORPUSCULAR VOLUME 87.6 fl (80.0-96.0); MONO # 0.5 10^3/uL (0.0-0.8); MONO % 6.9 % (2.0-8.0); NEUTROPHILS # 4.9 10^3/uL (1.5-8.5); NEUTROPHILS % 66.3 % (36.0-66.0); PLATELET COUNT, AUTOMATED 286 10^3/uL (150-450); RED BLOOD COUNT 5.02 10^6/uL (4.00-5.40); WHITE BLOOD COUNT 7.4 10^3/uL (4.0-10.0)
[2022-12-01 16:23] LABS: ALBUMIN 3.7 G/DL (3.2-5.2); ALKALINE PHOSPHATASE 69 U/L (46-116); ALT/SGPT 19 U/L (7.0-40); AST/SGOT 17 U/L (<34); BILIRUBIN,TOTAL 0.2 MG/DL (0.3-1.2); BLOOD UREA NITROGEN 9 MG/DL (9-23); CARBON DIOXIDE LEVEL 29 MMOL/L (20-31); CHLORIDE LEVEL 106 MMOL/L (98-107); CREATININE FOR GFR 0.77 MG/DL (0.55-1.30); GLOMERULAR FILTRATION RATE > 60.0 (>39); GLUCOSE, FASTING 88 MG/DL (74-106); POTASSIUM SERUM 4.5 MMOL/L (3.5-5.1); SODIUM LEVEL 142 MMOL/L (136-145)
[2022-12-01 18:38] LABS: TOTAL PROTEIN 6.5 G/DL (5.7-8.2)
== END ==
LOC: M PLALAB 11:37
PROVIDERS: ATTEND Physician Assistant
DX: R77.8 Other specified abnormalities of plasma proteins (principal); F41.9 Anxiety disorder, unspecified

== ENCOUNTER → 2022-12-21 | Outpatient (CLI) | payer MEDICARE, MEDICAID ==
[2022-12-21 16:04] LABS: HEMATOCRIT 43.4 % (36.0-47.0); HEMOGLOBIN 13.4 g/dl (12.0-15.5); MEAN CORPUSCULAR HEMOGLOBIN 26.7 pg (27.0-33.0); MEAN CORPUSCULAR HGB CONC 30.9 g/dl (32.0-36.5); MEAN CORPUSCULAR VOLUME 86.6 fl (80.0-96.0); PLATELET COUNT, AUTOMATED 340 10^3/uL (150-450); RED BLOOD COUNT 5.01 10^6/uL (4.00-5.40); WHITE BLOOD COUNT 6.8 10^3/uL (4.0-10.0)
[2022-12-21 16:12] LABS: ALBUMIN 3.7 G/DL (3.2-5.2); ALKALINE PHOSPHATASE 75 U/L (46-116); ALT/SGPT 28 U/L (7.0-40); AST/SGOT 24 U/L (<34); BILIRUBIN,TOTAL 0.2 MG/DL (0.3-1.2); BLOOD UREA NITROGEN 10 MG/DL (9-23); CALCIUM LEVEL 8.9 MG/DL (8.3-10.6); CARBON DIOXIDE LEVEL 30 MMOL/L (20-31); CHLORIDE LEVEL 104 MMOL/L (98-107); CHOLESTEROL LEVEL 187 MG/DL (<200); CHOLESTEROL RISK RATIO 3.56 (<5); CREATININE FOR GFR 0.78 MG/DL (0.55-1.30); GLOMERULAR FILTRATION RATE > 60.0 (>39); GLUCOSE, FASTING 79 MG/DL (74-106); HDL CHOLESTEROL 52.4 MG/DL (>40); LDL CHOLESTEROL 115.2 MG/DL (<100); NON-HDL-C 134.6 MG/DL; POTASSIUM SERUM 4.6 MMOL/L (3.5-5.1); SODIUM LEVEL 141 MMOL/L (136-145); TOTAL PROTEIN 6.8 G/DL (5.7-8.2); TRIGLYCERIDES LEVEL 97 MG/DL (<150)
[2022-12-25 20:09] LABS: FREE KAPPA LIGHT CHAINS SERUM 18.9 mg/L (3.3-19.4); KAPPA/LAMBDA RATIO SERUM 1.35 (0.26-1.65)
== END ==
LOC: M PLALAB 14:19
PROVIDERS: ATTEND Physician Assistant
DX: R10.9 Unspecified abdominal pain (principal); R77.8 Other specified abnormalities of plasma proteins; E78.5 Hyperlipidemia, unspecified; R35.0 Frequency of micturition

== ENCOUNTER → 2023-01-05 | Outpatient (CLI) | payer MEDICARE, MEDICAID ==
[~2023-01-05] MED LIST changes: +GASTROGRAFIN SOLUTION 30ML As Ordered ONE
== END ==
LOC: M RAD 13:14
PROVIDERS: ATTEND Physician Assistant
DX: R10.9 Unspecified abdominal pain (principal)

== ENCOUNTER → 2023-02-23 | Outpatient (CLI) | payer MEDICARE, MEDICAID ==
[~2023-02-23] MED LIST changes: -GASTROGRAFIN SOLUTION 30ML As Ordered ONE; +LORA1TAB23 PO; -LORA1TAB4 PO
== END ==
LOC: M WHC 10:00
PROVIDERS: ATTEND Physician Assistant
DX: Z12.31 Encounter for screening mammogram for malignant neoplasm of breast (principal)

== ENCOUNTER 2023-05-24 22:22 | Emergency (ER) | payer MEDICARE, MEDICAID ==
[~2023-05-24] VITALS: Ht 170.2 cm; Wt 68.0 kg
[2023-05-24 22:45] VITALS: TEMP 98
[2023-05-24 22:57] LABS: BASO # 0.1 10^3/uL (0.0-0.2); BASO % 0.8 % (0.0-1.0); EOS # 0.3 10^3/uL (0.0-0.5); EOS % 3.4 % (0.0-3.0); HEMATOCRIT 43.1 % (36.0-47.0); HEMOGLOBIN 13.9 g/dl (12.0-15.5); LYMPH # 1.8 10^3/uL (1.5-5.0); LYMPH % 22.7 % (24.0-44.0); MEAN CORPUSCULAR HEMOGLOBIN 27.4 pg (27.0-33.0); MEAN CORPUSCULAR HGB CONC 32.3 g/dl (32.0-36.5); MEAN CORPUSCULAR VOLUME 84.8 fl (80.0-96.0); MONO # 0.6 10^3/uL (0.0-0.8); MONO % 8.3 % (2.0-8.0); NEUTROPHILS % 64.7 % (36.0-66.0); PLATELET COUNT, AUTOMATED 239 10^3/uL (150-450); RED BLOOD COUNT 5.08 10^6/uL (4.00-5.40); WHITE BLOOD COUNT 7.7 10^3/uL (4.0-10.0)
[2023-05-24 23:18] LABS: LIPASE 50 U/L (12-53)
[2023-05-24 23:20] LABS: ALBUMIN 3.7 G/DL (3.2-5.2); ALKALINE PHOSPHATASE 56 U/L (46-116); ALT/SGPT 21 U/L (7.0-40); AST/SGOT 15 U/L (<34); BILIRUBIN,DIRECT < 0.1 MG/DL (<0.4); BILIRUBIN,TOTAL 0.2 MG/DL (0.3-1.2); BLOOD UREA NITROGEN 8 MG/DL (9-23); CALCIUM LEVEL 8.9 MG/DL (8.3-10.6); CARBON DIOXIDE LEVEL 25 MMOL/L (20-31); CHLORIDE LEVEL 109 MMOL/L (98-107); CK-MB VALUE MASS < 1.0 NG/ML (<3.6); CREATININE FOR GFR 0.74 MG/DL (0.55-1.30); GLOMERULAR FILTRATION RATE > 60.0 (>39); GLUCOSE, FASTING 126 MG/DL (74-106); POTASSIUM SERUM 3.8 MMOL/L (3.5-5.1); SODIUM LEVEL 142 MMOL/L (136-145); TOTAL PROTEIN 6.9 G/DL (5.7-8.2)
[2023-05-24 23:23] LABS: THYROID STIMULATING HORMONE 2.023 uIU/ML (0.55-4.78)
[2023-05-24 23:29] LABS: CPK CREATINE PHOSPHOKINASE 71 U/L (34-145)
[2023-05-25 00:28] LABS: CK-MB VALUE MASS < 1.0 NG/ML (<3.6)
[2023-05-25 00:30] LABS: CPK CREATINE PHOSPHOKINASE 66 U/L (34-145); MB/CK RELATIVE INDEX 1.51 (< OR =4)
[2023-05-25] MEDS ORDERED: ONDANSETRON 4MG 2ML VIAL IV ONE (00:35)
[2023-05-25] MEDS ORDERED: ISOVUE-370 76% 100ML VIAL As Ordered ONE (00:36)
[2023-05-25] MEDS ORDERED: ASPIRIN 81MG CHEW TABLET PO ONE (01:00)
[2023-05-25] MEDS ORDERED: MAALOX 30 ML SUSP *UDC PO ONE (01:00)
[2023-05-25 01:45] VITALS: BP 143/68; O2SAT 95
[2023-05-25] MEDS ORDERED: ONDA4TAB6 PO (04:01)
== END 2023-05-25 04:15 | disposition home or self-care (01) ==
LOC: M ED 22:22
DX: R53.81 Other malaise (principal); R00.1 Bradycardia, unspecified; E78.5 Hyperlipidemia, unspecified; C18.9 Malignant neoplasm of colon, unspecified; Z86.79 Personal history of other diseases of the circulatory system; Z88.0 Allergy status to penicillin; Z88.1 Allergy status to other antibiotic agents; Z91.040 Latex allergy status; Z79.83 Long term (current) use of bisphosphonates; Z79.899 Other long term (current) drug therapy
CPT/HCPCS: 71045; 71275; 80048; 80076; 82550; 82553; 83690; 84443; 84484; 85025; 93005; 93041; 94760; 96374; 99285; J2405; Q9967

== ENCOUNTER → 2023-07-12 | Outpatient (CLI) | payer MEDICARE, MEDICAID ==
[~2023-07-12] MED LIST changes: -CEFD300C41 PO; +CEFD300C42 PO; +ONDA4TAB6 PO
== END ==
LOC: M RAD 13:29
PROVIDERS: ATTEND Physician Assistant
DX: N21.0 Calculus in bladder (principal); N20.0 Calculus of kidney; N13.30 Unspecified hydronephrosis; R10.2 Pelvic and perineal pain

== ENCOUNTER → 2023-07-12 | Outpatient (REF) | payer MEDICARE, MEDICAID ==
[2023-07-12 14:57] LABS: APPEARANCE, URINE CLEAR (CLEAR); BACTERIA, URINE AUTO NEGATIVE (NEGATIVE); BILIRUBIN, URINE AUTO NEGATIVE (NEGATIVE); BLOOD, URINE BLOOD NEGATIVE (NEGATIVE); COLOR, URINE YELLOW (YELLOW); GLUCOSE, URINE (UA) AUTO NEGATIVE (NEGATIVE); KETONE, URINE AUTO NEGATIVE (NEGATIVE); LEUKOCYTE ESTERASE, URINE AUTO 2+ (NEGATIVE); NITRITE, URINE AUTO NEGATIVE (NEGATIVE); PROTEIN, URINE AUTO NEGATIVE (NEGATIVE); RBC, URINE AUTO 2 /HPF (0-3); SQUAMOUS EPITHELIAL CELL UR AU 1 /HPF (0-6); UROBILINOGEN, URINE AUTO 0.2 mg/dL (0.0-2.0); WBC, URINE AUTO 31 /HPF (0-3)
== END ==
LOC: M SFHCPLAZ 13:09
PROVIDERS: ATTEND Physician Assistant
DX: N13.30 Unspecified hydronephrosis (principal); Z79.899 Other long term (current) drug therapy

== ENCOUNTER → 2023-11-15 | Outpatient (CLI) | payer MEDICARE, MEDICAID ==
[~2023-11-15] MED LIST changes: +B-122500 PO; +CEFD1CAP9 PO; -CEFD300C42 PO; +NOXI1TAB PO
[2023-11-15 15:50] LABS: BASO # 0.1 10^3/uL (0.0-0.2); BASO % 1.6 % (0.0-1.0); EOS # 0.4 10^3/uL (0.0-0.5); HEMATOCRIT 43.3 % (36.0-47.0); HEMOGLOBIN 13.5 g/dl (12.0-15.5); LYMPH # 1.9 10^3/uL (1.5-5.0); LYMPH % 26.8 % (24.0-44.0); MEAN CORPUSCULAR HEMOGLOBIN 27.6 pg (27.0-33.0); MEAN CORPUSCULAR HGB CONC 31.2 g/dl (32.0-36.5); MEAN CORPUSCULAR VOLUME 88.5 fl (80.0-96.0); MONO # 0.6 10^3/uL (0.0-0.8); MONO % 8.1 % (2.0-8.0); NEUTROPHILS # 4.1 10^3/uL (1.5-8.5); NEUTROPHILS % 58.4 % (36.0-66.0); PLATELET COUNT, AUTOMATED 284 10^3/uL (150-450); RED BLOOD COUNT 4.89 10^6/uL (4.00-5.40); WHITE BLOOD COUNT 6.9 10^3/uL (4.0-10.0)
[2023-11-15 15:56] LABS: FERRITIN 52.6 NG/ML (7.3-270.7); FREE T4 0.87 NG/DL (0.89-1.76); THYROID STIMULATING HORMONE 3.171 uIU/ML (0.55-4.78)
[2023-11-15 15:57] LABS: ALBUMIN 3.7 G/DL (3.2-5.2); ALKALINE PHOSPHATASE 52 U/L (46-116); ALT/SGPT 19 U/L (7.0-40); AST/SGOT 17 U/L (<34); BILIRUBIN,TOTAL 0.2 MG/DL (0.3-1.2); BLOOD UREA NITROGEN 10 MG/DL (9-23); CALCIUM LEVEL 9.2 MG/DL (8.3-10.6); CARBON DIOXIDE LEVEL 31 MMOL/L (20-31); CHLORIDE LEVEL 107 MMOL/L (98-107); CHOLESTEROL LEVEL 209 MG/DL (<200); CHOLESTEROL RISK RATIO 4.18 (<5); CREATININE FOR GFR 0.79 MG/DL (0.55-1.30); GLOMERULAR FILTRATION RATE > 60.0 (>39); GLUCOSE, FASTING 92 MG/DL (74-106); HDL CHOLESTEROL 49.9 MG/DL (>40); IRON (FE) 92 UG/DL (50-170); LDL CHOLESTEROL 132.9 MG/DL (<100); NON-HDL-C 159.1 MG/DL; PERCENT SATURATION 34.6 % (13.2-45.0); POTASSIUM SERUM 4.3 MMOL/L (3.5-5.1); SODIUM LEVEL 143 MMOL/L (136-145); TOTAL IRON BINDING CAPACITY 266 UG/DL (250-425); TOTAL PROTEIN 6.7 G/DL (5.7-8.2); TRIGLYCERIDES LEVEL 131 MG/DL (<150)
[2023-11-15 15:58] LABS: TOTAL 25(OH) VITAMIN D 66.7 NG/ML (20.0-100.0)
[2023-11-15 15:59] LABS: FOLATE > 24.0 NG/ML (>5.4); VITAMIN B12 LEVEL 1295 PG/ML (211-911)
[2023-11-15 16:08] LABS: HEMOGLOBIN A1c 5.8 % (4.0-6.0)
== END ==
LOC: M PLALAB 12:32
PROVIDERS: ATTEND Physician Assistant
DX: R53.83 Other fatigue (principal); E55.9 Vitamin D deficiency, unspecified; I10 Essential (primary) hypertension; F41.9 Anxiety disorder, unspecified; E78.5 Hyperlipidemia, unspecified; Z79.899 Other long term (current) drug therapy; Z86.39 Personal history of other endocrine, nutritional and metabolic disease

== ENCOUNTER → 2024-05-07 | Outpatient (CLI) | payer MEDICARE, MEDICAID ==
[~2024-05-07] MED LIST changes: +ONDA-282 PO; -ONDA4TAB6 PO
[2024-05-07 15:23] LABS: BASO # 0.1 10^3/uL (0.0-0.2); BASO % 1.2 % (0.0-1.0); EOS # 0.4 10^3/uL (0.0-0.5); EOS % 5.5 % (0.0-3.0); HEMOGLOBIN 13.1 g/dl (12.0-15.5); LYMPH # 1.6 10^3/uL (1.5-5.0); LYMPH % 24.3 % (24.0-44.0); MEAN CORPUSCULAR HEMOGLOBIN 27.7 pg (27.0-33.0); MEAN CORPUSCULAR VOLUME 86.7 fl (80.0-96.0); MONO # 0.6 10^3/uL (0.0-0.8); MONO % 8.4 % (2.0-8.0); NEUTROPHILS # 4.1 10^3/uL (1.5-8.5); NEUTROPHILS % 60.5 % (36.0-66.0); PLATELET COUNT, AUTOMATED 278 10^3/uL (150-450); RED BLOOD COUNT 4.73 10^6/uL (4.00-5.40); WHITE BLOOD COUNT 6.8 10^3/uL (4.0-10.0)
[2024-05-07 15:27] LABS: C REACTIVE PROTEIN QUANTITATIV < 0.40 MG/DL (<1.0)
[2024-05-07 15:28] LABS: ALBUMIN 3.6 G/DL (3.2-5.2); ALKALINE PHOSPHATASE 61 U/L (46-116); ALT/SGPT 25 U/L (7.0-40); AST/SGOT 19 U/L (<34); BILIRUBIN,TOTAL 0.2 MG/DL (0.3-1.2); BLOOD UREA NITROGEN 9 MG/DL (9-23); CALCIUM LEVEL 9.3 MG/DL (8.3-10.6); CARBON DIOXIDE LEVEL 30 MMOL/L (20-31); CHLORIDE LEVEL 107 MMOL/L (98-107); CHOLESTEROL LEVEL 180 MG/DL (<200); CHOLESTEROL RISK RATIO 3.31 (<5); CREATININE FOR GFR 0.76 MG/DL (0.55-1.30); GLOMERULAR FILTRATION RATE > 60.0 (>39); GLUCOSE, FASTING 99 MG/DL (74-106); HDL CHOLESTEROL 54.3 MG/DL (>40); IRON (FE) 57 UG/DL (50-170); LDL CHOLESTEROL 100.9 MG/DL (<100); NON-HDL-C 125.7 MG/DL; PERCENT SATURATION 21.1 % (13.2-45.0); POTASSIUM SERUM 4.4 MMOL/L (3.5-5.1); SODIUM LEVEL 139 MMOL/L (136-145); TOTAL IRON BINDING CAPACITY 270 UG/DL (250-425); TRIGLYCERIDES LEVEL 124 MG/DL (<150)
[2024-05-07 15:30] LABS: FERRITIN 56.4 NG/ML (7.3-270.7); TOTAL 25(OH) VITAMIN D 56.8 NG/ML (20.0-100.0)
[2024-05-07 15:31] LABS: ERYTHROCYTE SEDIMENTATION RATE 42 mm/hr (0-30)
[2024-05-07 16:12] LABS: HEMOGLOBIN A1c 5.7 % (4.0-6.0)
== END ==
LOC: M PLALAB 12:14
PROVIDERS: ATTEND Physician Assistant
DX: E78.00 Pure hypercholesterolemia, unspecified (principal); R53.83 Other fatigue; R52 Pain, unspecified; E55.9 Vitamin D deficiency, unspecified; Z79.899 Other long term (current) drug therapy

== ENCOUNTER → 2024-05-07 | Outpatient (CLI) | payer MEDICARE, MEDICAID | LOC: M WHC 12:13 | PROVIDERS: ATTEND Physician Assistant | DX: M79.661 Pain in right lower leg (principal) ==

== ENCOUNTER → 2024-05-15 | Outpatient (CLI) | payer MEDICARE, MEDICAID | LOC: M PLAIMG 09:02 → M PLALAB 09:02 | PROVIDERS: ATTEND Physician Assistant | DX: J40 Bronchitis, not specified as acute or chronic (principal); R50.9 Fever, unspecified ==

== ENCOUNTER → 2024-09-26 | Outpatient (CLI) | payer MEDICARE, MEDICAID ==
[2024-09-26 14:10] LABS: BASO # 0.1 10^3/uL (0.0-0.2); BASO % 1.3 % (0.0-1.0); EOS # 0.8 10^3/uL (0.0-0.5); EOS % 10.7 % (0.0-3.0); HEMATOCRIT 42.2 % (36.0-47.0); HEMOGLOBIN 13.1 g/dl (12.0-15.5); LYMPH # 2.1 10^3/uL (1.5-5.0); LYMPH % 27.9 % (24.0-44.0); MEAN CORPUSCULAR VOLUME 86.8 fl (80.0-96.0); MONO # 0.7 10^3/uL (0.0-0.8); MONO % 8.5 % (2.0-8.0); NEUTROPHILS % 51.5 % (36.0-66.0); PLATELET COUNT, AUTOMATED 290 10^3/uL (150-450); RED BLOOD COUNT 4.86 10^6/uL (4.00-5.40); WHITE BLOOD COUNT 7.7 10^3/uL (4.0-10.0)
[2024-09-26 14:51] LABS: FREE T4 1.05 NG/DL (0.89-1.76); THYROID STIMULATING HORMONE 4.625 uIU/ML (0.55-4.78)
[2024-09-26 14:55] LABS: ALBUMIN 3.8 G/DL (3.2-5.2); ALKALINE PHOSPHATASE 53 U/L (35-104); ALT/SGPT 16 U/L (7.0-40); AST/SGOT 16 U/L (<34); BILIRUBIN,TOTAL 0.2 MG/DL (0.3-1.2); BLOOD UREA NITROGEN 10 MG/DL (9-23); CALCIUM LEVEL 9.5 MG/DL (8.3-10.6); CARBON DIOXIDE LEVEL 30 MMOL/L (20-31); CHLORIDE LEVEL 104 MMOL/L (98-107); CREATININE FOR GFR 0.77 MG/DL (0.55-1.30); GLOMERULAR FILTRATION RATE > 60.0 (>39); GLUCOSE, FASTING 93 MG/DL (74-106); POTASSIUM SERUM 5.3 MMOL/L (3.5-5.1); SODIUM LEVEL 139 MMOL/L (136-145); TOTAL PROTEIN 6.9 G/DL (5.7-8.2)
== END ==
LOC: M PLALAB 11:49
PROVIDERS: ATTEND Nurse Practitioner Family
DX: F41.9 Anxiety disorder, unspecified (principal); I10 Essential (primary) hypertension; R53.83 Other fatigue; Z79.899 Other long term (current) drug therapy

== ENCOUNTER 2024-10-08 19:57 | Emergency (ER) | payer MEDICARE, MEDICAID ==
[~2024-10-08] VITALS: Ht 162.6 cm; Wt 70.0 kg
[2024-10-08 20:34] LABS: BASO # 0.1 10^3/uL (0.0-0.2); BASO % 1.3 % (0.0-1.0); EOS # 0.4 10^3/uL (0.0-0.5); EOS % 5.9 % (0.0-3.0); HEMATOCRIT 42.3 % (36.0-47.0); HEMOGLOBIN 13.4 g/dl (12.0-15.5); LYMPH # 1.4 10^3/uL (1.5-5.0); LYMPH % 19.5 % (24.0-44.0); MEAN CORPUSCULAR HEMOGLOBIN 27.3 pg (27.0-33.0); MEAN CORPUSCULAR HGB CONC 31.7 g/dl (32.0-36.5); MEAN CORPUSCULAR VOLUME 86.3 fl (80.0-96.0); MONO # 0.4 10^3/uL (0.0-0.8); MONO % 6.1 % (2.0-8.0); NEUTROPHILS # 4.6 10^3/uL (1.5-8.5); NEUTROPHILS % 66.9 % (36.0-66.0); PLATELET COUNT, AUTOMATED 245 10^3/uL (150-450); WHITE BLOOD COUNT 6.9 10^3/uL (4.0-10.0)
[2024-10-08 20:46] LABS: INR 0.94; PARTIAL THROMBOPLASTIN TIME 29.7 SECONDS (24.8-34.2); PROTHROMBIN TIME 12.9 SECONDS (12.5-14.5)
[2024-10-08 21:07] LABS: ALBUMIN 3.4 G/DL (3.2-5.2); ALKALINE PHOSPHATASE 52 U/L (35-104); ALT/SGPT 17 U/L (7.0-40); AST/SGOT 19 U/L (<34); BILIRUBIN,TOTAL 0.3 MG/DL (0.3-1.2); BLOOD UREA NITROGEN 11 MG/DL (9-23); CALCIUM LEVEL 8.9 MG/DL (8.3-10.6); CARBON DIOXIDE LEVEL 30 MMOL/L (20-31); CHLORIDE LEVEL 109 MMOL/L (98-107); CK-MB VALUE MASS < 1.0 NG/ML (<3.6); CREATININE FOR GFR 0.89 MG/DL (0.55-1.30); GLOMERULAR FILTRATION RATE > 60.0 (>39); GLUCOSE, FASTING 136 MG/DL (74-106); POTASSIUM SERUM 4.3 MMOL/L (3.5-5.1); SODIUM LEVEL 144 MMOL/L (136-145); TOTAL PROTEIN 6.6 G/DL (5.7-8.2)
[2024-10-08 21:12] LABS: CPK CREATINE PHOSPHOKINASE 38 U/L (34-145); MB/CK RELATIVE INDEX 2.63 (< OR =4)
[2024-10-08 21:59] LABS: CK-MB VALUE MASS < 1.0 NG/ML (<3.6)
[2024-10-08 22:01] LABS: CPK CREATINE PHOSPHOKINASE 41 U/L (34-145); MB/CK RELATIVE INDEX 2.43 (< OR =4)
[2024-10-08 22:30] VITALS: BP 122/60; TEMP 98; O2SAT 96
== END 2024-10-08 22:47 | disposition home or self-care (01) ==
LOC: EDBD 19:57 → M ED 19:57
DX: R55 Syncope and collapse (principal); I25.119 Atherosclerotic heart disease of native coronary artery with unspecified angina pectoris; I25.2 Old myocardial infarction; I10 Essential (primary) hypertension; E78.5 Hyperlipidemia, unspecified; K21.9 Gastro-esophageal reflux disease without esophagitis; Z88.0 Allergy status to penicillin; Z88.1 Allergy status to other antibiotic agents; Z88.8 Allergy status to other drugs, medicaments and biological substances; Z91.040 Latex allergy status; Z79.1 Long term (current) use of non-steroidal anti-inflammatories (NSAID); Z79.899 Other long term (current) drug therapy; Z79.810 Long term (current) use of selective estrogen receptor modulators (SERMs)

== ENCOUNTER → 2025-01-12 | Outpatient (CLI) | payer MEDICARE, MEDICAID ==
[2025-01-12 13:59] LABS: CALCIUM LEVEL 9.7 MG/DL (8.3-10.6); CREATININE FOR GFR 0.81 MG/DL (0.55-1.30); GLOMERULAR FILTRATION RATE 76.6 (>39); POTASSIUM SERUM 4.3 MMOL/L (3.5-5.1)
== END ==
LOC: M PLALAB 10:59
PROVIDERS: ATTEND Ophthalmology
DX: H02.413 Mechanical ptosis of bilateral eyelids (principal)

== ENCOUNTER → 2025-01-12 | Outpatient (CLI) | payer MEDICARE, MEDICAID ==
[2025-01-12 13:55] LABS: BASO # 0.1 10^3/uL (0.0-0.2); BASO % 1.4 % (0.0-1.0); EOS # 0.4 10^3/uL (0.0-0.5); EOS % 4.7 % (0.0-3.0); HEMOGLOBIN 13.9 g/dl (12.0-15.5); LYMPH # 1.8 10^3/uL (1.5-5.0); LYMPH % 23.5 % (24.0-44.0); MEAN CORPUSCULAR HGB CONC 31.6 g/dl (32.0-36.5); MEAN CORPUSCULAR VOLUME 85.4 fl (80.0-96.0); MONO # 0.6 10^3/uL (0.0-0.8); MONO % 8.3 % (2.0-8.0); NEUTROPHILS # 4.8 10^3/uL (1.5-8.5); NEUTROPHILS % 61.8 % (36.0-66.0); PLATELET COUNT, AUTOMATED 288 10^3/uL (150-450); RED BLOOD COUNT 5.15 10^6/uL (4.00-5.40); WHITE BLOOD COUNT 7.7 10^3/uL (4.0-10.0)
[2025-01-12 14:02] LABS: ALBUMIN 3.9 G/DL (3.2-5.2); BILIRUBIN,TOTAL 0.2 MG/DL (0.3-1.2); CALCIUM LEVEL 9.9 MG/DL (8.3-10.6); CHOLESTEROL RISK RATIO 2.83 (<5); CREATININE FOR GFR 0.83 MG/DL (0.55-1.30); GLOMERULAR FILTRATION RATE 74.4 (>39); HDL CHOLESTEROL 59.3 MG/DL (>40); LDL CHOLESTEROL 90.5 MG/DL (<100); NON-HDL-C 108.7 MG/DL; POTASSIUM SERUM 4.5 MMOL/L (3.5-5.1); THYROID STIMULATING HORMONE 4.872 uIU/ML (0.55-4.78); TOTAL PROTEIN 7.2 G/DL (5.7-8.2)
[2025-01-12 14:03] LABS: FREE T4 1.04 NG/DL (0.89-1.76)
[2025-01-12 14:19] LABS: HEMOGLOBIN A1c 5.9 % (4.0-6.0)
== END ==
LOC: M PLALAB 11:01
PROVIDERS: ATTEND Nurse Practitioner Family
DX: E55.9 Vitamin D deficiency, unspecified (principal); R73.03 Prediabetes; R53.83 Other fatigue; E78.2 Mixed hyperlipidemia

== ENCOUNTER 2025-01-15 15:02 | Emergency (ER) | payer MEDICARE, MEDICAID ==
[~2025-01-15] VITALS: Ht 162.6 cm; Wt 68.8 kg
[2025-01-15] MEDS ORDERED: ISOVUE-370 76% 100ML VIAL As Ordered ONE (17:50)
[2025-01-15 18:06] LABS: BASO # 0.1 10^3/uL (0.0-0.2); EOS # 0.3 10^3/uL (0.0-0.5); EOS % 3.4 % (0.0-3.0); HEMATOCRIT 41.1 % (36.0-47.0); HEMOGLOBIN 13.1 g/dl (12.0-15.5); LYMPH # 2.1 10^3/uL (1.5-5.0); LYMPH % 25.5 % (24.0-44.0); MEAN CORPUSCULAR HEMOGLOBIN 27.5 pg (27.0-33.0); MEAN CORPUSCULAR HGB CONC 31.9 g/dl (32.0-36.5); MEAN CORPUSCULAR VOLUME 86.2 fl (80.0-96.0); MONO # 0.6 10^3/uL (0.0-0.8); MONO % 6.7 % (2.0-8.0); NEUTROPHILS # 5.2 10^3/uL (1.5-8.5); NEUTROPHILS % 63.2 % (36.0-66.0); PLATELET COUNT, AUTOMATED 270 10^3/uL (150-450); RED BLOOD COUNT 4.77 10^6/uL (4.00-5.40); WHITE BLOOD COUNT 8.3 10^3/uL (4.0-10.0)
[2025-01-15 18:20] LABS: LIPASE 44 U/L (12-53)
[2025-01-15 18:22] LABS: AMYLASE 82 U/L (30-118)
[2025-01-15 18:23] LABS: ALBUMIN 3.6 G/DL (3.2-5.2); ALKALINE PHOSPHATASE 52 U/L (35-104); ALT/SGPT 23 U/L (7.0-40); AST/SGOT 24 U/L (<34); BILIRUBIN,DIRECT < 0.1 MG/DL (<0.4); BILIRUBIN,TOTAL 0.2 MG/DL (0.3-1.2); TOTAL PROTEIN 6.9 G/DL (5.7-8.2)
[2025-01-15 20:03] VITALS: BP 122/87; TEMP 97.1; O2SAT 98
== END 2025-01-15 20:13 | disposition home or self-care (01) ==
LOC: M ED 15:02
DX: K56.50 Intestinal adhesions [bands], unspecified as to partial versus complete obstruction (principal); I25.119 Atherosclerotic heart disease of native coronary artery with unspecified angina pectoris; E11.9 Type 2 diabetes mellitus without complications; K21.9 Gastro-esophageal reflux disease without esophagitis; G47.33 Obstructive sleep apnea (adult) (pediatric); E78.5 Hyperlipidemia, unspecified; F41.9 Anxiety disorder, unspecified; Z86.73 Personal history of transient ischemic attack (TIA), and cerebral infarction without residual deficits; Z88.0 Allergy status to penicillin; Z88.1 Allergy status to other antibiotic agents; Z91.040 Latex allergy status; Z79.1 Long term (current) use of non-steroidal anti-inflammatories (NSAID); Z79.810 Long term (current) use of selective estrogen receptor modulators (SERMs); Z79.899 Other long term (current) drug therapy
CPT/HCPCS: 36415; 74177; 80047; 80076; 82150; 83605; 83690; 83735; 85025; 99284; Q9967

== ENCOUNTER → 2025-07-06 | Outpatient (CLI) | payer MEDICARE, MEDICAID ==
[~2025-07-06] MED LIST changes: -PRAV40TA2; +PRAV40TA85
[2025-07-06 13:17] LABS: ALT/SGPT 21.0 U/L (7.0-40); AST/SGOT 21.0 U/L (<34); BASO # 0.1 10^3/uL (0.0-0.2); BASO % 1.0 % (0.0-1.0); CALCIUM LEVEL 9.6 MG/DL (8.3-10.6); CARBON DIOXIDE LEVEL 27.0 MMOL/L (20-31); CHLORIDE LEVEL 106.0 MMOL/L (98-107); CHOLESTEROL LEVEL 167.0 MG/DL (<200); CHOLESTEROL RISK RATIO 2.81 (<5); CREATININE FOR GFR 0.82 MG/DL (0.55-1.30); EOS # 0.6 10^3/uL (0.0-0.5); EOS % 7.4 % (0.0-3.0); FREE T4 0.93 NG/DL (0.89-1.76); GLOMERULAR FILTRATION RATE 75.5 (>39); LDL CHOLESTEROL 81.5 MG/DL (<100); LYMPH # 1.9 10^3/uL (1.5-5.0); LYMPH % 23.1 % (24.0-44.0); MAGNESIUM LEVEL 1.9 MG/DL (1.8-2.4); MONO # 0.7 10^3/uL (0.0-0.8); MONO % 8.0 % (2.0-8.0); NEUTROPHILS # 5.0 10^3/uL (1.5-8.5); NEUTROPHILS % 60.3 % (36.0-66.0); NON-HDL-C 107.7 MG/DL; PLATELET COUNT, AUTOMATED 300 10^3/uL (150-450); POTASSIUM SERUM 4.5 MMOL/L (3.5-5.1); SODIUM LEVEL 144.0 MMOL/L (136-145); TRIGLYCERIDES LEVEL 131.0 MG/DL (<150)
[2025-07-06 13:18] LABS: TOTAL 25(OH) VITAMIN D 56.8 NG/ML (20.0-100.0)
[2025-07-06 13:45] LABS: ESTIMATED AVERAGE GLUCOSE 128.0 MG/DL (60-110)
[2025-07-07 11:13] LABS: BARBITURATES SCREEN, URINE Negative ng/mL (Cutoff=200); BENZODIAZEPINES, URINE SCREEN Negative ng/mL (Cutoff=200); CREATININE, URINE 88.5 mg/dL (20.0-300.0); METHADONE, URINE SCREEN Negative ng/mL (Cutoff=300); OPIATE SCREEN, URINE Negative ng/mL (Cutoff=300); OXYCODONE, SCREEN, URINE Negative ng/mL (Cutoff=100); PCP SCREEN, URINE Negative ng/mL (Cutoff=25)
== END ==
LOC: M PLALAB 09:46
PROVIDERS: ATTEND Nurse Practitioner Family
DX: I10 Essential (primary) hypertension (principal); F44.5 Conversion disorder with seizures or convulsions; E55.9 Vitamin D deficiency, unspecified; R73.03 Prediabetes; E05.90 Thyrotoxicosis, unspecified without thyrotoxic crisis or storm; E78.2 Mixed hyperlipidemia; Z79.899 Other long term (current) drug therapy